=== PATIENT | female | born 1950 | race African-American/Black ===

== ENCOUNTER 2018-08-06 18:11 | Inpatient (IN) ==
[2018-08-06] MEDS ORDERED: NS 1,000 ML IV ONE ×3 (18:43→22:32)
[2018-08-06] MEDS ORDERED: HUMULIN R IV ONE ×2 (18:43→22:11)
[2018-08-06] MEDS ORDERED: HUMULIN R (PARKWAY) ONE (18:51)
[2018-08-06] MEDS ORDERED: NS 500 ML IV ONE (19:05)
[2018-08-06 19:29] LABS: BE -9.7 mmoll (-3.0-3.0); BLOOD TYPE ARTERIAL; HCO3-(ACT) 17.3 mmoll (20.0-26.0); METHB 0.5 % (0.0-1.5); O2(CT) 15.1 mL/dL (15.0-23.0); O2HB 95.7 % (95.0-99.0); PCO2(98.6) 32 mmHg (35-45); PO2(98.6) 92 mmHg (60-100); SAMPLE BLOOD; SAO2 97.4 % (95.0-100.0); THB 11.1 g/dL (11.5-17.4)
[2018-08-06 19:31] LABS: MODALITY CANNULA
[2018-08-06 19:32] LABS: ALLEN TEST YES
[2018-08-06 19:52] LABS: BASO# 0.01 X1000 (0.0-0.2); BASO% 0.1 % (0.0-0.8); EOS# 0.01 X1000 (0.0-0.7); EOS% 0.1 % (0.0-10.0); HEMATOCRIT 34.8 % (37.0-47.0); HEMOGLOBIN 11.7 g/dL (12.0-16.0); IMM GRAN# 0.01 X1000 (0.0-0.04); IMM GRAN% 0.1 % (0.0-0.5); LYMPH# 0.74 X1000 (1.2-3.4); LYMPH% 8.9 % (20.5-51.1); MCH 29.5 PG (27-31); MCHC 33.6 g/dL (33-37); MCV 87.7 FL (81-99); MONO# 0.19 X1000 (0.11-0.59); MONO% 2.3 % (1.7-9.3); MPV 10.7 FL (7.4-10.4); NEUT# 7.37 X1000 (1.4-6.5); NEUT% 88.5 % (42.2-75.2); PLT 391 X1000 (130-400); RBC 3.97 XMIL (4.2-5.4); RDW 12.4 % (11.5-14.5); WBC 8.33 X1000 (4.8-10.8)
[2018-08-06 20:03] LABS: ALBUMIN 3.5 g/dL (3.5-5.0); CALCIUM 9.6 mg/dL (8.8-10.2); POTASSIUM 3.8 mmol/L (3.5-5.1); TOTAL BILIRUBIN 0.2 mg/dL (0.20-1.00)
--- NOTE | 2018-08-06 20:26 | Diag Imaging Result Doc PS360 ---
EXAM: CT HEAD W/O CONTRAST HISTORY: ams TECHNIQUE: CT head without contrast COMPARISON: 06/19/2018 FINDINGS: There is motion on the lower images. No parenchymal hemorrhage. No epidural or subdural hematoma. No subarachnoid hemorrhage. There are chronic microvascular ischemic changes. No mass identified on this noncontrasted exam. No hydrocephalus. No sinus opacification although there is mucus within the left ethmoid and right maxillary sinuses.. IMPRESSION: 1.No hemorrhage 2.Chronic microvascular ischemic changes. A follow-up MRI may be beneficial. This exam was performed using automated exposure control, adjustment of mA or kV according to patient size, and/or use of iterative reconstruction technique. Electronically signed by Alan Gary 08/06/2018 8:24 PM
--- NOTE | 2018-08-06 20:27 | Diag Imaging Result Doc PS360 ---
EXAM: CHEST-PORTABLE HISTORY: decreased mentation TECHNIQUE: Chest single view COMPARISON: 05/17/2018 FINDINGS: Poor inspiratory effort. Heart is borderline mildly prominent and there is mild central vascular distention. No consolidation. No pleural effusions identified. IMPRESSION: Mildly prominent heart although this is a portable semierect film which exaggerates the heart size. Electronically signed by Alan Gary 08/06/2018 8:25 PM
[2018-08-06 21:04] LABS: BILIRUBIN URINE NEGATIVE (NEGATIVE); BLOOD URINE 1+ (NEGATIVE); CLARITY CLEAR (CLEAR); COLOR YELLOW; KETONE URINE NEGATIVE (NEGATIVE); LEUKOCYTES URINE NEGATIVE (NEGATIVE); NITRITE URINE NEGATIVE (NEGATIVE); PH URINE 6.5; SP GRAVITY URINE 1.005; UROBILINOGEN URINE NORMAL
[2018-08-06 21:07] LABS: URINE BACTERIA NEGATIVE /HFP; URINE EPITHELIAL CELLS <10 /HPF (<10); URINE RBC <10 /HPF (<10); URINE SOURCE CATH; URINE WBC <10 /HPF (<10)
[2018-08-06] MEDS ORDERED: LABETALOL IV ONE (21:20)
--- NOTE | 2018-08-06 21:24 | PROVIDER DOCUMENTATION ---
This chart was entered by Shabnam Damico Scribe, acting as scribe for Ezra Vega MD. HPI-General Adult - General Chief Complaint: High Blood Sugar Stated Complaint: AMS Time Seen by Provider: 08/06/18 19:15 Source: family Allergies/Adverse Reactions: Patient Allergies Allergy/AdvReac Type Severity Reaction Status Date / Time No Known Allergies Allergy Verified 06/19/18 01:10 Home Medications: Home Medication List Medication Instructions Recorded Confirmed Last Taken Type Amlodipine [Norvasc] 5 mg PO BID 30 Days #60 tab 02/26/18 06/19/18 03/06/18 Rx Sodium Bicarbonate 325 mg PO BID 30 Days #60 tab 02/26/18 06/19/18 03/06/18 Rx Acetaminophen [Tylenol] 650 mg PO Q6H PRN PRN tablet 06/20/18 Unknown Rx Carvedilol [Coreg] 12.5 mg PO BID #60 tab 06/20/18 Unknown Rx Insulin Glargine [Lantus] 15 unit SUBQ BID #5 insuln.pen 06/20/18 Unknown Rx Ciprofloxacin HCl [Cipro] 500 mg PO BID #14 tab 07/11/18 Unknown Rx - History of Present Illness -Gen Adult Nature of Presenting Problems: 68 y/o f presents to ed with general adult. pt presents to ed with elevated glucose, and family states 4 hr onset of symptoms, states that she was perfectly fine today and now she is unable to talk, not responsive, moving extremity's wildly. pt family states prior to symptoms pt c/o of a headache. coughing associated. Location of Pain/Injury: reports: generalized Pain Radiation: reports: no radiation Severity: reports: severe Onset/Duration: reports: just prior to arrival, 4-6 hours ago Timing: reports: still present, changing over time Associated Symptoms: reports: cough, headaches. denies: arm pain, back/neck pain, muscle aches, sinus congestion/drainage, nausea, shortness of breath, syncope Similar Symptoms Previously?: No - Diabetes Related Context Context: reports: high blood sugar Review of Systems - Adult - REVIEW OF SYSTEMS - ADULT Constitutional: denies: chills, fever Eyes: reports: no symptoms reported Ears, Nose, Mouth & Throat: reports: no symptoms reported Cardiovascular: reports: no symptoms reported Respiratory: reports: cough. denies: shortness of breath Gastrointestinal: denies: abdominal pain, diarrhea, nausea, vomiting Genitourinary: reports: no symptoms reported Musculoskeletal: reports: no symptoms reported Integumentary: reports: no symptoms reported Neurological: reports: headache/migraines, other (not speaking). denies: seizure, slurred speech, tremors Psychiatric: reports: no symptoms reported Endocrine: reports: no symptoms reported Hematologic/Lymphatic: reports: no symptoms reported Allergic/Immunologic: reports: no symptoms reported All Other Systems: Reviewed and Negative Past History - Adult - PAST MEDICAL HISTORY-ADULT Review of Records: reports: Old Records Reviewed, Nursing Assessment Review, Medications Reviewed, Social history reviewed & non-contributory. Major Childhood Illnesses: reports: denies history Cardiovascular: reports: HTN Respiratory: reports: denies history, asthma Gastrointestinal: reports: other (colon problems) Obstetrical/Gynecological: reports: denies history, other (breast cancer) Genitourinary: reports: kidney disease (CKD) Musculoskeletal: reports: denies history Neurological: reports: denies history Endocrine/Immune: reports: Diabetes Other Conditions: reports: denies history - PRIOR SURGERIES/PROCEDURES Surgical/Procedure History: reports: hysterectomy, breast (L lumpectomy) - IMMUNIZATION STATUS Childhood Immunizations: See Nurse Assessment Flu Vaccine: See Nurse Assessment - FAMILY HISTORY Family History: reviewed, not pertinent - SOCIAL HISTORY Smoking: non-smoker Substance Use: none/never Alcohol Use Frequency: never Living Situation: family Physical Exam-General - PHYSICAL EXAM-ADULT Initial Vital Signs Reviewed: Yes - CONSTITUTIONAL General Appearance: slow to respond - HEAD, EARS, NOSE, MOUTH & THROAT HENMT: other (semimoist membranes) - NECK Neck: supple - RESPIRATORY Respiratory: decreased breath sounds - CARDIOVASCULAR Cardiovascular: tachycardia - GASTROINTESTINAL (ABDOMEN) Abdominal Exam: non tender, soft, no pulsatile mass - LYMPHATIC Lymphatic: no adenopathy - MUSCULOSKELETAL Back Exam: no CVA tenderness Extremity: non-tender Peripheral Pulses: radial (R): 2+, radial (L): 2+ - SKIN Integumentary: warm/dry, other (poor turgor) - NEUROLOGIC Neurologic: other (nonfocal) - PSYCHIATRIC Psych/Mental Status: other (nonverbal, unable to fully assess) Progress - PLAN OF CARE/RESULTS Progress/Plan/Lab Results: Vital Signs - 8 hr 08/06/18 18:13 08/06/18 18:23 08/06/18 18:44 Temperature 98.5 F Pulse Rate 121 H 108 H Respiratory Rate 16 Blood Pressure 192/127 O2 Sat by Pulse Oximetry 100 99 Laboratory Results - last 24 hr 08/06/18 18:21 POC Glucose 500 H D Orders Category Date Time Status Deleon Cath Insertion ORDERED Care 08/06/18 19:05 Active Intake and Output-Strict ORDERED Care 08/06/18 19:05 Active Notify MD/PA/BRIANNA for exam NOW Care 08/06/18 19:05 Active Repeat Vital Signs .Blood Pressure Care 08/06/18 19:05 Active Repeat Vital Signs .Heart Rate Care 08/06/18 19:05 Active Repeat Vital Signs .Oxygen Saturation Care 08/06/18 19:05 Active Repeat Vital Signs .Respiratory Rate Care 08/06/18 19:05 Active Repeat Vital Signs .Temp Care 08/06/18 19:05 Active CHEST-PORTABLE [RAD] Stat Exams 08/06/18 19:06 Ordered ABG [RESP] Routine Lab 08/06/18 19:05 Ordered BLOOD CULTURE [BLDCUL] Stat Lab 08/06/18 19:04 Uncollected CBC WITH ELECTRONIC DIFF [HEME] Stat Lab 08/06/18 19:04 Ordered COMPREHENSIVE METABOLIC PANEL [CHEM] Stat Lab 08/06/18 19:04 Ordered LACTATE, PLASMA [CHEM] Timed Lab 08/06/18 19:[address] W/POSS RFLX CULT [URINALYSIS] Stat Lab 08/06/18 19:04 Uncollected 0.9% Sodium Chloride Inj [Ns] 1,000 ml Med 08/06/18 18:43 Active IV 999 mls/hr 0.9% Sodium Chloride Inj [Ns] 1,000 ml Med 08/06/18 19:05 Discontinued IV As Directed 0.9% Sodium Chloride Inj [Ns] 500 ml Med 08/06/18 19:05 Active IV 999 mls/hr Insulin Human Regular ([place] [Humulin R ([place])] Med 08/06/18 18:51 Discontinued 1 units .ROUTE .STK-MED ONE Insulin Human Regular [Humulin R] Med 08/06/18 18:43 Discontinued 10 unit IV NOW ONE Result Diagrams: 08/06/18 19:35 08/06/18 19:35 - XRAY 1 XRAY Study: Chest Impression: Normal (FINDINGS: Poor inspiratory effort. Heart is borderline mildly prominent and there is mild central vascular distention. No consolidation. No pleural effusions identified. IMPRESSION: Mildly prominent heart although this is a portable semierect film which exaggerates the heart size.) - CT/MRI 1 CT Study: Head Impression: Normal (FINDINGS: There is motion on the lower images. No parenchymal hemorrhage. No epidural or subdural hematoma. No subarachnoid hemorrhage. There are chronic microvascular ischemic changes. No mass identified on this noncontrasted exam. No hydrocephalus. No sinus opacification although there is mucus within the left ethmoid and right maxillary sinuses.. IMPRESSION: 1.No hemorrhage 2.Chronic microvascular ischemic changes. A follow- up MRI may be beneficial.) - CONSULTS/PCP/HOSPITALIST Notification #1 *Consult/PCP/Hospitalist*: Dr. Pope, hospitalist Time Discussed: 22:20 Reason/Comments: will start insulin drip also Consult Disposition: Admit Departure - Departure Date of Disposition Decision: 08/06/18 Time of Disposition Decision: 23:30 DIAGNOSIS: Febrile illness, Severe sepsis, Hypertensive urgency, Renal insufficiency Uncontrolled diabetes mellitus Qualifiers: Diabetes mellitus type: type 2 Glycemic state: with hyperglycemia Qualified Code(s): E11.65 - Type 2 diabetes mellitus with hyperglycemia Altered mental state Qualifiers: Altered mental status type: unspecified Qualified Code(s): R41.82 - Altered mental status, unspecified Disposition: ADMITTED INPATIENT 09 Certified Medical Emergency: Emergent Condition: Stable Referrals and Follow-Ups: Madina Justin MD [Primary Care Provider] - - Critical Care Note This patient required my direct & personal management of CC.: Yes Attestation - Physician/ HILDA Attestation Patient care was provided by Advanced Practice Provider:: No The physician spent face to face time with patient:: Yes Advanced Practice Provider documentation review:: Supervising physician onsite and consulted in the evaluation and care of this patient. The physician did have a face to face encounter with the patient. This chart was documented by the indicated scribe, (Shabnam Damico Scribe) and accurately reflects the services I performed and decisions made by me, Ezra Vega MD, as attested by the provider's signature.
[2018-08-06] MEDS ORDERED: NARCAN IV ONE (21:53)
[2018-08-06] MEDS ORDERED: MAXIPIME 2 GM in NS 100 ML IV ONE (21:59)
[2018-08-06] MEDS ORDERED: VANCOMYCIN 1 GM/NS 1 GM/250 ML IVPB IV ONE (21:59)
[2018-08-06] MEDS ORDERED: NS 500 ML ONE (22:08)
[2018-08-06 22:27] LABS: UR AMPHETAMINES QUAL NONE DETECTED (NONE DETECT); UR BARBITUATES QUAL NONE DETECTED (NONE DETECT); UR BENZODIAZEPIN QUAL NONE DETECTED (NONE DETECT); UR CANNABINOIDS QUAL NONE DETECTED (NONE DETECT); UR COCAINE QUAL NONE DETECTED (NONE DETECT); UR METHADONE QUAL NONE DETECTED (NONE DETECT); UR METHAMPHETAMINE QUAL NONE DETECTED (NONE DETECT); UR OPIATES QUAL NONE DETECTED (NONE DETECT); UR OXYCODONE QUAL NONE DETECTED (NONE DETECT); UR PCP QUAL NONE DETECTED (NONE DETECT); UR PROPOXYPHENE QUAL NONE DETECTED (NONE DETECT); UR TCA QUAL NONE DETECTED (NONE DETECT)
[2018-08-06] MEDS ORDERED: NS 0 ML ONE ×2 (23:00→23:34)
[2018-08-06] MEDS: CARDENE 20 MG/NS 20 MG/200 ML PIGGYBACK IV SCH (23:00)
[2018-08-06] MEDS: HUMULIN R (PARKWAY) 100 UNITS in NS 100 ML IV SCH (23:15)
[2018-08-06] MEDS ORDERED: MAXIPIME ONE (23:32)
[2018-08-06] MEDS ORDERED: NS 100 ML ONE (23:51)
[2018-08-07] MEDS ORDERED: NS 1,000 ML ONE (00:01)
[2018-08-07] MEDS ORDERED: TYLENOL ONE (00:08)
[2018-08-07] MEDS ORDERED: TYLENOL PR ONE (00:08)
[2018-08-07] MEDS ORDERED: LABETALOL IV ONE (02:30)
[2018-08-07] MEDS: MAXIPIME 1 GM in NS 50 ML IV SCH ×3 (05:55→21:55)
[2018-08-07] MEDS: HUMULIN R (PARKWAY) 100 UNITS in NS 100 ML IV SCH (06:32)
[2018-08-07] MEDS: CARDENE 20 MG/NS 20 MG/200 ML PIGGYBACK IV SCH ×5 (06:36→23:47)
[2018-08-07] MEDS ORDERED: VANCOMYCIN IV PER PHARMACY MISC SCH (06:45)
[2018-08-07] MEDS ORDERED: D50W SYRINGE ONE (07:51)
[2018-08-07] MEDS ORDERED: VANCOMYCIN 1,600 MG in NS 250 ML IV ONE (08:00)
[2018-08-07 09:40] LABS: HEMATOCRIT 28.5 % (37.0-47.0); HEMOGLOBIN 9.4 g/dL (12.0-16.0); MCH 28.7 PG (27-31); MCV 86.9 FL (81-99); MPV 10.2 FL (7.4-10.4); RBC 3.28 XMIL (4.2-5.4); RDW 12.6 % (11.5-14.5); WBC 11.98 X1000 (4.8-10.8)
[2018-08-07 10:03] LABS: ALBUMIN 3.2 g/dL (3.5-5.0); CALCIUM 9.1 mg/dL (8.8-10.2); CREATININE 2.9 mg/dL (0.5-0.9); MAGNESIUM 1.2 mg/dL (1.5-2.7); PHOSPHORUS 2.8 mg/dL (2.7-4.5); POTASSIUM 3.3 mmol/L (3.5-5.1); TOTAL BILIRUBIN 0.2 mg/dL (0.20-1.00); TOTAL PROTEIN 6.9 g/dL (6.3-8.3)
[2018-08-07] MEDS: HUMALOG DOSE (PARKWAY) SUBQ SCH ×3 (11:53→20:08)
[2018-08-07] MEDS ORDERED: POTASSIUM CHLORIDE IV ONE (12:00)
[2018-08-07] MEDS ORDERED: MAGNESIUM SULFATE IV ONE (12:00)
[2018-08-07] MEDS ORDERED: NS IV ONE (12:00)
--- NOTE | 2018-08-08 02:59 | HISTORY AND PHYSICAL ---
PRIMARY CARE PHYSICIAN: Madina Justin MD. CHIEF COMPLAINT: Altered mental status. HISTORY OF PRESENT ILLNESS: This is a 68-year-old female who is well known to our service for previous admissions. She presents to the emergency room with family members who state that the patient was in her normal state of health until 4 hours prior to coming to the emergency room. At this time she was found unresponsive. She would not talk. She was flinging her extremities wildly per their description. They did state that she had a high blood sugar. She was noted to have blood pressures in the 190-219 over 107/129 range for which she was given IV labetalol and subsequently a Cardene drip was started, and blood pressures have been ranging from the 140s-180s over 70s since. Blood sugar was found to be 680 for which she was given IV insulin and started on an insulin drip. She was then transported to ICU. 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 PAST SURGICAL HISTORY: Left mastectomy, hysterectomy. SOCIAL HISTORY: She lives with her daughter. She denies alcohol, tobacco, or illicit drug use. ALLERGIES: No known drug allergies. HOME MEDICATIONS: A list will be obtained by the nursing staff and started as is appropriate. REVIEW OF SYSTEMS: Unable to obtain from the patient. PHYSICAL EXAMINATION: GENERAL: This is a 68-year-old female who is lying in the bed in ICU in no distress. VITAL SIGNS: Blood pressure is 180/75, with a heart rate of 101, respirations are 20-22, temperature has ranged from 99.8-101.9, with O2 saturations being 99%-100% on 2 L nasal cannula. EYES: Pupils are equal, round, conjunctivae are pink. HEENT: Head is normocephalic and atraumatic. Mucous membranes are dry. NECK: Supple with trachea midline. CARDIOVASCULAR: Regular rate and rhythm. S1 and S2 appreciated. No murmurs appreciated. She does have generalized edema. PULMONARY: Breath sounds are diminished throughout. Chest rises and falls symmetrically to respiration. GASTROINTESTINAL: Abdomen is soft, nondistended, with bowel sounds in all 4 quadrants. GENITOURINARY: Deleon is patent to bedside bag with clear yellow urine draining. NEUROLOGIC: She moves extremities at random. She withdraws from pain x4 extremities. She has no threatened blink, but she does blink to tactile stimulation. LABORATORY DATA: WBC is 8.3 with hemoglobin 11.7, hematocrit 34.8, and platelets of 397,000. Sodium is 132, potassium 3.8, BUN 37, creatinine 3, with a blood sugar of 680. Urinalysis is essentially negative. Urine drug screen is negative. Blood cultures and urine cultures are pending. CT of the head reveals no hemorrhage, chronic microvascular ischemic changes. Chest x- ray reveals mildly prominent heart with no consolidation and no pleural effusions. ASSESSMENT AND PLAN: 1. Hypertensive urgency. We will continue with a Cardene drip. 2. Sepsis. Blood cultures and urine cultures are pending. We will continue with cefepime and vancomycin renally dosed per pharmacy. Once cultures return antibiotics will be culture driven. 3. Unresponsive. CT of the head was negative. We will continue with neurologic checks. 4. Chronic kidney disease stage 4-5. We will consult Dr. Fitzgerald in Nephrology. Do strict I and O and continue to renal dose medications. 5. Hyponatremia. We will continue to trend her labs. 6. Electrolytes. We will trend labs and treat as is appropriate. 7. Insulin-dependent diabetes mellitus with hyperglycemia. We will check an acetone, at the time of my exam her blood sugar was 65, so we will check an acetone, recheck a BMP, stop her insulin drip for now, have blood sugars q.4 hours with sliding scale insulin. 8. History of breast cancer, aware. 9. We will repeat a CBC, CMP, magnesium and phosphorus in the morning. Further treatments pending hospital course. Dictated by BRIANNA Anton for Jacques Pope MD This chart was documented by, BRIANNA Anton and accurately reflects the services performed, treatment plan and medical decisions as attested by the providers signature Jacques Pope MD. cc: BRIANNA Anton MD Bernice Swain, MD
--- NOTE | 2018-08-08 03:49 | NEPHROLOGY CONSULTATION ---
DATE: 08/07/2018 REASON FOR CONSULTATION: Chronic kidney disease. HISTORY OF PRESENT ILLNESS: Ms. Velez is a 68-year-old woman with diabetes, hypertension, chronic kidney disease, hyperlipidemia, etc. The family states that she was in her normal state of health yesterday. They called her today and found her to be confused. They found her slumped over in the chair, and she was brought to the emergency room. Her initial evaluation found a glucose of 680 with an anion gap of 23, bicarb of 14. She has been treated with insulin and fluids and in that context, her anion gap is improved from 23 to 16, and her glucose has improved from 680 to 124. She had no ketones in the urine, and lactate was 1.9. She cannot add any further history. PAST MEDICAL HISTORY: As above. HOME MEDICATIONS: Amlodipine, sodium bicarbonate, acetaminophen, carvedilol, insulin, furosemide, hydralazine, Symbicort, folate, clonidine. ALLERGIES: None. SOCIAL HISTORY: Otherwise, not obtainable. FAMILY HISTORY: Otherwise, not obtainable. REVIEW OF SYSTEMS: Otherwise not obtainable. PHYSICAL EXAMINATION: Vital Signs: Blood pressure 144/73, heart rate 109, respiration 99.8. General: No acute distress, but she is writhing in bed and difficult to control. Moaning but unintelligible. Skin: Warm and dry. HEENT: Conjunctivae are pale. Pupils are equal. Oropharynx is dry. Neck: Neck veins are not appreciated. Trachea is midline. Heart: Regular and tachycardic. Lungs: Have equal breath sounds. No crackles. Abdomen: Soft, nontender. Bowel sounds present. No organomegaly. Extremities: Minimal edema. No clubbing or cyanosis. Neurologic: Nonfocal except as above. IMPRESSION AND PLAN: Chronic kidney disease. She is at or near her historical baseline. Creatinine ranges from 2.1 to 2.8. She does have a metabolic acidosis. This is multifactorial in origin, related to her renal disease and her hyperglycemia. Improving. I have reviewed your care, and I agree with your IV fluid orders as well as your IV nicardipine as needed for her blood pressure. She has received appropriate initial fluid boluses. Renal function is stable and at baseline. cc: Benji Fitzgerald MD
[2018-08-08] MEDS: CARDENE 20 MG/NS 20 MG/200 ML PIGGYBACK IV SCH ×3 (04:00→20:28)
--- NOTE | 2018-08-08 04:52 | HISTORY AND PHYSICAL ---
ADDENDUM: The patient is seen and examined by myself. Full note dictated and discussed with the nurse practitioner. The patient presented to the emergency room with elevated glucose. Family notes that she was normal earlier today, but they brought her to the ER because she could not talk and she has been acting "wildly." On exam, currently she is quite ill. She does not answer questions nor follow commands. Her blood pressure is markedly elevated. She certainly could have had a stroke as the cause or because of her current illness. We will admit her to the hospital, place her on antibiotics, control her blood pressures. We will ask Nephrology to evaluate her kidney function as it is certainly worse than her baseline, and we will follow. cc: Jacques Pope MD
[2018-08-08] MEDS: HUMALOG DOSE (PARKWAY) SUBQ SCH ×2 (06:26→11:30)
[2018-08-08 07:55] LABS: HEMATOCRIT 27.6 % (37.0-47.0); HEMOGLOBIN 9.1 g/dL (12.0-16.0); MCH 29.4 PG (27-31); MCV 89.3 FL (81-99); MPV 11.1 FL (7.4-10.4); RBC 3.09 XMIL (4.2-5.4); RDW 13.2 % (11.5-14.5); WBC 12.93 X1000 (4.8-10.8)
[2018-08-08 08:06] LABS: ALBUMIN 2.9 g/dL (3.5-5.0); CALCIUM 9.2 mg/dL (8.8-10.2); CREATININE 3.2 mg/dL (0.5-0.9); MAGNESIUM 1.8 mg/dL (1.5-2.7); PHOSPHORUS 3.9 mg/dL (2.7-4.5); POTASSIUM 4.4 mmol/L (3.5-5.1); TOTAL BILIRUBIN 0.2 mg/dL (0.20-1.00); TOTAL PROTEIN 6.5 g/dL (6.3-8.3)
[2018-08-08 08:26] LABS: PROTIME 13.7 Seconds (11.0-16.0)
[2018-08-08 08:27] LABS: PTT 25.4 Seconds (22.3-41.8)
[2018-08-08 08:42] LABS: BE -11.3 mmoll (-3.0-3.0); BLOOD TYPE ARTERIAL; HCO3-(ACT) 16.1 mmoll (20.0-26.0); METHB 1.3 % (0.0-1.5); O2(CT) 12.5 mL/dL (15.0-23.0); O2HB 93.9 % (95.0-99.0); PCO2(98.6) 38 mmHg (35-45); PO2(98.6) 73 mmHg (60-100); SAMPLE BLOOD; SAO2 97.3 % (95.0-100.0); THB 9.4 g/dL (11.5-17.4)
[2018-08-08 08:58] LABS: ALLEN TEST YES; MODALITY CANNULA; pH(98.6) 7.22 (7.35-7.45)
--- NOTE | 2018-08-08 09:14 | Diag Imaging Result Doc PS360 ---
EXAM: CT HEAD W/O CONTRAST HISTORY: AMS TECHNIQUE: Images were obtained from the skull base to vertex without IV contrast as per standard protocol. COMPARISON: 08/06/2018 FINDINGS: There is motion artifact. There are no extra-axial collections. There is no evidence for hemorrhage. There is no midline shift or mass effect. There is no hydrocephalus. There is diffuse cerebral atrophy. There is patchy hypodensity within the deep white matter which is nonspecific in appearance but likely related to microvascular disease . There is an air-fluid level right maxillary sinus and diffuse opacification of the ethmoid air cells. IMPRESSION: 1.Evidence of microvascular disease and cerebral atrophy. 2. No acute intracranial abnormalities appreciated. 3.Paranasal sinus disease. This exam was performed using automated exposure control, adjustment of mA or kV according to patient size, and/or use of iterative reconstruction technique. Electronically signed by Shruti Cheek 08/08/2018 9:11 AM
[2018-08-08] MEDS: MAXIPIME 1 GM in NS 50 ML IV SCH ×2 (11:29→22:16)
[2018-08-08] MEDS ORDERED: SODIUM BICARBONATE PO SCH (14:00)
[2018-08-08] MEDS ORDERED: MISC. PHARMACY COMMUNICATION SCH (15:16)
--- NOTE | 2018-08-08 15:42 | NEPHROLOGY PROGRESS NOTE ---
DATE: 08/08/2018 DATE AND TIME: Date seen 08/08/2018, time seen is 1445. SUBJECTIVE: Ms. Velez has just arrived via ambulance transfer from [facility] ICU bed #1 to [facility] ICU bed #12. She tolerated the transfer well. She is awake. She is oriented. She is answering questions appropriately. OBJECTIVE: Vital Signs: Her most recent vital signs: Last recorded temperature 97.2 degrees, blood pressure 132/71, heart rate 96, respirations 14. She is on 3 L nasal cannula. Last recorded saturation 94%. She has had 150 in today, with 205 out. In the past 24 hours she has had 3093 in, 575 mL out to Deleon catheter. LABS: This a.m.: Sodium 143, potassium 4.4, chloride is 114, CO2 13, BUN 40, creatinine 3.2, glucose 364. Her anion gap is 17, calcium 9.2, phosphorus 3.9, albumin 2.9, magnesium 1.8. White count 12.93, hemoglobin 9.1, hematocrit 27.6, platelet count 281,000. ABGs: PH 7.22, CO2 38, PO2 73, bicarb 16.1 with a lactate of 0.8 on 3 L. Her ProTime is 13.7, INR of 1, PTT 25.4. PHYSICAL EXAMINATION: General: This is a 68-year-old elderly female. She is resting quietly in bed. She is in no acute distress. Skin: Warm and dry. HEENT: Normocephalic, atraumatic. Conjunctiva is pale pink. She has CUCA. Mucous membranes are dry. Neck: Supple, trachea midline. No evidence of JVD. Cardiovascular: She appears to be regular rate and rhythm. She is slightly tachycardic on the monitor, unable to appreciate any murmur or gallop. Lungs: Clear to auscultation bilaterally. Equal excursion. She is on O2. Abdomen: Large, obese, soft, nontender. Positive bowel sounds. Genitourinary: Not inspected. Deleon catheter is in place with adequate urine out. Clear light yellow urine. Extremities: She has trace pretibial edema. No clubbing or cyanosis. Integumentary: Patient has an abscess noted to right below her right breast. This is reddened with some minimal drainage on her abdomen. It is thick to palpation. In description, it is larger than a half-dollar in size, though deep. Otherwise, no rashes or lesions. Neurologic: She is alert to person and to place. Forgetful to recent events. ASSESSMENT AND PLAN: 1. Chronic kidney disease stage III B4. Patient's historical baseline is 2.9 to 3.2. Her creatinine is at 3.2 today, BUN of 40. She has had adequate urine output. 2. Metabolic acidosis, again this is multi factorial. She has kidney disease with hyperglycemia, though this is improving. We will plan to attempt to give patient oral sodium bicarbonate at least until IV is placed. 3. Hypertension. Patient has been started on IV nicardipine for her blood pressure control. It remains stable at this time. This remains intact. 4. Anemia. This is low but acceptable. This has been slowly dropping since her admission. No indications for intervention. 5. Altered mental status. This has slowly improved. Patient is awake. She is answering questions appropriately. 6. Edema/volume overload. Lasix x 1. rg I would like to thank you for allowing us to follow with this patient. Dictated by BRIANNA Amaro for Benji Fitzgerald MD Face to face encounter, data reviewed, discussed with Sergio Gonzales on 08/08/18. I agree with the above assessment and plan of care. rossy cc: BRIANNA Amaro MD [facility]
[2018-08-08] MEDS ORDERED: VANCOMYCIN IV PER PHARMACY MISC SCH (16:30)
[2018-08-08] MEDS ORDERED: LASIX IV ONE (16:30)
--- NOTE | 2018-08-08 17:36 | Diag Imaging Result Doc PS360 ---
EXAM: CHEST-1 VIEW 08/08/2018 HISTORY: assess pulmonary edema TECHNIQUE: AP portable upright at 1712 COMMENT: There is worsening dense alveolar opacification in the left upper lobe as well as the left lower lobe. There is perihilar opacity in the right upper lobe which was not present on 08/06/2018. IMPRESSION: Pulmonary edema plus minus pneumonia particularly in the left upper lobe. Electronically signed by Roberto Dugan 08/08/2018 5:34 PM
[2018-08-08] MEDS ORDERED: D50W SYRINGE IV PRN (18:09)
[2018-08-08] MEDS ORDERED: SODIUM BICARBONATE 8.4% IV ONE (18:10)
[2018-08-08] MEDS: HUMALOG SUBQ SCH ×2 (18:23→20:42)
--- NOTE | 2018-08-08 18:50 | PROGRESS NOTE ---
DATE: 08/08/2018 SUBJECTIVE: This patient is lying flat in bed. She is completely confused. She is just oriented to name, and she is following a little bit commands but she is not consistent. Blood culture so far negative, but she has a little lesion that probably is infected, probably an abscess behind her right breast. Surgery Department has been consulted, and they will probably drain that. Patient is acidotic so I will push an amp of bicarbonate. For her blood pressure, we will continue with her nicardipine drip. I have stopped the vancomycin due to her kidney dysfunction, and I have placed this patient on Zyvox. I will wait for the final results of the cultures. Continue with cefepime. Nephrology Department evaluated this patient, and they gave her 200 mL of Lasix x1 today. We have collected here around 150 mL of urine in 2 hours. She seems to be hypoxemic a little bit even with oxygen. When she talks, the oxygen saturation dropped to the 80s. OBJECTIVE: Vital Signs show temperature 97.2 degrees, pulse 96, respiratory rate 18, blood pressure 146/88, and oxygen saturation 96 on 3 L of nasal cannula.HEENT: Head normocephalic. No trauma. PERRLA. Neck: Supple. No JVD. Central trachea. Her mouth looks a little bit dry, but she is breathing through her mouth though. Chest: Bilateral rhonchi which is generalized mostly on the right side, right upper part and medial part of the thorax. Abdomen: Soft. Nontender, nondistended. No hepatosplenomegaly. Extremities: No edema. No clubbing. No cyanosis. Neurological: The patient is alert. She is oriented just to name. She is following commands a little bit, but she is not consistent. She moves all 4 extremities spontaneously. LABORATORY: WBC 12.9, hemoglobin 9.1, hematocrit 27.6, and platelets 281,000. Sodium 143, potassium 4.4, chloride 114, bicarbonate 13, BUN 40 and creatinine 3.2. Glucose 364, but glucose check showed a blood sugar of 192. Calcium 9.2, magnesium 1.8, AST 34, ALT 11, alkaline phosphatase 87, and albumin 2.9. ASSESSMENT AND PLAN: 1. Sepsis. I think she has a right upper lobe and perihilar pneumonia. Likely, she also has some pulmonary edema. She has been placed on broad-spectrum antibiotics. I have stopped the vancomycin and have switched to Zyvox because of this patient's creatinine and kidney dysfunction. Lactate level was normal per admission. Today, the lactate level is normal with ABGs. She is not requiring pressors. Actually, she has hypertension. 2. Right upper lobe and perihilar pneumonia. Continue with the same management. 3. Metabolic acidosis. I do not think this patient is able to swallow so I will give her one amp of sodium bicarbonate stat. 4. Hypertensive urgency. Continue with nicardipine drip. 5. Global encephalopathy. I do believe this is multifactorial due to kidney dysfunction, infectious encephalopathy and sepsis. 6. Hyponatremia likely secondary to her high glucose level, sodium today is normal. 7. Hypokalemia, resolved. 8. Hypomagnesemia resolved. 9. Normocytic anemia. Will monitor. She has been stable. 10. Leukocytosis likely secondary to the infectious process. Continue with antibiotics. Continue to monitor. 11. Type 2 diabetes with severe hyperglycemia, acetone level is negative. Blood sugar recently was around 190 to 195. We will continue with sliding scale insulin and pattern of blood sugar, and p.r.n. D50 in case of hypoglycemia. 12. History of breast cancer. Aware. 13. Likely pulmonary edema, she already received a dose of Lasix today. We will monitor in the morning. CRITICAL CARE TIME: 40 minutes. cc: Azam Delong MD
--- NOTE | 2018-08-08 19:32 | Diag Imaging Result Doc PS360 ---
EXAM: CHEST/ABD TUBE PLACEMENT 08/08/2018 HISTORY: ng tube placemnet TECHNIQUE: AP portable at 1913 COMMENT: There is a NG tube with its tip in the distal stomach. There are patchy alveolar opacities bilaterally particularly in the left lower lobe and lingula. IMPRESSION: NG tube in the stomach. Electronically signed by Roberto Dugan 08/08/2018 7:30 PM
[2018-08-08] MEDS: ZYVOX 600 MG/D5W 600 MG/300 ML IVPB IV SCH (20:42)
[2018-08-08] MEDS: SODIUM BICARBONATE PO SCH (21:30)
[2018-08-08] MEDS: DUONEB (A & A) INH SCH (23:05)
--- NOTE | 2018-08-09 01:12 | PROGRESS NOTE ---
DATE: 08/08/2018 SUBJECTIVE: Patient is a lot more awake and alert this morning. She does answer questions occasionally. PHYSICAL EXAMINATION: Vital Signs: Reviewed. Temperature 98 degrees, pulse 106, respiratory 22, BP 153/75. General: Patient does arouse to verbal and physical stimuli. She does not currently answer questions although last night she did answer a few short questions. HEENT: Normocephalic. Neck: Supple. CARDIOVASCULAR: Regular rate. Chest: Clear. Positive rhonchi. No current wheezing. Abdomen: Soft. Obese. Extremities: Positive edema. ASSESSMENT: 1. Hypertensive urgency. Blood pressure is much improved at 153/75 compared to 219/129 on admission. 2. Sepsis. 3. Metabolic encephalopathy, likely secondary to her sepsis. 4. Hyponatremia. 5. Insulin-dependent diabetes. 6. End-stage renal failure. PLAN: We will continue Maxipime and vancomycin. We will consult Cardiology and we have consulted Nephrology. We will continue her in the ICU and we will follow. cc: Jacques Pope MD
[2018-08-09] MEDS: CARDENE 20 MG/NS 20 MG/200 ML PIGGYBACK IV SCH ×4 (01:54→23:54)
--- NOTE | 2018-08-09 03:04 | GENERAL SURGERY PROGRESS NOTE ---
DATE: 08/08/2018 HISTORY OF PRESENT ILLNESS: This is a 68-year-old female who was found with altered mental status, and was transferred for further evaluation of this. She was admitted. Workup for hypertensive urgency and possible CVA has been started. Her CT scan of her head showed no clear infarct or bleed. She has been treated for profound hypertension, systolics up in the low 200s. She remains altered. She does have worsening of her chronic renal function. Incidentally, on admission, her nurses have noticed a fluctuant area in the right inferomedial breast. Otherwise, history is somewhat limited. MEDICAL HISTORY: Anemia of chronic disease, chronic kidney disease, diabetes, hyperlipidemia, personal history of breast cancer, morbid obesity. SURGICAL HISTORY: She has had a left breast operation, a hysterectomy. SOCIAL HISTORY: She has a daughter. Apparently, no tobacco, alcohol, or drugs. MEDICATIONS: Unobtainable right now. REVIEW OF SYSTEMS: Ten-point negative. FAMILY HISTORY: Reviewed from the record, and appears noncontributory. PHYSICAL EXAMINATION: Vital Signs: Pulse has been low 100s. Temperature 97.8 degrees. Blood pressures have been anywhere from systolics 170s up to 212. Oxygen saturation low 90s. General: She is alert, but agitated, writhing in bed. HEENT: There is an external jugular vein line. Cardiovascular: Sinus tachycardia. Pulmonary: No increased work of breathing. Abdomen: Soft, nontender, nondistended. Breast: There is a fluctuant nodular area in the inferior medial aspect of the right breast. Otherwise, no nipple discharge. I do not see any other lesions. Bilaterally, I do not feel any cervical or axillary adenopathy, supra- or infraclavicular adenopathy. Peripheral Vascular: Trace lower extremity edema. Neurologic: She seems to be moving all extremities equal, with normal strength, but she is significantly disoriented and nonverbal. LABORATORY STUDIES: White count 12, hematocrit 27. INR is 1.00. ABG 7.22, 38, 73. Creatinine is 3.2. Glucose has been as high as 600. Troponins were mildly elevated 0.086. Magnesium is low, but it has been repleted. It is improving. UDS was negative. I reviewed the CT scans of her head. There was some microvascular disease and atrophy. Chest x-ray shows pulmonary edema, possible pneumonia. ASSESSMENT AND PLAN: A 68-year-old female with poor peripheral access and altered mental status of unclear etiology. Her daughter has consented to a central line placement. I have attempted to contact her to discuss this further. She is unavailable at this moment, but she did sign a permit. With regards to her breast, I will need better information regarding her breast cancer history. I do not see obvious signs of infection of this. It is a somewhat fluctuant nodule. We will need to get an ultrasound of this to define, and ultimately she will need a mammogram. It will be reasonable to start her empirically on antibiotics, given all she has going on, mild white count. I do not suspect that this breast issue is her main source of her altered mental status. Dr. Fitzgerald is following. We will place a right femoral central line, given her altered mental status and her inability to cooperate effectively with an upper extremity line. cc: Mariana Montes De Oca MD
--- NOTE | 2018-08-09 03:10 | OPERATIVE NOTE ---
PROCEDURE DATE: 08/08/2018 POSTOPERATIVE DIAGNOSES: Hypertensive emergency with poor peripheral access. POSTOPERATIVE DIAGNOSIS: Hypertensive emergency with poor peripheral access. PROCEDURE PERFORMED: Right femoral vein triple-lumen catheter placement. ESTIMATED BLOOD LOSS: 5 mL. SPECIMENS: None. ANESTHESIA: Local. INDICATION FOR PROCEDURE: This is a 68-year-old female admitted with altered mental status. She has very poor peripheral access and multiple infusions going to treat her hypertensive urgency and worsening renal dysfunction. OPERATIVE FINDINGS: Normal femoral pulse and inguinal anatomy. DESCRIPTION OF PROCEDURE: The risks, benefits and alternatives were discussed with the patient's daughter by the Hospitalist Service. She signed a permit but is unobtainable at this time for me to discuss further, but given the urgent nature we felt that we should proceed in the patient's best interest. The right groin was prepped with chlorhexidine solution and draped in the usual fashion. After a time-out, the femoral pulse was palpated and the vein was accessed on the first pass medial to this. Dark nonpulsatile venous blood was noted on return. The wire threaded easily. A skin huseyin was made. The tract was dilated and a 7-Kiswahili pre-flushed triple-lumen catheter was advanced and secured. All ports withdrew blood flushed without resistance. A dressing was applied. She tolerated well. No complications. cc: Mariana Montes De Oca MD
[2018-08-09] MEDS: DUONEB (A & A) INH SCH ×6 (03:19→23:30)
[2018-08-09 04:29] LABS: ALLEN TEST YES; BE -10.9 mmoll (-3.0-3.0); BLOOD TYPE ARTERIAL; HCO3-(ACT) 16.3 mmoll (20.0-26.0); O2(CT) 11.7 mL/dL (15.0-23.0); PCO2(98.6) 29 mmHg (35-45); PO2(98.6) 51 mmHg (60-100); SAMPLE BLOOD; SAO2 90.5 % (95.0-100.0); THB 9.5 g/dL (11.5-17.4)
[2018-08-09 04:30] LABS: MODALITY CANNULA; O2HB 87.7 % (95.0-99.0)
[2018-08-09 04:42] LABS: EOS# 0.01 X1000 (0.0-0.7); EOS% 0.1 % (0.0-10.0); HEMATOCRIT 28.5 % (37.0-47.0); HEMOGLOBIN 9.2 g/dL (12.0-16.0); IMM GRAN# 0.04 X1000 (0.0-0.04); IMM GRAN% 0.3 % (0.0-0.5); LYMPH# 0.75 X1000 (1.2-3.4); MCH 28.8 PG (27-31); MCHC 32.3 g/dL (33-37); MCV 89.3 FL (81-99); MPV 10.9 FL (7.4-10.4); NEUT# 13.09 X1000 (1.4-6.5); NEUT% 86.6 % (42.2-75.2); PLT 297 X1000 (130-400); RBC 3.19 XMIL (4.2-5.4); RDW 13.7 % (11.5-14.5); WBC 15.09 X1000 (4.8-10.8)
[2018-08-09 05:08] LABS: MAGNESIUM 1.7 mg/dL (1.5-2.7)
[2018-08-09 05:30] LABS: ALB/GLOB RATIO 0.8; ALBUMIN 2.8 g/dL (3.5-5.0); CALCIUM 8.6 mg/dL (8.8-10.2); CREATININE 3.3 mg/dL (0.5-0.9); POTASSIUM 3.6 mmol/L (3.5-5.1); TOTAL BILIRUBIN 0.16 mg/dL (0.20-1.00); TOTAL PROTEIN 6.4 g/dL (6.3-8.3)
[2018-08-09] MEDS: HUMALOG SUBQ SCH ×4 (06:14→21:28)
--- NOTE | 2018-08-09 07:13 | Diag Imaging Result Doc PS360 ---
EXAM: CHEST-PORTABLE HISTORY: dyspnea TECHNIQUE: Portable chest single view COMPARISON: 08/08/2018 FINDINGS: there are dense infiltrates in the mid and lower left lung and in the mid right lung. Heart is mildly prominent. A nasogastric tube overlies the esophagus and stomach. IMPRESSION: Dense pneumonia with no interval improvement. Electronically signed by Alan Gary 08/09/2018 7:11 AM
--- NOTE | 2018-08-09 07:47 | PROGRESS NOTE ---
DATE: 08/09/2018 SUBJECTIVE: Patient is lying flat in bed, she is not complaining of shortness of breath at this moment. She is following commands on and off. Blood culture so far is negative. Urine culture so far negative. She is still acidotic. She has been getting sodium bicarbonate through the NG tube. I have started this patient on Nepro, but I will switch it to Glucerna due to her elevated blood sugar. I will start with just 10 mL/h. She seems to be a little bit better compared with yesterday. I will continue with the same management. I have requested an evaluation by Infectious Disease Department Dr. Carmona for her left upper lobe infiltrate, which I believe is due to his pneumonia, but this patient also has a history of breast cancer. Likely, I will get a CT scan once this patient is a little bit more stable. OBJECTIVE: Vital Signs: Temperature 98.2, pulse 104, respiratory rate 15, blood pressure 168/80, and oxygen saturation 95% on 6 L of nasal cannula. HEENT: Head normocephalic. No trauma. PERRLA. Neck: Supple. No JVD. No masses. Central trachea. Chest: Bilateral scattered rhonchi, but it is more evident on the left lung. Abdomen: Soft, nontender, and nondistended. No hepatosplenomegaly. Extremities: No edema. No clubbing. No cyanosis. Decreased muscle mass. Neurological: The patient is alert. She is disoriented, but she is following commands on and off. She moved all 4 extremities. LABORATORY: WBC 15, hemoglobin 9.2, hematocrit 28.5, and platelets 295,000. Sodium 145, potassium 3.6, chloride 112, bicarbonate 15, BUN 45, creatinine 3.3, and glucose 335. Calcium 8.6 and albumin 2.8. ASSESSMENT AND PLAN: 1. Sepsis. I think she has a left upper lobe and perihilar pneumonia likely. Also, I think she has some pulmonary edema still, but she looks better clinically today. I have placed this patient on broad-spectrum antibiotics. I have consulted the Infectious Disease doctor today. We will continue with the same treatment. She will receive an extra dose of Lasix today. 2. Right upper lobe perihilar infiltrates likely due to pneumonia. Continue with the same management. Continue with antibiotics. 3. Metabolic acidosis. Continue with bicarbonate through the NG tube. We will monitor. 4. Hypertensive urgency. Continue with nicardipine drip. 5. Global encephalopathy multifactorial due to infectious encephalopathy, sepsis and probably kidney dysfunction. 6. Hyponatremia likely secondary to her high glucose level. Sodium today is normal. 7. Hypokalemia, resolved. 8. Hypomagnesemia resolved. 9. Normocytic anemia. Will monitor. Stable. 10. Leukocytosis likely secondary to the infectious process. Continue with antibiotics. Continue to monitor. 11. Type 2 diabetes with severe hypoglycemia. Acetone level is negative. Blood sugar has been a little bit elevated, and I do believe it is also due to the tube feeding which I will switch to Glucerna. 12. History of breast cancer. Aware. We need to get more information about that. She has a little mass like a nodule that is fluctuant, but I am not quite sure if this is infected or not. It does have some fluid collection inside though, surgery department evaluated this patient. They are requesting more information about her breast cancer from before. 13. Likely pulmonary edema. She already received Lasix yesterday, and today she is going to get some more. We will monitor. CRITICAL CARE TIME: 30 plus minutes. cc: Azam Delong MD
--- NOTE | 2018-08-09 08:43 | Diag Imaging Result Doc PS360 ---
EXAM: US BREAST COMPLETE UNILAT-RT HISTORY: mass TECHNIQUE: Right breast ultrasound COMPARISON: None. FINDINGS: Ultrasound of the four quadrants performed. Ultrasound of the palpable area in the inner right breast demonstrates a 1.2 x 2.4 cm circumscribed complex subcutaneous nodule. There is prominent posterior acoustic enhancement. No other abnormality within the right breast. No other solid mass or cyst. IMPRESSION: Complex cystic nodule in the three to 4 o'clock position of the right breast. Biopsy is suggested. Electronically signed by Alan Gary 08/09/2018 8:40 AM
[2018-08-09] MEDS: ZYVOX 600 MG/D5W 600 MG/300 ML IVPB IV SCH ×2 (09:00→21:09)
[2018-08-09] MEDS: SODIUM BICARBONATE PO SCH ×2 (09:04→22:59)
--- NOTE | 2018-08-09 09:23 | INFECTIOUS DISEASE CONSULT REP ---
DATE: 08/09/2018 CONCLUSION: I agree with Dr. Dennison that the patient has a bilateral pneumonia. RECOMMENDATIONS: I agree with Dr. Dennison's treatment consisting of Zyvox and cefepime. I agree with the modification of the dose of cefepime because of the patient's renal failure. DISCUSSION: The patient is unable to provide a history. The history I obtained was through the computer. The patient was admitted to the hospital initially with an altered mental status. She also had hyperglycemia. Her lab studies show a CBC with a white count of 15,090, hemoglobin 9.2, and platelet count 297,000. The creatinine is 3.3. The GFR is 17. Blood gases show a pH of 7.3, a PO2 of 51, and a pCO2 of 29. Liver function studies are normal. Urinalysis showed no white cells or bacteria. Blood and urine cultures are negative. Chest x-ray shows bilateral pulmonary infiltrates. PAST MEDICAL HISTORY: Positive for anemia of chronic disease, chronic kidney disease, diabetes mellitus, hyperlipidemia, history of breast cancer, and obesity. PAST SURGICAL HISTORY: Positive for left mastectomy and hysterectomy. SOCIAL HISTORY: The patient lives with her daughter. The patient at the time of the admission denied alcohol use, tobacco use, or illicit drug use. ALLERGIES: The patient has no known drug allergies. HOME MEDICATIONS: Amlodipine, Symbicort, Coreg, clonidine, folic acid, Lasix, Apresoline, Lantus, and soda bicarbonate. PHYSICAL EXAMINATION: Vital Signs: Temperature 99 degrees, pulse 100, respirations 15, blood pressure 160/94. The patient is 5 feet 6 inches tall and weighs 185 pounds. General: This is an ill-appearing, elderly female. She has decrease in her level of consciousness. Head, Eyes, Ears, Nose, Throat: No drainage noted from the nose or ears. She did not respond to verbal stimuli. I could not see into her mouth. Neck: No meningismus. Lungs: There were bilateral rhonchi. Cardiovascular: Heart rate is regular. Abdomen: Soft and nontender. Breasts: I did not palpate any masses in either breast. Neurologic: The patient has depressed level of consciousness. She did not respond to verbal stimuli. She does not have a tremor. Integument: No rash noted. Thank you for the consult. cc: Eh Carmona MD
[2018-08-09] MEDS ORDERED: LASIX IV SCH (09:30)
[2018-08-09] MEDS: LASIX 200 MG in NS 25 ML IV SCH ×2 (11:00→22:58)
[2018-08-09] MEDS: MAXIPIME 1 GM in NS 50 ML IV SCH ×2 (11:17→22:59)
--- NOTE | 2018-08-09 11:25 | NEPHROLOGY PROGRESS NOTE ---
DATE: 08/09/2018 SUBJECTIVE: Patient much more awake and alert today. She is answering questions appropriately and is in no acute distress. OBJECTIVE: Vital Signs: Temperature 98.2 degrees, pulse 104, respiratory rate 15, blood pressure 168/80, intake 1 L, output 1.7 L. General: This is an elderly female, resting in bed. No acute distress. HEENT: Normocephalic, atraumatic. CUCA. Neck: Supple without JVD. Cardiovascular: Regular rate and rhythm. Pulmonary: She has rales bilaterally with equal excursion. She does have some increased work of breathing. She is on O2 supplementation. Abdomen: Soft, positive bowel sounds. : Not inspected. Abdomen: Soft with positive bowel sounds. : Deleon catheter. Extremities: No clubbing, cyanosis. Trace edema. Integumentary: Skin is warm and dry. LAB DATA: WBC of 15.0, hemoglobin 9.2, sodium 145, potassium 3.6, CO2 15, creatinine 3.3, calcium 8.6, albumin 2.8. ASSESSMENT AND PLAN: 1. Chronic kidney disease stage 3B to 4. Her renal function is close to her historical baseline. Continue current treatment plan. 2. Fluid volume overload. She has rales on exam and chest x-ray this morning indicates dense pneumonia with no interval improvement. We will give Lasix 200 mg q.12 hours x3 doses only to assist with fluid movement and pneumonia management. She is currently on cefepime, Zyvox, and has received vancomycin for her pneumonia. 3. Blood pressure. She remains on a Cardene drip. Her blood pressure has been improving. She may have some further improvement with reduced fluid volumes as well. Dictated by BRIANNA Fernandez for Benji Fitzgerald MD Face to face encounter, data reviewed, discussed with Jamal Manzanares on 08/09/18. I agree with the above assessment and plan of care. cc: Benji Fitzgerald MD [facility]PITALPatti
--- NOTE | 2018-08-09 14:41 | GENERAL SURGERY PROGRESS NOTE ---
DATE: 08/09/2018 SUBJECTIVE: Remains altered from a mental status point. Hemodynamically, her blood pressures are better. Heart rate is down the low 100. I do not see any fevers documented. General. She is nonresponsive really but is arousable. NG tube is in place. They are starting tube feeds. Abdomen is soft. Her right breast mass there is some fluctuance and induration in the inferior medial aspect. I do not see any cellulitis. This could be an abscess but is most likely neoplastic process. LAB: White count 15, hematocrit 28, creatinine is 3.3. She had a breast ultrasound that shows a complex cystic mass at the 4 o'clock position. Central line is in place. ASSESSMENT AND PLAN: This is a 68-year-old female who has been admitted with altered mental status, hypertensive urgency and hyperglycemia. Unclear the etiology of all this. She does have worsening renal dysfunction. She has a history of breast cancer and a new incidentally noted mass in medial aspect of her breast. Ultimately I would recommend an excisional biopsy of this given the complex cystic nature. This does not look like an obvious source of infection. If this is a necrotic mass or could be some local reaction to that but I would recommend continue medical optimization and we can plan for more definitive diagnostic testing when she is clinically more suitable. cc: Mariana Montes De Oca MD MTDD
[2018-08-09] MEDS ORDERED: VANCOMYCIN 1,200 MG in NS 250 ML IV SCH ×4 (20:00)
[2018-08-09] MEDS ORDERED: BASAGLAR SUBQ SCH (21:00)
[2018-08-09] MEDS ORDERED: INSULIN PEN NEEDLES ONE (21:21)
[2018-08-10] MEDS: DUONEB (A & A) INH SCH ×6 (03:09→22:31)
[2018-08-10] MEDS: CARDENE 20 MG/NS 20 MG/200 ML PIGGYBACK IV SCH ×2 (04:03→07:20)
[2018-08-10 04:33] LABS: ALLEN TEST YES; BE -6.7 mmoll (-3.0-3.0); BLOOD TYPE ARTERIAL; HCO3-(ACT) 19.6 mmoll (20.0-26.0); METHB 1.6 % (0.0-1.5); O2(CT) 15.1 mL/dL (15.0-23.0); O2HB 93.1 % (95.0-99.0); PCO2(98.6) 34 mmHg (35-45); PO2(98.6) 72 mmHg (60-100); SAMPLE BLOOD; SAO2 95.6 % (95.0-100.0); THB 11.5 g/dL (11.5-17.4); pH(98.6) 7.34 (7.35-7.45)
[2018-08-10 04:35] LABS: MODALITY CANNULA
[2018-08-10 04:37] LABS: EOS# 0.11 X1000 (0.0-0.7); HEMATOCRIT 27.7 % (37.0-47.0); IMM GRAN# 0.05 X1000 (0.0-0.04); IMM GRAN% 0.5 % (0.0-0.5); LYMPH# 1.11 X1000 (1.2-3.4); MCH 29.5 PG (27-31); MCHC 32.5 g/dL (33-37); MCV 90.8 FL (81-99); MPV 11.1 FL (7.4-10.4); NEUT# 8.79 X1000 (1.4-6.5); NEUT% 79.5 % (42.2-75.2); PLT 247 X1000 (130-400); RBC 3.05 XMIL (4.2-5.4); WBC 11.06 X1000 (4.8-10.8)
[2018-08-10 04:53] LABS: ALB/GLOB RATIO 0.7; ALBUMIN 2.4 g/dL (3.5-5.0); CALCIUM 7.9 mg/dL (8.8-10.2); CREATININE 3.6 mg/dL (0.5-0.9); POTASSIUM 3.1 mmol/L (3.5-5.1); TOTAL BILIRUBIN 0.16 mg/dL (0.20-1.00); TOTAL PROTEIN 5.9 g/dL (6.3-8.3)
[2018-08-10] MEDS: HUMALOG SUBQ SCH ×4 (06:40→22:15)
[2018-08-10] MEDS: SODIUM BICARBONATE PO SCH ×2 (08:02→20:32)
[2018-08-10] MEDS: ZYVOX 600 MG/D5W 600 MG/300 ML IVPB IV SCH ×2 (08:04→20:31)
[2018-08-10] MEDS ORDERED: BASAGLAR SUBQ SCH ×2 (09:00→21:00)
[2018-08-10] MEDS: LASIX 200 MG in NS 25 ML IV SCH (09:29)
[2018-08-10] MEDS: MAXIPIME 1 GM in NS 50 ML IV SCH (10:45)
[2018-08-10] MEDS ORDERED: KLOR-CON NG ONE (11:42)
[2018-08-10] MEDS ORDERED: POTASSIUM CHLORIDE 20% LIQUID PO ONE (11:49)
[2018-08-10] MEDS: NORVASC PO SCH ×2 (12:03→20:32)
[2018-08-10] MEDS: APRESOLINE PO SCH ×2 (12:03→16:31)
[2018-08-10] MEDS: COREG PO SCH ×2 (12:03→20:32)
[2018-08-10] MEDS: CATAPRES PO SCH ×2 (12:04→16:31)
--- NOTE | 2018-08-10 12:07 | NEPHROLOGY PROGRESS NOTE ---
DATE: 08/10/2018 SUBJECTIVE: The patient is sitting up in the bed. She is awake and interactive. Mental status is approximately what it was yesterday. OBJECTIVE: Vital Signs: Temperature 98, pulse 103, respiratory rate 13, blood pressure 143/72. Intake 2.1 L. Output 2.5 L. General: This is an elderly female resting in bed. She is awake and alert in no acute distress. HEENT: Normocephalic, atraumatic. CUCA. Oral mucosa moist. Neck is supple. No JVD. Cardiovascular: Regular rate and rhythm. Pulmonary: She has some decreased breath sounds but no overt rales or wheezes today. She remains on O2 supplementation. Abdomen is soft with positive bowel sounds. : Deleon catheter. Extremities: No clubbing, cyanosis. She continues with trace edema. Integumentary: Skin is warm and dry. LABORATORY DATA: WBC 11. Hemoglobin 9.0. Sodium 147, potassium 3.7. CO2 of 17. Creatinine 3.6. Her BUN is 50 (45, 40). ASSESSMENT AND PLAN: 1. Chronic kidney disease, stage 3B to 4. Renal functions: Slight elevation overnight. We did dose her with high-dose Lasix yesterday secondary to her fluid volume status. Overall, within the hospital stay, her creatinine has been in this range. She has one more dose of Lasix today and then will hold tomorrow and re-evaluate on Sunday. 2. Fluid overload. She has had nice urine output over the last 24 hours. Continue to monitor. 3. Blood pressure improving. Dictated by BRIANNA Fernandez for Benji Fitzgerald MD cc: Benji Fitzgerald MD
--- NOTE | 2018-08-10 13:26 | PROGRESS NOTE ---
DATE: 08/10/2018 SUBJECTIVE: She is more awake today. She still follows commands. She seems much more alert. It sounds like she is much more awake than she has been previously. We will try to see if we can start feeding her by mouth. I will leave the NG tube in place for now until we know her mental status is completely improved. OBJECTIVE: Vital Signs: Blood pressure 152/61, heart rate 101, respiratory rate 15 and temperature 98.1 degrees, satting 94% on 4 L. Cardiovascular: Regular rate and rhythm. Pulmonary: Bilateral breath sounds. Clear to auscultation. GI: Soft, nontender, nondistended. Bowel sounds are positive. NG in place. LABORATORY STUDIES: White count 11, hemoglobin and hematocrit 9 and 27, platelets of 247. White count 7.34, pCO2 34, PaO2 72. Sodium 147, potassium 3.1, bicarbonate is 17. Sugar is 349. PROBLEM LIST: 1. Sepsis pneumonia. Infectious Disease is following. She is on cefepime and Zyvox. We will continue treatment and follow closely. 2. Metabolic acidosis. She is still getting bicarbonate orally or through the nasogastric tube at this point. 3. Hypertensive urgency. She is on a nicardipine drip. I think we can start her oral medications and see if we can get her off the drip today. She is on hydralazine, Norvasc and clonidine. 4. Encephalopathy likely multifactorial due to infection and possibly metabolic due to renal failure, slowly improving. 5. Hypernatremia. Her sodium is now high. I have increased her free water flushes. Hopefully, this will correct as we faith her medications around. 6. Type 2 diabetes with hyperglycemia. We will continue to monitor. She is on Glucerna and she is on Lantus at 15 twice daily. I think we will probably bump that up to 20. I am going to bump it up to 18. As we take her off the tube feeds, we may need to adjust further. 7. Acute kidney injury, possibly acute tubular necrosis. Nephrology is following. She has been placed on high-dose diuretics due to volume overload. We will continue to monitor. DISPOSITION: Pending her clinical status. She is on a Cardene infusion, so we will have to hold and she will still need to be in the ICU for the time being. cc: Kingston Demarco MD
[2018-08-10] MEDS: SYMBICORT 80/4.5 MICROGM INHALER INH SCH (19:59)
[2018-08-11] MEDS: MAXIPIME 1 GM in NS 50 ML IV SCH ×3 (00:24→22:44)
[2018-08-11] MEDS: DUONEB (A & A) INH SCH ×6 (03:33→23:18)
[2018-08-11] MEDS: HUMALOG SUBQ SCH ×4 (06:24→20:25)
[2018-08-11 06:52] LABS: EOS# 0.17 X1000 (0.0-0.7); EOS% 2.1 % (0.0-10.0); HEMATOCRIT 26.4 % (37.0-47.0); HEMOGLOBIN 8.3 g/dL (12.0-16.0); LYMPH# 1.07 X1000 (1.2-3.4); LYMPH% 13.1 % (20.5-51.1); MCH 28.6 PG (27-31); MCHC 31.4 g/dL (33-37); MONO# 0.76 X1000 (0.11-0.59); MONO% 9.3 % (1.7-9.3); MPV 11.3 FL (7.4-10.4); NEUT# 6.16 X1000 (1.4-6.5); NEUT% 75.5 % (42.2-75.2); PLT 278 X1000 (130-400); RDW 13.9 % (11.5-14.5); WBC 8.16 X1000 (4.8-10.8)
[2018-08-11] MEDS: BASAGLAR SUBQ SCH ×2 (08:33→20:26)
[2018-08-11] MEDS: FOLIC ACID PO SCH (08:33)
[2018-08-11] MEDS: MIRALAX PO SCH ×2 (08:33→20:25)
[2018-08-11] MEDS: SODIUM BICARBONATE PO SCH ×2 (08:33→20:26)
[2018-08-11] MEDS: ZYVOX 600 MG/D5W 600 MG/300 ML IVPB IV SCH ×2 (08:33→20:25)
[2018-08-11] MEDS: COREG PO SCH ×2 (08:34→20:26)
[2018-08-11] MEDS: CATAPRES PO SCH ×3 (08:34→17:06)
[2018-08-11] MEDS: APRESOLINE PO SCH ×3 (08:34→17:06)
[2018-08-11] MEDS: NORVASC PO SCH ×2 (08:34→20:26)
--- NOTE | 2018-08-11 09:09 | PROGRESS NOTE ---
DATE: 08/11/2018 SUBJECTIVE: This patient seems to be doing much better. She is not complaining of shortness of breath or chest pain. She is able to say her name and date of , but she is still not oriented to time or place. She is following commands without any problems. She is still having elevated blood sugar, and I have increased the Lantus from 18 twice a day to 25 twice a day. I will continue with pattern blood sugar and sliding scale insulin. So far, blood culture negative x2 and urine culture negative as well. WBC normalized. OBJECTIVE: Vital Signs: Temperature 98.1, pulse 93, respiratory rate 16, blood pressure 163/78, oxygen saturation 97% on 3 L of nasal cannula. HEENT: Head normocephalic. No trauma. PERRLA. Neck: Supple. No JVD. No masses. Central trachea. Chest: Bilateral scattered rhonchi, but more evident on the left side. Abdomen: Soft, nontender, nondistended. No hepatosplenomegaly. Extremities: No edema. No clubbing. No cyanosis. Decreased muscle mass. Neurological: The patient is alert. She is oriented x1 just to person, she is following commands. She moves all 4 extremities spontaneously. LABORATORY: WBC 8.1, hemoglobin 8.3, hematocrit 26.4, platelet 278,000. Glucose 263, pending. Renal profile today. ASSESSMENT AND PLAN: 1. Sepsis secondary to bilateral pneumonia: We will continue with Zyvox and Cefepime. I think this patient is getting better. We will continue with the same treatment. 2. Bilateral pneumonia: Continue with the same treatment. She is getting oxygen, antibiotics, pulmonary toilet and breathing treatments. 3. Metabolic acidosis: Continue with bicarbonate p.o. We will monitor. Likely due to the kidney dysfunction and sepsis. 4. Hypertensive urgency: This patient received already nicardipine drip, now we will put her back on her home dose medications and she seems to be doing a whole lot better. 5. Global encephalopathy: Multifactorial. She seems to be more awake and more alert and she is following commands without problems right now. She is oriented just to person. 6. Hyponatremia: It has been normal. Initially was low due to her hyperglycemia. Yesterday her sodium level was a little bit elevated though. 7. Hypokalemia, resolved. 8. Hypomagnesemia, resolved. 9. Normocytic anemia. We will monitor. 10. Leukocytosis, likely secondary to the infectious process. Continue with antibiotics. Today the white blood cell is normal. 11. Type 2 diabetes with severe hyperglycemia. I have increased the dose of Lantus from 18 twice a day to 25 twice a day. Yesterday she received a little bit more than 50 units of sliding scale insulin. 12. History of breast cancer, aware. She has a mass in the medial aspect of the of her breast. Surgery Department following this closely. Probably they will do some kind of intervention in the near future. Overall, this patient is doing better. She is more awake. She is following commands. She is able to eat by herself. I will add MiraLAX to her medications. I think she is stable enough to be transferred to the [facility] unit. cc: Azam Delong MD
[2018-08-11 11:16] LABS: ALBUMIN 2.5 g/dL (3.5-5.0); CALCIUM 8.1 mg/dL (8.8-10.2); CREATININE 3.9 mg/dL (0.5-0.9); POTASSIUM 4.8 mmol/L (3.5-5.1)
[2018-08-11] MEDS: SYMBICORT 80/4.5 MICROGM INHALER INH SCH ×2 (11:44→19:23)
--- NOTE | 2018-08-11 13:54 | NEPHROLOGY PROGRESS NOTE ---
DATE: 08/11/2018 SUBJECTIVE: Patient resting in bed. She has been able to be transferred from the ICU up to step- down. OBJECTIVE: Vital Signs: Temperature 98.6 degrees, pulse 92, respiratory rate 17, blood pressure 143/77, intake 2.3 L, output 1.2 L. General: Elderly female resting in bed awake and alert. No acute distress. HEENT: Normocephalic, atraumatic. CUCA. Oral mucosa moist. Neck: Supple. Cardiovascular: Regular rate and rhythm. Pulmonary: She is clear bilaterally. She has equal excursion. Abdomen: Soft with positive bowel sounds. : She has a Deloen catheter. There is clear yellow urine noted in the urometer. Extremities: She has trace edema. No clubbing, cyanosis. Integumentary: Skin is warm and dry otherwise. LAB DATA: Pending. ASSESSMENT AND PLAN: 1. Chronic kidney disease stage 3B to 4. Her labs are pending. She had a mild increase with her creatinine yesterday however we are giving her large doses of Lasix and that was not surprising. Her urine output has been excellent overnight. No changes to her current treatment plan. We will reevaluate tomorrow. 2. Fluid overload much improved with respiratory status over the last 2 days with the extra Lasix dosing. Dictated by BRIANNA Fernandez for Benji Fitzgerald MD cc: Benji Fitzgerald MD
[2018-08-11] MEDS ORDERED: APRESOLINE IV ONE (23:58)
[2018-08-12] MEDS: DUONEB (A & A) INH SCH ×6 (02:59→23:33)
[2018-08-12] MEDS ORDERED: APRESOLINE IV ONE (03:48)
[2018-08-12 05:56] LABS: BASO# 0.01 X1000 (0.0-0.2); BASO% 0.1 % (0.0-0.8); EOS# 0.24 X1000 (0.0-0.7); EOS% 3.1 % (0.0-10.0); HEMATOCRIT 26.8 % (37.0-47.0); HEMOGLOBIN 8.3 g/dL (12.0-16.0); IMM GRAN# 0.03 X1000 (0.0-0.04); IMM GRAN% 0.4 % (0.0-0.5); LYMPH# 1.29 X1000 (1.2-3.4); LYMPH% 16.6 % (20.5-51.1); MCH 28.2 PG (27-31); MCV 91.2 FL (81-99); MONO# 0.68 X1000 (0.11-0.59); MONO% 8.8 % (1.7-9.3); MPV 11.2 FL (7.4-10.4); NEUT# 5.52 X1000 (1.4-6.5); PLT 263 X1000 (130-400); RBC 2.94 XMIL (4.2-5.4); RDW 13.6 % (11.5-14.5); WBC 7.77 X1000 (4.8-10.8)
[2018-08-12 06:14] LABS: ALBUMIN 2.2 g/dL (3.5-5.0); CALCIUM 8.5 mg/dL (8.8-10.2); CREATININE 3.9 mg/dL (0.5-0.9); PHOSPHORUS 3.2 mg/dL (2.7-4.5); POTASSIUM 3.8 mmol/L (3.5-5.1)
[2018-08-12] MEDS: HUMALOG SUBQ SCH ×4 (06:27→21:19)
--- NOTE | 2018-08-12 07:23 | INFECTIOUS DISEASE PROGRESS NO ---
DATE: 08/12/2018 PRESENT ILLNESS: The patient has a bilateral pneumonia. MEDICATIONS: The patient is on a combination of Zyvox and cefepime. This is day 4 of treatment with both agents. PHYSICAL EXAMINATION: Vital Signs: Temperature is 98.5 degrees, pulse 94, respirations 19, blood pressure 161/64. General: This is a somewhat ill-appearing, elderly female. She is in no acute distress. Head, eyes, ears, nose, and throat: She can hear my spoken words and see near objects. She does not have any white coating on her tongue. Neck: No meningismus. Lungs: Clear to auscultation. Cardiovascular: Heart rate is regular. Abdomen: Soft and nontender. Neurologic: The patient is alert. She can move her extremities. There is no tremor. Integument: No rash noted. LAB AND X-RAY: There is no recent x-ray. CBC shows a white count of 7770, hemoglobin 8.3, and platelet count 263,000. Creatinine is 3.9 GFR is 14. Blood and urine cultures are sterile. ASSESSMENT AND PLAN: Patient has bilateral pneumonia. My plan is to continue cefepime and Zyvox, except I am going to change Zyvox to p.o. rather than IV. I have also ordered a chest x-ray for tomorrow. COMORBIDITIES: She is elderly. She is a diabetic and she has chronic kidney disease and chronic anemia. She also has a history of breast cancer. cc: Eh Carmona MD
[2018-08-12] MEDS: SYMBICORT 80/4.5 MICROGM INHALER INH SCH ×2 (07:45→19:32)
--- NOTE | 2018-08-12 08:36 | PROGRESS NOTE ---
DATE: 08/12/2018 SUBJECTIVE: This patient is doing much better. She is not complaining of chest pain or shortness of breath. She is able to say her name and date of , but she is still not oriented to time or place. She is following commands. I am not quite sure if she has a baseline dementia. I have not seen the family. I have increased her Lantus to 30 twice a day and even though she is on MiraLAX, there is no bowel movement reported, so I will use a Dulcolax suppository daily. The suppository can be held if she has a bowel movement that day. Blood cultures so far negative. OBJECTIVE: Vital Signs: Temperature 98.5 degrees, pulse 89, respiratory rate 19, blood pressure 161/64, oxygen saturation 99% on 3 L of nasal cannula. HEENT: Head normocephalic. No trauma. PERRLA. Neck: Supple. No JVD. No masses. Central trachea. Chest: Bilateral scattered rhonchi, more evident on the left side. Abdomen: Soft, mildly distended, nontender to palpation. Positive bowel sounds. Extremities: No edema. No clubbing. No cyanosis. Decreased muscle mass. Some edema at the level of the upper extremities. Neurological: The patient is alert. She is oriented x1. She is able to say her date of . She is not oriented to place or date. LABORATORY: WBC 7.7, hemoglobin 8.3, hematocrit 26.8, platelet 263,000. Sodium 143, potassium 3.8, chloride 107, bicarbonate 21, BUN 55, creatinine 3.9, glucose 226, calcium 8.5, albumin 2.2. ASSESSMENT AND PLAN: 1. Sepsis secondary to bilateral pneumonia. Continue with Zyvox and cefepime, this patient is getting better. Continue with same treatment. 2. Bilateral pneumonia. As above. She is also getting oxygen, pulmonary toilet and breathing treatment. 3. Metabolic acidosis. Continue with bicarbonate p.o. We will monitor. This is likely due to kidney dysfunction. 4. Hypertensive urgency. This patient was placed on nicardipine drip, but now she is back on her home dose medications. She seems to be doing better, but still the blood pressure sometimes is high. 5. Global encephalopathy, multifactorial she seems to be more awake and alert, even though she is still confused. 6. Hyponatremia, resolved. That was likely related to pseudo hyponatremia due to hyperglycemia. 7. Hypokalemia, resolved. 8. Hypomagnesemia, resolved. 9. Normocytic anemia. We will monitor. 10. Leukocytosis, resolved. Likely secondary to the infectious process. 11. Type 2 diabetes with severe hyperglycemia. I have increased the dose of Lantus today from 25 to 30 units twice a day. 12. History of breast cancer, aware. She has a mass in the medial aspect of the breast. Surgery Department following and probably she will have an intervention at some point. 13. Constipation, she has been placed on MiraLAX. Also Dulcolax suppositories. cc: Azam Delong MD
[2018-08-12] MEDS: NORVASC PO SCH ×2 (09:10→21:19)
[2018-08-12] MEDS: CATAPRES PO SCH ×3 (09:10→17:06)
[2018-08-12] MEDS: ZYVOX PO SCH ×2 (09:10→21:19)
[2018-08-12] MEDS: SODIUM BICARBONATE PO SCH ×2 (09:10→21:19)
[2018-08-12] MEDS: MIRALAX PO SCH ×2 (09:10→21:18)
[2018-08-12] MEDS: APRESOLINE PO SCH ×3 (09:10→17:06)
[2018-08-12] MEDS: BASAGLAR SUBQ SCH ×2 (09:10→21:19)
[2018-08-12] MEDS: FOLIC ACID PO SCH (09:10)
[2018-08-12] MEDS: COREG PO SCH ×2 (09:11→21:19)
--- NOTE | 2018-08-12 09:51 | NEPHROLOGY PROGRESS NOTE ---
DATE: 08/12/2018 SUBJECTIVE: She states she is feeling well today. She is eating her breakfast. No shortness of breath, nausea, vomiting, etc. OBJECTIVE: Vital Signs: Blood pressure 140/64, heart rate 89, respirations 16, afebrile. General: She is in no acute distress. Skin: Warm and dry. Conjunctivae are pink. Facial edema is improved. Neck: No neck vein distention. Trachea is midline. Heart: Regular with systolic murmur. Lungs: Equal. No crackles or wheezes. Abdomen: Soft, nontender. Bowel sounds are present. Extremities: Trace edema. No clubbing or cyanosis. IMPRESSION: 1. Chronic kidney disease stage 4. Her creatinine is modestly above her baseline, but she has been receiving diuretics. She has no uremic symptoms. 2. Electrolytes and acid-base are in target. Will follow. cc: Benji Fitzgerald MD
[2018-08-12] MEDS: MAXIPIME 1 GM in NS 50 ML IV SCH ×2 (11:58→22:31)
--- NOTE | 2018-08-12 21:14 | GENERAL SURGERY PROGRESS NOTE ---
DATE: 08/12/2018 SUBJECTIVE: She is more alert, she is eating, no fevers, no tachycardia. Blood pressures are better 120s to 160s, oxygen saturations 99. General she is alert, somewhat conversant. Cardiovascular normal rate. Pulmonary, no increased work of breathing. Abdomen soft. Right medial inferior breast mass is overall stable, it is soft. There is no erythema. There is some fluctuance here. White count 7, hematocrit 26, creatinine 3.9, glucose 190s to low 200s. ASSESSMENT AND PLAN: This is a 68-year-old female admitted with hypertensive urgency emergency and who has a history of a left breast cancer has a breast mass in the right inferior medial breast. She needs excision of this for diagnostic purposes. Given its complex multicystic nature I think excisional biopsy is best, discussed this with her. She understands the need talk to her daughter and will work to do that today, hopefully next couple days we can go the operating room when she is stable clinically. cc: Mariana Montes De Oca MD
[2018-08-12] MEDS: DULCOLAX PR SCH (21:19)
[2018-08-13] MEDS: DUONEB (A & A) INH SCH ×6 (03:34→23:08)
[2018-08-13 05:31] LABS: EOS# 0.19 X1000 (0.0-0.7); EOS% 2.5 % (0.0-10.0); HEMATOCRIT 27.6 % (37.0-47.0); HEMOGLOBIN 8.6 g/dL (12.0-16.0); IMM GRAN# 0.03 X1000 (0.0-0.04); IMM GRAN% 0.4 % (0.0-0.5); LYMPH# 1.39 X1000 (1.2-3.4); LYMPH% 18.6 % (20.5-51.1); MCH 28.4 PG (27-31); MCHC 31.2 g/dL (33-37); MCV 91.1 FL (81-99); MONO# 0.62 X1000 (0.11-0.59); MONO% 8.3 % (1.7-9.3); MPV 10.7 FL (7.4-10.4); NEUT# 5.26 X1000 (1.4-6.5); NEUT% 70.2 % (42.2-75.2); PLT 271 X1000 (130-400); RBC 3.03 XMIL (4.2-5.4); RDW 12.9 % (11.5-14.5); WBC 7.49 X1000 (4.8-10.8)
[2018-08-13 05:56] LABS: ALBUMIN 2.4 g/dL (3.5-5.0); CALCIUM 8.1 mg/dL (8.8-10.2); CREATININE 3.9 mg/dL (0.5-0.9); PHOSPHORUS 4.1 mg/dL (2.7-4.5); POTASSIUM 3.6 mmol/L (3.5-5.1)
[2018-08-13] MEDS: HUMALOG SUBQ SCH ×4 (06:31→20:46)
[2018-08-13] MEDS: SYMBICORT 80/4.5 MICROGM INHALER INH SCH ×3 (07:25→23:08)
--- NOTE | 2018-08-13 07:40 | Diag Imaging Result Doc PS360 ---
EXAM: CHEST-1 VIEW INDICATION: pneumonia TECHNIQUE: One view COMPARISON: 08/09/2018 FINDINGS: There has been interval significant improvement in the dense infiltrates in the left mid and lower lung zone. There are persistent milder diffuse infiltrates bilaterally. No new consolidation is identified. Cardiac silhouette is stable. IMPRESSION: Interval improvement. Electronically signed by Alfred Marrero 08/13/2018 7:38 AM
[2018-08-13] MEDS ORDERED: INSULIN PEN NEEDLES ONE (08:18)
[2018-08-13] MEDS: BASAGLAR SUBQ SCH ×2 (09:09→20:45)
[2018-08-13] MEDS: FOLIC ACID PO SCH (09:10)
[2018-08-13] MEDS: COREG PO SCH ×2 (09:10→20:46)
[2018-08-13] MEDS: CATAPRES PO SCH ×3 (09:10→17:27)
[2018-08-13] MEDS: ZYVOX PO SCH ×2 (09:10→20:46)
[2018-08-13] MEDS: SODIUM BICARBONATE PO SCH ×2 (09:10→20:46)
[2018-08-13] MEDS: NORVASC PO SCH ×2 (09:10→20:46)
[2018-08-13] MEDS: MIRALAX PO SCH ×2 (09:10→20:45)
[2018-08-13] MEDS: APRESOLINE PO SCH ×3 (09:10→17:27)
--- NOTE | 2018-08-13 10:53 | INFECTIOUS DISEASE PROGRESS NO ---
DATE: 08/13/2018 SUBJECTIVE: The patient has a bilateral pneumonia. MEDICATIONS: The patient has been receiving Zyvox and cefepime now for five days. OBJECTIVE: VITAL SIGNS: Temperature 98.8 degrees Fahrenheit, pulse 84, respirations 17, blood pressure 150/63. GENERAL: This is an ill-appearing elderly female. She is in no acute distress. HEENT: She can hear my spoken words and see near objects. She does not have any white patches on her tongue. I do not sere any oral ulcers. NECK: No meningismus. LUNGS: Clear to auscultation. CARDIOVASCULAR: Heart rate is regular. ABDOMEN: Soft and nontender. EXTREMITIES: Legs are edematous but not erythematous. NEUROLOGIC: The patient is awake. She did follow requests to move her extremities. There was no tremor. LABS/X-RAYS: Chest x-ray shows improvement in the patient's infiltrates on the right side. CBC shows a white count of 7,490, hemoglobin 8.6, platelet count 271,000. Creatinine is 3.9. GFR is 14. ASSESSMENT AND PLAN: The patient has bilateral pneumonia. I plan to continue the cefepime and Zyvox. COMORBIDITIES: The patient is elderly. Also, she is a diabetic with chronic kidney disease and chronic anemia, and a history of breast cancer. cc: Eh Carmona MD
--- NOTE | 2018-08-13 11:01 | PROGRESS NOTE ---
DATE: 08/13/2018 SUBJECTIVE: The patient is still confused. She is not oriented to place or time, but she is to person. She denies any pain or any other complaint. OBJECTIVE: VITAL SIGNS: Temperature 98.8 degrees Fahrenheit, heart rate 84, respiratory rate 17, blood pressure 150/63. O2 saturation 94% per nasal cannula. GENERAL: This is a chronically ill-looking, 68-year-old, -Greek female, lying in bed in no acute distress. HEENT: Head is normocephalic and atraumatic. NECK: No JVD noted. No carotid bruits. No lymphadenopathy. No thyromegaly. CARDIOVASCULAR: S1, S2 heard. No murmur, gallop, or rub. Regular rate and rhythm. RESPIRATORY: Lungs clear bilaterally to auscultation. No work of breathing or accessory muscle use. ABDOMEN: Soft, nontender. Bowel sounds present. No organomegaly. EXTREMITIES: No clubbing, cyanosis or edema. Peripheral pulses present in all legs. NEUROLOGIC: The patient is disoriented to time and place, but not person. She is able to follow commands. Cranial nerves II-XII are grossly normal. LABORATORY DATA: White cell count 7.49, hemoglobin 8.6, hematocrit 27.6, platelets 271,000. Creatinine 3.9. ASSESSMENT AND PLAN: 1. Sepsis secondary to bilateral pneumonia. The patient is on Zyvox day #2 and cefepime #5 of the treatment. The patient reports feeling fine. Requiring now not too much oxygen saturation. Dr. Eh Carmona, Infectious Diseases, is following this patient on the right antibiotics. We will follow recommendations. 2. Metabolic acidosis. The patient is given some bicarbonate p.o. Creatinine is still around baseline. We will continue with current management. 3. Hypertensive urgency. Blood pressure is in the range of 150-160. I think at this point we are going to continue with his medications. 4. Global encephalopathy. Apparently per prior progress note. The patient is getting better. At this point, she is disoriented to place and time, but oriented to person. At this point, we will continue to monitor. 5. Hyponatremia. Resolved. 6. Hypokalemia. Resolved. 7. Hypomagnesemia. Resolved. 8. Normocytic anemia. Hemoglobin is stable. We will continue to monitor. 9. Diabetes mellitus type 2. Lantus has been increased from 25 to 30. 10.History of breast cancer. Aware. Surgery has been consulted. 11.Constipation. Aware. The patient is on MiraLAX. DISPOSITION: We will continue to monitor this patient here in the CCU. cc: MD Naveen Dejesus MD MTDPatti
[2018-08-13] MEDS: MAXIPIME 1 GM in NS 50 ML IV SCH ×2 (11:21→22:10)
[2018-08-13 12:02] LABS: UR CREAT RANDOM 59.4 mg/dL (11-20)
--- NOTE | 2018-08-13 15:52 | GENERAL SURGERY PROGRESS NOTE ---
DATE: 08/13/2018 SUBJECTIVE: No events. Medically, she seems to be improving. Hemodynamically, she has been stable. She is tolerating a diet. OBJECTIVE: Her right breast mass is stable. Cardiovascular normal rate. Pulmonary, no increased work of breathing. Abdomen is soft. Integument is warm. I do not feel any adenopathy or cervical axillary exam, LABORATORY DATA: White count 7, hematocrit 27, creatinine is 3.9, glucose in the low 100s. ASSESSMENT/PLAN: A 68-year-old female who presented with hypertensive emergency. She has a right breast mass and history of breast cancer left breast. She needs excision of this both for diagnostic therapeutic purposes. I discussed with the patient. She seems to understand. I need to talk to her next of kin, her daughter prior to surgery, but we will plan on proceeding with this tomorrow. She seems to be much improved clinically. I do worry about her ability to follow up, given some social issues, and do not want this breast mass to go untreated and undiagnosed. cc: Mariana Montes De Oca MD
[2018-08-13] MEDS: DULCOLAX PR SCH (20:45)
[2018-08-14] MEDS: DUONEB (A & A) INH SCH ×6 (03:13→23:20)
[2018-08-14 05:35] LABS: HEMOGLOBIN 7.7 g/dL (12.0-16.0)
[2018-08-14 06:27] LABS: HEMATOCRIT 24.7 % (37.0-47.0); MCH 29.3 PG (27-31); MCHC 31.2 g/dL (33-37); MCV 93.9 FL (81-99); MPV 10.9 FL (7.4-10.4); RBC 2.63 XMIL (4.2-5.4); WBC 7.35 X1000 (4.8-10.8)
[2018-08-14] MEDS: HUMALOG SUBQ SCH ×4 (06:31→21:41)
[2018-08-14 06:41] LABS: ALBUMIN 2.3 g/dL (3.5-5.0); CREATININE 4.4 mg/dL (0.5-0.9); PHOSPHORUS 5.2 mg/dL (2.7-4.5); POTASSIUM 4.1 mmol/L (3.5-5.1)
--- NOTE | 2018-08-14 07:22 | NEPHROLOGY PROGRESS NOTE ---
DATE: 08/13/2018 SUBJECTIVE: She states she is feeling well today. No shortness of breath. No nausea or vomiting. She does admit to decreased urine output. OBJECTIVE: Vital Signs: Blood pressure 150/63, heart rate 84, respirations 17, afebrile. Intake 2.1 L, output 300 mL. General: No acute distress. Skin: Warm and dry. Eyes: Conjunctivae are pink. Neck: Neck veins are not visible. Heart: Regular. No gallops. Lungs: Equal. No crackles or wheezes. Abdomen: Soft, nontender. Bowel sounds are present. Extremities: Trace edema. No clubbing or cyanosis. IMPRESSION: Chronic kidney disease stage IV. Creatinine is elevated above her historical baseline. Baseline is approximately 2.5. She has been treated with diuretics because of pulmonary edema. I collected labs for FENA today. This shows FENA less than 1%. I will not give IV fluids but will allow her to re-equilibrate with oral fluids. Hold diuretics. cc: Benji Fitzgerald MD
[2018-08-14] MEDS: SYMBICORT 80/4.5 MICROGM INHALER INH SCH ×3 (07:40→21:00)
--- NOTE | 2018-08-14 10:22 | PROGRESS NOTE ---
DATE: 08/14/2018 SUBJECTIVE: Patient is a little bit more alert today. She is not oriented to place or time, but she is in person. Denies any complaint at this time. OBJECTIVE: Vitals: Temperature 98.5 degrees, heart rate 80, respiratory rate 15, blood pressure 143/62, O2 saturation 99% on 1 L nasal cannula. General: This is a chronically ill-looking, 68- year-old female lying in bed, in no acute distress. HEENT: Head is normocephalic, atraumatic. Neck: No JVD noted. No carotid bruits. No lymphadenopathy. Cardiovascular: S1, S2 heard. No murmurs, gallops, or rubs. Regular rate and rhythm. Respiratory: Clear bilaterally to auscultation. No work of breathing or using accessory muscles. Abdomen: Soft, nontender to palpation. Bowel sounds present. No organomegaly. Extremities: No clubbing, cyanosis, or edema. Peripheral pulses present in both legs. Neurological: Patient is disoriented in time and place, but not in person. She follow commands. LABORATORY DATA: White cell count 7.35, hemoglobin 7.7, hematocrit 24.7, platelets 236,000. BMP shows creatinine 4.4, BUN 64, blood sugars 51. ASSESSMENT AND PLAN: 1. Sepsis secondary to bilateral pneumonia. Patient is on Zyvox day #3 and also cefepime day #6. Chest x-ray showed today a significant interval improvement in the dense infiltrates in the left mid and lower lung zones. White cell count is normal. So, at this point, clinically she is doing much better. Dr. Eh Carmona from Infectious Disease is following this patient. We will follow recommendations. 2. Right breast nodule. That is what was found in the breast ultrasound. The initial plan was to perform lumpectomy today, but Dr. Cowart from Anesthesia thinks this patient needs to recover from pneumonia first, so that procedure is going to be canceled. We will inform Dr. Montes De Oca about it. In my particular opinion, I think this patient probably need to complete 2 weeks of antibiotics and at that time she will be able to have surgery. 3. Chronic kidney disease stage 4. The patient baseline creatinine is 2.5, and today it is 4.3 so it is high and now is getting even higher. So at this point, we have held all diuretics and continue to monitor. As we mentioned before, Nephrology is following this patient. We will continue also with bicarbonate p.o. 4. Global encephalopathy continues to improve. We will continue with the same management. 5. Hypokalemia, resolved. 6. Normocytic anemia. Hemoglobin has dropped to 7.7, there are no signs of bleeding. We will continue to monitor CBC. 7. Diabetes mellitus type 2. The patient Lantus has been increased from 25 to 30 units twice daily. Because this patient has been nothing per oral, blood sugar has dropped to 50, but now is much better. At this point, we will continue with same management. 8. History of left breast cancer. Aware. 9. Constipation, patient is on home medications. We will continue with the same management. 10. Disposition. I think this patient is getting better. Definitely she has become very weak. So, we are going to consult Physical Therapy. And our plan is to send this patient to rehab facility. cc: Naveen Hurst MD MTDD
[2018-08-14] MEDS ORDERED: MORPHINE IV PRN (10:31)
[2018-08-14] MEDS: APRESOLINE PO SCH ×3 (10:56→21:41)
[2018-08-14] MEDS: CATAPRES PO SCH ×3 (10:57→21:41)
--- NOTE | 2018-08-14 10:57 | Diag Imaging Result Doc PS360 ---
SHOULDER-RIGHT - 08/14/2018 INDICATION: pain TECHNIQUE: Two views COMPARISON: None FINDINGS: Bones are intact and normally aligned. There is some degenerative spurring at the acromioclavicular joint, the greater tuberosity and the margin of the acromion process. No fracture or dislocation. No bony erosions. IMPRESSION: Degenerative changes of the shoulder. Electronically signed by Malachi Chaves 08/14/2018 10:54 AM
[2018-08-14] MEDS: MAXIPIME 1 GM in NS 50 ML IV SCH ×2 (11:13→22:04)
[2018-08-14] MEDS: BASAGLAR SUBQ SCH ×2 (12:38→21:43)
[2018-08-14] MEDS: COREG PO SCH ×2 (12:38→21:43)
[2018-08-14] MEDS: FOLIC ACID PO SCH (12:39)
[2018-08-14] MEDS: MIRALAX PO SCH ×2 (12:39→21:42)
[2018-08-14] MEDS: NORVASC PO SCH ×2 (12:39→21:43)
[2018-08-14] MEDS: ZYVOX PO SCH ×2 (12:40→21:44)
[2018-08-14] MEDS: SODIUM BICARBONATE PO SCH ×2 (12:40→21:40)
--- NOTE | 2018-08-14 14:34 | INFECTIOUS DISEASE PROGRESS NO ---
DATE: 08/14/2018 PRESENT ILLNESS: The patient has bilateral pneumonia. MEDICATIONS: The patient has been on cefepime and Zyvox now for 6 days. PHYSICAL EXAMINATION: Vital Signs: Temperature is 97.9, pulse 78, respirations 16, blood pressure 143/59. Patient weighs 196 pounds. General: This is an obese, lethargic elderly female. She appears to be under no acute distress. Head, Eyes, Ears, Nose and Throat: I did not see any drainage from the nose or ears. She did not follow request to open her mouth. She was sleeping. Neck: No meningismus. Lungs: Clear to auscultation. Cardiovascular: Heart rate is regular. Abdomen: Soft and nontender. Neurologic: The patient is sleeping. There is no tremor. Integument: No rash noted. LAB AND X-RAY: Chest x-ray shows improvement in the bilateral pulmonary infiltrates. Her CBC shows a white count of 7350, hemoglobin 7.7, and platelet 236,000. Creatinine is 1.4, GFR is 12. Blood and urine cultures are negative. Chest x-ray shows by shows improvement in the bilateral infiltrates. ASSESSMENT AND PLAN: The patient has bilateral pneumonia. My plan is to continue her current antibiotics as they seem to be helping her. COMORBIDITIES: The patient is elderly. She also has diabetes and end-stage renal disease and she has a history of breast cancer in the family. cc: Eh Carmona MD
[2018-08-14] MEDS ORDERED: INSULIN PEN NEEDLES ONE (19:53)
[2018-08-14] MEDS: DULCOLAX PR SCH (21:41)
[2018-08-15] MEDS: DUONEB (A & A) INH SCH ×6 (03:20→22:58)
[2018-08-15] MEDS: HUMALOG SUBQ SCH ×5 (06:07→21:29)
[2018-08-15 06:20] LABS: ALBUMIN 2.2 g/dL (3.5-5.0); CALCIUM 8.4 mg/dL (8.8-10.2); CREATININE 4.3 mg/dL (0.5-0.9); PHOSPHORUS 5.3 mg/dL (2.7-4.5); POTASSIUM 4.3 mmol/L (3.5-5.1)
[2018-08-15 06:23] LABS: HEMATOCRIT 24.1 % (37.0-47.0); HEMOGLOBIN 7.5 g/dL (12.0-16.0); MCH 29.4 PG (27-31); MCHC 31.1 g/dL (33-37); MCV 94.5 FL (81-99); MPV 10.9 FL (7.4-10.4); RBC 2.55 XMIL (4.2-5.4); RDW 12.9 % (11.5-14.5); WBC 6.37 X1000 (4.8-10.8)
--- NOTE | 2018-08-15 07:19 | NEPHROLOGY PROGRESS NOTE ---
DATE: 08/14/2018 SUBJECTIVE: She is lying in bed. She is awake. She was slow to answer me, but ultimately did, and was able to speak cogently and tell me about her home arrangements, as well as her symptoms currently. No shortness of breath. No nausea or vomiting. OBJECTIVE: Vital Signs: Blood pressure 148/65, heart rate 81, respiration 11. Afebrile. Intake and output are incomplete. PHYSICAL EXAMINATION: General: No acute distress. Skin: Warm and dry. Conjunctivae are pink. Neck: Neck veins are not distended. HEENT: Oropharynx is moist. Heart: Regular. No gallops. Lungs: Equal. No crackles or wheezes. Abdomen: Soft, nontender. Bowel sounds are present. Extremities: Trace edema. No clubbing or cyanosis. IMPRESSION: Chronic kidney disease stage 4, overlying acute kidney injury that I have been attributing to volume contraction related to diuretic use. Labs continue to rise. Recent FENa was low. Continue to encourage her to hydrate by mouth. Observe carefully. cc: Benji Fitzgerald MD
--- NOTE | 2018-08-15 07:22 | GENERAL SURGERY PROGRESS NOTE ---
DATE: 08/14/2018 SUBJECTIVE: The case was canceled today by Anesthesia for concerns of pneumonia. She is on 1 liter nasal cannula at 95%. Her right breast mass is overall stable. No fevers. OBJECTIVE: I reviewed her labs and also on exam she is more alert. ASSESSMENT AND PLAN: This is a 68-year-old female with a right inferior medial breast mass. I worry about her ability to follow up for management of this mass. Her daughter, who we have also spoken to via the phone, is also ill and requires dialysis and her ability to closely attended to her mother is limited, although she is willing. Hopefully, as her pulmonary status continues to improve, we will be able to under either MAC and local anesthetic excise this lesion for diagnostic and potentially therapeutic purposes. Continue follow along. cc: Mariana Montes De Oca MD
[2018-08-15] MEDS: MIRALAX PO SCH ×2 (08:48→21:23)
[2018-08-15] MEDS: CATAPRES PO SCH ×3 (08:49→21:29)
[2018-08-15] MEDS: FOLIC ACID PO SCH (08:49)
[2018-08-15] MEDS: NORVASC PO SCH ×2 (08:49→21:24)
[2018-08-15] MEDS: COREG PO SCH ×2 (08:49→21:24)
[2018-08-15] MEDS: APRESOLINE PO SCH ×3 (08:49→21:24)
[2018-08-15] MEDS: SODIUM BICARBONATE PO SCH ×2 (08:49→21:24)
[2018-08-15] MEDS: ZYVOX PO SCH ×2 (08:51→21:24)
[2018-08-15] MEDS: BASAGLAR SUBQ SCH ×2 (11:06→21:29)
[2018-08-15] MEDS: SYMBICORT 80/4.5 MICROGM INHALER INH SCH ×2 (11:14→19:08)
[2018-08-15] MEDS: PHOSLO PO SCH ×2 (11:48→16:47)
[2018-08-15] MEDS: MAXIPIME 1 GM in NS 50 ML IV SCH ×2 (11:48→22:34)
--- NOTE | 2018-08-15 14:03 | PROGRESS NOTE ---
DATE: 08/15/2018 SUBJECTIVE: The patient definitely is more alert and awake today. She is oriented now to place and person, but not time. She denies any complaints like shortness of breath or pleuritic chest pain. We have checked vitals, no fever reported. OBJECTIVE: Vital Signs: Temperature 97.6 degrees, heart rate 82, respiratory rate 16, blood pressure 167/76, O2 saturation 99% on room air. General: This is a chronically ill-looking, 68- year-old female lying in bed, in no acute distress. HEENT: Head is normocephalic, atraumatic. Neck: No JVD noted. No carotid bruit. Cardiovascular: S1, S2 heard. No murmurs, gallops, or rubs. Regular rate and rhythm. Respiratory: Clear bilaterally to auscultation. No work of breathing or using accessory muscles. Abdomen: Soft, nontender to palpation. Bowel sounds present. No organomegaly. Extremities: No clubbing, cyanosis, or edema. Peripheral pulses present in both legs. Neurologic: The patient is oriented to place and person, not to time. The patient follow commands. LABORATORY DATA: White cell count 6.37, hemoglobin 7.5, hematocrit 24.1, platelets are 230,000. BMP shows creatinine 4.3, with glucose 139. ASSESSMENT AND PLAN: 1. Sepsis secondary to bilateral pneumonia. I think the sepsis has resolved. She has a pneumonia that is being treated with Zyvox, day #4, and also cefepime, day # 7. The x-ray from yesterday showed a significant improvement in the dense infiltrates so I think at this point, considering that this patient has pneumonia, but not requiring any oxygen supplementation, not having any fever, not having any shortness of breath, and not having any chest pain secondary to this pneumonia, and non tachycardic or tachypneic I think she is definitely stable. 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 Even the encephalopathy secondary to infection has resolved completely. We will continue to monitor. 2. Right breast nodule. I checked the last note from Dr. Montes De Oca regarding his concern about doing this procedure, this right lumpectomy and considering her social situation with nobody who can help her to get this procedure done as an outpatient and prior history of left breast cancer I totally agree with him. Considering her current clinical situation discussed above I think she needs to have that procedure done as impatient. I will leave to Anesthesiology at the evaluation for this patient. 3. Chronic kidney disease, stage 4. The creatinine baseline is 2.5 but the creatinine has been getting higher recently, but from yesterday to today, has stabilized from 4.4 to 4.3 today. At this point, we will continue to monitor BMP and also Dr. Fitzgerald is following this patient. 4. Global encephalopathy. Resolved. 5. Hypokalemia. Resolved. 6. Normocytic anemia. Hemoglobin has dropped to 7.5, I think that if it keeps dropping close to 7.0 we will transfuse 1 unit of blood. 7. Diabetes mellitus type 2. The patient is definitely much better with the change in Lantus to 30 units about twice daily. We will continue with the same management. 8. History of left breast cancer. Aware. 9. Constipation. Patient on home medications. 10. Disposition. I think this patient needs to continue working with physical therapy. Actually when they tried to help her get up she had a fall and hit the right shoulder. The x-ray did not show any fracture. So, as we mentioned before, this patient definitely needs to go to a rehab facility, I think after that procedure, the right lumpectomy is done, and if okay with Dr. Carmona, we can switch antibiotics to oral and send to rehab facility. cc: Naveen Hurst MD MTDD
--- NOTE | 2018-08-15 14:04 | NEPHROLOGY PROGRESS NOTE ---
DATE: 08/15/2018 SUBJECTIVE: Patient is sitting up in bed eating breakfast. She denies any issues. OBJECTIVE: Vital Signs: Temperature 98.2 degrees, pulse 81, respiratory rate 14, blood pressure 167/67. Intake 1.4 L. Output, incontinent. General: Elderly female, resting in bed. No acute distress. HEENT: Normocephalic, atraumatic. CUCA. Oral mucosa moist. Neck: Supple without JVD. Cardiovascular: Regular rate and rhythm. No murmur or gallop. Pulmonary : She has equal excursion. Decreased breath sounds bilaterally. Abdomen: Soft. Positive bowel sounds. : Not inspected. Extremities: Trace edema. No clubbing or cyanosis. Integumentary: Skin is warm and dry. LAB DATA: WBC of 6.3, hemoglobin 7.5. Sodium 136, potassium 4.3, CO2 21, BUN 65, creatinine 4.3 (4.4), albumin 2.2. ASSESSMENT AND PLAN: 1. Chronic kidney disease stage 4, exacerbated with diuretic use. Continue to hydrate orally. She had excellent input yesterday. Her renal function appears to have stabilized. We will continue with her current treatment plan. Has no indications for intervention otherwise. 2. Hyperphosphatemia. Will add PhosLo. Dictated by BRIANNA Fernandez for Benji Fitzgerald MD Face to face encounter, data reviewed, discussed with Jamal Manzanares on 08/15/18. I agree with the above assessment and plan of care. cc: Benji Fitzgerald MD [facility]
[2018-08-15] MEDS: DULCOLAX PR SCH (21:24)
--- NOTE | 2018-08-15 22:40 | INFECTIOUS DISEASE PROGRESS NO ---
DATE: 08/15/2018 PRESENT ILLNESS: Ms. Velez has a bilateral pneumonia, which seems to be improving. There is also a right breast mass, which is being followed by Dr. Montes De Oca. MEDICATIONS: Today is day 7 of cefepime 1 g IV every 12 hours as a renally- modified dose, and Zyvox 600 mg by mouth every 12 hours. PHYSICAL EXAMINATION: Vital Signs: Temperature is 97.6 degrees, pulse rate 82 , respiratory rate 16, blood pressure 107/66. Oxygen saturation is 99% on 1 L nasal cannula. General: This is a chronically ill-appearing elderly female. She is lying in the bed, in no acute distress. HEENT: Atraumatic, normocephalic. Oral mucous membranes are pink and moist. Conjunctivae are pale. Neck: Supple. Trachea is midline. Cardiovascular: Heart rate and rhythm are regular. Normal sinus rhythm on the monitor. Pedal and radial pulses are +1 bilaterally. Respiratory: Clear in the upper lobes. Diminished in the bases. Respiratory excursion is normal and symmetric. Abdomen: Soft, large, and nontender. Bowel sounds are active. Neurologic: She is awake, alert, and follows commands without difficulty. She is able to move her extremities. However, she is weak and not moving unless she is prompted most of the time. There is significant pitting edema noted to her bilateral upper extremities, 2 to 3+. There is a central line in place to the right groin. The site is without edema, erythema, or drainage. She is noted to have a right breast mass, which when I touch the area, started to emit some thick white pus. LABORATORY AND X-RAY: Today, her white count is 6.37, hemoglobin 7.5, platelet count 230,000. Creatinine is 4.3, GFR 12. Blood and urine cultures have shown no growth. No imaging reports today. ASSESSMENT AND PLAN: Ms. Velez has a bilateral pneumonia, for which she is receiving Zyvox and cefepime. She seems to be improving, so we will continue medications as ordered. On her assessment today I did see some purulent drainage coming from the right breast mass, so I went ahead and cultured that to send to the lab. This is being followed by Dr. Montes De Oca. I will go ahead and get a chest x-ray for the morning. The previous plans have been discussed with and recommended by Dr. Carmona. COMORBIDITIES: She is elderly, with diabetes mellitus, chronic kidney disease, and a history of breast cancer in the family. Dictated by BRIANNA Obrien for Eh Carmona MD This chart was documented by, BRIANNA Obrien and accurately reflects the services performed, treatment plan and medical decisions as attested by the providers signature Eh Carmona MD. cc: Eh Carmona MD [facility]
--- NOTE | 2018-08-16 00:17 | GENERAL SURGERY PROGRESS NOTE ---
DATE: 08/15/2018 SUBJECTIVE: No events. She is on room air. She has no shortness of breath, no cough, no fevers, no tachycardia. OBJECTIVE: Vital Signs: Blood pressure 116/70. General: She is alert. Cardiovascular: Normal rate. Pulmonary: No increased work of breathing. The right breast mass is stable. Integumentary: Warm, dry. Laboratory Studies: White count 6, hematocrit 24. Creatinine is 4.3. ASSESSMENT AND PLAN: A 68-year-old female with a right inferomedial breast mass. She was admitted with altered mental status, hypertensive urgency, and infectious, felt to be pneumonia. It appears her pneumonia is resolved. We will plan on excising this breast mass when cleared by Anesthesia. cc: Mariana Montes De Oca MD
[2018-08-16] MEDS: DUONEB (A & A) INH SCH ×6 (03:10→23:07)
[2018-08-16] MEDS: HUMALOG SUBQ SCH ×4 (06:31→23:50)
--- NOTE | 2018-08-16 07:33 | Diag Imaging Result Doc PS360 ---
EXAM: CHEST-PORTABLE INDICATION: pneumonia TECHNIQUE: One view COMPARISON: 08/13/2018 FINDINGS: Diffuse bilateral infiltrates throughout both lungs are grossly stable given slight differences in inspiration. No new consolidation is identified. Cardiac silhouette is stable. IMPRESSION: Stable chest. Electronically signed by Alfred Marrero 08/16/2018 7:31 AM
[2018-08-16 07:56] LABS: HEMATOCRIT 25.6 % (37.0-47.0); HEMOGLOBIN 8.1 g/dL (12.0-16.0); MCH 29.7 PG (27-31); MCHC 31.6 g/dL (33-37); MCV 93.8 FL (81-99); MPV 10.7 FL (7.4-10.4); RBC 2.73 XMIL (4.2-5.4); RDW 12.6 % (11.5-14.5); WBC 8.01 X1000 (4.8-10.8)
[2018-08-16] MEDS: SYMBICORT 80/4.5 MICROGM INHALER INH SCH ×2 (08:00→21:08)
[2018-08-16 08:15] LABS: ALBUMIN 2.4 g/dL (3.5-5.0); CALCIUM 8.4 mg/dL (8.8-10.2); CREATININE 4.6 mg/dL (0.5-0.9); PHOSPHORUS 4.8 mg/dL (2.7-4.5); POTASSIUM 4.5 mmol/L (3.5-5.1)
[2018-08-16] MEDS ORDERED: LABETALOL IV ONE (08:37)
[2018-08-16] MEDS ORDERED: APRESOLINE IV ONE (08:38)
[2018-08-16] MEDS: FOLIC ACID PO SCH (09:15)
[2018-08-16] MEDS: COREG PO SCH ×2 (09:16→21:07)
[2018-08-16] MEDS: BASAGLAR SUBQ SCH ×2 (09:16→21:07)
[2018-08-16] MEDS: SODIUM BICARBONATE PO SCH ×2 (09:16→21:07)
[2018-08-16] MEDS: APRESOLINE PO SCH ×3 (09:16→21:07)
[2018-08-16] MEDS: MIRALAX PO SCH ×2 (09:16→21:07)
[2018-08-16] MEDS: ZYVOX PO SCH ×2 (09:16→21:07)
[2018-08-16] MEDS: CATAPRES PO SCH ×3 (09:16→21:07)
[2018-08-16] MEDS: PHOSLO PO SCH ×3 (09:16→17:00)
[2018-08-16] MEDS: NORVASC PO SCH ×2 (09:16→21:07)
[2018-08-16] MEDS: ZOFRAN IV PRN ×2 (09:21→22:06)
--- NOTE | 2018-08-16 09:28 | Diag Imaging Result Doc PS360 ---
EXAM: CT THORAX W/O CONTRAST HISTORY: pna TECHNIQUE: CT chest without contrast COMPARISON: 02/18/2018 FINDINGS: Tiny pleural effusions. These have decreased in size compared to the prior study. The heart is enlarged. There is pulmonary edema. Partial clearing of the atelectasis and infiltrates in the lower lungs. Small groundglass infiltrates in both lungs. Mild body wall edema. No aortic aneurysm. Interval increase in the size of the subcutaneous nodule along the inner right breast which now measures 2.3 cm. IMPRESSION: 1.Trace pleural fluid which is smaller than on the prior exam 2.Cardiomegaly is slightly more prominent 3.Mild pulmonary edema has improved 4.Interval increase in the size of the subcutaneous nodule in the medial right breast This exam was performed using automated exposure control, adjustment of mA or kV according to patient size, and/or use of iterative reconstruction technique. Electronically signed by Alan Gary 08/16/2018 9:26 AM
[2018-08-16] MEDS: MAXIPIME 1 GM in NS 50 ML IV SCH ×3 (11:40→21:11)
--- NOTE | 2018-08-16 15:53 | PROGRESS NOTE ---
DATE: 08/16/2018 SUBJECTIVE: As per nurse, I was informed that this patient was coughing up a lot of blood with sputum, so I went ahead and ordered a CT of the chest, and I ordered vital signs , and this patient was on room air, although the blood pressure was pretty much high in the range of 160s to 170s. The patient reports feeling fine, although she is a little bit more sleepier today. OBJECTIVE: Vital Signs: Temperature 96.8 degrees, heart rate 99, respiratory rate 18, blood pressure 155/70, and O2 saturation 99% on room air. General: This is a chronically ill-looking 68-year-old female, lying in bed, in no acute distress. HEENT : Head is normocephalic, atraumatic. Neck: No JVD noted. No carotid bruits. No lymphadenopathy. Cardiovascular: S1 and S2 heard. No murmurs, gallops, or rubs. Regular rate and rhythm. Respiratory: Clear bilaterally to auscultation. No work of breathing or using accessory muscles. Chest: In the right breast, there is a small abscess that has drained spontaneously. Abdomen: Soft, nontender to palpation. Bowel sounds present. No organomegaly. Extremities: No clubbing, cyanosis, or edema. Peripheral pulses present in both legs. Neurological: The patient is alert and oriented x3. Moves 4 extremities. LABORATORY DATA: White cell count 8.01, hemoglobin 8.1, hematocrit 25.6, platelets 257,000. Creatinine 4.6, sodium 135, glucose 138. ASSESSMENT AND PLAN: 1. Sepsis secondary to bilateral pneumonia. Because this patient started coughing blood, we ordered a CT of the chest which basically showed trace pleural fluid, which is more than the other on prior exam, with mild pulmonary edema that has improved. They did mention small ground-glass infiltrates in both lungs, an increase of the size of this subcutaneous nodule in the right medial breast. At this point, we will continue with the current treatment that in this case is Zyvox day number 5 and cefepime day number 8. At this point, we are going to continue with the same management. The patient is requiring only 1 liter of oxygen by nasal cannula. 2. Right breast nodule. Actually, there is an abscess and there was draining of some pus that was cultured by Infectious Disease. The culture is negative so far, but we agree with Dr. Montes De Oca that this patient needs to have that right lumpectomy. Considering that there the blood pressure has been high, we are planning to do that lumpectomy on Sunday if everything is okay. We will continue to monitor this patient closely. 3. Chronic kidney disease stage IV, stable right now with creatinine between 4.4 and 5.3. 4. Global encephalopathy. The patient is more confused today. We will continue to monitor. 5. Normocytic anemia. Hemoglobin has increased to 8.1. 6. Diabetes mellitus type 2. The patient is on Lantus and also on sliding scale insulin as well. 7. History of left breast left cancer, aware. 8. Constipation. The patient is on home medications, in this case it is Dulcolax and also MiraLAX. 9. Disposition. At this point, we are going to keep this patient over the weekend, and on Sunday we will try to do the right lumpectomy. cc: Naveen Hurst MD MTDD
--- NOTE | 2018-08-16 15:59 | NEPHROLOGY PROGRESS NOTE ---
DATE: 08/16/2018 SUBJECTIVE: Ms. Velez is being moved to the [facility] because of cough and hemoptysis. She states she feels well and denies cough. OBJECTIVE: Vital Signs: Blood pressure 191/83, heart rate 90, respirations 16, afebrile. General: No acute distress. Skin: Warm and dry. Neck: Neck veins are not distended. Heart: Regular. No gallops. Lungs: Equal. No crackles. Abdomen: Soft, nontender. Bowel sounds present. Extremities: No edema, clubbing, or cyanosis. IMPRESSION: Chronic kidney disease. BUN and creatinine continue to rise modestly. She seems asymptomatic related to this. Electrolytes and acid-base are acceptable. No changes. cc: Benji Fitzgerald MD
--- NOTE | 2018-08-16 18:28 | GENERAL SURGERY PROGRESS NOTE ---
DATE: 08/16/2018 SUBJECTIVE: She has had some nausea, hypertension worsening this morning, some cough, productive. Oxygen saturation has been okay. Tachycardia in the high 90s. OBJECTIVE: General: She is alert. Breasts: Right breast mass stable. Cardiovascular: Normal rate. Pulmonary: No increased work of breathing. LABORATORY DATA: White count 8, hematocrit 25. Creatinine 4.6. ASSESSMENT AND PLAN: A 68-year-old female with a right breast mass. She is also recovering from pneumonia and hypertensive emergency. Will continue current care. Hopefully, we can perform a lumpectomy next week. cc: Mariana Montes De Oca MD
[2018-08-17] MEDS: DUONEB (A & A) INH SCH ×6 (03:16→23:00)
[2018-08-17] MEDS: DULCOLAX PR SCH ×2 (03:51→20:59)
[2018-08-17] MEDS: HUMALOG SUBQ SCH ×4 (06:32→20:49)
[2018-08-17 07:12] LABS: HEMATOCRIT 26.4 % (37.0-47.0); HEMOGLOBIN 8.2 g/dL (12.0-16.0); MCH 28.7 PG (27-31); MCHC 31.1 g/dL (33-37); MCV 92.3 FL (81-99); MPV 10.1 FL (7.4-10.4); RBC 2.86 XMIL (4.2-5.4); RDW 12.5 % (11.5-14.5); WBC 7.31 X1000 (4.8-10.8)
[2018-08-17 07:47] LABS: ALBUMIN 2.9 g/dL (3.5-5.0); CALCIUM 9.6 mg/dL (8.8-10.2); CREATININE 4.6 mg/dL (0.5-0.9); PHOSPHORUS 4.8 mg/dL (2.7-4.5); POTASSIUM 4.6 mmol/L (3.5-5.1)
[2018-08-17] MEDS: SYMBICORT 80/4.5 MICROGM INHALER INH SCH ×2 (08:30→21:03)
[2018-08-17] MEDS: MAXIPIME 1 GM in NS 50 ML IV SCH ×2 (09:01→21:03)
[2018-08-17] MEDS: CATAPRES PO SCH ×3 (09:02→21:02)
[2018-08-17] MEDS: FOLIC ACID PO SCH (09:02)
[2018-08-17] MEDS: PHOSLO PO SCH ×4 (09:02→16:41)
[2018-08-17] MEDS: ZYVOX PO SCH ×2 (09:02→21:03)
[2018-08-17] MEDS: APRESOLINE PO SCH ×3 (09:02→21:02)
[2018-08-17] MEDS: SODIUM BICARBONATE PO SCH ×2 (09:03→21:02)
[2018-08-17] MEDS: MIRALAX PO SCH ×2 (09:03→21:03)
[2018-08-17] MEDS: COREG PO SCH (09:03)
[2018-08-17] MEDS: BASAGLAR SUBQ SCH ×2 (09:03→20:49)
[2018-08-17] MEDS: NORVASC PO SCH ×2 (09:03→21:02)
--- NOTE | 2018-08-17 10:52 | GENERAL SURGERY PROGRESS NOTE ---
DATE: 08/17/2018 SUBJECTIVE: Patient seems to be doing okay. OBJECTIVE: Vital Signs: Patient is currently afebrile. Her vital signs are stable. General Exam: No acute distress. Cardiovascular: Regular rate and rhythm. Lungs: Grossly clear. Right breast mass unchanged. Abdomen: Soft, nontender, nondistended. ASSESSMENT AND PLAN: A 68 year old with right breast mass. 1. Right breast mass: At this time, patient seems to be improving clinically. She will likely need a lumpectomy next week. We will defer to Dr. Montes De Oca. cc: Jose Iglesias MD
--- NOTE | 2018-08-17 14:57 | PROGRESS NOTE ---
DATE: 08/17/2018 SUBJECTIVE: Patient is a little bit more sleepy this morning, but awakes easily to verbal stimuli. She does not report any complaint at this time. No acute issues noted as per nursing staff overnight. OBJECTIVE: Vital Signs: Temperature 97.0 degrees, heart rate 78, respiratory rate 18, blood pressure 169/74, O2 saturation 100% on 2 L nasal cannula. General Examination: This is a chronically ill-looking, 68-year-old female, lying in bed in no acute distress. HEENT: Head is normocephalic, atraumatic. Neck: No JVD noted. No carotid bruits. No lymphadenopathy. Cardiovascular exam: S1, S2 heard. No work of breathing or using accessory muscles. Breasts: In the right breast, there is a small lump that looks like a small abscess that has drained spontaneously. Abdomen: Soft, nontender to palpation. Bowel sounds present. No organomegaly. Extremities: No clubbing, cyanosis, or edema. Peripheral pulses present in both legs. Neurological examination: Patient is alert and oriented x3. Moves 4 extremities. LABORATORY DATA: White cell count 7.31, hemoglobin 8.2, hematocrit 26.4, platelets 259. BMP shows creatinine 4.6. ASSESSMENT AND PLAN: 1. Sepsis secondary to bilateral pneumonia. Sepsis has resolved. Patient is better today because yesterday she was having some bloody sputum. She got a CT scan of the chest which basically shows trace pleural fluid, smaller than prior exam, mild pulmonary edema improved, interval increase in the size of the subcutaneous nodule in the medial right breast, and cardiomegaly that is slightly predominant. So, at this point, we do not see any signs of pneumonia radiologically. So, at this point we will continue with Zyvox day #6 and on cefepime day #9. 2. Right breast nodule. Plan is to perform right lumpectomy this Sunday. Dr. Montes De Oca on board. 3. Chronic kidney disease stage IV, although the baseline for this patient was 2.5 a few months ago. The creatinine has stabilized around 4.4 to 4.6 today. We will continue with the same management. 4. Global encephalopathy. Patient is a little bit less confused today. We will continue to monitor. 5. Normocytic anemia. Hemoglobin is stable. It is 8.2 today. We will continue to monitor complete blood count. 6. Diabetes mellitus type 2. Patient is on Lantus and sliding scale insulin as well. We will continue with the same management. 7. History of left breast cancer. Aware. 8. Constipation. We will continue with MiraLAX and Dulcolax. 9. Disposition: We will continue adjusting the doses of blood pressure medication if needed. I am planning to do a right lobectomy this Sunday. cc: Naveen Hurst MD MTDD
--- NOTE | 2018-08-17 14:58 | NEPHROLOGY PROGRESS NOTE ---
DATE: 08/17/2018 SUBJECTIVE: She has really not been eating or drinking. No nausea or vomiting. She is sitting up. Awake, alert. No cough. No sputum. OBJECTIVE: Blood pressure is 169/74, heart rate 78, respirations 18, afebrile. General: No acute distress. Skin is warm and dry. Conjunctivae are pink. Neck veins are not distended. Heart is regular. No gallops. Lungs are equal, no crackles. Abdomen is soft, nontender. Bowel sounds present. Extremities with no edema, clubbing, or cyanosis. IMPRESSION: Chronic kidney disease stage 4. Her creatinine has been in the mid 4's for the last several days. I once again encouraged her to increase her p.o. intake. If she is not able to, we will need to give her IV fluids. Otherwise, electrolytes and acid base are in target. No changes. cc: Benji Fitzgerald MD
[2018-08-17] MEDS: ZOFRAN IV PRN (17:30)
--- NOTE | 2018-08-17 23:50 | INFECTIOUS DISEASE PROGRESS NO ---
DATE: 08/17/2018 PRESENT ILLNESS: The patient is currently being treated for a bilateral pneumonia and also a mass in the right breast which may be an abscess. MEDICATIONS: This is day 9 of treatment with the combination of cefepime and Zyvox. PHYSICAL EXAMINATION: Vital Signs: Temperature is 97 degrees, pulse 78, respirations 18, blood pressure 169/74. General: This is a chronically ill-appearing, elderly female. She is in no acute distress. Head, eyes, ears, nose, and throat: She can hear my spoken words and see near objects. There is no white coating on her tongue. Neck: No stiffness. Lungs: Clear to auscultation. Cardiovascular: Heart rate is regular. Abdomen: Soft and nontender. Breasts: The right breast mass to me seems to be about the same size. It is not draining. The mass is somewhat indurated but not tender, and the overlying skin is not erythematous. Neurologic: The patient is awake. She does not have a tremor. She does not answer questions at this time. LABORATORY AND X-RAY: CT scan of the chest shows increase in the size of the right breast mass. Chest x-ray shows bilateral infiltrates. Creatinine is 4.6. GFR is 11. A culture from the patient's right breast mass drainage grew coagulase-negative Staph. The patient's CBC shows a white count of 7310, hemoglobin 8.2, and platelet count 259,000. ASSESSMENT AND PLAN: The patient has bilateral pneumonia and a breast mass. My plan is to continue the current antibiotics. I am going to repeat the CBC, BMP, and portable chest x-ray in [address] Montes De Oca is managing the right breast mass. COMORBIDITIES: The patient is elderly. She has diabetes mellitus, chronic kidney disease, and a history of breast cancer in her family. cc: Eh Carmona MD
[2018-08-18] MEDS: DUONEB (A & A) INH SCH ×6 (03:22→22:50)
[2018-08-18] MEDS: ZOFRAN IV PRN ×3 (05:08→22:25)
[2018-08-18] MEDS ORDERED: ZOFRAN IV ONE (06:08)
[2018-08-18] MEDS: HUMALOG SUBQ SCH ×4 (07:16→22:14)
[2018-08-18 07:37] LABS: HEMATOCRIT 27.3 % (37.0-47.0); HEMOGLOBIN 8.5 g/dL (12.0-16.0); MCH 28.7 PG (27-31); MCHC 31.1 g/dL (33-37); MCV 92.2 FL (81-99); MPV 10.4 FL (7.4-10.4); RBC 2.96 XMIL (4.2-5.4); RDW 12.3 % (11.5-14.5); WBC 8.92 X1000 (4.8-10.8)
[2018-08-18 08:04] LABS: ALBUMIN 2.7 g/dL (3.5-5.0); CALCIUM 9.6 mg/dL (8.8-10.2); CREATININE 4.8 mg/dL (0.5-0.9); PHOSPHORUS 4.9 mg/dL (2.7-4.5); POTASSIUM 4.8 mmol/L (3.5-5.1)
[2018-08-18] MEDS: APRESOLINE PO SCH ×3 (10:27→22:14)
[2018-08-18] MEDS: PHOSLO PO SCH ×3 (10:27→17:22)
[2018-08-18] MEDS: NORVASC PO SCH ×3 (10:28→22:13)
[2018-08-18] MEDS: SODIUM BICARBONATE PO SCH ×3 (10:28→22:20)
[2018-08-18] MEDS: MIRALAX PO SCH ×2 (10:28→22:13)
[2018-08-18] MEDS: BASAGLAR SUBQ SCH ×2 (10:28→22:21)
[2018-08-18] MEDS: FOLIC ACID PO SCH ×2 (10:28→12:18)
[2018-08-18] MEDS: ZYVOX PO SCH ×3 (10:29→22:14)
[2018-08-18] MEDS ORDERED: SODIUM CHLORIDE 0.9% INJ PRN (10:37)
[2018-08-18] MEDS ORDERED: PHENERGAN IV PRN (10:37)
[2018-08-18] MEDS: SYMBICORT 80/4.5 MICROGM INHALER INH SCH ×2 (11:30→22:20)
--- NOTE | 2018-08-18 11:41 | PROGRESS NOTE ---
DATE: 08/17/2018 SUBJECTIVE: Patient as per nursing staff was vomiting a lot and today is still feeling a little bit nauseated. [place] was unfortunately not working well for her. No other issues noted as per nursing staff overnight. OBJECTIVE: Vital Signs: Temperature 97.5 degrees, heart rate 85, respiratory rate 20, blood pressure 166/94, O2 saturation 97% on 1 L nasal cannula. General Examination: This is a chronically ill-looking, 68-year-old female lying in bed, in no acute distress. HEENT: Head is normocephalic, atraumatic. Neck: No JVD noted. No carotid bruits. Cardiovascular: S1, S2 heard. No murmurs, gallops, or rubs. Regular rate and rhythm. Respiratory: Clear bilaterally to auscultation. No work of breathing or using accessory muscles. Abdomen: Soft, nontender to palpation. Bowel sounds present. No organomegaly. Extremities: No clubbing, cyanosis, or edema. Peripheral pulses present in both legs. Neurological: Patient is a little bit sleepy today, but awakens easily to verbal stimuli. Moves 4 extremities. LABORATORY DATA: White cell count 8.92, hemoglobin 8.5, hematocrit 27.3, platelets 255,000. Creatinine 4.8. ASSESSMENT: 1. Sepsis secondary to bilateral pneumonia. Sepsis resolved. The patient is receiving for this condition Zyvox and cefepime, day #[address] Carmona is managing antibiotics. We will continue with the same management. 2. Right breast nodule. Plan for this patient to try to perform lumpectomy tomorrow, Sunday. Dr. Montes De Oca following this patient. 3. Chronic kidney disease, stage IV. Baseline before this patient came to the hospital was 2.5 and today the highest has been 4.6. Nephrology is following this patient. We will follow recommendations. 4. Normocytic anemia. Hemoglobin is stable. We will continue to monitor CBC. 5. Diabetes mellitus type 2. Patient is on Ventimask and sliding scale insulin. We will continue with the same management. 6. History of left breast cancer. Aware. 7. Constipation. We will continue with MiraLAX and Dulcolax. 8. Disposition. At this point, because the blood pressure is a little bit higher, we are going to increase the clonidine from 0.2 to 0.3 three times per day. I think we will be able to do right lumpectomy tomorrow. cc: Naveen Hurst MD
[2018-08-18] MEDS: MAXIPIME 1 GM in NS 50 ML IV SCH ×2 (12:16→22:14)
[2018-08-18] MEDS ORDERED: INSULIN PEN NEEDLES ONE (12:56)
--- NOTE | 2018-08-18 15:50 | INFECTIOUS DISEASE PROGRESS NO ---
DATE: 08/18/2018 PRESENT ILLNESS: The patient has a bilateral pneumonia. Also, she has a mass in the right breast which may be an abscess. MEDICATIONS: This is the 10th day of treatment with a combination of cefepime and Zyvox. PHYSICAL EXAMINATION: Vital Signs: Temperature is 97 degrees, pulse 84, respirations 16, blood pressure 170/87. General: This is a chronically ill-appearing, elderly female. She is in no acute distress. Head, Eyes, Ears, Nose, and Throat: No drainage was noted from the nose or the ears. She attempted to answer my questions, but I could not understand what she was saying. Neck: There is no stiffness. Lungs: Clear to auscultation. Cardiovascular: Heart rate is regular. Breasts: On the right breast, there is a mass present. Currently, it is indurated. It is not red, and it is not draining. Cardiovascular: Heart rate is regular. Abdomen: Soft and not tender. Extremities: In the right groin, there is a catheter present. The catheter site is not draining. Neurologic: The patient has her eyes open. She does not answer questions. She did not move her extremities to request. There is no tremor. LABORATORY AND X-RAY: CBC today shows a white count of 8920, hemoglobin 8.8, and platelet count 255,000. Creatinine is 4.8. GFR is 11. There is no new radiographic study today. ASSESSMENT AND PLAN: The patient has bilateral pneumonia and a breast mass. I am going to obtain a chest x-ray tomorrow on the patient, and if it looks fairly clear, I think I will be able to stop the antibiotics. Dr. Montes De Oca is managing the right breast mass. COMORBIDITIES: The patient is elderly. She is a diabetic. She has chronic kidney disease and a history of breast cancer in her family. cc: Eh Carmona MD
[2018-08-18] MEDS: CATAPRES PO SCH ×2 (17:22→22:14)
[2018-08-18] MEDS: DULCOLAX PR SCH (22:20)
[2018-08-19] MEDS: DUONEB (A & A) INH SCH ×6 (03:25→23:04)
[2018-08-19] MEDS: HUMALOG SUBQ SCH ×4 (06:56→21:37)
--- NOTE | 2018-08-19 07:04 | Diag Imaging Result Doc PS360 ---
CHEST-1 VIEW - 08/19/2018 INDICATION: pneumonia COMPARISON: 08/16/2018 FINDINGS: Stable cardiomegaly and pulmonary vascular congestion. There are worsening bilateral central infiltrates in bilateral lower lobe infiltrates. No pneumothorax. There may be small pleural effusions. IMPRESSION: Bilateral infiltrates most suggestive of pulmonary edema. Electronically signed by Malachi Chaves 08/19/2018 7:02 AM
[2018-08-19 07:06] LABS: BASO# 0.01 X1000 (0.0-0.2); BASO% 0.1 % (0.0-0.8); EOS# 0.14 X1000 (0.0-0.7); EOS% 1.4 % (0.0-10.0); HEMATOCRIT 24.8 % (37.0-47.0); HEMOGLOBIN 7.5 g/dL (12.0-16.0); LYMPH# 1.39 X1000 (1.2-3.4); LYMPH% 14.4 % (20.5-51.1); MCH 28.5 PG (27-31); MCHC 30.2 g/dL (33-37); MCV 94.3 FL (81-99); MONO# 0.56 X1000 (0.11-0.59); MONO% 5.8 % (1.7-9.3); MPV 10.3 FL (7.4-10.4); NEUT# 7.58 X1000 (1.4-6.5); NEUT% 78.3 % (42.2-75.2); PLT 207 X1000 (130-400); RBC 2.63 XMIL (4.2-5.4); RDW 12.3 % (11.5-14.5); WBC 9.68 X1000 (4.8-10.8)
[2018-08-19 07:09] LABS: ALBUMIN 2.6 g/dL (3.5-5.0); CREATININE 5.5 mg/dL (0.5-0.9); PHOSPHORUS 5.1 mg/dL (2.7-4.5); POTASSIUM 5.3 mmol/L (3.5-5.1)
[2018-08-19] MEDS: SYMBICORT 80/4.5 MICROGM INHALER INH SCH ×2 (07:49→23:04)
--- NOTE | 2018-08-19 10:08 | OPERATIVE NOTE ---
PROCEDURE DATE: 08/19/2018 Ms. Katia Velez is a 68-year-old black female who has end-stage renal disease and will require dialysis during this hospitalization. We were asked to place access. DESCRIPTION OF PROCEDURE: The patient was brought to our recovery room and in her bed we placed her supine. Her right neck was prepped and draped within a sterile field. I used local anesthetic at our puncture site base of right neck. I used ultrasound to identify the right internal jugular vein. Using ultrasound I placed an 18-gauge needle into the right internal jugular vein between the 2 heads of the right sternocleidomastoid muscle. I placed a guidewire through this needle into the right side of the heart. The needle was removed and then I placed an incision at the exit site base of right neck of our guidewire. Sequential dilators were placed over the guidewire into the superior vena cava and then a 13 cm in length Vas-Cath was placed over the guidewire into the superior vena cava. The guidewire was removed. Both ports were functioning well and were flushed with saline. The catheter was secured at its exit site with two 2-0 nylon stitches followed by dry dressing. She tolerated the procedure well. We are awaiting a chest x-ray now for position with plans for her to return to the floor. cc: Samantha Puentes MD
--- NOTE | 2018-08-19 10:38 | Diag Imaging Result Doc PS360 ---
CHEST-PORTABLE - 08/19/2018 9:39 AM INDICATION: vas cath placement COMPARISON: 5:52 AM FINDINGS: There is been placement of a right internal jugular central line in good position with the catheter tip at the mid SVC. No pneumothorax or large effusion. There has been slight decrease in the bibasilar infiltrates. IMPRESSION: Good right central line placement with no evidence of complication. Electronically signed by Malachi Chaves 08/19/2018 10:35 AM
[2018-08-19] MEDS ORDERED: HEPARIN IV PRN (10:50)
[2018-08-19] MEDS ORDERED: NS 2,000 ML MISC PRN (10:50)
[2018-08-19] MEDS: PHOSLO PO SCH ×3 (11:35→18:09)
[2018-08-19] MEDS: APRESOLINE PO SCH ×3 (11:35→21:35)
[2018-08-19] MEDS: CATAPRES PO SCH ×3 (11:35→21:35)
[2018-08-19] MEDS: BASAGLAR SUBQ SCH ×2 (11:36→21:34)
[2018-08-19] MEDS: MIRALAX PO SCH ×2 (11:39→21:34)
[2018-08-19] MEDS: MAXIPIME 1 GM in NS 50 ML IV SCH (11:44)
[2018-08-19] MEDS: NORVASC PO SCH ×2 (11:44→21:35)
[2018-08-19] MEDS: SODIUM BICARBONATE PO SCH ×2 (11:45→21:35)
--- NOTE | 2018-08-19 11:48 | PROGRESS NOTE ---
DATE: 08/19/2018 SUBJECTIVE: The patient reports feeling fine. Denies any fever or chills. Actually, she is not talkative today but she is awake and oriented to person only. OBJECTIVE: Vital Signs: Temperature 97.5 degrees, heart rate 87, respiratory rate 20, blood pressure 164/73, O2 saturation 96% on 2 L nasal cannula. General examination: This is a chronically ill-looking, 68-year-old female, lying in bed, in no acute distress. HEENT: Head is normocephalic, atraumatic. Neck: No JVD noted. Cardiovascular: S1, S2 heard. No murmurs, gallops, or rubs. Regular rate and rhythm. Respiratory: Clear bilaterally to auscultation. No work of breathing or using accessory muscles. Abdomen: Soft. Nontender to palpation. Bowel sounds present. No organomegaly. Extremities: No clubbing, cyanosis, or edema. Peripheral pulses present in both legs. Neurological: Patient is a little bit sleepy today. Awakes easily to verbal stimuli. Moves 4 extremities. LABORATORY DATA: White cell count is 9.68, hemoglobin 7.5, hematocrit 24.8, platelets 207,000. Potassium 5.3, creatinine 5.5 with GFR 9. ASSESSMENT AND PLAN: 1. Sepsis secondary to bilateral pneumonia. Sepsis is resolved. Patient is receiving Zyvox and cefepime, both [address] Carmona from Infectious Disease is directing antibiotics. We will follow his recommendations. 2. Right breast nodule. As per Dr. Osmany Montes De Oca, he is planning to do a lumpectomy. I do not know if that is going to be today or if it is going to Sunday. We will follow recommendations. 3. Chronic kidney disease stage 5. Because we have seen that this creatinine has continued to get worse, Dr. Fitzgerald has decided to consult Dr. Danielle to place an IV access to start dialysis during this hospitalization. We will follow his recommendations. 4. Normocytic anemia. Hemoglobin is 7.5 today. I would like to provide 1 unit of blood while she starts dialysis. 5. Diabetes mellitus type 2. We will continue with sliding scale insulin and also Accu-Cheks before meals and also at bedtime. 6. History of left breast cancer. Aware. 7. Constipation. Patient is on Dulcolax and on MiraLAX. Will continue with the same management. 8. Disposition. I think at this point the patient is going to start having dialysis and whenever the patient is medically stable, she will be sent to a rehab facility. cc: Naveen Hurst MD
[2018-08-19] MEDS ORDERED: MAXIPIME 1 GM in NS 50 ML IV SCH (12:00)
--- NOTE | 2018-08-19 12:18 | INFECTIOUS DISEASE PROGRESS NO ---
DATE: 08/19/2018 PRESENT ILLNESS: Ms. Velez has bilateral infiltrates. These could be pulmonary venous or vascular congestion as well as possible pneumonia. She has stage 4 chronic kidney disease with fluid volume overload and the plan is to start dialysis on her today. There is a right breast mass that is being followed by Dr. Montes De Oca. MEDICATIONS: She is on day 11 of cefepime 1 g IV every 12 hours and Zyvox 600 mg by mouth every 12 hours. PHYSICAL EXAMINATION: Vital Signs: Temperature is 97.5 degrees, pulse rate 87 , respiratory rate 20, blood pressure 164/73, O2 saturation 96% on 2 L nasal cannula. General: This is an obese, chronically ill-appearing, elderly female. She is lying in bed, in no acute distress. HEENT: Atraumatic, normocephalic. Oral mucous membranes are pink and moist. Conjunctivae are pale. Lung Sounds: Generally diminished and clear to auscultation bilaterally. Cardiovascular: Heart rate and rhythm are regular. Normal sinus rhythm on the monitor. Radial and pedal pulses are+1 bilaterally. She has significant pitting edema noted to her bilateral upper extremities 2-3+. She has a central line in place to her right groin as well as a dialysis catheter to the right intrajugular. These sites are without edema, erythema, or drainage. Abdomen: Soft, round and nontender. Bowel sounds are active. Neurologic: She is awake, alert and confused to place and time. She does follow commands. Some mild muscle spasms noted to extremities at times. LABORATORY AND X-RAY: Today her white count is 9.68, hemoglobin 7.5, platelet count 207,000. Creatinine 5.5. GFR is 9. Chest x-ray today shows stable pulmonary vascular congestion with worsening bilateral central infiltrates and bilateral lower lobe infiltrates, most suggestive of pulmonary edema. ASSESSMENT AND PLAN: Ms. Velez has bilateral pneumonia versus pulmonary venous congestion. We are going to go ahead and draw procalcitonin level to try to differentiate. The plan is for her to start dialysis today now that she has a dialysis access. For now we will continue her Zyvox as ordered and change her cefepime to 1 g IV after each dialysis treatment. These plans have been discussed with and recommended by Dr. Carmona. There is also a right breast mass which is being followed by Dr. Montes De Oca. COMORBIDITIES: She is elderly and confused with diabetes mellitus and chronic kidney disease. Dictated by BRIANNA Obrien for Eh Carmona MD This chart was documented by, BRIANNA Obrien and accurately reflects the services performed, treatment plan and medical decisions as attested by the providers signature Eh Carmona MD. cc: Eh Carmona MD [facility]
--- NOTE | 2018-08-19 12:34 | NEPHROLOGY PROGRESS NOTE ---
DATE: 08/19/2018 SUBJECTIVE: She is much more somnolent today. She denies shortness of breath, nausea or vomiting. OBJECTIVE: Vitals: Blood pressure 145/72, heart rate 88, respirations 20, afebrile. General: No acute distress. Skin: Warm and dry. Conjunctivae are pink. Neck: Neck veins are not appreciated. Heart: Regular. No gallops or rubs. Lungs: Have equal breath sounds. No crackles. Abdomen: Soft, nontender. Bowel sounds present. Extremities: Left arm is edematous 2+. Otherwise 1+. Neurologic: Asterixis. IMPRESSION: Acute kidney injury overlying chronic kidney disease. Her BUN and creatinine have been progressively rising and she has uremic symptoms today. I have spoken with her daughter whose name is Wyatt Barth. Ms. Barth is a dialysis patient and so she is well aware of what is involved with access and dialysis. I went over this with her and she is in agreement with proceeding. I have spoken with Dr. Puentes who will place a Vas-Cath. 3.5-hour treatment using a 2 potassium bath with a goal of 2 L ultrafiltration. cc: Benji Fitzgerald MD
[2018-08-19] MEDS: FOLIC ACID PO SCH (15:26)
[2018-08-19] MEDS: ZYVOX PO SCH ×2 (15:26→21:35)
[2018-08-19] MEDS ORDERED: MAXIPIME 1 GM in NS 50 ML IV ONE (16:00)
[2018-08-19] MEDS: DULCOLAX PR SCH (21:35)
[2018-08-20] MEDS: DUONEB (A & A) INH SCH ×6 (03:20→23:15)
[2018-08-20] MEDS: HUMALOG SUBQ SCH ×4 (06:10→23:00)
[2018-08-20 07:36] LABS: HEMATOCRIT 23.1 % (37.0-47.0); MCH 29.3 PG (27-31); MCHC 30.3 g/dL (33-37); MCV 96.7 FL (81-99); MPV 10.9 FL (7.4-10.4); RBC 2.39 XMIL (4.2-5.4); RDW 12.5 % (11.5-14.5); WBC 11.94 X1000 (4.8-10.8)
[2018-08-20 07:48] LABS: ALBUMIN 2.5 g/dL (3.5-5.0); CALCIUM 8.6 mg/dL (8.8-10.2); CREATININE 3.9 mg/dL (0.5-0.9); PHOSPHORUS 4.4 mg/dL (2.7-4.5); POTASSIUM 4.6 mmol/L (3.5-5.1)
--- NOTE | 2018-08-20 10:28 | INFECTIOUS DISEASE PROGRESS NO ---
DATE: 08/20/2018 PRESENT ILLNESS: Patient has pulmonary infiltrates. This could be due to pulmonary venous congestion and/or pneumonia. The patient also has a right breast mass which is being followed by Dr. Montes De Oca. MEDICATIONS: This is the 12th day of treatment with cefepime and Zyvox. PHYSICAL EXAMINATION: Vital Signs: Temperature is 98.9 degrees, pulse 90, respirations 16, blood pressure 167/91. General: This is an obese, elderly female. She is in no acute distress. Head, eyes, ears, nose, and throat: She can hear my spoken words and see near objects. There is no drainage coming from her nose or ears. She does not have any white patches on her tongue. Neck: No meningismus. Lungs: Clear to auscultation. Cardiovascular: Heart rate is regular. Breasts: The patient has a mass on the right breast which is soft and somewhat fluctuant. It is not draining and it is not red. Abdomen: Soft and nontender. Extremities: The patient has a dialysis catheter in the right groin area. The site is not erythematous or draining. Neurologic: The patient is lethargic. I asked her to move her extremities but she did not. There is no tremor. LAB AND X-RAY: The CBC shows a white count of 11,940, hemoglobin 7, platelet count is 154,000. Creatinine is 3.9. GFR is 14. There is no new chest x-ray for today. ASSESSMENT AND PLAN: The patient has pulmonary congestion and/or pneumonia. Since the patient's hemoglobin is dropping I am going to discontinue Zyvox which may be responsible for that or in part helping it occur. The patient also could have anemia secondary to her end-stage renal disease as well. The procalcitonin level is not yet back. For now though I am going to stop both antibiotics. The patient also has a breast mass which Dr. Montes De Oca is following. COMORBIDITIES: She has diabetes mellitus, she is elderly, and she has an altered mental status. cc: Eh Carmona MD
[2018-08-20] MEDS: APRESOLINE PO SCH ×3 (10:31→22:17)
[2018-08-20] MEDS: FOLIC ACID PO SCH (10:32)
[2018-08-20] MEDS: SODIUM BICARBONATE PO SCH ×2 (10:32→22:17)
[2018-08-20] MEDS: MIRALAX PO SCH ×2 (10:32→22:18)
[2018-08-20] MEDS: PHOSLO PO SCH ×3 (10:32→16:11)
[2018-08-20] MEDS: NORVASC PO SCH ×2 (10:32→22:17)
[2018-08-20] MEDS: BASAGLAR SUBQ SCH ×2 (10:38→22:18)
[2018-08-20] MEDS: CATAPRES PO SCH ×3 (10:38→22:17)
[2018-08-20] MEDS: SYMBICORT 80/4.5 MICROGM INHALER INH SCH ×2 (11:20→18:15)
--- NOTE | 2018-08-20 15:30 | PROGRESS NOTE ---
DATE: 08/20/2018 SUBJECTIVE: Patient resting comfortable in bed. Not in any obvious distress. OBJECTIVE: Vital signs: Vital signs as follows: Temperature 99.6 degrees, pulse 95, respiratory rate 17, blood pressure 143/61 and oxygen saturation is 97%. HEENT: Atraumatic, normocephalic. Cardiovascular system: S1, S2. Respiratory system: Has evidence of good air entry bilaterally. Abdomen: Soft, nontender. No masses felt. Extremities: No significant edema noted. Central nervous system: No obvious focal deficits noted. LABS: Labs as follows: WBC is 11.94, hematocrit is 23.1 with a platelet count of 54. Sodium is 139, potassium 4.6, chloride is 101, bicarbonate is 25 units. BUN is 42, creatinine 3.9. ASSESSMENT AND PLAN: 1. Sepsis/bilateral pneumonia. Antibiotics as recommended by Infectious Disease. 2. Right breast nodule. Surgery following. 3. Chronic kidney disease. Follow up on renal function. Avoid nephrotoxic agents. Nephrology following. 4. Anemia. We will type, cross, transfuse 1 unit of packed red blood cells. It seems like this can be given during initial hemodialysis. 5. Diabetes mellitus type 2. Monitor blood sugar levels and maintain patient on sliding scale insulin. 6. History of left breast cancer. Aware. 7. Deep vein thrombosis prophylaxis. Sequential compression devices. 8. Disposition: This can be planned when she is medically stable for discharge. In the meantime, Business Analyst Manager has been consulted. cc: Zachary Ramsay MD
[2018-08-20] MEDS: DULCOLAX PR SCH (22:18)
[2018-08-21] MEDS: DUONEB (A & A) INH SCH ×7 (03:10→23:05)
[2018-08-21] MEDS: HUMALOG SUBQ SCH ×4 (06:07→23:52)
[2018-08-21] MEDS ORDERED: NS 2,000 ML MISC PRN (07:16)
[2018-08-21] MEDS ORDERED: TIGHT: 0.2 ML/HR FOR DIALYSIS MISC PRN (07:16)
[2018-08-21] MEDS ORDERED: HEPARIN IV PRN (07:16)
[2018-08-21] MEDS: SYMBICORT 80/4.5 MICROGM INHALER INH SCH ×3 (07:40→19:30)
[2018-08-21] MEDS: PHOSLO PO SCH ×3 (08:51→16:31)
[2018-08-21] MEDS: NORVASC PO SCH ×2 (08:51→20:46)
[2018-08-21] MEDS: FOLIC ACID PO SCH (08:51)
[2018-08-21] MEDS: CATAPRES PO SCH ×3 (08:52→20:46)
[2018-08-21] MEDS: SODIUM BICARBONATE PO SCH ×2 (08:52→20:46)
[2018-08-21] MEDS: APRESOLINE PO SCH ×3 (08:52→20:46)
[2018-08-21] MEDS: MIRALAX PO SCH ×2 (08:59→23:52)
--- NOTE | 2018-08-21 09:01 | GENERAL SURGERY PROGRESS NOTE ---
DATE: 08/21/2018 SUBJECTIVE: Less alert this morning. OBJECTIVE: Vital signs: Low-grade fever of 100 overnight, pulse 80s to 90s, blood pressure 136/61. O2 saturation 100%. General: She is arousable, but somewhat somnolent. Cardiovascular: Normal rate. Pulmonary: No increased work of breathing. She is on nasal cannula. Breasts: There is stable mass in the right inferior aspect of her right breast. Integument: Otherwise, warm and dry. LABORATORIES: I reviewed her labs. White count mildly elevated at 11 yesterday, hematocrit is 23, creatinine is 3.9, glucoses have been 70s to 115. ASSESSMENT/PLAN: This is a 68-year-old female with multiple medical issues. She is admitted with pneumonia. She has had worsening renal dysfunction now with plans for dialysis and she has got a right breast mass with a history of breast cancer. We will continue current management. She is clinically too ill to undergo a lumpectomy in the right breast for diagnostic purposes. I do suspect that this is more of a cutaneous mass in the right breast, most likely inclusion cyst, but it is hard to tell based off of ultrasound and exam alone. cc: Mariana Montes De Oca MD
[2018-08-21 09:08] LABS: BASO# 0.01 X1000 (0.0-0.2); BASO% 0.1 % (0.0-0.8); EOS# 0.14 X1000 (0.0-0.7); EOS% 1.4 % (0.0-10.0); HEMATOCRIT 22.9 % (37.0-47.0); HEMOGLOBIN 6.8 g/dL (12.0-16.0); LYMPH# 1.54 X1000 (1.2-3.4); LYMPH% 15.2 % (20.5-51.1); MCH 28.6 PG (27-31); MCHC 29.7 g/dL (33-37); MCV 96.2 FL (81-99); MONO# 0.95 X1000 (0.11-0.59); MONO% 9.4 % (1.7-9.3); MPV 10.3 FL (7.4-10.4); NEUT# 7.49 X1000 (1.4-6.5); NEUT% 73.9 % (42.2-75.2); PLT 146 X1000 (130-400); RBC 2.38 XMIL (4.2-5.4); RDW 12.3 % (11.5-14.5); WBC 10.13 X1000 (4.8-10.8)
[2018-08-21 11:53] LABS: HEPATITIS PROFILE ACUTE SEE COMMENTS
--- NOTE | 2018-08-21 12:59 | NEPHROLOGY PROGRESS NOTE ---
DATE: 08/21/2018 SUBJECTIVE: Ms. Velez states that she is doing okay today. She is more alert today. No shortness of breath, nausea, or vomiting. OBJECTIVE: Vital Signs: Blood pressure 163/61, heart rate 88, respirations 16. T-max 100.0 degrees. General: No acute distress. Skin: Warm and dry. HEENT: Conjunctivae are pink. Neck: Neck veins are distended with hepatojugular reflux. Heart: Regular. No gallops. Lungs: Equal. No crackles. Abdomen: Soft, nontender. Bowel sounds are present. Extremities: With 1+ edema. Asterixis is present. IMPRESSION AND PLAN: Acute kidney injury overlying chronic kidney disease. She will have dialysis today. There is no new laboratory data available today. We will repeat tomorrow. Her hemoglobin is less than 7 so she will receive 1 unit of packed red blood cells during dialysis. cc: Benji Fitzgerald MD
--- NOTE | 2018-08-21 15:50 | PROGRESS NOTE ---
DATE: 08/21/2018 INTERVAL HISTORY: The patient is seen on dialysis. Denies current dyspnea or pain. The patient is reluctant to speak, but can speak when asked. Responds well to all yes/no questions and follows all commands without difficulty. No new complaints. No acute events overnight. REVIEW OF SYSTEMS: Twelve point review of system negative, except as for interval history. LABS: White count 10.13, hemoglobin 6.8, hematocrit 22.9, platelets 146, glucose 85. OBJECTIVE: Vital Signs: T-max 100.0 degrees, pulse 63, blood pressure 163/86, O2 saturation 100% on 2 L. General: On physical examination, the patient was on dialysis. No acute distress. Vitals as above. HEENT: Normocephalic, atraumatic. Moist mucous membranes with Vas-Cath noted in right neck. Cardiovascular: Regular rate and rhythm, no murmurs, rubs or gallops noted. Respiratory: Clear to auscultation bilaterally. No wheezing, rales, or rhonchi noted. Abdomen: Soft, nontender, nondistended. Bowel sounds positive. Extremities: Peripheral pulses decreased, but intact. No clubbing, cyanosis, or edema. Neurologic: Cranial nerves 2-12 grossly intact. No focal motor or sensory deficit. Psychiatric: Normal mood. Slightly flat affect. Awake, alert, oriented x3. Cooperative with all commands. Skin: No new rashes or lesions noted. ASSESSMENT AND PLAN: 1. Acute kidney injury on chronic kidney disease III. Patient currently receiving dialysis. Received dialysis yesterday and dialyzing again today. We will monitor kidney function without dialysis to monitor for renal recovery. The plan is for discharge to rehabilitation once determination of need for continued dialysis is made. 2. Sepsis and pneumonia. Respiratory status pretty stable at this point. Being monitored off of antibiotics by Infectious Disease. 3. Anemia. No signs or symptoms of active bleeding, but blood counts have trickled down over the last few days; 6.8 this morning. Will transfuse 1 unit with dialysis and continue to monitor. Iron studies pending, but suspect that this is more anemia of chronic disease. 4. Diabetes mellitus. Good control on current regimen with insulin glargine 20 units at bedtime and sliding scale insulin. Patient actually with mildly low glucose overnight. Basal insulin significantly decreased from 30 twice daily to 20 at bedtime. Of note, the patient's previous glargine order was 30 twice daily, but has only been receiving 30 in the evening. Has had at least mild hypoglycemia despite this. Continue to monitor glucoses closely. 5. Breast nodule. Surgery following. Will need further follow-up as an outpatient. 6. Deep vein thrombosis prophylaxis with sequential compression devices. 7. Disposition: Anticipate discharge to rehabilitation once need for continued dialysis is settled. [facility] FACILITYPatti
[2018-08-21] MEDS: DULCOLAX PR SCH (23:52)
[2018-08-21] MEDS: BASAGLAR SUBQ SCH (23:52)
[2018-08-22] MEDS: DUONEB (A & A) INH SCH ×6 (03:00→23:05)
[2018-08-22] MEDS: HUMALOG SUBQ SCH ×4 (06:41→22:09)
[2018-08-22 07:07] LABS: RDW 14.1 % (11.5-14.5)
[2018-08-22 07:25] LABS: ALBUMIN 2.6 g/dL (3.5-5.0); PHOSPHORUS 5.2 mg/dL (2.7-4.5); POTASSIUM 4.3 mmol/L (3.5-5.1)
[2018-08-22 07:35] LABS: HEMATOCRIT 28.2 % (37.0-47.0); HEMOGLOBIN 8.7 g/dL (12.0-16.0); MCH 28.8 PG (27-31); MCHC 30.9 g/dL (33-37); MCV 93.4 FL (81-99); MPV 10.7 FL (7.4-10.4); RBC 3.02 XMIL (4.2-5.4); WBC 8.43 X1000 (4.8-10.8)
[2018-08-22] MEDS: MIRALAX PO SCH ×2 (09:12→22:06)
[2018-08-22] MEDS: NORVASC PO SCH ×2 (09:12→22:05)
[2018-08-22] MEDS: SODIUM BICARBONATE PO SCH ×2 (09:13→22:06)
[2018-08-22] MEDS: APRESOLINE PO SCH ×3 (09:13→22:31)
[2018-08-22] MEDS: CATAPRES PO SCH ×3 (09:13→22:31)
[2018-08-22] MEDS: PHOSLO PO SCH ×3 (09:13→16:56)
[2018-08-22] MEDS: FOLIC ACID PO SCH (09:13)
[2018-08-22] MEDS: SYMBICORT 80/4.5 MICROGM INHALER INH SCH ×2 (11:22→19:15)
--- NOTE | 2018-08-22 12:05 | NEPHROLOGY PROGRESS NOTE ---
DATE: 08/22/2018 SUBJECTIVE: Ms. Velez is feeling better today. She remains weak, but no shortness of breath. No nausea or vomiting. She is more alert today. OBJECTIVE: Vital Signs: Blood pressure 157/72, heart rate 91, respirations 17, afebrile. General: She is in no acute distress. Skin: Warm and dry. HEENT: Conjunctivae are pink. Pupils are equal. Neck: The neck veins are not distended. Cardiovascular: Heart is regular. No gallops. Respiratory: Lungs are equal. No crackles. Extremities: Have no edema, clubbing, or cyanosis. Asterixis is not present today. IMPRESSION: Acute kidney injury overlying chronic kidney disease. Laboratories are improved with dialysis. Asterixis is improved. Hold dialysis today and reevaluate in the morning. cc: Benji Fitzgerald MD
--- NOTE | 2018-08-22 12:49 | INFECTIOUS DISEASE PROGRESS NO ---
DATE: 08/22/2018 PRESENT ILLNESS: Ms. Velez has pulmonary infiltrates that could be venous congestion or possible pneumonia. There is also a right breast mass being followed by Dr. Montes De Oca. MEDICATIONS: Her antibiotics have been stopped at this point. She is currently off antimicrobials for the last 2 days. PHYSICAL EXAMINATION: Vital Signs: Temperature is 99 degrees, pulse rate 97, respiratory rate 18, blood pressure 176/83, O2 saturation 99% on 2 L nasal cannula. General: This is a chronically ill-appearing, elderly female. She is lying in bed, currently in no acute distress. HEENT: Atraumatic, normocephalic. Oral mucous membranes are pink and moist. Conjunctivae are pale. Cardiovascular: Heart rate and rhythm are regular. Normal sinus rhythm on the monitor. Extremities: Pedal and radial pulses are palpable bilaterally. There is pitting edema noted to her bilateral upper extremities 2-3+. She has a central line in place to the right groin and a dialysis catheter to the right intrajugular. Both of these sites are without edema, erythema or drainage. Lung Sounds: Diminished and generally clear to auscultation. Abdomen: Soft, round, nontender. Bowel sounds are active. Neurologic: She is drowsy and lethargic but arousable and oriented to person, place and time. LABORATORY AND X-RAY: Today her white count is 8.43, hemoglobin 8.7, platelet count 143,000, creatinine is 3, GFR is 19. IMAGING: No imaging reports today. ASSESSMENT AND PLAN: Ms. Velez has had pulmonary venous congestion versus pneumonia. She did receive 12 days of antibiotics which have been stopped at this point. We will check a chest x-ray in the morning. We are awaiting the results of her procalcitonin level which will hopefully show that it is unlikely that she has respiratory tract infection. There is also a breast mass that is being followed by Dr. Montes De Oca. The previous plans have been discussed with and recommended by Dr. Carmona. COMORBIDITIES: She is elderly with diabetes mellitus and chronic kidney disease. Dictated by BRIANNA Obrien for Eh Carmona MD This chart was documented by, BRIANNA Obrien and accurately reflects the services performed, treatment plan and medical decisions as attested by the providers signature Eh Carmona MD. cc: Eh Carmona MD MTDD
--- NOTE | 2018-08-22 17:28 | PROGRESS NOTE ---
DATE: 08/22/2018 SUBJECTIVE: Overnight, no acute events except that she was hypertensive. In the morning time, she is denying any complaints. She is alert. She answers simple questions. She denies any complaints. We discussed about not getting hemodialysis today and monitoring her electrolytes. I answered all of her questions. PHYSICAL EXAMINATION: Vitals: Temperature of 99, pulse 97 per minute, blood pressure 176/83, saturating 99% on 2 L nasal cannula. General: She does not appear in acute distress. HEENT: Oral cavity is moist. Mild pallor. No cyanosis, clubbing, or icterus. Lungs : Air entry bilaterally equal. Examination limited because of patient's habitus with some mild inspiratory crackles in bilateral inframammary region without wheeze or rhonchi. Cardiac : S1, S2 normal. No murmur, rub, or gallop. Neck: The patient has a right-sided neck dialysis catheter. Abdomen: Soft, nontender. No lower extremity edema. LABORATORY DATA: Labs today suggestive of appropriate rise in hemoglobin to 8.7 and creatinine of 3 after dialysis. MICROBIOLOGY: No new microbiological data. ASSESSMENT AND PLAN: 1. Acute kidney injury on chronic kidney disease stage IIIB and stage IV with now likely progression to end-stage renal disease. The patient is on hemodialysis. She received last hemodialysis on 08/21/2018. Further dialysis plan based on her clinical course. 2. Sepsis due to pneumonia. She required intravenous antibiotics for 12 days, and she has been off antibiotics since at least August 20, 2018. Infectious Disease on board. 3. Anemia, normocytic without any signs of active bleeding, status post 1 packed red blood cell. Follow up with iron studies and CBC tomorrow. 4. History of insulin-dependent diabetes mellitus with episode of hypoglycemia on August 21, now in acceptable range. Continue patient on sliding scale insulin and nighttime glargine. 5. Essential hypertension. Continue amlodipine, clonidine, and increase hydralazine to better achieve blood pressure control. 6. History of chronic obstructive pulmonary disease. Continue albuterol/ ipratropium nebulization and Symbicort. 7. Breast nodules. Surgery is following. Suggest she follow up in outpatient clinic for possible lumpectomy of the right breast as an outpatient. 8. DVT prophylaxis. SCDs. 9. Disposition. The patient remains inside the hospital. Once we figure out long-term dialysis plan, at that point we will consider discharging her to rehab. I anticipate discharge early next week. I called the patient's daughter; however, she did not tile picker and I left a voice message. Plan of care was discussed with the patient. cc: Dipesh Matias MD MTDD
[2018-08-22] MEDS: DULCOLAX PR SCH (22:06)
[2018-08-22] MEDS: BASAGLAR SUBQ SCH (22:10)
[2018-08-23] MEDS: DUONEB (A & A) INH SCH ×6 (03:05→23:49)
--- NOTE | 2018-08-23 06:24 | Diag Imaging Result Doc PS360 ---
CHEST-PORTABLE - 08/23/2018 INDICATION: pneumonia COMPARISON: 08/19/2018 FINDINGS: Stable right central line. Lung volumes are improved. There is significant improvement in aeration of the lower lobes bilaterally. Stable moderate cardiomegaly. Pulmonary vascularity is top normal. There is decreasing linear atelectasis in the right midlung. IMPRESSION: Improvement from prior. Electronically signed by Malachi Chaves 08/23/2018 6:21 AM
[2018-08-23] MEDS: HUMALOG SUBQ SCH ×4 (06:38→21:21)
[2018-08-23] MEDS ORDERED: NS 2,000 ML MISC PRN (07:22)
[2018-08-23] MEDS ORDERED: TIGHT: 0.2 ML/HR FOR DIALYSIS MISC PRN (07:22)
[2018-08-23] MEDS ORDERED: HEPARIN IV PRN (07:22)
[2018-08-23 07:24] LABS: HEMATOCRIT 27.9 % (37.0-47.0); HEMOGLOBIN 8.5 g/dL (12.0-16.0); MCH 28.1 PG (27-31); MCHC 30.5 g/dL (33-37); MCV 92.1 FL (81-99); MPV 10.3 FL (7.4-10.4); RBC 3.03 XMIL (4.2-5.4); RDW 13.4 % (11.5-14.5); WBC 8.14 X1000 (4.8-10.8)
[2018-08-23] MEDS: SYMBICORT 80/4.5 MICROGM INHALER INH SCH ×2 (07:35→20:27)
[2018-08-23 07:54] LABS: ALBUMIN 2.6 g/dL (3.5-5.0); CALCIUM 9.2 mg/dL (8.8-10.2); CREATININE 3.8 mg/dL (0.5-0.9); PHOSPHORUS 3.7 mg/dL (2.7-4.5); POTASSIUM 4.3 mmol/L (3.5-5.1)
[2018-08-23] MEDS: NORVASC PO SCH ×2 (08:40→21:20)
[2018-08-23] MEDS: MIRALAX PO SCH ×2 (08:40→21:22)
[2018-08-23] MEDS: SODIUM BICARBONATE PO SCH (08:40)
[2018-08-23] MEDS: APRESOLINE PO SCH ×3 (08:40→21:20)
[2018-08-23] MEDS: PHOSLO PO SCH ×5 (08:40→21:20)
[2018-08-23] MEDS: FOLIC ACID PO SCH (08:40)
[2018-08-23] MEDS: CATAPRES PO SCH ×3 (08:45→21:20)
[2018-08-23] MEDS: ZOFRAN IV PRN ×2 (13:54→23:54)
--- NOTE | 2018-08-23 14:00 | NEPHROLOGY PROGRESS NOTE ---
DATE: 08/23/2018 SUBJECTIVE: No new complaints today. She is feeling better. She is expressing some concerns about relationships at home, stating that her family wants her to be in the [facility]. OBJECTIVE: Vital Signs: Blood pressure 168/70, heart rate 96, respiration 18, temperature 99.5 degrees. General: No acute distress. Skin: Warm and dry. Conjunctivae are pink. Neck: Neck veins are not distended. Heart: Regular. No gallops. Lungs: Equal. No crackles. Abdomen: Soft, nontender. Bowel sounds present. Extremities: No edema, clubbing, or cyanosis. IMPRESSION: Acute kidney injury overlying chronic kidney disease. Dialysis today using a 2 potassium bath, and a goal of 2 to 3 L ultrafiltration. Electrolytes, acid-base are in target. Anemia is below target, but stable. No changes. cc: Benji Fitzgerald MD
--- NOTE | 2018-08-23 15:41 | INFECTIOUS DISEASE PROGRESS NO ---
DATE: 08/23/2018 PRESENT ILLNESS: The patient had bibasilar infiltrates which have gotten better. My feeling was that most likely the patient's pneumonia had cleared. However, I got back the patient's procalcitonin level which is 1.0, which means it is very likely that there is pneumonia present. Also, there was a slight increase in the temperature. MEDICATIONS: Currently, the patient is on no medication. PHYSICAL EXAMINATION: Vital Signs: Temperature is 99 degrees, pulse 91, respirations 15, blood pressure 180/60. General: This is an obese, chronically ill-appearing elderly female. She is in no acute distress. Head, eyes, ears, nose, and throat: She can hear my spoken words and see near objects. She does not have any white coating on her tongue. Lungs: Clear to auscultation. Cardiovascular: Regular heart rate. Abdomen: Soft and nontender. Extremities: Both legs are edematous without erythema. Neurologic: The patient is awake. She is able to move her extremities. There is no tremor. Patient has a right breast mass which Dr. Montes De Oca is following. She has a right groin catheter and right internal jugular vein catheter in place. LAB AND X-RAY: CBC today shows a white count of 8140, hemoglobin 8.5, platelet count 136,000. Creatinine is 3.8. GFR is 14. Procalcitonin is 1, which means it is very likely that the patient has pneumonia. ASSESSMENT AND PLAN: I am uncertain if the patient still does have some pneumonia. I am going ahead and I have ordered a CT scan without IV contrast of the chest which hopefully will differentiate from pulmonary venous congestion and pneumonia. COMORBIDITIES: The patient is elderly, she has diabetes mellitus and chronic kidney disease. cc: Eh Carmona MD
--- NOTE | 2018-08-23 15:58 | Diag Imaging Result Doc PS360 ---
EXAM: CT THORAX W/O CONTRAST 08/23/2018 HISTORY: pneumonia TECHNIQUE: This exam was performed using automated exposure control, adjustment of mA or kV according to patient size, and/or use of iterative reconstruction technique. COMMENT: There is worsening consolidation in both lower lobes compared to 08/16/2018 with air bronchograms particularly in the right lower lobe posteriorly. There is a nodular opacity on image 59 and the anterior right lower lobe which was better seen than on the previous examination measuring slightly over 7 mm in greatest dimension. There is platelike atelectasis in the left upper lobe. Platelike atelectasis is also seen in the left lower lobe. There is now a right pleural effusion and a small effusion on the left neither of which were present at the time the previous study. There is extensive coronary calcification. There is no evidence of significant adenopathy. There is some subcutaneous edema particularly in the flanks. There may be a hiatal hernia. There is a sclerotic lesion in the posterior left T2 vertebral body. This is not changed since the previous examination. It was also present on 02/18/2018 has not changed. IMPRESSION: Worsened pleural effusions and bibasilar atelectasis with possible pneumonia in the lower lobes. Electronically signed by Roberto Dugan 08/23/2018 3:56 PM
--- NOTE | 2018-08-23 17:59 | PROGRESS NOTE ---
DATE: 08/23/2018 Overnight no acute events. SUBJECTIVE: She denies any complaints. Denies chest pain, shortness of breath, denies abdominal pain, nausea or vomiting. We discussed about getting possibly tunneled catheter in early next week and possibly discharging her. I answered all of her questions. Currently vital signs temperature of 98 degrees, pulse 98 per minute, blood pressure 168/70, saturating 92% on nasal cannula. OBJECTIVE: Does not appear in acute distress. No pallor, cyanosis, clubbing or icterus. Oral cavity is moist. Air entry bilateral equal. Examination is limited because of her body habitus. Cardiac: S1, S2 normal. No murmur, rub, or gallop. Neck: Patient has a right-sided neck dialysis catheter. Abdomen: Soft, nontender. No lower extremity edema. Neurologic: Alert, oriented x3. LABS: Suggest stable hemoglobin, hematocrit and platelet count, elevated BUN, creatinine, blood glucose mostly in acceptable range which is running 140s to 280s at the moment. ASSESSMENT AND PLAN: 1. Acute kidney injury on chronic kidney disease stage 3B and stage 4 with now progression to chronic kidney disease stage 5 currently on intermittent hemodialysis. Last dialysis was on 08/23/2018. She may require hemodialysis in the future as well. Considering that I will consult surgery tomorrow to plan a tunneled dialysis catheter placement so that we can discharge patient early next week. Dr. Fitzgerald on board. 2. Sepsis due to pneumonia requiring intravenous antibiotics for [address] scan ordered by infectious disease doctor on August 23 to decide about further antibiotic course. She is off antibiotics currently since 08/20/2018. 3. Anemia normocytic without any signs of active bleeding status post 1 packed red blood cells. This is likely anemia of chronic disease considering the fact that her saturation is normal, iron binding capacity is normal and ferritin is high. This could be related to anemia of chronic disease. 4. History of insulin-dependent diabetes mellitus currently hyperglycemic. I will continue current insulin glargine and sliding scale insulin to avoid hypoglycemia and adjust dose tomorrow as required. 5. Essential hypertension. Continue amlodipine, clonidine and higher dose of hydralazine. Currently better blood pressure control. 6. History of chronic obstructive pulmonary disease. Continue albuterol ipratropium nebulization and Symbicort. Breast nodule, surgery following. Patient should receive outpatient followup for possible lumpectomy. 7. Deep vein thrombosis of right breast. 8. Deep vein thrombosis prophylaxis SCD. 9. Disposition. My plan is to get tunneled hemodialysis catheter by surgical team and hopefully plan patient's discharge to rehab early next week. I could not convey my plan to patient's daughter yesterday. I will again call her tomorrow and inform her about her course. cc: Dipesh Matias MD
[2018-08-23] MEDS ORDERED: INSULIN PEN NEEDLES ONE (21:13)
[2018-08-23] MEDS: DULCOLAX PR SCH (21:20)
[2018-08-23] MEDS: BASAGLAR SUBQ SCH (21:21)
[2018-08-24] MEDS: DUONEB (A & A) INH SCH ×6 (04:24→23:58)
[2018-08-24] MEDS: ZOFRAN IV PRN (06:16)
[2018-08-24] MEDS: HUMALOG SUBQ SCH ×4 (06:16→20:26)
[2018-08-24 07:20] LABS: ALBUMIN 2.8 g/dL (3.5-5.0); CALCIUM 9.5 mg/dL (8.8-10.2); CREATININE 3.3 mg/dL (0.5-0.9); HEMOGLOBIN 8.3 g/dL (12.0-16.0); MCH 28.8 PG (27-31); MCHC 30.7 g/dL (33-37); MCV 93.8 FL (81-99); PHOSPHORUS 2.3 mg/dL (2.7-4.5); POTASSIUM 3.8 mmol/L (3.5-5.1); RBC 2.88 XMIL (4.2-5.4); RDW 13.1 % (11.5-14.5); WBC 8.46 X1000 (4.8-10.8)
[2018-08-24] MEDS: SYMBICORT 80/4.5 MICROGM INHALER INH SCH ×2 (08:02→20:56)
[2018-08-24] MEDS: FOLIC ACID PO SCH (10:11)
[2018-08-24] MEDS: MIRALAX PO SCH ×2 (10:11→20:25)
[2018-08-24] MEDS: APRESOLINE PO SCH ×3 (10:11→20:25)
[2018-08-24] MEDS: NORVASC PO SCH ×2 (10:11→20:27)
[2018-08-24] MEDS: CATAPRES PO SCH ×3 (10:11→20:25)
[2018-08-24] MEDS: PHOSLO PO SCH ×3 (10:11→17:32)
--- NOTE | 2018-08-24 10:32 | GENERAL SURGERY PROGRESS NOTE ---
DATE: 08/24/2018 SUBJECTIVE: No events overnight. No fevers. OBJECTIVE: Vital Signs: Pulse 95, blood pressure 145/70, oxygen saturation is 96%. General: She is alert. She is being bathed right now. HEENT: There is no scleral icterus. Lines: She has a right internal jugular vein Vas-Cath and a right groin central line. Breasts: Right breast mass is stable at the inferior medial quadrant. LABS: White count is 8, hematocrit 27, creatinine is 3.3. ASSESSMENT AND PLAN: A 68-year-old female with worsening renal dysfunction, now on dialysis, hypertension, and a right breast mass with history of breast cancer. Dr. Fitzgerald has requested a PermCath. We can potentially place this tomorrow, and I would excise her breast mass at the same time. I have previously discussed the breast mass excision, but that was canceled for medical reasons. We will touch base with the family, as well as Ms. Velez, to discuss the details of this, but I am making her nothing by mouth at midnight and posting her for tomorrow. cc: Mariana Montes De Oca MD
[2018-08-24] MEDS ORDERED: INSULIN PEN NEEDLES ONE (12:39)
--- NOTE | 2018-08-24 14:31 | NEPHROLOGY PROGRESS NOTE ---
DATE: 08/24/2018 SUBJECTIVE: She is feeling fine today. She does not want to eat her [place] sprouts, but she is willing to drink her Glucerna. No nausea or vomiting. OBJECTIVE: Vital Signs: Blood pressure 136/67, heart rate 92, respiration 18, afebrile. Generally: No acute distress. Skin: Warm and dry. Eyes: Conjunctivae are pink. Neck: Neck veins are not distended. Heart: Regular. Lungs: Equal. No crackles. Abdomen: Soft, nontender. Bowel sounds present. Extremities: No edema, clubbing or cyanosis. IMPRESSION: Acute kidney injury. No recovery. No urine output. PLAN: She will have a tunneled catheter placed and she can initiate chronic hemodialysis using this modality. cc: Benji Fitzgerald MD
--- NOTE | 2018-08-24 15:25 | PROGRESS NOTE ---
DATE: 08/24/2018 Overnight the patient states she was having some shortness of breath and she received a breathing treatment after which she had started feeling better. Sunday morning she denies any chest pain or feeling short of breath. I discussed with her about tunneled catheter plan and excision of breast mass plan. I answered all of her questions. VITAL SIGNS: Currently vital signs temperature 97.9 degrees, pulse 92 per minute, blood pressure 130/67, saturating 90 to 96 percent on room air. PHYSICAL EXAMINATION: General: Does not appear in acute distress. Oral cavity is moist. Lungs: Air entry bilaterally equal. No wheeze, rhonchi, crackles. Cardiac: S1, S2 normal. Slightly tachycardic. No murmur, rub, or gallop. Neck: She has a right-sided neck dialysis catheter. Abdomen: Soft, nontender. No lower extremity edema. Neurologic: She is alert. She is oriented times 2 to 3. LABS: Labs today suggestive of normocytic anemia, stable electrolytes, elevated creatinine and hyperglycemia. ASSESSMENT AND PLAN: 1. Acute kidney injury on chronic kidney disease stage IIIB and stage IV with now progression to chronic kidney disease stage 5, currently on intermittent hemodialysis. Last dialysis was 08/23/2018. Surgery has been consulted to place a tunneled dialysis catheter from the current Vas-Cath that she has. 2. Sepsis due to pneumonia requiring intravenous antibiotics for [address] scan does suggest bilateral pleural effusion, which could be in the setting of her chronic kidney disease and slight volume overload. I do not see any definitive consolidation. She does have platelike atelectasis in both lower lobes especially on the right side. She has not had any fever episodes or she has not had leukocytosis. Infectious Disease on board. 3. Anemia of chronic disease, normocytic anemia without active bleeding, status post one PRBC, currently stable. 4. History of insulin-dependent diabetes mellitus, currently hyperglycemic. Increase insulin glargine dose. Continue sliding scale insulin otherwise. 5. Essential hypertension. Continue amlodipine, clonidine, and high dose of hydralazine. 6. History of COPD. Continue albuterol ipratropium nebulization, Symbicort. 7. History of breast cancer and breast nodule. Surgery is planning likely excision of the right sided breast mass in the inferior medial quadrant. 8. DVT prophylaxis SCD. 9. Disposition: After patient gets right breast mass excision and tunneled dialysis catheter, my plan is to discharge her to rehab next week. I will inform [employer] social media and crm team about my plan. Plan of care has been discussed with the patient's daughter on the phone and all of her questions have been answered. cc: Dipesh Matias MD
[2018-08-24] MEDS: BASAGLAR SUBQ SCH (20:26)
[2018-08-24] MEDS: DULCOLAX PR SCH (20:27)
[2018-08-25] MEDS: DUONEB (A & A) INH SCH ×6 (03:38→23:32)
[2018-08-25] MEDS: HUMALOG SUBQ SCH ×4 (06:11→20:05)
[2018-08-25] MEDS: SYMBICORT 80/4.5 MICROGM INHALER INH SCH ×4 (07:34→21:39)
[2018-08-25] MEDS ORDERED: KEFZOL 2 GM/D5W 2 GM/50 ML IVPB IV ONE (08:36)
[2018-08-25] MEDS: PHOSLO PO SCH ×3 (08:38→17:21)
[2018-08-25] MEDS ORDERED: SENSORCAINE-MPF 0.5%/EPI 1:200,000 ONE (08:42)
[2018-08-25] MEDS ORDERED: KEFZOL 2 GM/D5W 2 GM/50 ML IVPB ONE (08:53)
[2018-08-25] MEDS ORDERED: DIPRIVAN 1% ONE ×2 (09:00→09:44)
[2018-08-25] MEDS ORDERED: VERSED ONE (09:00)
[2018-08-25] MEDS ORDERED: KETAMINE ONE (09:00)
[2018-08-25] MEDS ORDERED: XYLOCAINE-MPF 2% ONE (09:03)
[2018-08-25] MEDS ORDERED: ROBINUL ONE (09:03)
[2018-08-25] MEDS ORDERED: SODIUM CHLORIDE 0.9% ONE (09:27)
[2018-08-25] MEDS: CATAPRES PO SCH ×3 (13:56→20:04)
[2018-08-25] MEDS: APRESOLINE PO SCH ×3 (13:57→20:04)
[2018-08-25] MEDS: NORVASC PO SCH ×2 (14:00→20:04)
[2018-08-25] MEDS: MIRALAX PO SCH ×2 (14:00→20:04)
[2018-08-25] MEDS: FOLIC ACID PO SCH (14:00)
--- NOTE | 2018-08-25 14:14 | GENERAL SURGERY PROGRESS NOTE ---
DATE: 08/25/2018 SUBJECTIVE: No events overnight. No fevers. OBJECTIVE: Vital signs: Pulse 94, blood pressure 166/67, oxygen saturation is 95%. General: She is alert, conversant. Neck: Right neck, there is a Vas-Cath in place. Cardiovascular: Normal rate. Abdomen: Soft. Breasts: Right breast mass is stable with no significant erythema. Extremities: She also has a right femoral triple-lumen catheter. LABORATORY: Glucose 275. ASSESSMENT AND PLAN: This is a 68-year-old female who has progressed from chronic to end-stage renal disease and is needing frequent dialysis and Dr. Fitzgerald anticipates that she is going to need this going forward to facilitate her disposition. We are going to place a tunnel catheter. She also has had a history of breast cancer and a right breast mass. As she has been admitted for this pneumonia this admission, that has not been dealt with as of yet. We will do this concurrently. Over the course of her stay I have attempted numerous times to touch base with her daughter. I have made multiple phone calls including 4 times in the last 24 hours and I have been unsuccessful in obtaining her via her cell phone and I have been unable to catch at the bedside despite numerous attempts. The charge nurse has spoken with her in detail about the procedure. The daughter understands and consents and this was confirmed via 2 nurses. I have also spoke to Ms. Velez about it. I do feel that this is important for disposition in her care and that we have adequate informed consent. We will continue to try to touch base with the daughter to explain her current situation and to hopefully facilitate her disposition. Otherwise, we will go the operating room today for placement of a tunneled hemodialysis catheter and excision of right breast mass for diagnostic and therapeutic purposes. cc: Mariana Montes De Oca MD
--- NOTE | 2018-08-25 15:21 | OPERATIVE NOTE ---
PROCEDURE DATE: 08/25/2018 PREOPERATIVE DIAGNOSIS: 1. End-stage renal disease. 2. Right inferior medial breast mass with history of breast cancer. POSTOP DIAGNOSIS: 1. End-stage renal disease. 2. Right inferior medial breast mass with history of breast cancer. PROCEDURE PERFORMED: 1. Right internal jugular vein PermCath placement 24 cm tip to cuff. 2. Fluoroscopy less than 1 hour. 3. Right inferior medial breast lumpectomy. ESTIMATED BLOOD LOSS: 10 mL. SPECIMENS: Right inferior medial breast mass. ANESTHESIA: MAC with local. INDICATIONS: 1. 68-year-old female admitted with multiple exacerbations of chronic medical issues. She has progressed to worsening renal function and end-stage renal disease and needs a tunneled catheter exchange for her Vas-Cath. 2. She also has a history of breast cancer of the left breast and had a indeterminate lesion in the right inferior medial aspect of the breast quite superficial. OPERATIVE FINDINGS: 1. Final fluoroscopic image showed good position tip the catheter the superior vena cava-atrial junction. There was a gentle loop of the catheter in the neck but no kinking and no evidence pneumothorax or complication. 2. There was a mass in the right inferior medial aspect of her breast. There is some local purulence here as well but the surrounding breast tissue seemed healthy. This closely abutted the skin. OPERATIVE NOTE: Risks, benefits, alternatives were discussed both the patient and her daughter and they consented procedure. She was seen preoperatively. Surgical site was marked, taken operating room placed supine position and IV anesthesia was administered. Bilateral neck, chest prepped Betadine and draped in usual fashion. Time-out, we identified the previously placed right internal jugular vein Vas-Cath. We were able to thread a wire and confirmed that this was in superior vena cava. We then removed the Vas-Cath holding pressure at the neck. A 24 cm tip to cuff catheter was then tunneled from incision in the chest up to the neck after injection of local anesthetic. We then serially dilated tract and passed the catheter. The venotomy site in the neck was somewhat lateral which means we had to tunnel the catheter medial and it caused gentle sweep of the catheter but this did not impede flow and there was no kinking even with changes in position. We placed the cuff just below the skin level. The peel-away sheath was then removed after it was advanced. All ports withdrew blood and flushed without resistance. We flushed this with dilute heparinized saline, secured with a nylon suture. The venotomy site was closed with a Monocryl and a pursestring was placed around the exit site. Hemostasis was noted. We excluded this. Dressings were applied. We then turned our attention to the right inferior medial breast mass. Elliptical incision totaling 7 cm was made in the inframammary fold here completely excising the lesion. Inferiorly there was a pocket of purulent material in association with this mass but we were able to remove this in its entirety. We confirmed hemostasis. The deep dermis was closed with interrupted 3-0 Vicryl sutures loosely to facilitate ongoing drainage and a gauze Medipore dressing was applied in the neck. Dermabond was applied and a Tegaderm dressing was applied at the exit site of the catheter. She tolerated all this well. She woken, transferred to recovery. No family was available. cc: Mariana Montes De Oca MD
--- NOTE | 2018-08-25 17:40 | PROGRESS NOTE ---
DATE: 08/25/2018 SUBJECTIVE: Overnight, no acute events. The patient's blood sugars have been running higher since morning, and review of medications suggest that she did not receive her Lantus yesterday night. She is also a little hypertensive, and I had added medication to her regimen. I am seeing her postoperatively. She has received a tunneled dialysis catheter on the right chest. She also had breast surgery. I am awaiting the official surgery note about the exact procedure she has had. Patient denies any complaints. She stated that she underwent placement of a dialysis catheter, and they also removed her breast mass. She denies any new complaints. OBJECTIVE: Vital Signs: Temperature of 97.6, pulse 91 per minute, blood pressure 154/65, saturating 100% on room air. General: Does not appear in any acute distress. Oral cavity is moist. Lungs: Air entry bilaterally equal. No wheeze, rhonchi, or crackles. Heart: S1, S2 normal. No murmur, rub, or gallop. Neck: She has a right-sided neck tunneled dialysis catheter under dressing. She also had a dressing over her right breast. Abdomen: Soft, nontender. Neurologic: She is alert, oriented x2. LABORATORY DATA: No new lab data today. ASSESSMENT AND PLAN: 1. Acute kidney injury on chronic kidney disease stage IIIB and stage IV with now progression to what looks like chronic kidney disease stage 5. Currently on intermittent hemodialysis. Last dialysis was 08/23/2018. She is now status post tunneled dialysis catheter on the right chest. 2. Sepsis due to pneumonia requiring intravenous antibiotics for [address] scan does suggest bilateral pleural effusions which could be in the setting of her chronic kidney disease and slight volume overload. I do not see any definite evidence of organized consolidation. She has not had any episode of leukocytosis or fever. Infectious Disease on board. 3. Anemia of chronic disease, normocytic anemia without active bleeding, status post 1 packed red blood cell, currently stable. 4. History of insulin-dependent diabetes mellitus, currently hyperglycemic. Continue current insulin glargine and sliding scale insulin. She did not receive insulin glargine yesterday according to likely her surgery today. 5. Essential hypertension. Continue amlodipine, clonidine and hydralazine. I added labetalol to her regimen. 6. History of chronic obstructive pulmonary disease. Continue albuterol/ipratropium nebulization and Symbicort. 7. History of breast cancer and breast nodule status post surgical excision today of right breast mass. Follow up official surgery's recommendation. 8. DVT prophylaxis with SCDs. DISPOSITION: My plan is to have social work team find a rehab placement tomorrow and potentially discharge her whenever we find a placement. I had previously discussed the plan of care with the patient's daughter on the phone, and all of her questions were answered on 08/24/2018. cc: Dipesh Matias MD
[2018-08-25] MEDS: TRANDATE PO SCH (20:04)
[2018-08-25] MEDS: DULCOLAX PR SCH (20:04)
[2018-08-25] MEDS: BASAGLAR SUBQ SCH (20:05)
[2018-08-26] MEDS: DUONEB (A & A) INH SCH ×6 (03:18→23:19)
[2018-08-26] MEDS: HUMALOG SUBQ SCH ×3 (06:04→20:12)
--- NOTE | 2018-08-26 06:26 | GENERAL SURGERY PROGRESS NOTE ---
DATE: 08/26/2018 SUBJECTIVE: Patient seems to be doing okay. OBJECTIVE: Vital Signs: Patient is currently afebrile. Her vital signs are stable. General: No acute distress. Cardiovascular: Regular rate and rhythm. Lungs: Grossly clear. Chest wall port site seems okay. Right breast lumpectomy incision with dressing intact attached. ASSESSMENT AND PLAN: A 68-year-old status post insertion of tunneled catheter and right inferior medial breast lumpectomy, currently postoperative day #1. At this time, patient is doing well. Nothing new to add. We will follow up with pathology. cc: Jose Iglesias MD
[2018-08-26 07:43] LABS: ALBUMIN 2.6 g/dL (3.5-5.0); CALCIUM 9.1 mg/dL (8.8-10.2); PHOSPHORUS 4.5 mg/dL (2.7-4.5); POTASSIUM 4.7 mmol/L (3.5-5.1)
[2018-08-26] MEDS: SYMBICORT 80/4.5 MICROGM INHALER INH SCH ×3 (07:44→21:33)
[2018-08-26 07:55] LABS: CREATININE 6.2 mg/dL (0.5-0.9)
[2018-08-26] MEDS ORDERED: HEPARIN IV PRN (08:29)
[2018-08-26] MEDS ORDERED: NS 2,000 ML MISC PRN (08:29)
[2018-08-26] MEDS ORDERED: TIGHT: 0.2 ML/HR FOR DIALYSIS MISC PRN (08:29)
[2018-08-26] MEDS: APRESOLINE PO SCH ×3 (08:38→20:11)
[2018-08-26] MEDS: FOLIC ACID PO SCH (08:38)
[2018-08-26] MEDS: CATAPRES PO SCH ×3 (08:38→20:11)
[2018-08-26] MEDS: NORVASC PO SCH ×2 (08:38→20:11)
[2018-08-26] MEDS: TRANDATE PO SCH ×2 (08:38→20:11)
[2018-08-26] MEDS: MIRALAX PO SCH ×2 (08:38→21:40)
[2018-08-26] MEDS: PHOSLO PO SCH ×4 (08:38→17:01)
--- NOTE | 2018-08-26 11:22 | NEPHROLOGY PROGRESS NOTE ---
DATE: 08/16/2018 SUBJECTIVE: No new complaints today. She had a tunneled catheter placed yesterday. No shortness of breath. OBJECTIVE: Vital Signs: Blood pressure 133/60, heart rate 94, respirations 20, afebrile. General: No acute distress. Skin: Warm and dry. Conjunctivae are pink. Neck: Neck veins are not distended. Heart: Regular. No gallops. Lungs: Equal. No crackles. Abdomen: Soft, nontender. Bowel sounds present. Extremities: Have no edema except in the left upper extremity, which is 2+. No tenderness, no cords. IMPRESSION: 1. Acute kidney injury overlying chronic kidney disease. No improvement. She had a tunneled dialysis catheter placed. 2. Left arm swelling. Will perform duplex Doppler to rule out DVT. cc: Benji Fitzgerald MD
--- NOTE | 2018-08-26 18:36 | INFECTIOUS DISEASE PROGRESS NO ---
DATE: 08/26/2018 PRESENT ILLNESS: Ms. Velez has been treated for bibasilar infiltrates with possible pneumonia. It seems as though the pneumonia has cleared and she has been off antibiotics. However her procalcitonin level is 1.0 at last check which is very likely that there is a respiratory tract infection present. Recent CT scan of the chest shows bibasilar atelectasis with a possible pneumonia in the lower lobes. She has not had a fever or leukocytosis that we know of for the last 24 hours. Patient is status post lumpectomy to the right inferior medial breast done yesterday by Dr. Montes De Oca. MEDICATIONS: She is on no antimicrobials at this point. PHYSICAL EXAMINATION: Vital Signs: Temperature is 98.3 degrees, pulse rate 98 , respiratory rate 20, blood pressure 121/53, O2 saturation is 96% on 2 L nasal cannula. General: This is a chronically ill-appearing elderly female. She is sitting up in the bed in no acute distress. HEENT: Atraumatic, normocephalic. Oral mucous membranes are pink and moist. Conjunctivae are pale. Neck: Supple. Trachea is midline. Respiratory: Lung sounds are clear to auscultation in the upper lobes. Diminished in the bases. Cardiovascular: Heart rate and rhythm are regular and tachycardic, sinus tach on the monitor. Pedal and radial pulses are palpable bilaterally. Pretibial edema noted bilaterally 1+ with 2+ pitting edema to her upper extremities. Abdomen: Soft, obese and nontender. Bowel sounds are active. Integumentary: Skin is warm and dry. There is a dressing in place to the right breast which is clean, dry and intact. There is a right groin central line and right chest Vas-Cath in place. Sites are without edema , erythema or drainage. Neurologic: She is awake, alert and appropriate able to move all extremities with generalized weakness noted. ASSESSMENT AND PLAN: Ms. Velez has been previously treated for bibasilar pneumonia with leukocytosis. At this point we are unsure if she has a leukocytosis with no CBC for the last few days. We will go ahead and check a CBC in the morning. We do know that her procalcitonin is elevated and there is a possible pneumonia as noted on the CT scan. For now we will continue to hold antimicrobials and check the CBC in the morning. She is not having any fever and states she is feeling much better today. The previous plans have been discussed with and recommended by Dr. Carmona. COMORBIDITIES: For Ms. Velez include that she is elderly with diabetes mellitus and chronic kidney disease with new initiation of hemodialysis on this admission. Dictated by BRIANNA Obrien for Eh Carmona MD This chart was documented by, BRIANNA Obrien and accurately reflects the services performed, treatment plan and medical decisions as attested by the providers signature Eh Carmona MD. cc: Eh Carmona MD [facility]
--- NOTE | 2018-08-26 18:43 | PROGRESS NOTE ---
DATE: 08/26/2018 Overnight no acute events. The patient underwent lumpectomy and tunneled dialysis catheter placement which she tolerated well. SUBJECTIVE: She is feeling fine. Denies any new complaints. VITALS: Temperature of 98.3 degrees, pulse 98, blood pressure 120/53, saturating 96% on room air. OBJECTIVE: General: Does not appear in acute distress. Oral cavity is moist. Air entry bilaterally equal. No wheeze, rhonchi, crackles. S1, S2 normal. No murmur, rub, or gallop. She has right-sided chest tunneled dialysis catheter. There is a lumpectomy scar which is dressed. Abdomen: Soft, nontender. Lower extremity only mild edema. Neurologic: Alert , oriented x2. LABS: BMP suggestive of hyponatremia, hypochloremia, elevated BUN and creatinine suggestive of her chronic kidney disease acceptable range of other electrolytes. ASSESSMENT AND PLAN: 1. Acute kidney injury on chronic kidney disease stage 3B and stage 4 with now progression to what looks like chronic kidney disease stage 5 currently on intermittent hemodialysis . Dr. Fitzgerald on board, will appreciate recommendation about dialysis schedule at the time of discharge. 2. Sepsis due to pneumonia requiring intravenous antibiotics for [address] scan does suggest bilateral pleural effusions which could be in the setting of chronic kidney disease and slight volume overload. I do not see any evidence of organized consolidation and she has not had any leukocytosis or fever. ID on board decided to hold off on antibiotics for now. 3. Anemia of chronic disease normocytic anemia without active bleeding status post 1 packed red blood cell currently stable. 4. History of insulin-dependent diabetes mellitus currently hyperglycemic. Continue current insulin glargine, sliding scale insulin. Now the blood sugars are mostly in acceptable range, I will increase the glargine dose as tolerated. 5. Essential hypertension. Continue amlodipine, clonidine, hydralazine and labetalol. 6. History of chronic obstructive pulmonary disease, continue albuterol ipratropium nebulization and Symbicort. 7. History of breast cancer and breast nodule status post surgical excision on 08/25/2018, follow up final pathology results. 8. Left upper extremity swelling. Follow up with ultrasound to rule out DVT. 9. Disposition. Patient remains inside the hospital while awaiting rehab placement. I will inform social sciences professor team to have possible discharge plan on Sunday. cc: Dipesh Matias MD [facility]
[2018-08-26] MEDS: BASAGLAR SUBQ SCH (20:11)
[2018-08-26] MEDS: DULCOLAX PR SCH (21:40)
[2018-08-27] MEDS: DUONEB (A & A) INH SCH ×6 (04:27→23:20)
[2018-08-27] MEDS: HUMALOG SUBQ SCH ×5 (06:17→20:00)
[2018-08-27 07:11] LABS: BASO# 0.01 X1000 (0.0-0.2); BASO% 0.1 % (0.0-0.8); EOS# 0.15 X1000 (0.0-0.7); HEMATOCRIT 26.2 % (37.0-47.0); HEMOGLOBIN 7.8 g/dL (12.0-16.0); IMM GRAN# 0.03 X1000 (0.0-0.04); IMM GRAN% 0.4 % (0.0-0.5); LYMPH% 16.2 % (20.5-51.1); MCH 27.8 PG (27-31); MCHC 29.8 g/dL (33-37); MCV 93.2 FL (81-99); MONO# 0.71 X1000 (0.11-0.59); MONO% 9.6 % (1.7-9.3); NEUT# 5.29 X1000 (1.4-6.5); NEUT% 71.7 % (42.2-75.2); PLT 205 X1000 (130-400); RBC 2.81 XMIL (4.2-5.4); RDW 13.1 % (11.5-14.5); WBC 7.39 X1000 (4.8-10.8)
--- NOTE | 2018-08-27 07:30 | Extremity Venous Study ---
PROCEDURE NAME: Venous U/S Left Arm - 08/26/2018 REQUESTING PHYSICIAN: Dr. Fitzgerald. SPRING TESTER: Cheikh. INDICATION: Edema. EQUIPMENT: [employer] Vivid E9 ultrasound system with a 9 L-D transducer. FINDINGS: Images of the left upper extremity venous systems were obtained in both sagittal and transverse planes. Doppler was used to evaluate veins for spontaneity, phasicity, respiratory excursion, and digital augmentation. RESULTS: Normal venous compression, normal venous flow. No obvious superficial or deep venous thrombosis noted. It should be noted that the right subclavian vein is being used for catheter placement so it was not compared. INTERPRETATION: Normal left upper extremity venous study. cc: MD Benji Louise MD
[2018-08-27] MEDS: SYMBICORT 80/4.5 MICROGM INHALER INH SCH ×2 (07:32→19:20)
[2018-08-27 07:37] LABS: CALCIUM 8.6 mg/dL (8.8-10.2); CREATININE 4.1 mg/dL (0.5-0.9); PHOSPHORUS 3.4 mg/dL (2.7-4.5); POTASSIUM 4.4 mmol/L (3.5-5.1)
[2018-08-27] MEDS: MIRALAX PO SCH ×2 (09:36→20:04)
[2018-08-27] MEDS: NORVASC PO SCH ×2 (09:36→19:59)
[2018-08-27] MEDS: TRANDATE PO SCH ×2 (09:36→19:59)
[2018-08-27] MEDS: FOLIC ACID PO SCH (09:37)
[2018-08-27] MEDS: PHOSLO PO SCH ×3 (09:37→17:35)
[2018-08-27] MEDS: CATAPRES PO SCH ×3 (09:37→19:59)
[2018-08-27] MEDS: APRESOLINE PO SCH ×3 (09:37→19:59)
--- NOTE | 2018-08-27 15:09 | PROGRESS NOTE ---
DATE: 08/27/2017 OVERNIGHT EVENTS: No acute events. SUBJECTIVE: She is denying any complaints. OBJECTIVE: Vital Signs: Temperature 98.7, pulse 89 per minute, blood pressure 126/52, saturating 99% on 2 L nasal cannula. PHYSICAL EXAMINATION: She does not appear in any acute distress. Temperature of 98.1, antibiotic equal. No wheeze, rhonchi, crackles. S1, S2 normal. No murmur, rub, or gallop. She has right- sided chest sternal dialysis catheter. There is a lumpectomy wound which is dressed on the right chest. Abdomen is soft, nontender. No lower extremity edema. Neurologic: Alert and oriented to herself, oriented to day, does not remember me. She states she previously had a stroke and has had memory issues. LABORATORY DATA: Labs suggestive of no leukocytosis. Stable hemoglobin and hematocrit and platelets in acceptable range. No electrolyte abnormalities except elevated creatinine. Blood sugars are between 170 to 270. ASSESSMENT AND PLAN: 1. Acute kidney [id number] kidney disease, stage 4, progressing to what appears like chronic kidney disease stage 5, currently on intermittent hemodialysis through right-sided chest tunneled dialysis catheter. 2. Sepsis due to pneumonia requiring intravenous antibiotics for [address] scan does suggest bilateral pleural effusions, which could be in the setting of chronic kidney disease and slight volume overload. On my review, I did not see any organized consolidation. The patient does not have leukocytosis or fever. No longer on antibiotics. Infectious Disease on board. 3. Anemia of chronic disease. Normocytic anemia without active bleeding, status post one PRBC, currently stable. 4. History of insulin-dependent diabetes mellitus, currently hyperglycemic. Continue current glargine sliding scale insulin. She has been hyperglycemic over the last few days, so I am going to go ahead and increase the glargine dose. I will also continue moderate dose sliding scale insulin. 5. Essential hypertension, currently well controlled on amlodipine, clonidine, hydralazine, and labetalol. 6. History of chronic obstructive pulmonary disease. Continue albuterol ipratropium nebulization and Symbicort. 7. History of breast cancer and breast nodules status post surgical excision on 08/25/2018. Follow up final pathology results. 8. Left upper extremity swelling. Ultrasound ruled out deep venous thrombosis. DISPOSITION: Plan is to discharge patient on 08/28/2018. I called the patient's daughter today and informed her about the patient's medical course. I answered all of her questions. cc: Dipesh Matias MD
--- NOTE | 2018-08-27 15:46 | INFECTIOUS DISEASE PROGRESS NO ---
DATE: 08/27/2018 PRESENT ILLNESS: At this time, I do not think the patient has an active infection. MEDICATIONS: The patient is not on any antibiotic at this time. PHYSICAL EXAMINATION: Vital Signs: Temperature is 98.1, pulse 92, respirations 16, blood pressure 141/67. Generally, this is an ill-appearing elderly female. She looks better than she did, however, a week ago. Head/eyes/ears/nose/throat: She can hear my spoken words and see near objects. She does not have any white patches on her tongue. Lungs clear to auscultation. Neck: No stiffness. Cardiovascular: Heart rate is regular. Abdomen soft and nontender. Thorax: Patient has a dialysis catheter present on the right side. The site is not swollen or draining. Breasts: The patient has a dressing on the right breast where the mass was resected by Dr. Montes De Oca. Abdomen is soft and nontender. Extremities: In the right groin, there is another catheter that has been used for dialysis. That site is not swollen or tender. Neurologic: The patient is awake. She seems to be in a good mood and is talking. ASSESSMENT AND PLAN: As mentioned above, I do not think the patient has any active infection at this time. I do not think she requires any further antibiotics. I am going to sign off the patient's case, but I am available to see her on a p.r.n. basis. COMORBIDITIES: She is elderly, and she has diabetes mellitus, chronic kidney disease, and need for hemodialysis. cc: Eh Carmona MD MTDD
[2018-08-27] MEDS: DULCOLAX PR SCH (20:04)
[2018-08-27] MEDS ORDERED: BASAGLAR SUBQ SCH (21:00)
[2018-08-28] MEDS: DUONEB (A & A) INH SCH ×2 (03:20→07:33)
[2018-08-28] MEDS: HUMALOG SUBQ SCH ×3 (06:29→16:13)
[2018-08-28] MEDS ORDERED: HEPARIN IV PRN (07:04)
[2018-08-28] MEDS ORDERED: NS 2,000 ML MISC PRN (07:04)
[2018-08-28] MEDS ORDERED: TIGHT: 0.2 ML/HR FOR DIALYSIS MISC PRN (07:04)
[2018-08-28 07:17] LABS: CALCIUM 8.6 mg/dL (8.8-10.2); CREATININE 5.3 mg/dL (0.5-0.9); PHOSPHORUS 3.8 mg/dL (2.7-4.5); POTASSIUM 5.4 mmol/L (3.5-5.1)
[2018-08-28] MEDS: SYMBICORT 80/4.5 MICROGM INHALER INH SCH (07:36)
--- NOTE | 2018-08-28 08:15 | NEPHROLOGY PROGRESS NOTE ---
DATE: 08/28/2018 SUBJECTIVE: Patient resting in bed. She is waiting to go to dialysis. She states that she believes she will go to rehab possibly today. OBJECTIVE: Vital Signs: Temperature 99.4 degrees, pulse 97, respiratory rate 18, blood pressure 144/63. Intake 580 mL. Output not measured. General: This is an elderly female, sitting up in bed. Awake and alert. She is in no acute distress. HEENT: Normocephalic, atraumatic. CUCA. Neck: Supple without JVD. Cardiovascular: Regular rate and rhythm. No murmur or gallop. Pulmonary: She is clear bilaterally. She has equal excursion. Abdomen: Soft , round. Positive bowel sounds. : Not inspected. Extremities: No clubbing, cyanosis. Moving her extremities, has not been out of bed. Integumentary: Skin is warm and dry. Lab Data: Sodium 135, potassium 5.4, CO2 28, creatinine 5.3. ASSESSMENT AND PLAN: Chronic kidney disease 5, now requiring dialysis. We will plan to dialyze her on a 2 K bath/UF to her last dry weight, 3.5 hour treatment. We will check to make sure she has a discharge outpatient plan. She did have a hepatitis B serology which was negative last week. Dictated by BRIANNA Fernandez for Benji Fitzgerald MD Face to face encounter, data reviewed, discussed with Jamal Manzanares on 08/28/17. I agree with the above assessment and plan of care. cc: Benji Fitzgerald MD [facility]
[2018-08-28] MEDS: FOLIC ACID PO SCH (08:35)
[2018-08-28] MEDS: APRESOLINE PO SCH ×2 (08:35→16:12)
[2018-08-28] MEDS: TRANDATE PO SCH (08:35)
[2018-08-28] MEDS: MIRALAX PO SCH (08:35)
[2018-08-28] MEDS: PHOSLO PO SCH ×3 (08:35→17:28)
[2018-08-28] MEDS: NORVASC PO SCH (08:35)
[2018-08-28] MEDS: CATAPRES PO SCH ×2 (08:35→16:12)
[2018-08-28] MEDS ORDERED: STERILE WATER INJ. INJ ONE (09:25)
[2018-08-28] MEDS ORDERED: CATHFLO IV ONE (09:25)
--- NOTE | 2018-08-28 15:58 | DISCHARGE SUMMARY ---
ADMISSION DATE: 08/07/2018 DISCHARGE DATE: 08/28/2018 CONSULTATIONS: 1. Dr. Benji Fitzgerald of Nephrology. 2. Dr. Osmany Montes De Oca of General Surgery. 3. Dr. Eh Carmona of infectious disease. PERTINENT PROCEDURES: 1. Head CT: No hemorrhage. Chronic microvascular ischemic change. 2. Right femoral vein triple-lumen catheter placement performed by Dr. Osmany Montes De Oca. 3. Breast ultrasound showed complex cystic nodule in the 3 to 4 o'clock position of the right breast. Suggested biopsy. 4. Chest CT: Worsen pleural effusions and bibasilar atelectasis with possible pneumonia in the lower lobes. 5. Right IJ vein PermCath placement and right inferior medial breast lumpectomy performed by Dr. Osmany Montes De Oca. 6. Venous extremity Doppler: Normal. DISCHARGE DIAGNOSES: 1. Acute kidney injury on chronic kidney disease, stage 4, progressed to stage 5. The patient will be on hemodialysis Sunday, Sunday, Sunday. This is being set up through Dr. Fitzgerald's office. She underwent a right internal jugular vein PermCath placement by Dr. Montes De Oca. 2. Sepsis secondary to pneumonia. The patient has received a full course of intravenous antibiotics. She was followed by Infectious Disease and will not be discharged on any antibiotics. They signed off the case. 3. Anemia of chronic disease, normocytic, without any active bleeding, status post 1 unit of packed red blood cells. 4. History of insulin-dependent diabetes mellitus and issues with hyperglycemia. Changes were made to her insulin regimen. 5. Essential hypertension, currently controlled with Norvasc, clonidine, hydralazine, and labetalol. 6. History of chronic obstructive pulmonary disease. The patient will continue on bronchodilators. 7. History of breast cancer and breast nodule, status post surgical excision on 08/25/2018. She will need to continue to follow up with General Surgery for final pathology results. 8. Left upper extremity swelling. Ultrasound ruled out deep venous thrombosis. HOSPITAL COURSE: Briefly, Ms. Velez is a 68-year-old female who carries a past medical history of diabetes mellitus, chronic kidney disease, hyperlipidemia, and hypertension. The patient was brought to the ED after being found confused. She was slumped over in a chair. The day prior to that she was in her normal state of health. Her initial evaluation found a glucose of 680 with anion gap of 23 and a bicarb of 14. She was treated with insulin and fluids. She had improvement in her anion gap as well as her blood glucose. She had no ketones in the urine. Her lactate level was 1.9. She was found to have an acute on chronic kidney injury, for which Nephrology was asked to evaluate the patient. She was initially admitted to [facility] and was placed on a Cardene drip for hypertensive urgency as well as treated for sepsis. She was found to have pneumonia. They did a head CT secondary to her being INCOMPLETE REPORT - DICTATION ENDS HERE. Dictated by BRIANNA Landin for Dipesh Matias MD cc: Dipesh Matias MD I agree with the components of discharge summary mentioned above. A separate addendum has been dictated. >30 minutes were spent in dischargeing this patient. At discharge, patient denies any complaints. Her vitals detect afebrile and no tachycardia. The Dialysis catheter site is non tender. She would be discharged to rehab and she should follow up with Dr. Fitzgerald for dialysis. PANCHO
[2018-08-28 16:10] VITALS: BP 138/57
--- NOTE | 2018-08-29 05:56 | DISCHARGE SUMMARY ---
ADMISSION DATE: 08/07/2018 DISCHARGE DATE: 08/28/2018 Addendum HISTORY: Patient underwent a head CT secondary to her unresponsiveness and confusion. It was normal. This was likely related to her increasing kidney failure which required intermittent hemodialysis. She had further kidney failure. She progressed to stage 5. She did undergo a tunneled catheter by Dr. Osmany Montes De Oca. She was also treated for pneumonia with a full course of IV antibiotics. She improved with treatment of her pneumonia as well as her confusion. She was placed on multiple medications for her hypertensive urgency. She was transitioned to p.o. medications. She will need to be monitored regularly to avoid low blood pressures. They have also made some insulin adjustments secondary to her being hyperglycemic. She will be continued on regular scheduled hemodialysis that will be set up by Dr. Fitzgerald's office, and will be discharged to rehab today on a mechanical soft diet. VITAL SIGNS: Temperature 97.4 degrees axillary, heart rate 94, respirations 18, blood pressure 138/57, and O2 is 100% on nasal cannula. DISCHARGE DIET: Mechanical soft. DISCHARGE MEDICATIONS: 1. Symbicort 80-4.5 mcg inhaler 2 puffs inhaled b.i.d. 2. Folic Acid 1 mg p.o. daily. 3. Dulcolax 10 mg OK at bedtime. 4. Basaglar 30 units subcutaneous at bedtime. 5. DuoNeb 3 mL inhaled RT q.4 hours. 6. Norvasc 5 mg p.o. b.i.d. 7. PhosLo 667 mg p.o. t.i.d. 8. Clonidine 0.3 mg p.o. t.i.d. 9. Apresoline 100 mg p.o. t.i.d. 10. Labetalol 100 mg p.o. b.i.d. 11. MiraLAX 17 g p.o. b.i.d. FOLLOWUP: Ms. Velez is being discharged to rehab. She was admitted for unresponsiveness and confusion that was likely related to her pneumonia and kidney failure. She was treated with antibiotics and hemodialysis. We have made multiple medication changes related to her blood pressure. She will need continued blood pressure checks regularly to avoid low blood pressures. Also, we made insulin adjustments as she was requiring addition of short-acting insulin to control her blood sugars better. She will continue on stool softener to have at least 2 to 3 bowel movements a day. She will need to follow up with her general surgeon in 5 days after discharge to assess her breast wound evaluation from where she had a breast biopsy at the time that her PermCath catheter was placed. She can return to the ED or call 911 for any worsening of symptoms. Dictated by BRIANNA Landin for Dipesh Matias MD cc: MD Benji Rivers MD R. Tyler Harney, MD Leroy F. Harris, MD Bernice Swain, MD
== END 2018-08-28 20:00 | DRG 853 ==
LOC: P.ED 18:11 → P.ICU 08-07 04:09 → SUATTDRO 08-07 04:09 → ICU 08-08 14:58 → 3S 08-11 09:12 → 3N 08-15 06:10
PROVIDERS: ATTEND Internal Medicine
PROC: [UNRECOGNIZED PROCEDURE] (2018-08-25 09:07)
CPT/HCPCS: 36430; 51702; 70450; 71010; 71045; 71250; 73030; 74000; 74018; 76641; 77001; 80053; 80069; 80074; 80104; 80301; 80305; 81001; 82009; 82570; 82728; 82805; 82948; 83540; 83550; 83605; 83735; 84100; 84145; 84300; 84466; 84484; 85025; 85027; 85610; 85730; 86850; 86900; 86901; 86920; 87040; 87070; 87088; 88300; 88305; 93005; 93971; 94640; 94761; 96361; 96365; 96366; 96368; 96375; 97110; 97140; 97163; 97166; 97530; 99285; 99291; A9270; C1750; C1751; G0431; G0434; G0477; J0360; J0690; J0692; J1644; J1815; J1940; J2020; J2250; J2270; J2310; J2405; J2550; J2997; J3370; J3475; J3480; J7030; J7040; J7050; P9016; XXXXX

== ENCOUNTER 2018-10-09 04:30 | Inpatient (IN) ==
[2018-10-09 05:58] LABS: BASO# 0.01 X1000 (0.0-0.2); BASO% 0.1 % (0.0-0.8); EOS# 0.02 X1000 (0.0-0.7); EOS% 0.2 % (0.0-10.0); HEMATOCRIT 38.8 % (37.0-47.0); HEMOGLOBIN 12.3 g/dL (12.0-16.0); IMM GRAN# 0.04 X1000 (0.0-0.04); IMM GRAN% 0.3 % (0.0-0.5); LYMPH# 1.08 X1000 (1.2-3.4); LYMPH% 9.2 % (20.5-51.1); MCH 29.9 PG (27-31); MCHC 31.7 g/dL (33-37); MCV 94.2 FL (81-99); MONO# 0.27 X1000 (0.11-0.59); MONO% 2.3 % (1.7-9.3); MPV 9.5 FL (7.4-10.4); NEUT# 10.27 X1000 (1.4-6.5); NEUT% 87.9 % (42.2-75.2); PLT 359 X1000 (130-400); RBC 4.12 XMIL (4.2-5.4); RDW 14.6 % (11.5-14.5); WBC 11.69 X1000 (4.8-10.8)
[2018-10-09 06:49] LABS: AGAP 24; ALBUMIN 4.2 g/dL (3.5-5.0); ALKALINE PHOSPHATASE 126 U/L (32-104); BUN 30 mg/dL (8-22); CALCIUM 9.1 mg/dL (8.8-10.2); CHLORIDE 92 mmol/L (98-107); COSMO 288; CREATININE 4.6 mg/dL (0.5-0.9); GOT 23 U/L (10-30); GPT 7 U/L (10-36); LIPASE 10 U/L (13-60); POTASSIUM 4.3 mmol/L (3.5-5.1); SODIUM 132 mmol/L (136-145); TCO2 16 mmol/L (25-35); TOTAL BILIRUBIN 0.28 mg/dL (0.20-1.00); TOTAL PROTEIN 8.2 g/dL (6.3-8.3)
[2018-10-09 06:53] LABS: GLUCOSE 417 mg/dL (70-104)
--- NOTE | 2018-10-09 07:03 | Diag Imaging Result Doc PS360 ---
EXAM: FLAT/UPRIGHT ABD/1 VIEW CHEST 10/09/2018 HISTORY: n/v abd pain TECHNIQUE: AP portable chest and flat and upright abdomen at 0553 COMMENT: There is a right internal jugular central venous catheter with its tip in the right atrium. There is platelike atelectasis in the right middle lobe and lower lobe. The atelectasis which was previously present on 08/23/2018 in the right upper lobe and left lower lobe have resolved. There is some stool in the ascending colon. There is no evidence of gastric or small bowel dilatation. There is no evidence organomegaly or mass. There are numerous phleboliths in the pelvis. IMPRESSION: Atelectasis in the right base. Nonspecific abdomen. Electronically signed by Roberto Dugan 10/09/2018 7:01 AM
[2018-10-09] MEDS ORDERED: HUMULIN R IV ONE (07:47)
[2018-10-09] MEDS ORDERED: ZOFRAN IV ONE (07:49)
[2018-10-09] MEDS ORDERED: NS 1,000 ML IV ONE (07:49)
--- NOTE | 2018-10-09 07:55 | PROVIDER DOCUMENTATION ---
HPI-Abdominal Pain/GI Problem - General Chief Complaint: Nausea/Vomiting Stated Complaint: abd pain/nausea/vomiting Time Seen by Provider: 10/09/18 07:41 Source: patient Allergies/Adverse Reactions: Patient Allergies Allergy/AdvReac Type Severity Reaction Status Date / Time No Known Allergies Allergy Verified 10/09/18 05:49 Home Medications: Home Medication List Medication Instructions Recorded Confirmed Last Taken Type Amlodipine [Norvasc] 5 mg PO BID 30 Days #60 tab 02/26/18 10/09/18 03/06/18 Rx Budesonide/Formoterol Fumarate 2 puff INH BID 08/07/18 10/09/18 Unknown History [Symbicort 80-4.5 Mcg Inhaler] Folic Acid 1 mg PO DAILY 08/07/18 10/09/18 Unknown History Albuterol 2.5MG/Ipratrop 0.5MG 3 ml INH RTQ4H neb 08/28/18 10/09/18 Unknown Rx [Duoneb (A & A)] Bisacodyl [Dulcolax] 10 mg OH QHS supp 08/28/18 10/09/18 Unknown Rx Calcium Acetate [Phoslo] 667 mg PO TID CC tablet 08/28/18 10/09/18 Unknown Rx Clonidine HCl 0.3 mg PO TID #0 08/28/18 10/09/18 Unknown Rx Hydralazine [Apresoline] 100 mg PO TID #0 08/28/18 10/09/18 Unknown Rx Insulin Glargine [Basaglar] 30 unit SUBQ QHS insuln.pen 08/28/18 10/09/18 Unknown Rx Labetalol [Trandate] 100 mg PO BID tablet 08/28/18 10/09/18 Unknown Rx Polyethylene Glycol 3350 [Miralax] 17 gm PO BID powder, packet 08/28/18 Unknown Rx Insulin Lispro [Humalog] 5 units SQ 4XDAY MDD SLIDING SCALE 10/09/18 10/09/18 Unknown History Mirtazapine 30 mg PO HS 10/09/18 10/09/18 Unknown History - History of Present Illness-ABD Nature of Presenting Problems: Pt c/o n/v and upper left quad. abd pain Abdominal Pain Onset Location: reports: generalized abdomen Pain Radiation: reports: no radiation Quality of Pain: reports: cramping Onset/Duration: reports: gradual, last night Activities at Onset: reports: none Exposure to sick contacts?: No Modifying Factors: improves with: vomiting, other (patient was diabetic and had dialysis on Sunday) Associated Symptoms: reports: anxiety, malaise, weakness. denies: chest pain, cough, diaphoresis, shortness of breath Last BM: unsure Bruising or Bleeding Gums?: No Review of Systems - Adult - REVIEW OF SYSTEMS - ADULT Constitutional: reports: fatique. denies: fever Eyes: reports: no symptoms reported Ears, Nose, Mouth & Throat: reports: no symptoms reported Cardiovascular: reports: palpitations. denies: chest pain, edema Respiratory: reports: no symptoms reported. denies: shortness of breath Gastrointestinal: reports: abdominal pain, nausea, vomiting Genitourinary: reports: no symptoms reported Musculoskeletal: reports: no symptoms reported Integumentary: reports: no symptoms reported Neurological: reports: other (weakness) Psychiatric: reports: no symptoms reported Endocrine: reports: no symptoms reported Hematologic/Lymphatic: reports: no symptoms reported Allergic/Immunologic: reports: no symptoms reported All Other Systems: Reviewed and Negative Past History - Adult - PAST MEDICAL HISTORY-ADULT Review of Records: reports: Nursing Assessment Review Major Childhood Illnesses: reports: denies history Cardiovascular: reports: HTN Respiratory: reports: denies history, asthma Gastrointestinal: reports: other (colon problems) Obstetrical/Gynecological: reports: denies history, other (breast cancer) Genitourinary: reports: kidney disease (CKD) Musculoskeletal: reports: denies history Neurological: reports: denies history Endocrine/Immune: reports: Diabetes Other Conditions: reports: denies history - PRIOR SURGERIES/PROCEDURES Surgical/Procedure History: reports: hysterectomy, breast (L lumpectomy) - IMMUNIZATION STATUS Childhood Immunizations: See Nurse Assessment Flu Vaccine: See Nurse Assessment - FAMILY HISTORY Family History: reviewed, not pertinent Physical Exam-General - PHYSICAL EXAM-ADULT Initial Vital Signs Reviewed: Yes - CONSTITUTIONAL General Appearance: moderate distress - EYES Eyes: PERRL/EOMI - HEAD, EARS, NOSE, MOUTH & THROAT HENMT: normocephalic/atraumatic, normal ENT inspection - NECK Neck: supple. negative: lymphadenopathy, meningismus - RESPIRATORY Respiratory: chest non-tender, other (hyperventilated). negative: crackles, rales, rhonchi, wheezing - CARDIOVASCULAR Cardiovascular: regular rate, rhythm, JVD, tachycardia - GASTROINTESTINAL (ABDOMEN) Abdominal Exam: tenderness (mild diffuse tenderness, nondistended) - LYMPHATIC Lymphatic: no adenopathy - MUSCULOSKELETAL Back Exam: normal inspection Extremity: non-tender. negative: calf tenderness, deformity, erythema, pulse deficit, pedal edema, slow capillary refill, swelling, tenderness Peripheral Pulses: dorsalis-pedis (R): 4+, dorsalis-pedis (L): 4+ - SKIN Integumentary: normal color, warm/dry - NEUROLOGIC Neurologic: lens cutter II-XII nml as tested, no motor/sensory deficits - PSYCHIATRIC Psych/Mental Status: normal mood/affect Progress - PLAN OF CARE/RESULTS Progress/Plan/Lab Results: Vital Signs - 8 hr 10/09/18 04:59 Temperature 98.5 F Pulse Rate 116 H Respiratory Rate 22 Blood Pressure 208/105 O2 Sat by Pulse Oximetry 100 Laboratory Results - last 24 hr 10/09/18 10/09/18 10/09/18 05:09 05:22 06:12 WBC 11.69 H RBC 4.12 L Hgb 12.3 Hct 38.8 MCV 94.2 MCH 29.9 MCHC 31.7 L RDW Std Deviation 14.6 H Plt Count 359 MPV 9.5 Immature Gran % (Auto) 0.3 Neut % (Auto) 87.9 H Lymph % (Auto) 9.2 L Pima % (Auto) 2.3 Eos % (Auto) 0.2 Baso % (Auto) 0.1 Immature Gran # (Auto) 0.04 Neut # (Auto) 10.27 H Lymph # (Auto) 1.08 L Pima # (Auto) 0.27 Eos # (Auto) 0.02 Baso # (Auto) 0.01 Sodium 132 L Potassium 4.3 Chloride 92 L Carbon Dioxide 16 L Anion Gap 24 BUN 30 H Creatinine 4.6 H BUN/Creatinine Ratio 7 Glucose 417 H* POC Glucose 415 H D Calculated Osmolality 288 Calcium 9.1 Total Bilirubin 0.28 AST 23 ALT 7 L Alkaline Phosphatase 126 H Total Protein 8.2 Albumin 4.2 Globulin 4.0 Albumin/Globulin Ratio 1.0 Lipase 10 L Plasma Lactate 10/09/18 06:12 WBC RBC Hgb Hct MCV MCH MCHC RDW Std Deviation Plt Count MPV Immature Gran % (Auto) Neut % (Auto) Lymph % (Auto) Pima % (Auto) Eos % (Auto) Baso % (Auto) Immature Gran # (Auto) Neut # (Auto) Lymph # (Auto) Pima # (Auto) Eos # (Auto) Baso # (Auto) Sodium Potassium Chloride Carbon Dioxide Anion Gap BUN Creatinine BUN/Creatinine Ratio Glucose POC Glucose Calculated Osmolality Calcium Total Bilirubin AST ALT Alkaline Phosphatase Total Protein Albumin Globulin Albumin/Globulin Ratio Lipase Plasma Lactate 1.4 Orders Category Date Time Status ED: Urine Bedside ORDERED Care 10/09/18 05:01 Active NPO Diet 10/09/18 05:01 Active FLAT/UPRIGHT ABD/1 VIEW CHEST [RAD] Stat Exams 10/09/18 05:03 Completed ABG [RESP] Routine Lab 10/09/18 07:49 Ordered ACETONE SERUM [CHEM] Stat Lab 10/09/18 07:49 Uncollected CBC WITH DIFF [HEME] Stat Lab 10/09/18 05:22 Results COMPREHENSIVE METABOLIC PANEL [CHEM] Stat Lab 10/09/18 06:12 Completed LACTATE, PLASMA [CHEM] Stat Lab 10/09/18 06:12 Completed LIPASE [CHEM] Stat Lab 10/09/18 06:12 Completed 0.9% Sodium Chloride Inj [Ns] 1,000 ml Med 10/09/18 07:49 Active IV 999 mls/hr Insulin Human Regular [Humulin R] Med 10/09/18 07:47 Discontinued 10 unit IV NOW ONE Ondansetron [Zofran] Med 10/09/18 07:49 Discontinued 8 mg IV NOW ONE Abd Pain/OB <20 weeks Stat Oth 10/09/18 05:01 Ordered Result Diagrams: 10/16/18 15:32 10/17/18 04:27 - XRAY 1 XRAY: Bilateral XRAY Study: Abdomen Impression: Abnormal ( IMPRESSION: Atelectasis in the right base. Nonspecific abdomen. Electronically signed by Roberto Dugan 10/09/2018 7:01 AM) - CT/MRI 1 CT Study: Abdomen Impression: Abnormal (IMPRESSION: 1. Severe urinary bladder distention. Right hydroureteronephrosis without definite renal stone disease. This may be centrally secondary to back pressure from the urinary bladder. Recommend Deleon catheter placement. 2. Severe rectal inflammation consistent with proctitis. Clinical correlation recommended. This exam was performed using automated exposure control, adjustment of mA or kV according to patient size, and/or use of iterative reconstruction technique Electronically signed by Malachi Chaves 10/09/2018 9:02 AM) Departure - Departure Date of Disposition Decision: 10/09/18 Time of Disposition Decision: 11:12 DIAGNOSIS: Proctitis, Nausea & vomiting Disposition: ADMITTED INPATIENT 09 Certified Medical Emergency: Emergent Condition: Stable - Critical Care Note This patient required my direct & personal management of CC.: No Attestation - Physician/ HILDA Attestation Patient care was provided by Advanced Practice Provider:: No The physician spent face to face time with patient:: Yes Advanced Practice Provider documentation review:: Supervising physician onsite and consulted in the evaluation and care of this patient. The physician did have a face to face encounter with the patient.
[2018-10-09 08:03] LABS: LYMPHS 10 % (21-51); MONO 2 % (1-9); SEGS 88 % (42-75)
[2018-10-09] MEDS ORDERED: NS 2,000 ML MISC PRN (08:08)
[2018-10-09] MEDS ORDERED: HEPARIN IV PRN (08:08)
[2018-10-09] MEDS ORDERED: TIGHT: 0.2 ML/HR FOR DIALYSIS MISC PRN (08:08)
[2018-10-09 08:12] LABS: ALLEN TEST NO; BE -4.6 mmoll (-3.0-3.0); BLOOD TYPE ARTERIAL; HCO3-(ACT) 21.3 mmoll (20.0-26.0); METHB 1.8 % (0.0-1.5); O2(CT) 17.5 mL/dL (15.0-23.0); O2HB 95.2 % (95.0-99.0); PCO2(98.6) 23 mmHg (35-45); PO2(98.6) 104 mmHg (60-100); SAMPLE BLOOD; SAO2 98.7 % (95.0-100.0); pH(98.6) 7.48 (7.35-7.45)
[2018-10-09 08:13] LABS: MODALITY ROOM AIR
[2018-10-09] MEDS ORDERED: TAZIDIME 1 GM in NS 50 ML IV ONE (08:24)
[2018-10-09] MEDS ORDERED: VANCOMYCIN 1 GM/NS 1 GM/250 ML IVPB IV ONE (08:30)
--- NOTE | 2018-10-09 09:05 | Diag Imaging Result Doc PS360 ---
CT ABDOMEN/PELVIS W/O CONTRAST - 10/09/2018 INDICATION: abdominal pain COMPARISON: 03/16/2018 FINDINGS: There is some grossly stable linear atelectasis or infiltrate in the lung bases bilaterally mainly in the lower lobes. Heart size is top normal with no pericardial effusion. There is a small hiatal hernia. The urinary bladder is extremely distended extending up to the iliacus. There is mild right hydroureteronephrosis. There are numerous phleboliths. No definite ureter stone. The appearance is very similar to prior. There is significant wall thickening and surrounding edema at the rectum. The uterus is absent. Stable small fat-containing umbilical hernia. There are moderate degenerative changes of the spine. No acute or suspicious bony lesion. IMPRESSION: 1. Severe urinary bladder distention. Right hydroureteronephrosis without definite renal stone disease. This may be centrally secondary to back pressure from the urinary bladder. Recommend Deleon catheter placement. 2. Severe rectal inflammation consistent with proctitis. Clinical correlation recommended. This exam was performed using automated exposure control, adjustment of mA or kV according to patient size, and/or use of iterative reconstruction technique Electronically signed by Malachi Chaves 10/09/2018 9:02 AM
[2018-10-09] MEDS ORDERED: LEVAQUIN 250 MG/D5W 250 MG/50 ML IVPB IV ONE (09:31)
[2018-10-09] MEDS ORDERED: TRANDATE PO ONE (10:09)
[2018-10-09] MEDS ORDERED: LOPRESSOR IV ONE (10:10)
[2018-10-09] MEDS ORDERED: SODIUM CHLORIDE 0.9% INJ ONE ×2 (10:28→10:37)
[2018-10-09] MEDS ORDERED: PHENERGAN IV ONE (10:28)
[2018-10-09] MEDS ORDERED: SODIUM CHLORIDE 0.9% INJ PRN (10:31)
[2018-10-09] MEDS ORDERED: PHENERGAN IV PRN (10:31)
[2018-10-09] MEDS ORDERED: APRESOLINE IV PRN (10:34)
[2018-10-09] MEDS ORDERED: PROTONIX IV ONE (10:37)
[2018-10-09] MEDS ORDERED: TYLENOL PO PRN (10:38)
[2018-10-09] MEDS ORDERED: APRESOLINE IV ONE (10:43)
[2018-10-09] MEDS: NORVASC PO SCH ×2 (10:45→23:03)
[2018-10-09] MEDS: HUMULIN R SUBQ SCH ×3 (10:52→23:04)
[2018-10-09] MEDS: DUONEB (A & A) INH SCH ×3 (11:06→23:42)
--- NOTE | 2018-10-09 11:35 | HISTORY AND PHYSICAL ---
PRIMARY CARE PROVIDER: Madina Justin MD. PRIMARY GEOLOGICAL TECHNICAL OFFICER: Dr. Fitzgerald. CHIEF COMPLAINT: Nausea, vomiting, diarrhea, abdominal discomfort and chills. HISTORY OF PRESENT ILLNESS: Ms. Katia Velez is a 68-year-old, - Sw[place] female, with a medical history of most recently end-stage renal disease receiving dialysis Mondays, Wednesdays, Fridays. Last dialysis was Sunday with plans for dialysis here today in the hospital per Dr. Fitzgerald. She states that last night she had had some sort of pork for dinner and within an hour after eating the pork she started having significant nausea, vomiting and diarrhea along with chills. These symptoms have continued. The nausea is intractable. She is having dry heaves at this time. She had abdominal imaging which showed a distended bladder, but it also showed proctitis. She states that the diarrhea is brown in color. There are no changes with that. She is continuing to have chills at this time. Her vital signs are stable except she does have elevated heart rate and elevated blood pressure, so she will get some labetalol for that. Her white count is elevated with the proctitis and she will be started on antibiotics therapy with vancomycin and cefazedone per Renal. Also she had hyperglycemia with blood glucose levels in the 400s, but she was not in DKA. It is responding to the insulin that she was given in the ER, so we will admit for further medical treatment. PAST MEDICAL HISTORY: 1. Anemia of chronic disease. 2. End-stage renal disease with dialysis Mondays, Wednesdays, Fridays. 3. Uncontrolled diabetes mellitus type 2. 4. Hyperlipidemia. 5. History of breast cancer. 6. A little over a month ago had sepsis with pneumonia. 7. Essential hypertension. 8. COPD. PAST SURGICAL HISTORY: 1. Left mastectomy. 2. Right breast lump biopsy. 3. Hysterectomy. 4. Dialysis catheter. SOCIAL HISTORY: Lives with her daughter. Denies tobacco, alcohol, or illicit drug use. FAMILY HISTORY: Patient denies. ALLERGIES: No known drug allergies. HOME MEDICATIONS: 1. Symbicort 80-4.5 mcg two puffs inhaled twice daily. 2. Folic acid 1 mg p.o. daily. 3. Lispro 5 units subcutaneous q.i.d. sliding scale. 4. Mirtazapine 30 mg p.o. nightly. 5. Bisacodyl 10 mg per rectum nightly. 6. Insulin glargine 30 units subcutaneous nightly. 7. Albuterol Atrovent nebs q.4 hours. 8. Norvasc 5 mg p.o. b.i.d. 9. PhosLo 667 mg p.o. t.i.d. 10.Clonidine 0.3 mg p.o. t.i.d. 11.Apresoline 100 mg p.o. t.i.d. 12.Labetalol 100 mg p.o. b.i.d. 13.MiraLAX 17 g p.o. b.i.d. REVIEW OF SYSTEMS: A 14 point review of systems are complete and all were negative except for those mentioned above in the HPI. She states that she just has general body aches, chills, abdominal discomfort, continuous nausea with vomiting and now with dry heaves and diarrhea with no other complaints. PHYSICAL EXAM: VITAL SIGNS: Temperature 98.4 degrees Fahrenheit, heart rate 122, respiratory rate 20, blood pressure 228/111. O2 saturation 100% on room air. GENERAL: Ms. Katia Velez is a 68-year-old, -Sw[place] female. She is in no acute distress but just in a good bit of discomfort from her nausea and dry heaves. HEENT: Normocephalic and atraumatic. Pupils are equal and reactive. Extraocular movements intact. Mucous membranes are moist. NECK: Trachea is midline. CARDIOVASCULAR: S1, S2, tachycardia rate rhythm. No rubs, gallops or murmurs. Trace lower extremity edema. Plus-two dorsalis and radial pulses. Negative JVD or carotid bruits. PULMONARY: Clear to auscultation. Bilateral breath sounds. No accessory muscle use or work of breathing noted. GASTROINTESTINAL: Tender in all four quadrants. Hypoactive bowel sounds x4, nondistended. EXTREMITIES: Moves all extremities equally with full range of motion. NEUROLOGIC: Awake, alert and oriented x3. Drowsy. Follows commands. Sensory is intact. SKIN: Warm, dry and intact. LABORATORY DATA: White blood cells 11.0, hemoglobin 12, hematocrit 38, platelet count 359,000. ABG: pH 7.48, pCO2 23, pO2 104, bicarb 21, base access negative 4.6. Saturation 95%. Lactate 1.7. Serum lactate is 0.4. Sodium 132, potassium 4.3, BUN 30, creatinine 4.6, glucose 417 down to 313. Calcium 9.1, bilirubin 0.28, AST 23, ALT 7, albumin 4.2. Acetone small. IMAGIN. Abdominal x-ray and one-view chest x-ray: Atelectasis in the right base, stool in the ascending colon. 2. Abdominal and pelvic CT. Severe urinary bladder distention with right hydroureteronephrosis without definite renal stone disease. May be secondary to back pressure from the urinary bladder and recommend Deleon catheter placement. Severe rectal inflammation consistent with proctitis. IMPRESSION AND PLAN: 1. Intractable nausea and vomiting with diarrhea and diagnosis of proctitis. She will be started on IV antibiotics per Nephrology with Ceftazidime and vancomycin with her dialysis treatment. She did received about 1 L of fluids upon admission. Phenergan and Zofran for nausea. IV Protonix 40 twice-a-day. 2. Uncontrolled hypertension. She has blood pressures up to the 200s systolically. She will likely have difficulties with swallowing her oral antihypertensives. She has not received them yet this morning. She is tachycardic as well, so we will do IV metoprolol x1 dose. We will add a one-time dose of hydralazine 10 mg. We will continue oral antihypertensives. If unable to tolerate them despite receiving Phenergan or Zofran, we will need to change all scheduled antihypertensives to IV. Hopefully blood pressure will improve after hemodialysis in about two hours. 3. End-stage renal disease with hemodialysis Mondays, Wednesdays, Fridays. She did receive dialysis on Sunday and she is scheduled for dialysis today. Dr. Fitzgerald following. 4. Uncontrolled diabetes mellitus type 2 with severe hyperglycemia. She presented with blood glucose levels in the 400s. But has respiratory alkalosis. She is not acidotic. She received IV insulin 10 units which brought her down from 417 to 313. She will receive her home medication regimen for insulin along with a high-dose sliding-scale insulin. Her last hemoglobin A1c was performed 06/20/2018 which showed 10.7, so we will repeat a hemoglobin A1c. 5. Chronic anemia but currently stable. Hemoglobin 12 and hematocrit 38. 6. Chronic obstructive pulmonary disease. No exacerbation. We will continue her on her home nebulizers. 7. Deep venous thrombosis prophylaxis. SCDs. Dictated by BRIANNA Alba for Dipesh Matias MD cc: BRIANNA Alba MD Bernice Swain, MD Reginald D. Gladish, MD I agree with most components of history, physical, assessment and plan. A separate addendum has been dictated. MTDD
[2018-10-09 11:52] LABS: URINE SOURCE CATH
[2018-10-09 11:57] LABS: BILIRUBIN URINE NEGATIVE (NEGATIVE); BLOOD URINE MODERATE (NEGATIVE); COLOR ORANGE; GLUCOSE URINE 500 mg/dL (NEGATIVE); KETONE URINE 10 mg/dL (NEGATIVE); LEUKOCYTES URINE LARGE (NEGATIVE); NITRITE URINE NEGATIVE (NEGATIVE); PH URINE 6.5; PROTEIN URINE 300 mg/dL (NEGATIVE); TURBIDITY URINE TURBID (CLEAR); UROBILINOGEN URINE NORMAL (NORMAL)
[2018-10-09] MEDS: PHOSLO PO SCH ×2 (12:08→17:19)
[2018-10-09 12:17] LABS: UR EPITHELIAL CELLS <10 /HPF (<10); URINE BACTERIA NEGATIVE /HPF; URINE RBC TNTC /HPF (<10); URINE WBC TNTC /HPF (<10); URINE YEAST NONE SEEN
--- NOTE | 2018-10-09 13:28 | NEPHROLOGY CONSULTATION ---
DATE: 10/09/2018 REASON FOR ADMISSION: Nausea, vomiting, diarrhea, fever, chills, abdominal pain. The patient ESRD management. HISTORY OF PRESENT ILLNESS: This is a 68-year-old female known to our service for end-stage renal disease on hemodialysis Sunday, Sunday, Sunday. The patient stated that last night she had a sudden onset of nausea, vomiting, and diarrhea. She thought it was after she had eaten supper. She has some type pork at that. Today, when I see the patient, she continues with nausea, vomiting, and she is having significant shaking and chills. She is really unable to me a complete history and information mainly from the chart. No family is available. She did she was able to tell me that she has had no bloody vomitus and no significant change in the diarrhea. She has had no chest pain or shortness of breath. PAST MEDICAL HISTORY: End-stage renal disease dialysis is Sunday, Sunday, Sunday. Anemia, diabetes, hyperlipidemia. History of breast cancer. Sepsis and pneumonia. Hypertension. COPD. SURGICAL HISTORY: Left mastectomy with biopsy, hysterectomy. She has a tunneled dialysis catheter right upper chest wall. ALLERGIES: No known drug allergies. HOME MEDICATIONS: 1. Symbicort. 2. Folic acid. 3. Lispro. 4. Mirtazapine. 5. Bisacodyl. 6. Insulin. 7. Albuterol. 8. Norvasc. 9. PhosLo. 10. Clonidine. 11. Apresoline. 12. Labetalol. 13. MiraLAX. FAMILY HISTORY: Noncontributory. SOCIAL HISTORY: She lives with one of her daughters. There is no ETOH, tobacco , or illicit drug use noted. REVIEW OF SYSTEMS: General: Aches, chills, nausea, vomiting. PHYSICAL EXAMINATION: Vital Signs: Temperature 98.4 degrees, pulse 122, respiratory rate 20, blood pressure 228/111. Intake and output have not been measured. General: This is an elderly -[place] female resting on the stretcher. She is obviously uncomfortable, and she is shaking from head to toe. HEENT: Normocephalic, atraumatic. CUCA. Oral mucosa is moist. Neck: Supple. There is no JVD. Cardiovascular: She is tachycardic. There is no murmur or gallop appreciated. Pulmonary: She is clear bilaterally. She is currently on O2 supplementation via nasal cannula. She has no increased work of breathing. Abdomen: Soft, with positive bowel sounds but tender. Genitourinary: Not inspected. Extremities: No clubbing , cyanosis. There is no edema noted. Integumentary: Skin is warm and dry. Her tunnel dialysis catheter site is clean, dry, and intact. Neurologic: Grossly nonfocal. LABORATORY DATA: WBC of 11, hemoglobin 12. Sodium 132, potassium 4.3, CO2 of 21. Creatinine 4.6. She had a calcium of 9.1. Her serum lactate was 0.4. IMAGING: Atelectasis right base. Abdomen and pelvic CT: She has urinary bladder distention with right hydroureteronephrosis. She has rectal inflammation consistent with proctitis. ASSESSMENT AND PLAN: 1. End-stage renal disease management. Her normal dialysis day is Sunday, Sunday, Sunday. We will continue this while she is in the hospital on her routine prescription. 2. Elevated white count. Chills in the setting of a patient with a tunnel dialysis catheter. We will go ahead and order blood cultures and treat her with vancomycin and Fortaz today. Continue treatment with each dialysis. Blood cultures have already been ordered. 3. Uncontrolled hypertension. She is receiving her morning medications. We have asked to stop her fluid bolus. Dictated by BRIANNA Fernandez for Benij Fitzgerald MD Face to face encounter, data reviewed, discussed with Jamal Manzanares on 10/09/18. I agree with the above assessment and plan of care. cc: Benji Fitzgerald MD [facility]
[2018-10-09] MEDS: ZOFRAN IV PRN (14:20)
[2018-10-09] MEDS ORDERED: VANCOMYCIN IV PER PHARMACY MISC SCH (15:15)
[2018-10-09] MEDS ORDERED: INSULIN PEN NEEDLES ONE (15:39)
--- NOTE | 2018-10-09 15:47 | HISTORY AND PHYSICAL ---
ADDENDUM REPORT Addendum to history and physical dictated by the nurse practitioner. I agree with most components of history, physical, assessment, and plan. HISTORY OF PRESENT ILLNESS: In brief, Ms. Velez is a 68-year-old lady who is a [place] [facility] resident who comes in with complaints of nausea, vomiting, and episode of diarrhea yesterday and diffuse abdominal pain. On arrival to the emergency room, she was found to be afebrile with tachycardic with heart rate of 120s and extremely hypertensive with systolic blood pressure in 220s. She was given some intravenous fluids, antihypertensive medication, and Medicine was consulted. SUBJECTIVE: I saw the patient in the dialysis room. She continues to moan and continues to complain of diffuse abdominal pain. She does not have any vomiting; however, she continues to spit up something because of nausea. OBJECTIVE: Vitals: Currently detect temperature of 98.2 degrees, pulse 107 per minute, respiratory rate 18, blood pressure 160/95, saturating 96% on room air. PHYSICAL EXAMINATION: GENERAL: Appears in mild to moderate distress, constantly sitting up sputum. However, has not had vomiting episode. NECK: She has a tunneled dialysis catheter on her neck. CARDIOVASCULAR: S1, S2 normal. Tachycardic. No murmur, rub, or gallop. LUNGS: Air entry bilaterally equal. No wheeze, rhonchi, or crackles. ABDOMEN: Soft, tender generalized, especially in the epigastric region. Hypoactive bowel sounds. EXTREMITIES: No lower extremity edema. RECTAL: On examination, she does have not bleeding external hemorrhoids without any fissure. She denies any buttock pain or DIAGNOSTIC STUDIES: Labs suggestive of leukocytosis. Normal hemoglobin, hematocrit, and platelet count. BMP suggestive of hyponatremia, hypochloremia, low bicarbonate, elevated BUN and creatinine, hyperglycemia. She did have urinary retention and UA which had suggested multiple WBCs and small acetone level. Her urine culture and blood culture are in the lab. CT scan of the abdomen and pelvis was suggestive of proctitis. She currently has urine catheter in place. ASSESSMENT: 1. Sepsis due to proctitis. 2. Uncontrolled hypertension with hypertensive emergency. Her epigastric abdominal pain could be related to hypertensive emergency. 3. Intractable nausea. Could be in the setting of proctitis, constipation as evidenced on CT image, or hypertensive emergency. 4. End-stage renal disease. On hemodialysis. 5. Uncontrolled diabetes mellitus, type 2, with hyperglycemia. 6. History of chronic obstructive pulmonary disease (COPD). Not in exacerbation. PLAN: The patient has been given a dose of intravenous vancomycin and ceftazidime during dialysis by Nephrology. They also had suspicion for bacteremia, considering the chills that the patient had on presentation. I will continue intravenous vancomycin and ceftazidime during dialysis until final blood culture results come back. Follow up stool studies for C. Diff, stool culture for bacterial proctitis (considering she had pork yesterday) I will continue patient on p.r.n. antinausea medication and p.r.n. medications for pain. I will continue her on her home antihypertensive medication. I will continue her on stool softeners to avoid constipation. Plan of care was discussed with the patient. I will try and reach out to patient's next of kin and inform about the patient's clinical condition and would answer all of their questions. -- I called patient's daughter, who did not lease picker. I have left a voice message to call us back. cc: Dipesh Matias MD [email or web address]
[2018-10-09] MEDS: HUMALOG SUBQ SCH ×3 (17:03→23:26)
[2018-10-09] MEDS: APRESOLINE PO SCH ×2 (17:03→17:12)
[2018-10-09] MEDS: CATAPRES PO SCH ×2 (17:03→17:19)
[2018-10-09] MEDS: MORPHINE IV PRN (17:23)
[2018-10-09] MEDS ORDERED: CALMOSEPTINE OINTMENT TOP PRN (18:18)
[2018-10-09] MEDS ORDERED: DULCOLAX PR SCH (21:00)
[2018-10-09] MEDS: SYMBICORT 80/4.5 MICROGM INHALER INH SCH (21:12)
[2018-10-09] MEDS: REMERON PO SCH (23:03)
[2018-10-09] MEDS: TRANDATE PO SCH (23:03)
[2018-10-09] MEDS: PROTONIX IV SCH (23:03)
[2018-10-10] MEDS: BASAGLAR SUBQ SCH ×2 (00:03→23:13)
[2018-10-10] MEDS: DUONEB (A & A) INH SCH ×7 (04:15→23:05)
[2018-10-10] MEDS: HUMULIN R SUBQ SCH ×4 (06:15→23:19)
[2018-10-10 06:43] LABS: BASO# 0.01 X1000 (0.0-0.2); BASO% 0.1 % (0.0-0.8); EOS# 0.02 X1000 (0.0-0.7); EOS% 0.2 % (0.0-10.0); HEMATOCRIT 39.1 % (37.0-47.0); HEMOGLOBIN 12.1 g/dL (12.0-16.0); IMM GRAN# 0.04 X1000 (0.0-0.04); IMM GRAN% 0.4 % (0.0-0.5); LYMPH# 1.84 X1000 (1.2-3.4); LYMPH% 16.7 % (20.5-51.1); MCHC 30.9 g/dL (33-37); MCV 96.8 FL (81-99); MONO# 0.91 X1000 (0.11-0.59); MONO% 8.3 % (1.7-9.3); MPV 9.1 FL (7.4-10.4); NEUT# 8.18 X1000 (1.4-6.5); NEUT% 74.3 % (42.2-75.2); PLT 364 X1000 (130-400); RBC 4.04 XMIL (4.2-5.4); RDW 15.4 % (11.5-14.5)
[2018-10-10 06:49] LABS: INR 0.93; PROTIME 13.2 Seconds (11.0-16.0)
[2018-10-10 06:50] LABS: PTT 30.7 Seconds (22.3-41.8)
[2018-10-10 07:06] LABS: ALB/GLOB RATIO 0.9; CALCIUM 9.9 mg/dL (8.8-10.2); CREATININE 3.1 mg/dL (0.5-0.9); MAGNESIUM 1.9 mg/dL (1.5-2.7); POTASSIUM 3.1 mmol/L (3.5-5.1); TOTAL BILIRUBIN 0.24 mg/dL (0.20-1.00); TOTAL PROTEIN 8.5 g/dL (6.3-8.3)
--- NOTE | 2018-10-10 07:16 | EKG Report ---
Test Performed on : 10/10/2018 06:41:56 AM Test Reason : tachycardia Blood Pressure : / mmHG Vent. Rate : 106 BPM Atrial Rate : 106 BPM P-R Int : 166 ms QRS Dur : 096 ms QT Int : 362 ms P-R-T Axes : 052 010 093 degrees QTc Int : 480 ms Sinus tachycardia. Voltage criteria for left ventricular hypertrophy Nonspecific T wave abnormality Abnormal ECG When compared with ECG of 20-JUN-2018 07:05, Nonspecific T wave abnormality now evident in Inferior leads Confirmed by Precious WILSON, Javon Nunez ([id number]) on 10/11/2018 6:48:06 AM
[2018-10-10] MEDS: SYMBICORT 80/4.5 MICROGM INHALER INH SCH ×2 (07:46→19:05)
[2018-10-10] MEDS: SODIUM CHLORIDE 0.9% INJ SCH ×2 (08:24→23:12)
[2018-10-10] MEDS: PHOSLO PO SCH ×3 (08:24→18:49)
[2018-10-10] MEDS: PROTONIX IV SCH ×2 (08:24→23:12)
[2018-10-10] MEDS: FOLIC ACID PO SCH (08:24)
[2018-10-10] MEDS: NORVASC PO SCH ×2 (08:25→23:12)
[2018-10-10] MEDS: HUMALOG SUBQ SCH ×3 (12:06→18:23)
--- NOTE | 2018-10-10 14:38 | NEPHROLOGY PROGRESS NOTE ---
DATE: 10/10/2018 TIME SEEN: 0705. SUBJECTIVE: Ms. Velez is resting quietly in bed. She states that she is feeling much better than yesterday. No further dry heaves after yesterday evening. OBJECTIVE: Vital signs: Her most recent vital signs, temperature 98.3 degrees , blood pressure 148/125, after repeat it was 129/53, heart rate 94, respirations 20. She is on room air. Last recorded saturation is 99%. She has had 0 recorded in. She has had 3393 out with 2.5 L removed on dialysis yesterday. Labs: Sodium 140, potassium 3.1, chloride 97, CO2 27, BUN 13, creatinine 3.1, glucose 105. The patient has an anion gap of 16. Her calcium is 9.9, magnesium 1.9, albumin of 4. White count 11, hemoglobin 12.1, hematocrit 39.1, platelet count 364, 000. Her ProTime is 13.2, INR 0.93, PTT is 30.7. PHYSICAL EXAMINATION: General: This is a 68-year-old female. She is resting quietly in bed. She is in no acute distress. Skin: Warm and dry. HEENT: Normocephalic, atraumatic. Conjunctivae pale. She has CUCA. Mucous membranes are dry. Neck : Supple. Trachea midline. No evidence of JVD. Cardiovascular: She is regular rate and rhythm. She is tachycardic. She has a systolic murmur. Lungs: Clear to auscultation bilaterally. Equal excursion. On room air. Abdomen: Large, round, soft, nontender. Positive bowel sounds. Genitourinary: Not inspected. Minimal void with dialysis assist. Extremities : Have no edema. No clubbing or cyanosis. Neurological: Alert and oriented x3. Integumentary : Patient has a tunneled catheter to the right chest wall and a left IJ IV. ASSESSMENT AND PLAN: 1. Chronic kidney disease stage 5D. The patient is due for her routine dialysis treatment in the morning. She did have her dialysis treatment last night. She tolerated this well. 2. Electrolytes, acid-base balance. These are fairly stable. 3. Anemia, this is acceptable. 4. Hypertension. This remains slightly elevated. She does continue on labetalol p.r.n. She is currently on hydralazine with some control. 5. Possible sepsis secondary to proctitis. She is on renal dosed antibiotics. CT scan shows evidence of severe constipation. This is being managed by the primary care team. 6. Possible flu. The patient states that she was exposed to the flu at the home where she is at this time. We will have them swab for A and B. I would like to thank you for allowing us to follow with this patient. Dictated by BRIANNA Amaro for Benji Fitzgerald MD Face to face encounter, data reviewed, discussed with Sergio Gonzales on 10/10/18. I agree with the above assessment and plan of care. cc: BRIANNA Amaro MD [facility]
[2018-10-10] MEDS: CATAPRES PO SCH ×2 (18:22→18:23)
[2018-10-10] MEDS: APRESOLINE PO SCH ×2 (18:22→18:23)
[2018-10-10] MEDS: TRANDATE PO SCH ×2 (18:22→23:12)
--- NOTE | 2018-10-10 19:09 | PROGRESS NOTE ---
DATE: 10/10/2018 SUBJECTIVE: Patient has no focal complaints. OBJECTIVE: Vital signs: Blood pressure 126/55, heart rate 115, respiratory rate 20, temperature 98.5 degrees. Cardiovascular: Regular rate and rhythm. Pulmonary: Bilateral breath sounds. Clear to auscultation. Gastrointestinal: Soft, nontender, nondistended. Bowel sounds are positive. DIAGNOSTIC STUDIES: White count is 11, hemoglobin 12, hematocrit 39, platelets 364,000. Potassium 3.1, creatinine 3.1, sugar 105. Cultures, urine and blood, are no growth thus far. PROBLEM LIST: 1. Proctitis. She has not had any diarrhea so we have not been able to collect a sample, so we will continue empiric antibiotics and follow. 2. Hypertension, uncontrolled. That seems to be improved. 3. Intractable nausea/vomiting. That has also improved. I have gone ahead and advanced her diet. 4. Diabetes. We will continue her regular medications and follow her A1c stable. 5. End-stage renal disease. She is on dialysis per Nephrology Service DISPOSITION: If she is clinically improved, we may be able to get her home. It is unclear if she has true severe proctitis, but she definitely has significant bladder retention that may be contributing her constipation. In any case, we will continue to follow closely. Disposition pending her clinical status. cc: Kingston Demarco MD
[2018-10-10] MEDS: REMERON PO SCH (23:12)
[2018-10-11] MEDS: DUONEB (A & A) INH SCH ×5 (03:05→19:15)
[2018-10-11] MEDS: HUMALOG SUBQ SCH ×5 (04:23→21:55)
[2018-10-11] MEDS ORDERED: TAZIDIME 1 GM in NS 50 ML IV SCH ×2 (06:00→09:00)
[2018-10-11] MEDS: ZOFRAN IV PRN ×5 (06:24→23:56)
[2018-10-11 07:07] LABS: BASO# 0.01 X1000 (0.0-0.2); BASO% 0.1 % (0.0-0.8); EOS# 0.01 X1000 (0.0-0.7); EOS% 0.1 % (0.0-10.0); HEMATOCRIT 41.6 % (37.0-47.0); HEMOGLOBIN 12.8 g/dL (12.0-16.0); IMM GRAN# 0.03 X1000 (0.0-0.04); IMM GRAN% 0.3 % (0.0-0.5); LYMPH# 1.78 X1000 (1.2-3.4); LYMPH% 15.2 % (20.5-51.1); MCHC 30.8 g/dL (33-37); MCV 97.7 FL (81-99); MONO# 0.66 X1000 (0.11-0.59); MONO% 5.6 % (1.7-9.3); MPV 9.7 FL (7.4-10.4); NEUT# 9.24 X1000 (1.4-6.5); NEUT% 78.7 % (42.2-75.2); PLT 375 X1000 (130-400); RBC 4.26 XMIL (4.2-5.4); RDW 15.3 % (11.5-14.5); WBC 11.73 X1000 (4.8-10.8)
[2018-10-11] MEDS ORDERED: NS 2,000 ML MISC PRN (07:19)
[2018-10-11] MEDS ORDERED: HEPARIN IV PRN (07:19)
[2018-10-11] MEDS ORDERED: TIGHT: 0.2 ML/HR FOR DIALYSIS MISC PRN (07:19)
[2018-10-11 07:45] LABS: CALCIUM 10.5 mg/dL (8.8-10.2); CREATININE 4.5 mg/dL (0.5-0.9); POTASSIUM 2.9 mmol/L (3.5-5.1)
[2018-10-11] MEDS: SYMBICORT 80/4.5 MICROGM INHALER INH SCH ×2 (08:05→19:15)
[2018-10-11] MEDS: BENTYL PO PRN ×2 (08:32→23:32)
[2018-10-11] MEDS ORDERED: VANCOMYCIN 1 GM/NS 1 GM/250 ML IVPB IV SCH (09:00)
[2018-10-11] MEDS: HUMULIN R SUBQ SCH ×4 (11:44→21:46)
[2018-10-11] MEDS: PHOSLO PO SCH ×3 (11:48→19:41)
[2018-10-11] MEDS ORDERED: ZOFRAN IV ONE (12:07)
[2018-10-11] MEDS: MORPHINE IV PRN ×2 (12:16→18:53)
[2018-10-11] MEDS: PROTONIX IV SCH ×2 (12:17→21:56)
[2018-10-11] MEDS: FOLIC ACID PO SCH (12:31)
[2018-10-11] MEDS: CATAPRES PO SCH ×2 (12:45→19:08)
[2018-10-11] MEDS: APRESOLINE PO SCH ×3 (12:45→19:42)
[2018-10-11] MEDS ORDERED: FLEET MINERAL OIL ENEMA PR ONE (15:25)
--- NOTE | 2018-10-11 15:44 | PROGRESS NOTE ---
DATE: 10/11/2018 SUBJECTIVE: Today she started throwing up. She looked fine yesterday, but she is throwing up. OBJECTIVE: Vital Signs: Blood pressure 167/75, heart rate 113, respiratory rate is 16, temperature 98.3 degrees. Cardiovascular: Regular rate and rhythm. Pulmonary: Bilateral breath sounds. Gastrointestinal: Soft, nontender, nondistended. Bowel sounds were diminished. GI is as described. LABORATORY DATA: Her white count 11.7, hemoglobin and hematocrit of 12 and 41, platelets 375,000. BUN and creatinine are 22 and 4.5, potassium is 2.9. PROBLEM LIST: 1. Gastrointestinal. She is still very symptomatic. Unclear etiology. There was description of proctitis, but she is not having any diarrhea. Repeat plain films. We are still waiting on stool studies. I guess we will go ahead and get a Gastrointestinal opinion, see what they think of everything recorded. It looks like she has significant bladder distention. I had ordered a Deleon, but I think Dr. Fitzgerald had already bladder scanned her and found no residual. In any case, we will continue to follow. 2. Severe nausea and vomiting. As previously described, will get Gastrointestinal opinion. Initiate low-dose Reglan and follow. 3. Hypertension. Appears to be somewhat improved, although still a little on the high side. 4. Diabetes, not completely controlled. Her A1c was not calculated this admission. I cannot see that we checked it ever. Her urine though looked grossly infected, but cultures are just showing yeast. Flu was negative. Problem list as described, intractable nausea, vomiting. Get a Gastrointestinal opinion. We will follow closely. Protonix, Reglan. 5. End-stage renal. Care per renal service. She is getting dialyzed today. 6. Leukocytosis with unclear source. Possible urinary tract infection. We will continue empiric antibiotics. 7. Hypokalemia, hopefully resolved with dialysis. We will continue to follow. 8. Disposition, pending her improvement in status. Diabetes, we will continue to monitor. Consider evaluation for gastric emptying study. cc: Kingston Demarco MD
--- NOTE | 2018-10-11 15:52 | NEPHROLOGY PROGRESS NOTE ---
DATE: 10/11/2018 SUBJECTIVE: She is having more nausea today. Obviously more discomfort. She is not able localize beyond her nausea. No pain. OBJECTIVE: Vital Signs: Blood pressure 155/68, heart rate 114, respiration 24, afebrile. General: Again obvious discomfort but no acute distress. Skin: Warm and dry. Conjunctivae are pink. Neck: Neck veins are not distended. Heart: Regular with S4. Lungs: Equal. No crackles. Abdomen: Soft, nontender. Bowel sounds present. Extremities: No edema, clubbing or cyanosis. IMPRESSION: 1. Chronic kidney disease 5D. She will have her routine dialysis treatment today using a 4 potassium bath. Minimal UF. 2. Nausea. She has both Zofran and Phenergan ordered for treatment. I will make no adjustments to this. 3. Electrolytes/acid base. Significant hypokalemia. Four potassium bath. cc: Benji Fitzgerald MD
[2018-10-11] MEDS ORDERED: TAZIDIME 1 GM in NS 50 ML IV ONE (16:00)
[2018-10-11] MEDS ORDERED: VANCOMYCIN 1 GM/NS 1 GM/250 ML IVPB IV ONE (17:00)
[2018-10-11] MEDS: REGLAN IV SCH (19:04)
[2018-10-11] MEDS: LACTULOSE PO SCH ×2 (19:09→21:54)
[2018-10-11] MEDS: TRANDATE PO SCH ×2 (19:09→21:54)
[2018-10-11] MEDS: NORVASC PO SCH ×2 (19:09→21:54)
[2018-10-11] MEDS: REMERON PO SCH (21:54)
[2018-10-11] MEDS: BASAGLAR SUBQ SCH (21:55)
[2018-10-11] MEDS: SODIUM CHLORIDE 0.9% INJ SCH (21:56)
[2018-10-12] MEDS: MORPHINE IV PRN (02:01)
[2018-10-12] MEDS: DUONEB (A & A) INH SCH ×2 (05:10→08:52)
[2018-10-12] MEDS: REGLAN IV SCH ×2 (06:13→18:32)
[2018-10-12] MEDS: HUMULIN R SUBQ SCH ×3 (06:15→16:52)
[2018-10-12 06:25] LABS: EOS# 0.01 X1000 (0.0-0.7); EOS% 0.1 % (0.0-10.0); HEMATOCRIT 41.2 % (37.0-47.0); HEMOGLOBIN 12.4 g/dL (12.0-16.0); LYMPH# 1.79 X1000 (1.2-3.4); MCHC 30.1 g/dL (33-37); MCV 99.8 FL (81-99); MONO# 0.63 X1000 (0.11-0.59); MPV 9.7 FL (7.4-10.4); NEUT# 6.52 X1000 (1.4-6.5); NEUT% 72.9 % (42.2-75.2); PLT 334 X1000 (130-400); RBC 4.13 XMIL (4.2-5.4); RDW 15.4 % (11.5-14.5); WBC 8.95 X1000 (4.8-10.8)
[2018-10-12 06:45] LABS: AGAP 23; ALB/GLOB RATIO 0.9; ALBUMIN 3.9 g/dL (3.5-5.0); ALKALINE PHOSPHATASE 101 U/L (32-104); BUN 18 mg/dL (8-22); CALCIUM 9.3 mg/dL (8.8-10.2); CHLORIDE 94 mmol/L (98-107); COSMO 283; CREATININE 3.3 mg/dL (0.5-0.9); ESTIMATED GFR 17; GLUCOSE 231 mg/dL (70-104); GOT 8 U/L (10-30); GPT < 5 U/L (10-36); POTASSIUM 4.1 mmol/L (3.5-5.1); SODIUM 137 mmol/L (136-145); TCO2 20 mmol/L (25-35); TOTAL BILIRUBIN 0.25 mg/dL (0.20-1.00); TOTAL PROTEIN 8.2 g/dL (6.3-8.3)
[2018-10-12] MEDS: SYMBICORT 80/4.5 MICROGM INHALER INH SCH ×2 (08:52→19:00)
[2018-10-12] MEDS: BENTYL PO PRN (10:00)
[2018-10-12] MEDS: APRESOLINE PO SCH ×3 (10:00→18:31)
[2018-10-12] MEDS: TRANDATE PO SCH ×3 (10:00→22:44)
[2018-10-12] MEDS: NORVASC PO SCH ×2 (10:00→22:41)
[2018-10-12] MEDS: PROTONIX IV SCH ×2 (10:00→22:41)
[2018-10-12] MEDS: PHOSLO PO SCH ×3 (10:00→16:53)
[2018-10-12] MEDS: CATAPRES PO SCH ×3 (10:00→18:32)
[2018-10-12] MEDS: LACTULOSE PO SCH ×2 (10:00→22:41)
[2018-10-12] MEDS: FOLIC ACID PO SCH (10:00)
[2018-10-12] MEDS: ZOFRAN IV PRN ×2 (10:01→17:05)
[2018-10-12] MEDS: HUMALOG SUBQ SCH ×4 (10:35→22:41)
[2018-10-12] MEDS: DUONEB (A & A) INH PRN ×2 (15:51→19:00)
--- NOTE | 2018-10-12 17:39 | CONSULTATION ---
DATE OF CONSULTATION: 10/12/2018 REASON FOR CONSULTATION: Nausea, vomiting. HISTORY OF PRESENT ILLNESS: This is a 68-year-old female with a recent diagnosis of end-stage renal disease, had been started on dialysis following with Dr. Fitzgerald. The patient has family at the bedside. Patient seems a little drowsy. She says she has received something for nausea. She states she just was not able to eat due to nausea. Per family's report she had recently been moved to [facility]. Patient's family feels like she does not like the food there at the [facility] or here at the hospital and they feel that it is not that she cannot eat but that she will not eat. The patient has had reported episodes of nausea and vomiting. Per admission record symptoms started after she had eaten some pork for dinner and had onset of symptoms within an hour after eating. She had a CT scan that showed possible proctitis. She was started on antibiotics and patient has continued to not want to eat. Nurse states yesterday when she gave her liquids she spit them back up and she would not take her medications. Today she has taken her medications but refuses to eat or drink anything. PAST MEDICAL HISTORY: End-stage renal disease following with Dr. Fitzgerald, diabetes, hyperlipidemia, history of breast cancer, hypertension, COPD, history of anemia. PAST SURGICAL HISTORY: Left mastectomy, right breast lump biopsy, hysterectomy, dialysis catheter placement. ALLERGIES: No known drug allergies. HOME MEDICATIONS: Albuterol inhaler every 4 hours, Norvasc 5 mg twice a day, Dulcolax 10 mg every night, Symbicort 80/4.5 inhaler twice a day, calcium 667 three times a day, clonidine 0.3 mg 3 times a day, folic acid 1 mg daily, Apresoline 100 mg 3 times a day, insulin 30 units subcutaneous every night, Humalog 5 units 4 times a day on sliding scale, Trandate 100 mg twice a day, mirtazapine 30 mg every night, MiraLAX 17 g twice a day. SOCIAL HISTORY: She currently resides at [facility]. REVIEW OF SYSTEMS: Per history of present illness. PHYSICAL EXAMINATION: Vital Signs: Temperature 98.5 degrees, pulse 109, respirations 14, blood pressure 100/62. General: Patient is in no acute distress. She is a little drowsy. She does help with some questions but is not giving me much information about what has been going on. I have spoken with the family, they states she is just not eating, she is complaining of nausea. No real complaints of diarrhea. Scan had showed some proctitis. HEENT: Normocephalic, atraumatic. Pupils equal, round, reactive to light. Sclerae nonicteric. Cardiovascular: Regular rate and rhythm. Respiratory: Lung sounds clear. Abdomen: Soft, mild tenderness reported by patient with palpation, positive bowel sounds. Neurologic: Cranial nerves 2-12 grossly intact. Extremities: No lower extremity edema noted. DIAGNOSTIC RESULTS: Laboratory. Hematology. WBC 8.95, hemoglobin 12.4, hematocrit 41.2, MCV 99.8, platelet 334,000. Chemistry, sodium 137, potassium 4.1, chloride 94, CO2 20, BUN 18, creatinine 3.3, glucose 231, calcium 9.3. ASSESSMENT AND PLAN: 1. Nausea, vomiting, questionable gastroenteritis. 2. Proctitis by CT scan. Patient was started on antibiotics. There has been no diarrhea. Stool studies were ordered but patient has not had a bowel movement. 3. Diabetes. The patient was recently started on dialysis. 4. End-stage renal disease on dialysis followed by Dr. Fitzgerald. PLAN: We will continue to follow. Recommend and encourage diet if tolerated. I have talked with the family and advised if they wanted to bring something in to see if she could eat it they could. If patient continues to not eat and has continued nausea and vomiting would most likely proceed with EGD. There is option of gastroparesis since she is a diabetic and patient is on PPI and Reglan. Will continue to follow and further plans to be made according to her progress. I have discussed this case with Dr. Suh. Thank you for this consultation. Dictated by BRIANNA Freedman for Baldomero Suh MD cc: BRIANNA Ruvalcaba MD
--- NOTE | 2018-10-12 18:58 | PROGRESS NOTE ---
DATE: 10/16/2018 SUBJECTIVE: Patient has no focal complaints. No more nausea and vomiting. Still no bowel movement. OBJECTIVE: Blood pressure 100/62, heart rate of 99, respiratory rate 17, temperature 98.5. No further temperature.Cardiovascular: Regular rate and rhythm. Pulmonary: Bilateral breath sounds, clear to auscultation. GI: Soft, nontender, nondistended. Bowel sounds are positive. LABORATORY DATA: White count 8, hemoglobin and hematocrit 12 and 41, platelets 334. Creatinine of 3.3, glucose of 231. Micro has not really shown us anything. ASSESSMENT: 1. GI: It is really unclear what is going on here. She has proctitis, but then she is also constipated. As far as I can tell, she is not had a bowel movement because we still have not been able to get a stool sample. I have consulted gastroenterology. I have not seen recommendations yet. We will continue empiric antibiotics for the time being. Nausea and vomiting seem improved. We are going to advance her diet and follow. 2. Hypertension. Actually appears to be controlled. 3. Diabetes. Her A1c we still have not gotten, so will check that in the morning, but we will continue her medications. Blood sugars are still variable. 4. End-stage renal. Dialysis per her regular service. 5. Leukocytosis. 6. Renal retention. Her bladder scan was negative. DISPOSITION: She seems to be improving at least slowly. If she is tolerating p.o. and numbers appear better, we may complete a course of antibiotics. She is on vancomycin and ceftazidime. We may just need to do ceftazidime and follow with dialysis, but I think she is probably stable to go home on Sunday if there are no other major issues. cc: MD PANCHO Weaver
--- NOTE | 2018-10-12 21:06 | NEPHROLOGY PROGRESS NOTE ---
DATE: 10/12/2018 SUBJECTIVE: She states she is feeling better today. No abdominal pain, nausea, vomiting. She was able to eat. OBJECTIVE: Vital Signs: Blood pressure 100/62, heart rate 109, respirations 14, afebrile. General: No acute distress. Skin: Warm and dry. Eyes: Conjunctivae are pink. Neck: Neck veins are not distended. Heart: Regular. Lungs: Equal. Abdomen: Soft, nontender. Extremities: Have no edema, clubbing, or cyanosis. IMPRESSION: Chronic kidney disease 5B. Electrolytes and acid-base are in target. Hemoglobin is normal. Blood pressure is marginally low this morning. No changes required. cc: Benji Fitzgerald MD
[2018-10-12] MEDS: REMERON PO SCH (22:41)
[2018-10-12] MEDS: BASAGLAR SUBQ SCH (22:43)
[2018-10-13] MEDS: HUMULIN R SUBQ SCH ×5 (00:08→22:44)
[2018-10-13] MEDS: DUONEB (A & A) INH PRN ×2 (03:00→09:10)
[2018-10-13] MEDS: REGLAN IV SCH (06:05)
[2018-10-13 06:38] LABS: EOS# 0.12 X1000 (0.0-0.7); EOS% 1.4 % (0.0-10.0); HEMATOCRIT 40.6 % (37.0-47.0); HEMOGLOBIN 12.1 g/dL (12.0-16.0); LYMPH# 2.08 X1000 (1.2-3.4); LYMPH% 24.3 % (20.5-51.1); MCH 29.5 PG (27-31); MCHC 29.8 g/dL (33-37); MONO# 0.65 X1000 (0.11-0.59); MONO% 7.6 % (1.7-9.3); MPV 9.6 FL (7.4-10.4); NEUT% 66.7 % (42.2-75.2); PLT 300 X1000 (130-400); RDW 14.9 % (11.5-14.5); WBC 8.55 X1000 (4.8-10.8)
[2018-10-13 06:50] LABS: HEMOGLOBIN A1C 6.8 % (4.8-6.0)
[2018-10-13 07:21] LABS: CALCIUM 9.9 mg/dL (8.8-10.2); CREATININE 5.4 mg/dL (0.5-0.9); POTASSIUM 3.3 mmol/L (3.5-5.1)
[2018-10-13] MEDS: PROTONIX IV SCH ×2 (08:07→21:05)
[2018-10-13] MEDS: SODIUM CHLORIDE 0.9% INJ SCH ×2 (08:07→21:05)
[2018-10-13] MEDS: FOLIC ACID PO SCH (08:08)
[2018-10-13] MEDS: PHOSLO PO SCH ×3 (08:08→17:20)
[2018-10-13] MEDS: LACTULOSE PO SCH ×2 (08:08→21:05)
[2018-10-13] MEDS: SYMBICORT 80/4.5 MICROGM INHALER INH SCH (09:10)
[2018-10-13] MEDS ORDERED: KLOR-CON PO ONE (11:09)
[2018-10-13] MEDS: HUMALOG SUBQ SCH ×4 (11:19→22:44)
[2018-10-13] MEDS: TRANDATE PO SCH ×2 (12:16→21:00)
[2018-10-13] MEDS: APRESOLINE PO SCH ×3 (12:37→17:20)
[2018-10-13] MEDS: CATAPRES PO SCH ×3 (12:37→17:20)
[2018-10-13] MEDS: NORVASC PO SCH ×2 (12:37→21:05)
--- NOTE | 2018-10-13 12:57 | PROGRESS NOTE ---
DATE: 10/13/2018 SUBJECTIVE: Ms. Velez is lying in bed. She is conscious, alert, appears to be in no distress. She responded no to all questions about any complaints. She denies abdominal pain. She has not had any nausea or vomiting. She had eaten some, but denies any associated with nausea or vomiting with it. OBJECTIVE: Vitals: Temperature today 99.6, pulse 113 per minute, breathing 20, blood pressure 140/74. Abdomen: Slightly distended, but soft. Mildly tender in the left lower quadrant area. No rebound tenderness. No guarding noted. Bowel sounds are audible. LABORATORIES: Reviewed which showed hemoglobin of 12.1, hematocrit is 40.6. Transaminases were normal. IMPRESSION: Dyspepsia, nausea, vomiting, better. She denies any GI symptoms. Encouraged her to continue to try to eat better, as much as she can, and also encouraged her to sit in the chair beside the bed. She may benefit from physical therapy. Continue PPI for now and will follow. If needed, we will proceed with endoscopy again. I have answered all her pertinent questions and will follow. cc: Baldomero Suh MD
[2018-10-13] MEDS: BENTYL PO PRN (14:07)
[2018-10-13] MEDS: ZOFRAN IV PRN ×3 (15:45→20:08)
[2018-10-13] MEDS: MORPHINE IV PRN ×2 (16:10→21:00)
--- NOTE | 2018-10-13 16:53 | PROGRESS NOTE ---
DATE: 10/13/2018 SUBJECTIVE: She has some nausea/vomiting. OBJECTIVE: Vital signs: Blood pressure 140/74, heart rate 113, respiratory rate 20, temperature 99.6 degrees, 98% on room air. Cardiovascular: Irregular rate and rhythm. Pulmonary: Bilateral breath sounds. Clear to auscultation. Gastrointestinal: Soft, nontender, nondistended. Bowel sounds were positive, although she is somewhat more firm on exam without rebound or guarding. LABORATORY DATA: White count 8, hemoglobin 12, hematocrit 40, platelets of 300, 000. BUN 25, creatinine 5.4. PROBLEM LIST: 1. Nausea/vomiting, proctitis. We will continue a bowel regimen. She has still not had any bowel movement. She is on lactulose. We will give her MiraLAX and may even give her an enema. I am going to repeat her plain films and see how she does. We have never been able to get a stool sample. Gastroenterology has been consulted, and they recommend PPI and there is poor p.o intake. There is question of gastroparesis, and therefore we will get a gastric emptying study tomorrow and then we may consider EGD. Gastroenterology is following. 2. End-stage renal. She is on dialysis per Renal Service. I think tomorrow will be her day. 3. Type 2 diabetes. Blood sugars are overall stable, but again, she is not eating very much. 4. Hypokalemia. We will supplement as this is not a dialysis day. 5. Urinary retention. She has no urine output at this point. Her urine culture just grew out yeast, which is most likely a contaminant. 6. Hypertension. Appears to be stable. DISPOSITION: Pending her clinical status. I was hoping we would be able to get her home soon, or back to a intermediate, but she is still not tolerating p.o. very well so we will see how she does. cc: Kingston Demarco MD [facility]
[2018-10-13] MEDS: REMERON PO SCH (21:04)
[2018-10-13] MEDS: BASAGLAR SUBQ SCH (21:04)
[2018-10-13] MEDS: MIRALAX PO SCH (22:45)
[2018-10-14] MEDS: MORPHINE IV PRN (00:16)
[2018-10-14] MEDS: MIRALAX PO SCH ×3 (00:17→20:35)
[2018-10-14] MEDS: ZOFRAN IV PRN (00:17)
[2018-10-14] MEDS: SYMBICORT 80/4.5 MICROGM INHALER INH SCH ×3 (01:27→20:05)
[2018-10-14] MEDS ORDERED: TIGHT: 0.2 ML/HR FOR DIALYSIS MISC PRN (05:51)
[2018-10-14] MEDS ORDERED: HEPARIN IV PRN (05:51)
[2018-10-14] MEDS ORDERED: NS 2,000 ML MISC PRN (05:51)
[2018-10-14 06:14] LABS: EOS# 0.07 X1000 (0.0-0.7); EOS% 0.9 % (0.0-10.0); HEMATOCRIT 38.6 % (37.0-47.0); HEMOGLOBIN 11.8 g/dL (12.0-16.0); IMM GRAN# 0.02 X1000 (0.0-0.04); IMM GRAN% 0.2 % (0.0-0.5); LYMPH# 1.71 X1000 (1.2-3.4); LYMPH% 20.8 % (20.5-51.1); MCH 29.9 PG (27-31); MCHC 30.6 g/dL (33-37); MCV 97.7 FL (81-99); MONO# 0.57 X1000 (0.11-0.59); MONO% 6.9 % (1.7-9.3); MPV 9.7 FL (7.4-10.4); NEUT# 5.86 X1000 (1.4-6.5); NEUT% 71.2 % (42.2-75.2); PLT 297 X1000 (130-400); RBC 3.95 XMIL (4.2-5.4); RDW 14.5 % (11.5-14.5); WBC 8.23 X1000 (4.8-10.8)
[2018-10-14] MEDS: HUMULIN R SUBQ SCH ×4 (06:18→21:49)
[2018-10-14 06:44] LABS: ALBUMIN 3.6 g/dL (3.5-5.0); CALCIUM 9.7 mg/dL (8.8-10.2); CREATININE 6.1 mg/dL (0.5-0.9); POTASSIUM 4.2 mmol/L (3.5-5.1)
[2018-10-14] MEDS: PHOSLO PO SCH ×3 (09:38→18:00)
[2018-10-14] MEDS: TRANDATE PO SCH ×2 (09:38→20:34)
[2018-10-14] MEDS: PROTONIX IV SCH ×2 (09:39→20:34)
[2018-10-14] MEDS: LACTULOSE PO SCH ×2 (09:39→20:33)
[2018-10-14] MEDS: NORVASC PO SCH ×2 (09:39→20:34)
[2018-10-14] MEDS: HUMALOG SUBQ SCH ×4 (09:40→22:18)
[2018-10-14] MEDS: APRESOLINE PO SCH ×3 (09:40→18:00)
[2018-10-14] MEDS: FOLIC ACID PO SCH (09:40)
[2018-10-14] MEDS: CATAPRES PO SCH ×3 (09:40→18:00)
--- NOTE | 2018-10-14 11:13 | NEPHROLOGY PROGRESS NOTE ---
DATE: 10/14/2018 TIME SEEN: 0705. SUBJECTIVE: Ms. Velez is resting in bed. She states that she has not been out of bed since her hospitalization. She states she feels weak. OBJECTIVE: Vital Signs: Her most recent vital signs, her last temperature 97.6 degrees, blood pressure 132/64, heart rate is 98, respirations are 16. She is on room air. Last recorded saturation is 99%. She has had 300 in. She has had 225 out to void. Laboratory Data: Sodium is 136, potassium 4.2, chloride is 96, CO2 24, BUN 32, creatinine 6.1, glucose 165, patient's anion gap is 16, calcium is 9.7, phosphorus 5, albumin 3.6. White count 8.23, hemoglobin 11.8, hematocrit 38.6, platelet count 297,000. Physical Examination: General: This is a 68-year-old, female resting quietly in bed. No acute distress. Skin: Warm and dry. HEENT: Normocephalic, atraumatic. Conjunctivae are pale. She has CUCA. Mucous membranes are dry. Neck: Supple. Trachea midline. Unable to determine JVD due to her tunneled catheter in her left IJ IV. Cardiovascular: Regular rate and rhythm. She has an S4. Lungs: Clear to auscultation bilaterally. Equal excursion on room air. Abdomen: Soft, nontender. Positive bowel sounds. Genitourinary: Not inspected. Dialysis assist. Extremities: Have no edema. No clubbing or cyanosis. Neurological: She is alert to person and to place. ASSESSMENT AND PLAN: 1. Chronic kidney disease stage 5D. The patient is due for her routine dialysis treatment today. We will place her on a 2 K bath. She is to dialyze for 3.5 hours. We will attempt to pull 2 L of ultrafiltration as tolerated. 2. Electrolytes and acid-base balance. These remain stable with correction on dialysis. 3. Anemia. This is acceptable. 4. Hypertension. This remains stable. 5. Nausea and vomiting. Patient states that she had an episode yesterday evening. This is followed by the primary care team. I would like to thank you for allowing us to follow with this patient. Dictated by BRIANNA Amaro for Benji Fitzgerald MD Face to face encounter, data reviewed, discussed with Sergio Gonzales on 10/15/18. I agree with the above assessment and plan of care. cc: BRIANNA Amaro MD [facility]
--- NOTE | 2018-10-14 13:11 | PROGRESS NOTE ---
DATE: 10/14/2018 SUBJECTIVE: This morning, Ms. Velez referred to continue having some nauseation, has not vomited, and has not had any bowel movement. OBJECTIVE: Vital signs: Blood pressure 139/71, pulse 70, respirations 16, temperature 98.1 degrees. General: Ms. Velez is a 68-year-old female. She is in bed. She looks sick. HEENT: Mucosa is pink and moist. Anicteric. Acyanotic. Neck: Supple. Chest: Clear to auscultation. Cardiovascular: Regular rate and rhythm. Abdomen: Soft. It is tender in the mid abdomen, but no rebound or guarding. There is also an infraumbilical surgical scar. Extremities: No pedal edema. Central nervous system: The patient is awake, alert, and oriented. LABORATORY DATA: WBC is 8.23, hemoglobin is 11.8, platelet count of 297,000. Chemistry is also reviewed consistent with renal failure. ASSESSMENT: 1. Intractable nausea, and vomiting. Etiology is unclear. A CT scan was unrevealing, so there is an order for gastric empty study. Once that is done, Gastroenterology is already on board and I hope they would also evaluate for possible EGD to rule out any peptic ulcer disease or anything else that could potentially cause her symptoms. 2. Diabetes mellitus with presenting A1c of 6.8. Will continue with insulin regimen. 3. End-stage renal disease, on hemodialysis. 4. Severe urinary bladder distention. Unsure why Ms. Velez has this distended bladder. Ms. Velez is end-stage renal and does not really make urine at home. A Deleon catheter has been placed and there is very minimum urine output. I think this could be because of diabetic autonomic cystopathy. However, an underlying malignancy or other etiologies cannot be completely ruled out, so I would get Urology to evaluate the patient. 5. Proctitis with right-sided hydroureteronephrosis. The patient is currently on antibiotics and we are pending the cultures. PLAN: In general, Ms. Velez is pending a gastric empty study today. She continues to be p.o. intolerant. Will keep her n.p.o. I will also consult Urology to evaluate the patient and wait further recommendations from GI. The patient is being seen by Nephrology. cc: Kaden Fagan MD
--- NOTE | 2018-10-14 13:14 | PROGRESS NOTE ---
DATE: 10/14/2018 SUBJECTIVE: Patient is resting in her bed. She is in no acute distress. She still reports nausea and episodes of vomiting. She has a maharaj at her bedside with clear liquid emesis noted. She reports abdominal pain. She states she cannot eat because of nausea/vomiting and abdominal pain. OBJECTIVE: Vital Signs: Temperature 98.1 degrees, pulse 70, respirations 16, blood pressure 139/71. General: Patient is awake and alert, in no acute distress. Abdomen : Soft, but tenderness in the mid abdomen. Positive bowel sounds. LABORATORY DATA: Hematology: WBC 8.23, hemoglobin 11.8, hematocrit 38.6, MCV 97.7, platelets 297,000. Chemistry: Sodium 136, potassium 4.2, chloride 96, CO2 of 24, BUN 32 , creatinine 6.1, glucose 165. ASSESSMENT AND PLAN: 1. Nausea/vomiting. 2. Abdominal pain. Patient is not eating. She has had only bites for the last 3 to 4 days. She is still complaining of nausea and vomiting. Continue PPI. Continue symptomatic treatment. Will most likely need to proceed with an EGD for further evaluation. Further plans will be made as needed. I will discuss this case with Dr. Suh. Dictated by BRIANNA Freedman for Baldomero Suh MD cc: BRIANNA Ruvalcaba MD [facility]
[2018-10-14] MEDS ORDERED: TAZIDIME 1 GM in NS 50 ML IV ONE (16:00)
[2018-10-14] MEDS ORDERED: VANCOMYCIN 1 GM/NS 1 GM/250 ML IVPB IV ONE (17:00)
[2018-10-14] MEDS: REMERON PO SCH (20:34)
--- NOTE | 2018-10-14 21:32 | CONSULTATION ---
DATE OF CONSULTATION: 10/14/2018 REASON FOR CONSULTATION: Right hydronephrosis. HISTORY OF PRESENT ILLNESS: Mrs. Velez is a 68-year-old with end-stage renal disease on dialysis Sunday, Sunday, Sunday, hypertension, type 2 diabetes, hyperlipidemia, prior breast cancer, COPD and history of anemia, who presented in consultation regarding right hydronephrosis and distended bladder. The patient presented to emergency room on 10/09/2018 complaining of nausea and vomiting. CT abdomen/pelvis was performed which showed right mild hydroureteronephrosis down into the distal portion of the ureter and a distended bladder. The patient has a history of end-stage renal disease and has been on dialysis since what appears to be late July, which she performs on Sunday, Sunday, Sunday. The patient states she continues to have some urinary output daily per report but cannot quantify how much she urinates. The patient describes having significant nausea, vomiting, inability to tolerate oral intake since being admitted to the hospital, the patient has been seen by GI medicine as well as Nephrology. Urology was consulted today regarding the CT scan from 10/09/2018 for management of a right hydronephrosis. The patient has had a indwelling catheter in since then averaging 0-100 mL out each day. However on initial placement, patient had 900 mL of drainage. PAST MEDICAL HISTORY: 1. End-stage renal disease. 2. Diabetes. 3. Hyperlipidemia. 4. History of breast cancer. 5. Hypertension. 6. COPD. 7. History of anemia. PAST SURGICAL HISTORY: 1. Left mastectomy. 2. Right breast lump biopsy. 3. Hysterectomy. 4. Dialysis catheter placement. ALLERGIES: No known drug allergies. MEDICATIONS: 1. Albuterol inhaler q.4 hours. 2. Norvasc 5 mg b.i.d. 3. Dulcolax 10 mg every night. 4. Symbicort 80/4.5 inhaler b.i.d. 5. Calcium 667 mg t.i.d. 6. Clonidine 0.3 mg t.i.d. 7. Folic acid 1 mg daily. 8. Hydralazine 100 mg 3 times a day. 9. Insulin 30 units subcutaneous every night. 10. Humalog 5 units 4 times a day on a sliding scale. 11. Trandate 100 mg twice a day. 12. Mirtazapine 30 mg at night. 13. MiraLAX 17 g b.i.d. SOCIAL HISTORY: The patient currently resides at [facility]. Patient denies alcohol, tobacco, or illicit drug use. REVIEW OF SYSTEMS: Twelve-point review of systems performed and all pertinent positives and negatives in HPI. PHYSICAL EXAMINATION: Vital Signs: Temperature 98.1 degrees, heart rate 81, blood pressure 136/72, oxygen saturation 96% on room air. General: No acute distress. Resting comfortably in bed. Currently receiving dialysis. She is alert and oriented x3. HEENT: Normocephalic, atraumatic. Pupils equal, round, reactive to light. Sclerae non icterus. Extraocular movements intact. Cardiovascular: Regular rate and rhythm with 1+ lower extremity edema . Respiratory: Good respiratory effort without audible wheezing or rales. Abdomen: Soft, nontender, nondistended. No palpable masses or hepatosplenomegaly. Skin: No obvious skin lesions or rashes. : No suprapubic tenderness. Urethral catheter in place with concentrated urine. Neurologic: Gross motor and sensory intact. Extremities: The patient has a right dialysis access. LAB: White blood cell count 8.2, hemoglobin 11.8, hematocrit 38.6, platelets 297,000, sodium 136, potassium 4.3, chloride 96, bicarb 24, BUN 32, creatinine 6.1, glucose 165 , phosphorus 5. IMAGING: CT abdomen pelvis 10/09/2018 image reviewed which showed significant bladder distention with mild to moderate right hydroureteronephrosis with no obvious obstructing stones. This is likely related to distention of the bladder and significant inflammation of the rectum leading to proctitis. ASSESSMENT/PLAN: Ms. Velez is a 68-year-old with history of end-stage renal disease on hemodialysis, hypertension, hyperlipidemia, type 2 diabetes, anemia and chronic obstructive pulmonary disease who presents consultation regarding right hydroureteronephrosis. Patient had CT abdomen pelvis performed on admission which showed a distended bladder and right hydroureteronephrosis on 10/09/2018. The patient had a Deleon catheter inserted that time which returned recorded value of 900 mL. Patient has had a catheter in since then which has alternated from 0-100 mL a day to. Patient does not appear to make much urine and is difficult for her to tell me how much she makes prior to this hospitalization. I think that her bladder was significantly distended likely leading to hydronephrosis. This could be related to her episode of proctitis which could have led to inflammation the bladder and decreased urinary output. Recommend continue with indwelling urethral catheter at this time. Recommend obtaining a renal ultrasound, which I ordered today, to evaluate for resolution of the right hydronephrosis. If patient continues to have right hydronephrosis with a decompressed bladder would consider cystoscopy and retrograde pyelogram and possible ureteroscopy to evaluate for etiology of obstruction. Patient currently with end-stage renal in her renal function from obstruction is likely not the cause as she has what appears to be a normal left kidney with no evidence of obstruction. The patient has previously had a creatinine around 2.8 until July when acutely worsened unlikely that her acute worsening renal function was related the hydronephrosis but will continue to monitor, will follow-up renal ultrasound tomorrow. I would continue indwelling catheter at this time. Please call with questions or concerns . cc: Awais Monique MD MTDD
[2018-10-14] MEDS: BASAGLAR SUBQ SCH (22:19)
[2018-10-14] MEDS ORDERED: INSULIN PEN NEEDLES ONE (22:23)
[2018-10-15] MEDS ORDERED: D5W 1,000 ML IV SCH (06:45)
[2018-10-15] MEDS: MIRALAX PO SCH ×2 (08:00→20:37)
[2018-10-15] MEDS: NORVASC PO SCH ×2 (08:00→20:36)
[2018-10-15] MEDS: LACTULOSE PO SCH ×2 (08:00→20:36)
[2018-10-15] MEDS: SYMBICORT 80/4.5 MICROGM INHALER INH SCH ×2 (08:00→20:06)
[2018-10-15] MEDS: FOLIC ACID PO SCH (08:00)
[2018-10-15] MEDS: PHOSLO PO SCH ×4 (08:00→18:44)
[2018-10-15] MEDS: CATAPRES PO SCH ×4 (08:00→18:45)
[2018-10-15] MEDS: APRESOLINE PO SCH ×4 (08:00→18:45)
[2018-10-15] MEDS: TRANDATE PO SCH ×2 (08:00→20:36)
[2018-10-15] MEDS: PROTONIX IV SCH ×2 (08:00→20:36)
[2018-10-15] MEDS: HUMULIN R SUBQ SCH ×5 (08:04→21:21)
[2018-10-15] MEDS: REGLAN IV SCH ×2 (08:04→20:36)
--- NOTE | 2018-10-15 08:04 | Diag Imaging Result Doc PS360 ---
EXAM: US RENAL 2 (RETROPER) COMPLETE HISTORY: Right hydronephrosis. Evaluation for resolution TECHNIQUE: Renal ultrasound COMPARISON: 02/18/2018 FINDINGS: The right kidney measures 10.5 x 4.0 x 4.1 cm. Mild increased renal echotexture. There is 1.3 cm cyst in the mid kidney. No stone or hydronephrosis. No renal mass. The urinary bladder is not distended. The left kidney measures 9.2 x 3.8 x 5.8 cm. No renal stone or hydronephrosis. No renal mass. IMPRESSION: No hydronephrosis. Mild increased renal echotexture may indicate medical renal disease. Electronically signed by Alan Gary 10/15/2018 8:01 AM
[2018-10-15 08:10] LABS: ALBUMIN 3.8 g/dL (3.5-5.0); CALCIUM 9.4 mg/dL (8.8-10.2); CREATININE 3.7 mg/dL (0.5-0.9); PHOSPHORUS 3.8 mg/dL (2.7-4.5)
--- NOTE | 2018-10-15 12:20 | PROGRESS NOTE ---
DATE: 10/15/2018 SUBJECTIVE: No acute events overnight. The patient feels slightly better this morning. The patient's Deleon catheter is in place, and it has been draining concentrated yellow urine, approximately 100 mL recorded. The patient went to dialysis yesterday and overall seems to be slightly better. The patient was scheduled for a renal ultrasound this morning and gastric emptying study this afternoon. OBJECTIVE: Vital Signs: Temperature 98 degrees, heart rate 100, blood pressure 97/47, oxygen saturation 95% on room air. General: No acute distress. Resting comfortably in the bed. Respiratory: Good respiratory effort without audible wheezing or rales. Cardiovascular: Low- grade tachycardia. Abdomen: Soft, nontender, nondistended. Urethral catheter in place with clear yellow urine. No CVA tenderness or suprapubic tenderness. LABORATORY DATA: Sodium 137, potassium 4, chloride 97, bicarbonate 26, BUN 14, creatinine 3.7, glucose 171. ASSESSMENT AND PLAN: Mrs. Velez is a 68-year-old with a history of end-stage renal disease, type 2 diabetes, hyperlipidemia, history of breast cancer, hypertension, chronic obstructive pulmonary disease, and a history of anemia, who presents in evaluation for right hydronephrosis. The patient went to obtain a renal ultrasound today with the images reviewed, which showed no evidence of hydronephrosis, which has resolved after placement of urethral catheter. The bladder is decompressed around her Deleon catheter. I think that hydronephrosis was likely related to distention of her bladder on the initial CT scan and this is now resolved. I would hold off any treatments for hydronephrosis at this time. Can continue the indwelling catheter due the hospitalist's protocol. Likely it could potentially decrease once the patient's nausea and sickness to her stomach have improved. This likely is unrelated to any kidney or bladder pathology. I think that her bladder was distended, likely related to her proctitis. The patient has been having several bowel movements, and this likely has improved her symptoms. We will continue to follow. Please call with questions or concerns. cc: MD PANCHO Quijano
--- NOTE | 2018-10-15 13:26 | NEPHROLOGY PROGRESS NOTE ---
DATE: 10/15/2018 SUBJECTIVE: Ms. Velez is resting quietly in bed. Head of the bed is slightly elevated. She states that she is feeling just a little bit better. States that she has had no nausea last night. OBJECTIVE: Her most recent vital signs: Last temperature 98 degrees, blood pressure 94/55, heart rate 97, respirations 18. She is on room air. Last recorded saturation was 97% . She has had 0 recorded in, she has had 1498 out on dialysis, with 100 mL to void. LABORATORY DATA: Sodium 137, potassium 4, chloride 97, CO2 of 26, BUN 14, creatinine 3.7, glucose 171, her anion gap is 14, calcium is 9.4, phosphorus 3.8, albumin 3.8. The patient had a previous hemoglobin of 11.8 on 10/14/2018. PHYSICAL EXAMINATION: General: This is a 68-year-old female, resting quietly in bed. No acute distress. Skin: Warm and dry. HEENT: Normocephalic, atraumatic. Conjunctiva is pale pink. She has CUCA. Mucous membranes are dry. Neck: Supple. Trachea midline. Unable to determine JVD due to her tunnel catheter and an IV to the left IJ. Cardiovascular: She is regular rate and rhythm. She has an S4 that is present. Lungs: Clear to auscultation bilaterally. Equal excursion on room air. Abdomen: Soft, nontender. Positive bowel sounds. Genitourinary: Not inspected. Minimal void with dialysis assist. Extremities : No edema. No clubbing or cyanosis. Integumentary: Tunnel catheter to the right chest wall, dry and intact. Neurological: Alert and oriented to person and to place. ASSESSMENT AND PLAN: 1. Chronic kidney disease stage 5D. The patient is due for her routine dialysis treatment in the morning. No indications for attention today. 2. Electrolytes, acid-base balance, and anemia. These are all acceptable. 3. Hypertension. This is stable. 4. Nausea and vomiting. The patient is followed by Gastroenterology and primary care. I would like to thank you for allowing us to follow with this patient. Will order CTA. rg Dictated by BRIANNA Amaro for Benji Fitzgerald MD Face to face encounter, data reviewed, discussed with Sergio Gonzales on 10/15/18. I agree with the above assessment and plan of care. rg cc: BRIANNA Amaro MD MTDD
--- NOTE | 2018-10-15 13:35 | Diag Imaging Result Doc PS360 ---
GASTRIC EMPTYING - 10/15/2018 INDICATION: n/v TECHNIQUE: 580 uCi of labeled solid food was ingested COMPARISON: None FINDINGS: The T1 half of gastric emptying is 101 minutes. This is mildly delayed. IMPRESSION: Mildly delayed gastric emptying rate. Electronically signed by Malachi Chaves 10/15/2018 1:33 PM
--- NOTE | 2018-10-15 14:49 | PROGRESS NOTE ---
DATE: 10/15/2018 SUBJECTIVE: This morning Ms. Velez refers to continue having abdominal discomfort and some nauseation but no vomiting. OBJECTIVE: Vital signs: Blood pressure is 108/68, pulse is 103, respirations 18, temperature 98.1 degrees. General: Ms. Velez is a 68-year-old female. She is in bed. She was not in any cardiopulmonary distress. HEENT: Mucosa is pink and moist. Anicteric. Acyanotic. The patient had an eye cover to protect her from the light. It appears she has been bothered by it. Neck: Supple. Chest: Clear to auscultation. Cardiovascular: Regular rate and rhythm. No murmurs. No rubs. No gallops. Abdomen: Soft, nontender. Extremities: No pedal edema. : Deleon catheter was still in place. LABORATORY DATA: Sodium is 137, potassium is 4.0, chloride 97, bicarb is 26, creatinine is 3.7. Patient's I's and O's, urine output 100/24 hours. The patient had dialysis yesterday, 1,498 was ultrafiltrated. IMAGING STUDIES: Gastric emptying studies show mildly delayed gastric emptying rate. A renal ultrasound shows that there is no more hydronephrosis. There is also mild increased renal echotexture which may indicate medical renal disease. ASSESSMENT AND PLAN: 1. Intractable nausea and vomiting. Etiology is unclear. A gastric emptying study showed mild delay. GI is pending an EGD hopefully tomorrow. 2. Diabetes mellitus, controlled. Presenting A1c was 6.8. 3. Endstage renal disease. Patient is on hemodialysis. 4. Proctitis. Etiology is unclear. The patient is not having any diarrhea and we have not been able to have a sample for studies. I think eventually patient will need a flexible sigmoidoscopy to rule out any other potential etiology of that inflammation pattern that was recognized on the CT scan. The patient is currently on antibiotics and GI is on board. We will follow up with them. 5. Right hydronephrosis. This has improved with the Deleon catheter and bladder decompression. The repeat ultrasound shows no more hydronephrosis. 6. Distended bladder. The patient has been evaluated by Urology. I think their recommendation is to treat the proctitis because they think it is a contiguous irritation from the colon that made the bladder distended. They, however, recommend also to continue with the Deleon catheter. 7. Mild gastroparesis. The patient is currently on metoclopramide and we plan to continue. cc: Kaden Fagan MD
[2018-10-15] MEDS: MORPHINE IV PRN (16:37)
[2018-10-15] MEDS: ZOFRAN IV PRN (16:37)
[2018-10-15] MEDS: HUMALOG SUBQ SCH ×3 (17:07→21:21)
--- NOTE | 2018-10-15 19:25 | Diag Imaging Result Doc PS360 ---
CT ANGIOGRAM ABD/PELIVS W/CON - 10/15/2018 INDICATION: abdominal pain. Possible abdominal angina. TECHNIQUE: Axial CT images were obtained after administering intravenous contrast. Coronal MIP images were generated. COMPARISON: CT from 10/09/2018 FINDINGS: There is some stable linear infiltrate in the lung bases. Heart size remains borderline enlarged. There is a Deleon catheter in the urinary bladder. The urinary bladder is collapsed. There is severe urinary bladder wall thickening. There is asymmetric wall thickening of the rectum. This is clearly decreased since prior. There is a [id number] ossified vascular disease of the distal abdominal aorta. This also involves the femoral arteries. There is no significant stenosis. No aneurysm. There is some mild vascular disease of the mid superior mesenteric artery but again no significant stenosis. The inferior mesenteric artery and the other branches of the aorta are normal. IMPRESSION: 1. No mesenteric artery stenosis. 2. Significant improvement in the rectal inflammation/wall thickening. 3. Deleon catheter placement with good drainage of the urinary bladder. There is severe urinary bladder wall thickening consistent with inflammation. This exam was performed using automated exposure control, adjustment of mA or kV according to patient size, and/or use of iterative reconstruction technique Electronically signed by Malachi Chaves 10/15/2018 7:22 PM
[2018-10-15] MEDS: REMERON PO SCH (20:36)
[2018-10-15] MEDS: BASAGLAR SUBQ SCH (21:20)
[2018-10-16] MEDS: HUMULIN R SUBQ SCH ×4 (06:01→20:09)
[2018-10-16] MEDS ORDERED: TIGHT: 0.2 ML/HR FOR DIALYSIS MISC PRN (06:13)
[2018-10-16] MEDS ORDERED: NS 2,000 ML MISC PRN (06:13)
[2018-10-16] MEDS ORDERED: HEPARIN IV PRN (06:13)
[2018-10-16 08:14] LABS: ALBUMIN 3.9 g/dL (3.5-5.0); CALCIUM 9.6 mg/dL (8.8-10.2); CREATININE 5.1 mg/dL (0.5-0.9); PHOSPHORUS 4.6 mg/dL (2.7-4.5); POTASSIUM 4.8 mmol/L (3.5-5.1)
[2018-10-16] MEDS: TRANDATE PO SCH (08:14)
[2018-10-16] MEDS: PHOSLO PO SCH ×3 (08:14→16:25)
[2018-10-16] MEDS: FOLIC ACID PO SCH (08:14)
[2018-10-16] MEDS: LACTULOSE PO SCH (08:14)
[2018-10-16] MEDS: PROTONIX IV SCH ×2 (08:14→20:18)
[2018-10-16] MEDS: CATAPRES PO SCH ×2 (08:14→12:25)
[2018-10-16] MEDS: NORVASC PO SCH (08:14)
[2018-10-16] MEDS: APRESOLINE PO SCH ×2 (08:14→12:25)
[2018-10-16] MEDS: BENTYL PO PRN (08:14)
[2018-10-16] MEDS: HUMALOG SUBQ SCH ×4 (08:15→20:09)
[2018-10-16] MEDS: MIRALAX PO SCH ×2 (08:15→20:18)
[2018-10-16] MEDS: SODIUM CHLORIDE 0.9% INJ SCH ×2 (08:15→20:19)
[2018-10-16] MEDS: REGLAN IV SCH ×2 (08:19→20:18)
[2018-10-16] MEDS: SYMBICORT 80/4.5 MICROGM INHALER INH SCH ×2 (09:48→19:45)
[2018-10-16] MEDS: MORPHINE IV PRN (10:21)
--- NOTE | 2018-10-16 13:58 | PROGRESS NOTE ---
DATE: 10/16/2018 SUBJECTIVE: Patient was resting with her eyes closed. She did arouse easily and she is in no acute distress. She states she is not nauseated today. She has not had vomiting today, but she had not eaten. I have asked her if there was anything particular that she felt like she could eat, and she said a chocolate milkshake and a tuna fish sandwich. I have made her a chocolate milkshake myself and brought it to her, and I have ordered a tuna fish sandwich for her to have delivered for lunch. Hopefully she will be able to eat this. She did have a CT scan of the abdomen and pelvis on 10/15/2018 that showed no mesenteric artery stenosis, improvement in rectal inflammation, and urinary bladder wall thickening consistent with inflammation. She has been seen by Urology and is following with Nephrology for dialysis. I have given the patient the option of proceeding with an EGD for further evaluation. She does not wish to proceed with the procedure at this time. Patient had gastric emptying study on 10/15/2018 that showed mildly delayed gastric emptying rate time. She is taking Reglan 5 mg every 12 hours. She is also on lactulose, and it looks like she has had several bowel movements over the last 2 days. OBJECTIVE: Vital Signs: Temperature 95.1 degrees, pulse 97, respirations 12 blood pressure 83/57. General: Patient is awake, alert, no acute distress. She states her nausea is a little better today. She has asked for a chocolate milkshake and a tuna fish sandwich. LABORATORY DATA: Hematology: WBC 8.23, hemoglobin 11.8, hematocrit 38.6, MCV 97.7, platelets 297,000. Chemistry: Sodium 136, potassium 4.8, chloride 96, CO2 of 27, BUN 23 , creatinine 5.1, glucose 123. ASSESSMENT AND PLAN: 1. Nausea/vomiting. Seems to have improved today. 2. Constipation. She has had several bowel movements and is receiving lactulose. 3. Delayed gastric emptying. She is receiving Reglan every 12 hours. I have brought her a chocolate milkshake and ordered a tuna fish sandwich per her request. We have offered EGD procedure, but patient currently declined. We will continue to follow during her hospital course, and further plans will be made according to her progress. There was no family at the bedside at the time of my evaluation. I have discussed this case with Dr. Suh. Dictated by BRIANNA Freedman for Baldomero Suh MD cc: BRIANNA Ruvalcaba MD [facility]
--- NOTE | 2018-10-16 14:08 | NEPHROLOGY PROGRESS NOTE ---
DATE: 10/16/2018 TIME SEEN: 0738. SUBJECTIVE: Ms. Velez is resting in bed. She states that she just is not feeling well today, and she does not make eye contact. OBJECTIVE: Her most recent vital signs: Temperature 98 degrees, blood pressure 130/70, heart rate 102, respirations 12, she is on 2 L nasal cannula, last recorded saturation 98%. Intake and output: She has had 120 mL in, 25 mL out. LABORATORY DATA: Sodium 136, potassium 4.8, chloride 96, CO2 of 27, BUN 23, creatinine 5.1, glucose 123, anion gap is 13, calcium 9.6, phosphorus 4.6, albumin 3.9. She has a previous hemoglobin of 11.8. PHYSICAL EXAMINATION: General: This is a 68-year-old elderly female. She is in no acute distress. Skin: Warm and dry. HEENT: Normocephalic, atraumatic. Conjunctivae are pale pink. She has CUCA. Mucous membranes are dry. Neck: Supple. Trachea midline. No evidence of JVD. Cardiovascular: She is regular rate and rhythm. She has an S4. Lungs: Clear to auscultation anteriorly. Equal excursion on O2. Abdomen: Soft, round, large, nontender. Positive bowel sounds. Genitourinary: Not inspected. Minimal void with dialysis assist. Integumentary: The patient has a dialysis tunneled catheter to the right IJ. She has an IV to the left EJ. Neurological: She is alert to person and to place. ASSESSMENT AND PLAN: 1. Chronic kidney disease, stage 5D. The patient is due for routine dialysis treatment today. We will place her on a 2 K bath. She is to dialyze for 3-1/2 hours. We will attempt to pull 2 L of ultrafiltration. 2. Electrolytes and acid-base balance. These remain fairly stable with correction on dialysis. 3. Anemia. This is close to target. 4. Hypertension with history of proctitis. This is followed by Gastroenterology and primary care team. 5. Nausea and vomiting. This again followed by Gastroenterology. This has been fairly stable over the last 24 to 48 hours. She had an abdominal scan indicating no acute disease. I would like to thank you for allowing us to follow with this patient. Dictated by BRIANNA Amaro for Benji Fitzgerald MD Face to face encounter, data reviewed, discussed with Sergio Gonzales on 10/16/18. I agree with the above assessment and plan of care. cc: BRIANNA Amaro MD [facility]
--- NOTE | 2018-10-16 14:53 | EKG Report ---
Test Performed on : 10/16/2018 2:43:52 PM Test Reason : pt unresponsive Blood Pressure : / mmHG Vent. Rate : 089 BPM Atrial Rate : 089 BPM P-R Int : 154 ms QRS Dur : 092 ms QT Int : 396 ms P-R-T Axes : 052 025 058 degrees QTc Int : 481 ms Normal sinus rhythm. Normal ECG When compared with ECG of 10-OCT-2018 06:41, Nonspecific T wave abnormality no longer evident in Inferior leads T wave inversion no longer evident in Lateral leads Confirmed by Precious WILSON, Javon Nunez ([id number]) on 10/17/2018 7:02:26 AM
[2018-10-16] MEDS ORDERED: NS 500 ML ONE (15:39)
[2018-10-16] MEDS ORDERED: NS 500 ML IV SCH (15:45)
[2018-10-16 16:02] LABS: BASO# 0.01 X1000 (0.0-0.2); BASO% 0.2 % (0.0-0.8); EOS# 0.07 X1000 (0.0-0.7); EOS% 1.1 % (0.0-10.0); HEMATOCRIT 37.9 % (37.0-47.0); HEMOGLOBIN 11.2 g/dL (12.0-16.0); IMM GRAN# 0.02 X1000 (0.0-0.04); IMM GRAN% 0.3 % (0.0-0.5); LYMPH% 28.3 % (20.5-51.1); MCH 29.8 PG (27-31); MCHC 29.6 g/dL (33-37); MCV 100.8 FL (81-99); MONO# 0.65 X1000 (0.11-0.59); MONO% 10.2 % (1.7-9.3); MPV 10.1 FL (7.4-10.4); NEUT# 3.82 X1000 (1.4-6.5); NEUT% 59.9 % (42.2-75.2); PLT 254 X1000 (130-400); RBC 3.76 XMIL (4.2-5.4); RDW 14.6 % (11.5-14.5); WBC 6.37 X1000 (4.8-10.8)
[2018-10-16] MEDS ORDERED: LEVOPHED 8 MG in D5 1/2 NS 250 ML IV SCH (16:05)
[2018-10-16 16:12] LABS: CALCIUM 8.6 mg/dL (8.8-10.2); CREATININE 3.8 mg/dL (0.5-0.9); POTASSIUM 4.5 mmol/L (3.5-5.1)
--- NOTE | 2018-10-16 16:17 | Diag Imaging Result Doc PS360 ---
EXAM: CHEST-PORTABLE 10/16/2018 HISTORY: hypotension TECHNIQUE: AP portable upright at 1607 COMMENT: There is atelectasis and/or fibrosis at the right base which has not changed since 10/09/2018. Otherwise the appearance the chest has not changed significantly. IMPRESSION: Right lower and middle lobe atelectasis. Electronically signed by Roberto Dugan 10/16/2018 4:14 PM
--- NOTE | 2018-10-16 16:19 | PROGRESS NOTE ---
DATE: 10/16/2018 SUBJECTIVE: This morning when I went to see Ms. Velez she refers to be doing a lot better. She did tell me that she would start eating a little bit more and get physical therapy to start working with her; however, a couple of hours later, there was a CAT call on her during dialysis. She had just been about an hour on dialysis machine, when she became unresponsive and severely hypotensive. I understand from the dialysis nurse that when Ms. Velez went for dialysis initially, she was borderline hypotensive. They had to give her 500 mL of normal saline. That brought up her blood pressure, and then they started the dialysis. So when I went to see her during the CAT call, she was unresponsive verbally, but she would move her extremities. I ordered another 500 mL and we put her bed in Trendelenburg. After the bolus, she started to respond. Blood pressures systolic were in the 80s, sometimes 70s, but after the initial treatment she got better. Blood pressure came up to about 90/60, so she was brought up to the floor. About 45 minutes later I was called again that her blood pressures were getting low and that she was getting unresponsive again. Her glucose during the first episode was 193, so she was not hypoglycemic. OBJECTIVE: When I came to check on her on the floor, blood pressure is 58/34, pulse is 90, respirations 22, temperature 95.6 degrees. On general exam, Ms. Velez is a 68- year-old female. She is in bed. She does not seem to be in any distress. Mucosa is pink and slightly pale. Anicteric, acyanotic. Neck is supple. Chest: Good air entry bilaterally. Few crackles posteriorly. Cardiovascular: Regular rate and rhythm. Abdomen is soft, nontender. Bowel sounds present. Extremities: No pedal edema. There is still a Deleon catheter in place. MICA MINER BLASTING: The patient will respond with gazing with painful stimulation. Every now and then she will say a few words, but remarkably she is altered, and she will move both extremities to painful stimulation. LABORATORY DATA: Her lab work from this morning has also been reviewed. Sodium is 136, potassium is 4.8, chloride 96, bicarbonate is 27, BUN is 23, creatinine is 5. DIAGNOSTIC DATA: There are no imaging studies today. MEDICATIONS: Current medications have all been reviewed. ASSESSMENT AND PLAN: 1. Hypotension. Etiology not completely clear but I think it is probably all related to dialysis; however, an underlying sepsis cannot be completely ruled out. The patient is on antibiotics (ceftazidime and vancomycin) since she came to the hospital. We will recheck her blood cultures. We have given her a total of 1 L of normal saline. We are going to give her another 500. We will transfer her from the floor to the intensive care unit, and if blood pressure continues to be low we will start her on Levophed. Of note, Ms. Velez is known hypertensive and she is on a lot of antihypertensive medications, so the low blood pressure could also be medication- induced. We have withheld her home medications. 2. Diabetes mellitus with presenting A1c of 6.8. Current glucose level is normal. 3. Endstage renal disease, on hemodialysis. 4. Proctitis, etiology is unclear. Recent CT scan shows improvement. 5. Right hydronephrosis as a result of dilated bladder. Repeat CT scan and ultrasound shows improvement. 6. Distended bladder, presumably due to contiguous irritation from the rectum. 7. Mild gastroparesis. The patient is on metoclopramide. In general, Ms. Velez was doing a lot better this morning; however, while in dialysis she became extremely hypotensive. She got 2 separate boluses of 500 mL of normal saline. She seems to have recovered, however, on the floor she became hypotensive again and minimally responsive, so she is being transferred to the intensive care unit. We are going to give her another 500 mL bolus and start a drip on her. I will also check on her cortisol to see the levels. Critical time spent was 45 minutes. cc: Kaden Fagan MD [facility]PITALPatti
[2018-10-16] MEDS ORDERED: NS 1,000 ML IV ONE (16:40)
[2018-10-16] MEDS ORDERED: NS 1,000 ML ONE (16:46)
[2018-10-16] MEDS ORDERED: D50W SYRINGE IV ONE (19:43)
[2018-10-16] MEDS ORDERED: D50W SYRINGE ONE (19:45)
[2018-10-16] MEDS: BASAGLAR SUBQ SCH (20:09)
[2018-10-16] MEDS: REMERON PO SCH (20:42)
[2018-10-17 05:03] LABS: ALBUMIN 3.3 g/dL (3.5-5.0); CALCIUM 8.9 mg/dL (8.8-10.2); CREATININE 4.1 mg/dL (0.5-0.9); PHOSPHORUS 3.7 mg/dL (2.7-4.5); POTASSIUM 4.5 mmol/L (3.5-5.1)
[2018-10-17] MEDS: HUMULIN R SUBQ SCH ×4 (06:09→22:39)
[2018-10-17] MEDS: SYMBICORT 80/4.5 MICROGM INHALER INH SCH ×2 (07:30→21:25)
[2018-10-17] MEDS: FOLIC ACID PO SCH (08:30)
[2018-10-17] MEDS: PROTONIX IV SCH ×2 (08:30→22:41)
[2018-10-17] MEDS: PHOSLO PO SCH ×3 (08:30→16:54)
[2018-10-17] MEDS: REGLAN IV SCH ×2 (08:30→22:41)
[2018-10-17] MEDS: HUMALOG SUBQ SCH ×4 (08:31→22:41)
[2018-10-17] MEDS: MIRALAX PO SCH ×2 (08:31→22:39)
[2018-10-17] MEDS: ZOLOFT PO SCH (09:46)
--- NOTE | 2018-10-17 10:54 | PROGRESS NOTE ---
DATE: 10/17/2018 SUBJECTIVE: This morning, Ms. Velez refers to be doing a lot better. More alert, more conversational. She was able to eat about 75% of her breakfast, I am told. The patient is also off the Levophed. OBJECTIVE: Vital Signs: Blood pressure is 110/58, pulse 91, respirations are 10, temperature is 98.2 degrees. General Examination: Ms. Velez is a 68-year-old, female. She is in bed, not in any cardiopulmonary distress. HEENT: Mucosa is pink and moist. Anicteric. Acyanotic. Neck: Supple. Chest: Good air entry bilaterally. Cardiovascular: Regular rate and rhythm. No murmurs, no rubs, no gallops. Abdomen: Soft. Extremities: No pedal edema. [employer]S: The patient is now more alert, awake. Follows commands. Laboratory Data: No CBC today. Chemistry is reviewed. It is consistent with end-stage renal disease. ASSESSMENT: 1. Hypotension, likely secondary to intravascular depletion. The patient has negative balance of 2770. She was adequately fluid resuscitated yesterday. When it happened this morning, she had been off Levophed and she is doing a lot better. 2. Diabetes mellitus. We will continue with sliding scale. 3. Endstage renal disease. The patient is on hemodialysis. Did have a couple of sessions of dialysis. Yesterday, she could not finish because of hypotension. We will follow. Further recommendations from nephrology. 4. Proctitis on CT scan, improved. 5. Right hydronephrosis, resolved. 6. Distended bladder, presumably due to contiguous irrigation from the rectal inflammation. 7. Mild gastroparesis, improving. PLAN: In general, Ms. Velez got sicker yesterday, mainly because of hypotension which I think it is as a result of excessive ultrafiltration since she has been negative balance. She is a lot better this morning. She is eating about 75% of her breakfast this morning. We are going to discontinue the Deleon catheter. We are going to move her from the ICU to a regular floor and continue physical therapy with her. cc: Kaden Fagan MD
--- NOTE | 2018-10-17 12:10 | NEPHROLOGY PROGRESS NOTE ---
DATE: 10/17/2018 TIME SEEN: 0625. SUBJECTIVE: Ms. Velez is currently resting quietly in bed. She is more herself. Again, she does not make eye contact. She is in the ICU status post hypotension after her dialysis treatment yesterday for hypotension. She is currently off a Levophed drip. She has no complaints. OBJECTIVE: Her most recent vital signs: Her last temperature recorded is 98.2 , blood pressure 97/51, heart rate 92, respirations 16, she is on 2 L nasal cannula, last recorded saturation 97% Intake and output: She has had 1906 mL in, with 110 mL out, unable to pull on dialysis yesterday. Laboratory Data: Sodium is 136, potassium 4.5, chloride 100, CO2 of 33, BUN is 19, creatinine 4.1, glucose 193, she has anion gap of 3, calcium is 8.9, phosphorus 3.7, albumin 3.3. Her white count 6.37 with a hemoglobin of 11.2 on the . PHYSICAL EXAMINATION: General: This is a 68-year-old elderly female. She is resting quietly in bed. She is in no acute distress. Skin: Warm and dry. HEENT: Normocephalic , atraumatic. Conjunctivae are pale. She has CUCA. Mucous membranes dry. Neck: Supple. Trachea midline. No JVD. Cardiovascular: Regular rate and rhythm. She has an S4. Lungs: Clear to auscultation bilaterally. Equal excursion. She is on O2. Abdomen: Soft, large, round, nontender. Positive bowel sounds. Genitourinary: Not inspected. Minimal void with dialysis assist. Extremities: Have no edema. No clubbing or cyanosis. Neurological: The patient is able to answer questions appropriately today. She knows where she is at, though she does not make eye contact. ASSESSMENT AND PLAN: 1. Chronic kidney disease, stage 5D. The patient had hypotension while on dialysis yesterday. She was resuscitated with 2 L of intravenous fluid both in the dialysis clinic and upstairs on the floor. She was brought to the ICU for hypotension. She was started on Levophed. This was weaned off during the night. She currently has nothing infusing with stable blood pressure. No indications for dialysis intervention today. 2. Hypotension. Again, this has been resolved status post volume depletion. 3. Electrolytes and acid-base balance. These are stable with correction on dialysis. 4. Anemia. This is close to target. 5. Proctitis. This has been followed by Gastroenterology associated with nausea and vomiting. I would like to thank you for allowing us to follow with this patient. Dictated by BRIANNA Amaro for Benji Fitzgerald MD Face to face encounter, data reviewed, discussed with Sergio Gonzales on 10/17/18. I agree with the above assessment and plan of care. cc: BRIANNA Amaro MD [facility]
[2018-10-17] MEDS: DUONEB (A & A) INH PRN (21:25)
[2018-10-17] MEDS: BASAGLAR SUBQ SCH (22:40)
[2018-10-17] MEDS: REMERON PO SCH (22:41)
[2018-10-18] MEDS: BENTYL PO PRN (04:20)
[2018-10-18] MEDS ORDERED: TIGHT: 0.2 ML/HR FOR DIALYSIS MISC PRN (05:54)
[2018-10-18] MEDS ORDERED: HEPARIN IV PRN (05:54)
[2018-10-18] MEDS ORDERED: NS 2,000 ML MISC PRN (05:54)
[2018-10-18] MEDS: HUMULIN R SUBQ SCH ×3 (06:52→19:57)
[2018-10-18 07:03] LABS: ALBUMIN 3.1 g/dL (3.5-5.0); CALCIUM 9.2 mg/dL (8.8-10.2); CREATININE 4.9 mg/dL (0.5-0.9); PHOSPHORUS 3.4 mg/dL (2.7-4.5); POTASSIUM 4.9 mmol/L (3.5-5.1)
[2018-10-18] MEDS: SYMBICORT 80/4.5 MICROGM INHALER INH SCH (08:22)
[2018-10-18] MEDS: REGLAN IV SCH (09:31)
[2018-10-18] MEDS: MIRALAX PO SCH (09:31)
[2018-10-18] MEDS: SODIUM CHLORIDE 0.9% INJ SCH (09:31)
[2018-10-18] MEDS: PROTONIX IV SCH (09:31)
[2018-10-18] MEDS: FOLIC ACID PO SCH (09:31)
[2018-10-18] MEDS: ZOLOFT PO SCH (09:31)
[2018-10-18] MEDS: PHOSLO PO SCH ×3 (09:32→19:59)
[2018-10-18] MEDS: HUMALOG SUBQ SCH ×2 (09:49→13:16)
[2018-10-18 11:20] VITALS: BP 168/82
--- NOTE | 2018-10-18 13:23 | NEPHROLOGY PROGRESS NOTE ---
DATE: 10/18/2018 SUBJECTIVE: She is still complaining of abdominal discomfort. No nausea or vomiting. Overall, less pain that she has been experiencing, however no shortness of breath. OBJECTIVE: Vital Signs: Blood pressure 143/66, heart rate 100, respirations 20, afebrile. General: No acute distress. Skin: Warm and dry. Eyes: Conjunctivae are pink. Neck: Neck veins are not visible. Heart: Regular. Lungs: Equal. No crackles. Abdomen: Soft, not tender particularly. Bowel sounds are present. No organomegaly. Extremities: Have no edema, clubbing, or cyanosis. IMPRESSION: Chronic kidney disease 5 D. She will have her routine dialysis today using a 2 potassium bath. We will limit her ultrafiltration 1 liter. She had difficulty with marked hypotension during her last treatment. Otherwise, no changes. cc: Benij Fitzgerald MD
--- NOTE | 2018-10-18 13:52 | PROGRESS NOTE ---
DATE: 10/18/2018 SUBJECTIVE: The patient is currently on 4 [place]. She seems to have recovered from her hypotensive episode. She is more awake and alert than I have seen her all week. She states she was able to eat some today. OBJECTIVE: Vital Signs: Temperature 99.6 degrees, pulse 105, respirations 20, blood pressure 168/82. General: Patient is awake, alert, no acute distress. LABORATORY: Hematology. WBC 6.37, hemoglobin 11.2, hematocrit 37.9, MCV 100.8. Chemistry. Sodium 132, potassium 4.9, chloride 96, CO2 25, BUN 30, creatinine 4.9, glucose 172. ASSESSMENT AND PLAN: 1. Nausea, vomiting seems to have improved. 2. Delayed gastric emptying. She is receiving Reglan. 3. Chronic kidney disease on dialysis. Following with Dr. Fitzgerald. 4. Gastrointestinal will continue to follow. She seems to be doing better today. She seems to have eaten more over the last several days. She did have a hypotensive episode. I believe that has resolved. Will continue to follow and I have given her contact information to follow up with us in the office after discharge. I have discussed this case with Dr. Suh. Dictated by BRIANNA Freedman for Baldomero Suh MD cc: BRIANNA Ruvalcaba MD
--- NOTE | 2018-10-18 15:00 | DISCHARGE SUMMARY ---
ADMISSION DATE: 10/09/2018 DISCHARGE DATE: 10/18/2018 DISPOSITION: Back to [facility]. CONSULTATIONS DURING THIS ADMISSION: 1. GI was consulted. Patient was seen by Dr. Adan. 2. Nephrology was consulted. Patient was seen by Dr. Fitzgerald. Urology was consulted. Patient was seen by Dr. Monique. INVASIVE PROCEDURES DONE DURING THIS ADMISSION: None. IMAGING STUDIES OF SIGNIFICANCE: 1. KUB was done which showed atelectasis in the right base, nonspecific abdomen. 2. A CT scan of the abdomen and pelvis showed severe urinary bladder distention, right ureter and hydronephrosis, and severe rectal inflammation consistent with proctitis. 3. A gastric empty study done shows mildly delayed gastric state. 4. Renal ultrasound showed no hydronephrosis. Mild increased renal echotexture may indicate medical renal disease. 5. A follow-up CTA abdomen and pelvis showed no mesenteric artery stenosis. There was significant improvement in the rectal inflammation and wall thickening. There is a severe urinary bladder wall thickening consistent with inflammation. 6. Repeat chest x-ray did show right lower lobe and middle lobe atelectasis. ADMISSION DIAGNOSES: 1. Intractable nausea and vomiting. 2. Uncontrolled hypertension. 3. Endstage renal disease. 4. Anemia of chronic disease. 5. Chronic obstructive pulmonary disease. DIAGNOSES AT THE TIME OF DISCHARGE: 1. Hypotension during the hospital course, suspected to be related to intravascular depletion from ultrafiltration. The patient was adequately hydrated. She did need a couple hours of Levophed. 2. Diabetes mellitus, controlled. 3. Endstage renal disease on hemodialysis Sunday, Sunday, and Sunday. Nephrology was on board. 4. Severe proctitis. Repeat CT scan did show some improvement. 5. Distended bladder associated with right hydroureteronephrosis. The patient was evaluated by Urology and it was recommended that the bladder inflammation and distention caused the hydroureteronephrosis and that was also coming from the contiguous inflammation from the rectal pathology. 6. Mild gastroparesis. 7. Right lower lobe and middle lobe infiltrate concerning for atelectasis versus pneumonia. DISCHARGE MEDICATIONS: 1. Amlodipine 5 mg b.i.d. 2. Folic acid 1 tablet daily. 3. Symbicort inhaler. 4. Insulin 30 units subcutaneous at bedtime. 5. Labetalol 100 mg b.i.d. 6. PhosLo 667 three times per day. 7. Clonidine 0.3 three times per day. 8. Hydralazine 100 mg 3 times per day. 9. Mirtazapine 30 mg at bedtime. 10. Lispro 5 units 4 times per day with meals. 11. Metronidazole 250, 3 times per day. Levaquin 250 daily for 5 additional days. PRESENTING COMPLAINT: Nausea, vomiting, diarrhea. HISTORY OF PRESENTING COMPLAINT: Ms. Velez is a 68-year-old female with history of end-stage renal disease who came to the emergency department because of nausea, vomiting, diarrhea, and some chills. Patient was evaluated in the emergency department and was found to have glucose levels in the 400s. However, she was not in DKA. She was subsequently admitted for further medical care. HOSPITAL COURSE: The patient was admitted to the medical floor, was initially kept NPO, and gently hydrated overnight. She continued having nauseation. A CT scan of the abdomen did reveal severe product proctitis, so she was started on IV antibiotics. Over the course of the hospital stay, it appears that Ms. Velez's abdominal discomfort got slightly better, however, she was not eating that much. At one point we thought she could have mesenteric angina, so a CTA of the abdomen and pelvic was done which was unremarkable. Ms. Velez initially also had a very distended bladder, despite she is in end-stage renal disease and she does not make urine. Urology was consulted and patient was seen by Dr. Monique. After evaluation, he thought that the bladder distention and irritation was coming from the proximity of the bladder to the colon where the initial disease was. Anyway a couple of days later, ultrasound of the bladder was done which revealed complete resolution of the right hydroureteronephrosis and also the bladder distention. Deleon catheter was subsequently removed. Ms. Velez almost about 2 days before discharge she became unresponsive and remarkably hypotensive during dialysis session. She was at that point negative balance of about 2770 in general. She was given about 2 boluses of 500 mL each time. Blood pressure improved. She was moved to the floor. However, a couple hours later, she became hypotensive again, so she was transferred to the ICU. She stayed in the ICU for one night and spent a couple of hours on Levophed. The following morning she was feeling a lot better. She ate all her breakfast. Levophed has been discontinued the night prior. She was subsequently transferred back to the floor and started receiving physical therapy. Today Ms. Velez refers to be doing a lot better. She denies any shortness of breath or any pain. Physical exam shows a blood pressure is 168/85 82, pulse of respirations 20, temperature 99.6 degrees. The patient is clinically stable for discharge home. I have discussed with Nephrology. He is okay for patient to be discharged and follow up with them for scheduled outpatient hemodialysis. All the discharge instructions have been discussed with Ms. Velez and she voices understanding. Ms. Velez is being discharged to [facility]. TIME SPENT: Time spent for discharge was 36 minutes. cc: MD Madina Shelton MD Khurshid Yousuf, MD Reginald D. Gladish, MD
[2018-10-18] MEDS ORDERED: VANCOMYCIN 1 GM/NS 1 GM/250 ML IVPB IV ONE (17:00)
[2018-10-18] MEDS ORDERED: TAZIDIME 1 GM in NS 50 ML IV ONE (18:00)
== END 2018-10-18 22:00 | DRG 871 ==
LOC: ED 04:30 → SUATTDRO 11:12 → EDIPHOLD 11:12 → 4N 12:04 → 3N 10-14 17:25 → ICU 10-16 16:06 → 4N 10-17 14:06
PROVIDERS: ATTEND Internal Medicine
CPT/HCPCS: 51702; 71010; 71045; 74022; 74174; 74176; 76770; 78264; 80048; 80053; 80069; 80076; 81001; 82009; 82533; 82550; 82805; 82948; 83036; 83605; 83690; 83735; 84134; 84484; 85025; 85610; 85730; 87040; 87088; 87275; 87276; 87804; 93005; 93010; 94640; 94761; 96365; 96366; 96367; 96375; 97110; 97162; 97530; 99285; A9270; A9541; C9113; J0360; J0713; J1644; J1815; J1956; J2270; J2405; J2550; J2765; J3370; J7030; J7040; Q9967; S0164; XXXXX

== ENCOUNTER 2019-06-23 15:28 | Inpatient (IN) ==
--- NOTE | 2019-06-23 16:13 | Diag Imaging Result Doc PS360 ---
EXAM: CHEST-PORTABLE HISTORY: FEVER TECHNIQUE: Single view COMPARISON: 02/19/2019 FINDINGS: The lungs are well expanded. The right hemidiaphragm is elevated. No change in the right jugular catheter. No pneumothorax. The heart is not enlarged. The vessels are not distended. There are mild increased markings in the left lung base. No effusion identified. IMPRESSION: Questionable small left basilar infiltrate. Follow-up and lateral recommended. Electronically signed by Alan Gary 06/23/2019 4:11 PM
[2019-06-23] MEDS ORDERED: ROCEPHIN 1 GM in NS 50 ML IV ONE (17:24)
[2019-06-23] MEDS ORDERED: VANCOMYCIN 1 GM/NS 1 GM/250 ML IVPB IV ONE (17:24)
[2019-06-23 18:48] LABS: URINE SOURCE CATH
[2019-06-23 18:52] LABS: BILIRUBIN URINE NEGATIVE (NEGATIVE); BLOOD URINE SMALL (NEGATIVE); COLOR YELLOW; GLUCOSE URINE NEGATIVE (NEGATIVE); KETONE URINE NEGATIVE (NEGATIVE); LEUKOCYTES URINE LARGE (NEGATIVE); NITRITE URINE NEGATIVE (NEGATIVE); PROTEIN URINE 300 mg/dL (NEGATIVE); SP GRAVITY URINE 1.016; TURBIDITY URINE HAZY (CLEAR); UROBILINOGEN URINE NORMAL (NORMAL)
[2019-06-23 18:54] LABS: UR EPITHELIAL CELLS <10 /HPF (<10); URINE BACTERIA NEGATIVE /HPF; URINE RBC <10 /HPF (<10); URINE WBC TNTC /HPF (<10)
--- NOTE | 2019-06-23 19:01 | PROVIDER DOCUMENTATION ---
This chart was entered by Yoli Guerra Scribe, acting as scribe for Shahid Galvez MD. HPI-General Adult - General Source: patient, RN/ (RN) - History of Present Illness -Gen Adult Nature of Presenting Problems: Patient is a 68 year old female who presents to the ED via EMS with fever and multiple skin ulcers. RN states EMS stated patient has skin ulcers to bilateral feet and sacrum. Patient does not report pain. Location of Pain/Injury: reports: none Quality of Pain: reports: none Severity: reports: mild Onset/Duration: reports: gradual Timing: reports: still present Associated Symptoms: reports: fever/chills (fever), other (skin ulcers) Similar Symptoms Previously?: Yes Recently seen or treated by another doctor?: No <Shahid Galvez - Last Filed: 06/23/19 18:58> <Hannah Chi - Last Filed: 06/24/19 03:46> - General Chief Complaint: Fever Stated Complaint: FEVER Time Seen by Provider: 06/23/19 15:39 Allergies/Adverse Reactions: Patient Allergies Allergy/AdvReac Type Severity Reaction Status Date / Time No Known Allergies Allergy Verified 06/23/19 19:52 Home Medications: Home Medication List Medication Instructions Recorded Confirmed Last Taken Type Amlodipine [Norvasc] 5 mg PO BID 30 Days #60 tab 02/26/18 06/23/19 06/23/19 Rx Budesonide/Formoterol Fumarate 1 puff INH BID 08/07/18 06/23/19 06/23/19 History [Symbicort 80-4.5 Mcg Inhaler] Folic Acid 1 mg PO DAILY 08/07/18 06/23/19 06/23/19 History Calcium Acetate [Phoslo] 667 mg PO TID CC tablet 08/28/18 06/23/19 06/23/19 Rx Clonidine HCl 0.3 mg PO TID #0 08/28/18 06/23/19 06/23/19 Rx Hydralazine [Apresoline] 100 mg PO TID #0 08/28/18 06/23/19 06/23/19 Rx Labetalol [Trandate] 100 mg PO BID tablet 08/28/18 06/23/19 06/23/19 Rx Polyethylene Glycol 3350 [Miralax] 17 gm PO BID powder, packet 08/28/18 06/23/19 06/23/19 Rx Insulin Lispro [Humalog] 1 dose SQ PRN PRN 10/09/18 06/23/19 06/23/19 History Mirtazapine 30 mg PO HS 10/09/18 06/23/19 06/22/19 History Albuterol 2.5MG/Ipratrop 0.5MG 3 ml NEB Q4H PRN 12/31/18 06/23/19 03/12/19 21:00 History [Duoneb (A & A)] Ondansetron HCl [Zofran] 4 mg PO Q4H PRN 12/31/18 06/23/19 03/12/19 21:00 History Metoclopramide [Reglan] 10 mg PO Q6HR PRN #20 tab 02/19/19 06/23/19 03/12/19 21:00 Rx Acetaminophen [Tylenol Extra 2 tab PO DAILY 03/11/19 06/23/19 06/23/19 History Strength] Bisacodyl [Dulcolax] 1 supp RC QHS 03/11/19 06/23/19 06/22/19 History Docusate Sodium [Colace] 100 mg PO BID 03/11/19 06/23/19 06/23/19 History Insulin Glargine,Hum.rec.anlog 35 unit SQ QHS 03/11/19 06/23/19 06/22/19 History [Basaglar Kwikpen U-100] Tramadol HCl [Ultram] 50 mg PO Q6H PRN #15 tab 03/13/19 06/23/19 Unknown Rx Review of Systems - Adult - REVIEW OF SYSTEMS - ADULT Constitutional: reports: fever. denies: chills, fatique Eyes: reports: no symptoms reported Ears, Nose, Mouth & Throat: reports: no symptoms reported Cardiovascular: reports: no symptoms reported Respiratory: reports: no symptoms reported Gastrointestinal: reports: no symptoms reported Genitourinary: reports: no symptoms reported Musculoskeletal: reports: no symptoms reported Integumentary: reports: see HPI, skin sores/ulcer (skin ulcers). denies: hives, itching Neurological: reports: no symptoms reported Psychiatric: reports: no symptoms reported Endocrine: reports: no symptoms reported Hematologic/Lymphatic: reports: no symptoms reported Allergic/Immunologic: reports: no symptoms reported All Other Systems: Reviewed and Negative <Shahid Galvez - Last Filed: 06/23/19 18:58> Past History - Adult - PAST MEDICAL HISTORY-ADULT Review of Records: reports: Old Records Reviewed, Nursing Assessment Review, Medications Reviewed, Social history reviewed & non-contributory. Major Childhood Illnesses: reports: denies history Cardiovascular: reports: HTN Respiratory: reports: COPD Gastrointestinal: reports: other (colon problems) Obstetrical/Gynecological: reports: denies history, other (breast cancer) Genitourinary: reports: dialysis, kidney disease (CKD) Musculoskeletal: reports: denies history Neurological: reports: CVA Endocrine/Immune: reports: Diabetes Other Conditions: reports: denies history - PRIOR SURGERIES/PROCEDURES Surgical/Procedure History: reports: hysterectomy, breast (L lumpectomy) - IMMUNIZATION STATUS Childhood Immunizations: See Nurse Assessment Flu Vaccine: See Nurse Assessment - FAMILY HISTORY Family History: reviewed, not pertinent - SOCIAL HISTORY Smoking: denies Substance Use: denies Living Situation: care facility (SNF) <Shahid Galvez - Last Filed: 06/23/19 18:58> Physical Exam-General - PHYSICAL EXAM-ADULT Initial Vital Signs Reviewed: Yes - CONSTITUTIONAL General Appearance: alert, no apparent distress. negative: lethargic - HEAD, EARS, NOSE, MOUTH & THROAT HENMT: normocephalic/atraumatic, moist mucous membranes. negative: angioedema - RESPIRATORY Respiratory: chest non-tender, lungs clear, normal breath sounds, other (right subclavian dialysis port). negative: crackles, stridor - CARDIOVASCULAR Cardiovascular: normal peripheral pulses, extra beats (occasional PVC). negative: tachycardia - GASTROINTESTINAL (ABDOMEN) Abdominal Exam: normal bowel sounds, non tender, soft. negative: rebound - MUSCULOSKELETAL Back Exam: no vertebral tenderness, other (stage 2 decubitus ulcer to sacral region.). negative: ecchymosis Extremity: non-tender, other (6 cm by 5 cm decubitus to right posterior heel. amputation of right 2nd toe. decubitus in the web of 1st and 3rd toe. draining decubitus to left posterior heel.). negative: swelling - SKIN Integumentary: decubitus (6 cm by 5 cm decubitus to right posterior heel. decubitus in the web of 1st and 3rd toe. decubitus to left posterior heel. stage 2 decubitus ulcer to sacral region.). negative: diaphoresis, pallor, rash <Shahid Galvez - Last Filed: 06/23/19 18:58> Progress - XRAY 1 XRAY Study: Chest Impression: See EMR Report ( EXAM: CHEST-PORTABLE HISTORY: FEVER TECHNIQUE: Single view COMPARISON: 02/19/2019 FINDINGS: The lungs are well expanded. The right hemidiaphragm is elevated. No change in the right jugular catheter. No pneumothorax. The heart is not enlarged. The vessels are not distended. There are mild increased markings in the left lung base. No effusion identified. IMPRESSION: Questionable small left basilar infiltrate. Follow-up and lateral recommended. Electronically signed by Alan Gary 06/23/2019 4:11 PM 06/23/19 1611 Interpreting Physician: Alan Gary MD Dictated Date/Time: 06/23/19 1610 cc: Shahid Galvez MD; Roe Barclay MD) - CHANGE OF SHIFT REPORT (ED Provider) 1 Report Given and Care Transferred to:: DR ARRIETA Time of Transfer: 19:00 <Shahid Galvez - Last Filed: 06/23/19 18:58> - PLAN OF CARE/RESULTS Progress/Plan/Lab Results: Vital Signs - 8 hr 06/23/19 15:43 06/23/19 15:45 06/23/19 15:50 Temperature 99.5 F Pulse Rate 95 H Respiratory Rate 18 Blood Pressure 148/68 148/68 O2 Sat by Pulse Oximetry 96 95 96 06/23/19 16:00 06/23/19 16:01 06/23/19 16:15 Temperature Pulse Rate 114 H 112 H 112 H Respiratory Rate 21 16 17 Blood Pressure 117/64 O2 Sat by Pulse Oximetry 97 97 97 06/23/19 16:30 06/23/19 16:32 06/23/19 16:45 Temperature Pulse Rate 112 H 110 H 110 H Respiratory Rate 20 18 21 Blood Pressure 159/65 O2 Sat by Pulse Oximetry 99 99 99 06/23/19 17:00 06/23/19 17:01 06/23/19 17:15 Temperature Pulse Rate 110 H 110 H 110 H Respiratory Rate 27 H 23 23 Blood Pressure 151/70 O2 Sat by Pulse Oximetry 100 99 99 06/23/19 17:30 06/23/19 17:31 06/23/19 17:45 Temperature Pulse Rate 110 H 108 H 108 H Respiratory Rate 29 H 28 H 24 Blood Pressure 150/89 O2 Sat by Pulse Oximetry 100 100 100 06/23/19 18:00 06/23/19 18:15 06/23/19 18:30 Temperature Pulse Rate 108 H 106 H 106 H Respiratory Rate 16 13 Blood Pressure O2 Sat by Pulse Oximetry 100 100 06/23/19 18:31 06/23/19 18:45 06/23/19 19:00 Temperature Pulse Rate 108 H Respiratory Rate 33 H 9 L Blood Pressure 122/64 O2 Sat by Pulse Oximetry 100 91 L 90 L 06/23/19 19:01 06/23/19 19:15 06/23/19 19:30 Temperature Pulse Rate Respiratory Rate 14 Blood Pressure 141/72 O2 Sat by Pulse Oximetry 90 L 98 06/23/19 19:31 06/23/19 19:36 06/23/19 19:45 Temperature Pulse Rate Respiratory Rate 18 12 25 H Blood Pressure 137/59 137/59 O2 Sat by Pulse Oximetry 100 100 100 06/23/19 20:00 06/23/19 20:07 Temperature Pulse Rate Respiratory Rate 29 H Blood Pressure O2 Sat by Pulse Oximetry 100 100 Laboratory Results - last 24 hr 06/23/19 06/23/19 06/23/19 18:35 19:55 19:55 WBC 15.18 H RBC 2.76 L Hgb 8.3 L Hct 28.6 L MCV 103.6 H MCH 30.1 MCHC 29.0 L RDW Std Deviation 14.1 Plt Count 359 MPV 9.1 Neut % (Auto) 84.0 H Lymph % (Auto) 8.9 L Harmon % (Auto) 7.0 Eos % (Auto) 0.1 Baso % (Auto) 0.0 Neut # (Auto) 12.76 H Lymph # (Auto) 1.35 Harmon # (Auto) 1.06 H Eos # (Auto) 0.01 Baso # (Auto) 0.00 Segmented Neutrophils 83 H Band Neutrophils 1 Lymphocytes 12 L Monocytes 4 PT INR PTT (Actin FS) Sodium Potassium Chloride Carbon Dioxide Anion Gap BUN Creatinine Estimated GFR/1.73 m2 BUN/Creatinine Ratio Glucose Calculated Osmolality Calcium Total Bilirubin AST ALT Alkaline Phosphatase Creatine Kinase Troponin T Fhy-Q-Bujblkjxkof Pept Total Protein Albumin Globulin Albumin/Globulin Ratio Plasma Lactate Urine Source CATH Urine Color YELLOW Urine Turbidity HAZY Urine pH 7.0 Ur Specific [place] 1.016 Urine Protein 300 A Ur Glucose (Stick) NEGATIVE Ur Ketones (Stick) NEGATIVE Urine Blood SMALL A Urine Nitrite NEGATIVE Urine Bilirubin NEGATIVE Urobilinogen Dipstick NORMAL Urine Leukocytes LARGE A Urine WBC (Auto) TNTC A Urine RBC (Auto) <10 U Epithel Cells (Auto) <10 Urine Bacteria (Auto) NEGATIVE Acetone Level SMALL A 06/23/19 06/23/19 06/23/19 19:55 19:55 19:55 WBC RBC Hgb Hct MCV MCH MCHC RDW Std Deviation Plt Count MPV Neut % (Auto) Lymph % (Auto) Harmon % (Auto) Eos % (Auto) Baso % (Auto) Neut # (Auto) Lymph # (Auto) Harmon # (Auto) Eos # (Auto) Baso # (Auto) Segmented Neutrophils Band Neutrophils Lymphocytes Monocytes PT INR PTT (Actin FS) Sodium 138 Potassium 3.0 L Chloride 97 L Carbon Dioxide 22 L Anion Gap 19 BUN 12 Creatinine 2.4 H Estimated GFR/1.73 m2 24 BUN/Creatinine Ratio 5 Glucose 118 H Calculated Osmolality 277 Calcium 8.0 L Total Bilirubin 0.25 AST 11 ALT 5 L Alkaline Phosphatase 170 H Creatine Kinase Troponin T Guo-J-Nhoefifxtzb Pept 91443 H Total Protein 6.8 Albumin 2.6 L Globulin 4.2 Albumin/Globulin Ratio 0.6 Plasma Lactate 0.8 Urine Source Urine Color Urine Turbidity Urine pH Ur Specific [place] Urine Protein Ur Glucose (Stick) Ur Ketones (Stick) Urine Blood Urine Nitrite Urine Bilirubin Urobilinogen Dipstick Urine Leukocytes Urine WBC (Auto) Urine RBC (Auto) U Epithel Cells (Auto) Urine Bacteria (Auto) Acetone Level 06/23/19 06/23/19 06/23/19 19:55 19:55 19:55 WBC RBC Hgb Hct MCV MCH MCHC RDW Std Deviation Plt Count MPV Neut % (Auto) Lymph % (Auto) Harmon % (Auto) Eos % (Auto) Baso % (Auto) Neut # (Auto) Lymph # (Auto) Harmon # (Auto) Eos # (Auto) Baso # (Auto) Segmented Neutrophils Band Neutrophils Lymphocytes Monocytes PT 16.2 H INR 1.28 PTT (Actin FS) 39.3 Sodium Potassium Chloride Carbon Dioxide Anion Gap BUN Creatinine Estimated GFR/1.73 m2 BUN/Creatinine Ratio Glucose Calculated Osmolality Calcium Total Bilirubin AST ALT Alkaline Phosphatase Creatine Kinase 65 Troponin T 0.788 H* Zgn-S-Yvgaxbsanrm Pept Total Protein Albumin Globulin Albumin/Globulin Ratio Plasma Lactate Urine Source Urine Color Urine Turbidity Urine pH Ur Specific [place] Urine Protein Ur Glucose (Stick) Ur Ketones (Stick) Urine Blood Urine Nitrite Urine Bilirubin Urobilinogen Dipstick Urine Leukocytes Urine WBC (Auto) Urine RBC (Auto) U Epithel Cells (Auto) Urine Bacteria (Auto) Acetone Level Orders Category Date Time Status Cardiac Monitoring DIRECTED Care 06/23/19 17:41 Active IV Insertion ORDERED Care 06/23/19 17:41 Completed Notify MD of + Sepsis Screen NOW Care 06/23/19 17:41 Active Notify Physician As Ordered Care 06/23/19 17:41 Active Saline Loc NOW Care 06/23/19 15:51 Active CHEST-PORTABLE [RAD] Stat Exams 06/23/19 15:53 Completed ACETONE SERUM [CHEM] Stat Lab 06/23/19 19:55 Completed BLOOD CULTURE [BLDCUL] Stat Lab 06/23/19 19:55 Results CBC WITH ELECTRONIC DIFF [HEME] Stat Lab 06/23/19 19:55 Completed CK PROFILE [SP CHEM] Stat Lab 06/23/19 19:55 Completed COMPREHENSIVE METABOLIC PANEL [CHEM] Stat Lab 06/23/19 19:55 Completed INFLUENZA SCREEN A/B Stat Lab 06/23/19 17:17 Ordered LACTATE, PLASMA [CHEM] Lab 06/23/19 20:17 Uncollected LACTATE, PLASMA [CHEM] Lab 06/23/19 23:17 Uncollected LACTATE, PLASMA [CHEM] Stat Lab 06/23/19 19:55 Completed PRO B-NATRIURETIC PEPTIDE Stat Lab 06/23/19 19:55 Completed PROTIME WITH INR [COAG] Stat Lab 06/23/19 19:55 Completed PTT [COAG] Stat Lab 06/23/19 19:55 Completed ROUTINE CULTURE [RM] Routine Lab 06/23/19 16:05 Received TROPONIN T Stat Lab 06/23/19 19:55 Completed URINALYSIS W/POSS RFLX CULT [URINALYSIS] Stat Lab 06/23/19 18:35 Completed URINE CULTURE [RM] Routine Lab 06/23/19 18:57 Received WOUND CULTURE INC GRAM STAIN [RM] Routine Lab 06/23/19 16:05 Received CefTRIAXONE [Rocephin] 1 gm Med 06/23/19 17:24 Discontinued 0.9% Sodium Chloride Inj [Ns] 50 ml IV NOW Piperacillin/Tazobactam [Zosyn] 2.25 gm Med 06/23/19 20:00 Discontinued 0.9% Sodium Chloride Inj [Ns] 50 ml IV NOW Vancomycin 1 gm/Ns Med 06/23/19 17:24 Discontinued 1 gm in 250 ml IV NOW Oxygen Device Stat Oth 06/23/19 17:41 Completed EKG [EKG] Stat Ther 06/23/19 15:51 Ordered Patient with ESRD and CXR showing possible PNA. Needs coverage for HCAP given dialysis. Open wound could also be the cause. Will cover with Vanc andZosyn. Dr Galvez had already covered her with vanc and rocephin but will add zosyn. Spoke to Dr Lopez occasional caregiver for hospitalist who accepted patient for admission. Further orders to be placed by their team. Result Diagrams: 06/23/19 19:55 06/23/19 19:55 - CONSULTS/PCP/HOSPITALIST Notification #1 *Consult/PCP/Hospitalist*: Dr Lopez Time Discussed: 21:07 Consult Disposition: Admit <Hannah Chi - Last Filed: 06/24/19 03:46> Departure <Shahid Galvez - Last Filed: 06/23/19 18:58> - Departure Date of Disposition Decision: 06/23/19 Time of Disposition Decision: 21:07 Certified Medical Emergency: Emergent - Critical Care Note This patient required my direct & personal management of CC.: No <Hannah Chi - Last Filed: 06/24/19 03:46> - Departure DIAGNOSIS: Pneumonia, Multiple open wounds, Sepsis, ESRD (end stage renal disease) on dialysis Disposition: ADMITTED INPATIENT 09 Condition: Stable Attestation - Physician/ HILDA Attestation The physician spent face to face time with patient:: Yes Advanced Practice Provider documentation review:: Supervising physician onsite and consulted in the evaluation and care of this patient. The physician did have a face to face encounter with the patient. <Shahid Galvez - Last Filed: 06/23/19 18:58> This chart was documented by the indicated helenaibreginald, (Yoli Guerra, Tiffanie) and acc urately reflects the services I performed and decisions made by me, Shahid Galvez MD, as attested by the provider's signature.
[2019-06-23] MEDS ORDERED: ZOSYN 2.25 GM in NS 50 ML IV ONE (20:00)
[2019-06-23 20:18] LABS: EOS# 0.01 X1000 (0.0-0.7); EOS% 0.1 % (0.0-10.0); HEMATOCRIT 28.6 % (37.0-47.0); HEMOGLOBIN 8.3 g/dL (12.0-16.0); LYMPH# 1.35 X1000 (1.2-3.4); LYMPH% 8.9 % (20.5-51.1); MCH 30.1 PG (27-31); MCV 103.6 FL (81-99); MONO# 1.06 X1000 (0.11-0.59); MPV 9.1 FL (7.4-10.4); NEUT# 12.76 X1000 (1.4-6.5); PLT 359 X1000 (130-400); RBC 2.76 XMIL (4.2-5.4); RDW 14.1 % (11.5-14.5); WBC 15.18 X1000 (4.8-10.8)
[2019-06-23 20:23] LABS: INR 1.28; PROTIME 16.2 Seconds (11.0-16.0)
[2019-06-23 20:24] LABS: PTT 39.3 Seconds (22.3-41.8)
[2019-06-23 20:53] LABS: BANDS 1 % (0-1); LYMPHS 12 % (21-51); MONO 4 % (1-9); SEGS 83 % (42-75)
[2019-06-23 21:01] LABS: ALB/GLOB RATIO 0.6; ALBUMIN 2.6 g/dL (3.5-5.0); CREATININE 2.4 mg/dL (0.5-0.9); TOTAL BILIRUBIN 0.25 mg/dL (0.20-1.00); TOTAL PROTEIN 6.8 g/dL (6.3-8.3)
[2019-06-23] MEDS ORDERED: HUMULIN R SUBQ SCH (22:00)
[2019-06-24] MEDS ORDERED: ZOFRAN IV PRN (00:07)
[2019-06-24] MEDS ORDERED: VANCOMYCIN IV PER PHARMACY MISC SCH (00:07)
--- NOTE | 2019-06-24 00:10 | HISTORY AND PHYSICAL ---
PRIMARY CARE PHYSICIAN: Unknown. CHIEF COMPLAINT: Fever, multiple decubitus. HISTORY OF PRESENTING ILLNESS: A 68-year-old female with a history of end-stage renal disease on renal dialysis, diabetes mellitus type 2, hypertension, COPD, who was brought from [facility] due to patient having fever and also having multiple ulcers that were noted. She was evaluated in the emergency department. She is a poor historian and most of the history is obtained from previous records. At time of my examination, patient had denied any chest pain, shortness of breath, coughing, nausea, vomiting but states that she does not feel well. PAST MEDICAL HISTORY: Includes end-stage renal disease, diabetes mellitus type 2, hypertension, breast cancer, COPD, hyperlipidemia. PAST SURGICAL HISTORY: Left mastectomy, right breast biopsy, hysterectomy, dialysis catheter. ALLERGIES: No known drug allergies. CURRENT MEDICATIONS: Acetaminophen 500 mg 2 tabs p.o. daily, duo nebs q.4 hours, amlodipine 5 mg p.o. b.i.d., calcium acetate 667 mg p.o. t.i.d., clonidine 0.3 mg p.o. t.i.d., folic acid 1 mg p.o. daily, hydralazine 100 mg p.o. t.i.d., insulin glargine 35 units subcu at bedtime, Humalog p.r.n., labetalol 100 mg p.o. b.i.d., mirtazapine 30 mg p.o. at bedtime, tramadol 50 mg p.o. q.6 hours. SOCIAL HISTORY: No history of smoking, alcohol or illicit drug use. She resides at [facility]. FAMILY HISTORY: No history of coronary disease. REVIEW OF SYSTEMS: Limited. PHYSICAL EXAMINATION: GENERAL: Elderly female. She is resting comfortably. VITAL SIGNS: Temperature 99.5 degrees, pulse 95, respirations 18, blood pressure 148/68. HEENT: Atraumatic, normocephalic. PERRLA. NECK: No masses. CHEST: Clear to auscultation. CARDIOVASCULAR: Regular rate and rhythm. ABDOMEN: Soft. Positive bowel sounds. EXTREMITIES: There are decubitus heel ulcers and also on the right 2nd digit region. BACK: She has a sacral decubitus with dressing on it. : No bladder distention. SKIN: Warm. NEURO: Alert, oriented x1. LABORATORIES AND STUDIES: WBC 15.18, hemoglobin 8.3, hematocrit 28.6, platelets 359,000. Sodium 138, potassium 3.0, chloride 97, CO2 22, BUN is 12, creatinine 2.4, glucose 118. Troponin 0.788. ProBNP is 13,686. Chest x-ray shows questionable small left basilar infiltrate. ASSESSMENT: A 68-year-old female with a history of end-stage renal disease, diabetes mellitus type 2, hypertension and chronic obstructive pulmonary disease, brought from [facility] due to patient having fever and also multiple decubitus. She was evaluated in the emergency department. Due to her presenting symptoms, she will require admission for further management. 1. Fever, unclear etiology. 2. Multiple decubitus in her sacral region and also heel ulcers. 3. End-stage renal disease. 4. Diabetes mellitus type 2. 5. Hypertension. 6. Chronic obstructive pulmonary disease. 7. Elevated troponin in setting of end-stage renal disease PLAN: 1. We will admit patient to medical floor with telemetry. 2. We will check blood cultures. Start patient on empiric antibiotics. 3. We will consult Nephrology for dialysis. 4. We will consult wound care to address her decubitus. 5. We will monitor blood glucose and put patient on sliding scale insulin regimen. 6. Monitor blood pressure. Resume antihypertensive agents. 7. We will continue with DuoNeb p.r.n. 8. We will put patient on heparin for DVT prophylaxis. 9. We will continue to follow and reassess. Make further recommendation based on patient's clinical course. cc: Baldo Lopez MD
[2019-06-24] MEDS: HEPARIN SUBQ SCH ×2 (06:14→21:42)
[2019-06-24] MEDS ORDERED: VANCOMYCIN 1 GM/NS 1 GM/250 ML IVPB IV SCH (06:15)
[2019-06-24 06:39] LABS: CALCIUM 8.9 mg/dL (8.8-10.2); CREATININE 2.6 mg/dL (0.5-0.9); POTASSIUM 3.3 mmol/L (3.5-5.1)
[2019-06-24 06:44] LABS: BASO# 0.01 X1000 (0.0-0.2); BASO% 0.1 % (0.0-0.8); EOS# 0.03 X1000 (0.0-0.7); EOS% 0.2 % (0.0-10.0); HEMATOCRIT 28.6 % (37.0-47.0); HEMOGLOBIN 7.9 g/dL (12.0-16.0); IMM GRAN# 0.07 X1000 (0.0-0.04); IMM GRAN% 0.5 % (0.0-0.5); LYMPH# 1.41 X1000 (1.2-3.4); LYMPH% 9.6 % (20.5-51.1); MCH 28.5 PG (27-31); MCHC 27.6 g/dL (33-37); MCV 103.2 FL (81-99); MONO% 6.2 % (1.7-9.3); MPV 9.3 FL (7.4-10.4); NEUT# 12.21 X1000 (1.4-6.5); NEUT% 83.4 % (42.2-75.2); PLT 376 X1000 (130-400); RBC 2.77 XMIL (4.2-5.4); RDW 13.8 % (11.5-14.5); WBC 14.63 X1000 (4.8-10.8)
[2019-06-24] MEDS: PHOSLO PO SCH ×3 (08:54→16:36)
[2019-06-24] MEDS: APRESOLINE PO SCH ×3 (08:54→21:41)
[2019-06-24] MEDS: CATAPRES PO SCH ×3 (08:55→21:42)
[2019-06-24] MEDS: TRANDATE PO SCH ×2 (08:58→21:42)
[2019-06-24] MEDS: NORVASC PO SCH ×2 (08:58→21:42)
[2019-06-24] MEDS: FOLIC ACID PO SCH (08:58)
[2019-06-24] MEDS: TYLENOL PO SCH (08:58)
--- NOTE | 2019-06-24 09:29 | EKG Report ---
Test Performed on : 06/23/2019 9:19:24 PM Test Reason : WEAK Blood Pressure : / mmHG Vent. Rate : 104 BPM Atrial Rate : 104 BPM P-R Int : 168 ms QRS Dur : 090 ms QT Int : 330 ms P-R-T Axes : 049 010 033 degrees QTc Int : 433 ms Sinus tachycardia. with premature atrial complexes. Minimal voltage criteria for LVH, may be normal variant Nonspecific T wave abnormality Abnormal ECG No previous ECGs available Unconfirmed Result
--- NOTE | 2019-06-24 09:29 | EKG Report ---
Test Performed on : 06/24/2019 09:13:24 AM Test Reason : elevated trops Blood Pressure : / mmHG Vent. Rate : 108 BPM Atrial Rate : 108 BPM P-R Int : 172 ms QRS Dur : 090 ms QT Int : 336 ms P-R-T Axes : 052 013 021 degrees QTc Int : 450 ms Sinus tachycardia. with premature atrial complexes. Nonspecific T wave abnormality Abnormal ECG When compared with ECG of 22-OCT-2018 03:38, premature atrial complexes. are now present Nonspecific T wave abnormality now evident in Inferior leads Confirmed by Precious WILSON, Javon Nunez ([id number]) on 06/25/2019 7:31:42 AM
[2019-06-24] MEDS ORDERED: ZOSYN 2.25 GM in NS 50 ML IV SCH (09:30)
[2019-06-24] MEDS ORDERED: POTASSIUM CHLORIDE 20% LIQUID PO ONE (10:05)
--- NOTE | 2019-06-24 12:14 | NEPHROLOGY CONSULTATION ---
DATE: 06/24/2019 Chief complaint: Im not sure why I am here. HPI: Mrs. eVlez is a 68-year-old black female with a past medical history of chronic kidney disease 5D with hemodialysis on Sunday, Sunday, and Sunday, diabetes mellitus type two, hypertension, and COPD. She was transferred from [facility] to the ED yesterday for high fevers and open diabetic ulcer to the left foot. She was noted to have a period of altered mental status at her dialysis treatment yesterday. Her highest recorded temperature in the hospital is 99.5 and she has a dressing in place to the left foot. She received vancomycin and zofran in the ED. She complains of nausea with a decreased appetite. She denies fever or chills, chest pain, and shortness of breath. Past medical history: chronic kidney disease 5D with hemodialysis Sunday, Sunday, and Sunday, diabetes mellitus type two, hypertension, breast cancer, COPD, hyperlipidemia. Past surgical history: left mastectomy, right breast biopsy, hysterectomy, dialysis catheter placement. Social history: [facility] She denies tobacco, alcohol, or illicit drug use. Family history: noncontributory Review of systems: neurological: denies any altered mental status or confusion. Eyes: denies blurriness, dryness, or change in visual acuity. ENT: denies tinnitus or change in hearing. Integumentary: denies color change, rash or itch. Respiratory: denies any shortness of breath and orthopnea. Denies cough. Cardiovascular: denies palpitations or chest pain. GI: admits to nausea and decreased appetite but no vomiting or abdominal tenderness. : denies any color change amount or odor in urine. Endocrine: denies excessive thirst or hunger. Musculoskeletal: denies any new pain or weakness in extremities. Labs: WBC 14.63, hemoglobin 7.9, hematocrit 28.6, platelet count 376, sodium 138, potassium 3.3, chloride 95, carbon dioxide 21, anion gap 22, BUN 18, creatinine 2.6, calcium 8.9, troponin 0.788 and most recent 0.710, proBNP 91258. Intake 0, output 20 Imaging: chest x-Ray impression small left basilar infiltrate Physical Exam: vitals. Temperature 98.8, pulse 110, respiratory rate 18, blood pressure 165/63, O2 sat 100% on 2 L nasal cannula. General: elderly black female lying in bed in no acute distress. HEENT: atraumatic, normocephalic. mucous membranes moist with white film on tongue. Trachea midline Skin: warm and dry. Neck: supple, no JVD Cardiovascular:S1, S2, S4 with regular rate and rhythm and a soft systolic murmur. Respiratory: lungs clear bilaterally with equal excursion. Abdomen: obese, soft, nontender nondistended with bowel sounds present. : not inspected Extremities: no clubbing cyanosis or edema noted. Right tunnel Catheter noted. Dressing in place to left heel. Neurological: alert and oriented to person and place. Could not recall recent events. Assessment and plan: Right tunneled catheter sepsis until proven otherwise. Blood cultures obtained. Continues on Vancomycin. No current fever or chills. Chronic kidney disease 5D. Will continue routine hemodialysis days with a treatment plan for tomorrow. Electrolytes and acid base balance. Stable. Anemia. Low but stable. Does not meet transfusion criteria. Blood pressure. Above target at times. No changes right now. cc: Benij Fitzgerald MD [facility]
--- NOTE | 2019-06-24 12:27 | CARDIOLOGY CONSULTATION ---
DATE: 06/24/2019 REQUESTING PHYSICIAN: Hospitalist Service. REASON FOR CONSULTATION: Patient with elevated troponin, question of non-ST myocardial infarction. HISTORY OF PRESENT ILLNESS: Ms. Velez is a 68-year-old black female who is a half-way resident. She was brought to the emergency room on June 23 at about 3:40 p.m. with complaints of having recurrent fever. She does have ulcers in the skin of the left foot. Reportedly, she also has sacral ulcers. In addition to fever, they documented troponin elevation, initially 0.788, thereafter 0.010. She denies having chest pain. Her EKG does not show any acute ischemic changes. EKG done at 9:19 p.m. or 2119 hours shows sinus tachycardia without any ischemic ST changes. The patient is pleasantly slightly confused, lying in bed, in no distress. PAST MEDICAL HISTORY: Significant for end-stage renal disease on hemodialysis. We have seen her in consultation, personally have seen her back in January 2018 at which time we were asked to evaluate her because she was having fluid retention, bilateral pleural effusions, and we concluded at that time that she really had advanced renal failure and that has been treated successfully by the Nephrology Service with achievement of euvolemic status. She has diabetes mellitus type 2, hypertension, COPD, dyslipidemia. The patient I believe has had strokes before and she has obvious indication of diabetic neuropathy in the upper extremities and lower extremities. She also has a history of prior breast cancer. SURGICAL HISTORY: Previous mastectomy of the left side, right breast biopsy. Hysterectomy. Dialysis catheter. SOCIAL HISTORY: She resides at [facility] full-time. She is , disabled, not a smoker. FAMILY HISTORY: Noncontributory. ALLERGIES: Negative. HOME MEDICATIONS: At the time of the present admission included the followin. Acetaminophen 2 tablets extra-strength daily. 2. Amlodipine 5 mg twice a day. 3. Dulcolax suppository. 4. PhosLo 667 three times a day. 5. Clonidine 0.3 mg 3 times a day. 6. Docusate 100 twice a day. 7. Folic acid 1 mg daily. 8. Hydralazine 100 three times a day. 9. Insulin Basaglar 35 units at bedtime. 10. Insulin lispro 1 dose subcutaneously. 11. Labetalol 100 twice a day. 12. Reglan 10 mg every 6 hours. 13. Mirtazapine 10 mg at bedtime. 14. Zofran 4 mg every 4 hours. 15. MiraLAX 17 g twice a day. 16. Tramadol 50 mg every 6 hours. 17. Folic acid 1 mg daily. ALLERGIES: The patient has no reported allergies. REVIEW OF SYSTEMS: At this time is positive basically for the fact that she is bed-bound and a half-way resident with minimal functional capacity. She does not have any pains. She is slightly confused but is pleasant. Very cooperative. PHYSICAL EXAMINATION: Vital signs: Blood pressure 165/63, temperature 98.8 degrees, pulse 110, respirations 18, somewhat pale. Follows commands. HEENT: No obvious lesions. Chest: Diminished breath sounds at the bases. No rales. Heart: Sounds are regular rhythmic. I do not hear a gallop. She does have a systolic murmur 2/6 over the aortic area. Abdomen: Nontender. Extremities: Showed decreased pulses. No significant edema. There is an ulcer on the left heel that is covered with a dressing. Neurological: She has generalized weakness. She cannot really make fist with both hands. Her palm muscles are atrophic and also the muscles of the right lower extremity. Her tongue appears to deviate to the right side when sticking out the tongue. That may suggest prior stroke. LABORATORY DATA: BUN 18, creatinine 2.6, sodium 138, potassium 3.3. Pro BNP level has been checked, is 13,686 pg/mL. IMPRESSION: 1. Patient who presents basically with complaint of fever. Apparently, the patient has had a prior toe infection and has grown Staphylococcus MRSA. Question of endocarditis. 2. Elevated troponin level. This is probably nonspecific. She may have coronary artery disease; however, at this time she is not having any chest pain. She is really not having any ongoing ischemic changes on her EKG. 3. We do not have any prior history of coronary heart disease on her. Her CT of the chest has shown calcification of the coronary arteries, so she certainly has evidence of coronary atherosclerosis by CT; however, no ongoing ischemic changes. 4. Hypokalemia. 5. History of hypertension. 6. End-stage renal disease on hemodialysis. 7. Additional diagnoses: The patient has suffered a stroke and she seems to have severe polyneuropathy from diabetes mellitus. RECOMMENDATION: At this time, I would suggest very conservative management. We will pursue obtaining a 2D echocardiogram to make sure she does not have endocarditis. We will arrange for further testing depending on the echocardiogram. We will observe her course. I do not recommend doing a stress test at this time because I do not think that is going to help us with any actionable data. Her last stress test dated 04/01/2018 showed no evidence of ischemia with normal ejection fraction. cc: Cortes Velasco MD MTDD
[2019-06-24] MEDS: DAKIN S TOP SCH ×2 (12:29→21:47)
[2019-06-24] MEDS ORDERED: MAXIPIME 1 GM in NS 50 ML IV SCH (16:00)
--- NOTE | 2019-06-24 16:45 | Diag Imaging Result Doc PS360 ---
FOOT COMPLETE RIGHT - 06/24/2019 INDICATION: heel necrosis TECHNIQUE: Three views COMPARISON: None FINDINGS: There is severe vascular calcification of all the arteries including severe arterial disease. The second toe is absent. There are irregular erosions at the head of the second metatarsal. There is some soft tissue laceration/gas at the posterior heel. No fractures or erosions of the calcaneus. There are moderate degenerative heel spurs. IMPRESSION: Numerous issues. Electronically signed by Malachi Chaves 06/24/2019 4:43 PM
--- NOTE | 2019-06-24 16:48 | Diag Imaging Result Doc PS360 ---
FOOT COMPLETE LEFT - 06/24/2019 INDICATION: heel necrosis TECHNIQUE: Three views COMPARISON: None FINDINGS: There is severe diffuse vascular disease with calcification throughout all the arteries. There is significant soft tissue gas indicating ulceration/laceration at the heel. There is moderate erosion of the posterior portion of the calcaneus, with a fractured fragment. IMPRESSION: Ulceration of the heel with erosion of the calcaneus. Electronically signed by Malachi Chaves 06/24/2019 4:45 PM
--- NOTE | 2019-06-24 18:05 | INFECTIOUS DISEASE CONSULT REP ---
DATE: 06/24/2019 CONCLUSION: Ms. Velez was [facility] from the [facility] with a high fever per [facility]. She has a bilateral heel necrosis with the left heel showing some erythema and purulent drainage. There is a leukocytosis in a patient that has a dialysis catheter to the right chest, so bacteremia is in the differential. Blood cultures are pending and a urine culture is also pending. I am not sure that the patient makes a lot of urine due to her end- stage renal disease with hemodialysis. There is a chest x-ray which shows a questionable small left basilar infiltrate that could represent pneumonia. RECOMMENDATIONS: She has been receiving IV vancomycin after dialysis as well as IV Zosyn. We will discontinue the Zosyn and give her 1 g of IV cefepime after each dialysis to go along with the vancomycin. We will await culture results from her feet, blood, and urine. We will also get an additional left foot culture, and x-rays of each foot. These plans have been discussed with and recommended by Dr. Carmona. DISCUSSION: Ms. Velez has been in and out of the hospital frequently with a previous 2nd right toe amputation. She is awake and alert but very forgetful and unsure of why she is here. She does know who she is and that she is in the hospital but review of systems is difficult. She just says "no" to everything that she is asked. PAST MEDICAL HISTORY: 1. End-stage renal disease with hemodialysis. 2. Diabetes mellitus. 3. Hypertension. 4. Breast cancer. 5. Chronic obstructive pulmonary disease. 6. Hyperlipidemia. PAST SURGICAL HISTORY: 1. Mastectomy on the left side. 2. Hysterectomy. 3. Right chest tunneled dialysis catheter 4. Right 2nd toe amputation for osteomyelitis. INFECTIOUS DISEASE: Positive for pneumonia, right 2nd toe osteomyelitis with methicillin- resistant Staph aureus, and urinary tract infections. LABORATORY AND X-RAY: On admission her white count is 15.18, today it is 14.63, hemoglobin 7.9, platelet count 376,000. Sedimentation rate is greater than 140, creatinine is 2.6, GFR 22. Her C- reactive protein is 346.6. The pro-B natriuretic peptide is 13,686. Total bilirubin is 0.25, AST 11, ALT 5, and alkaline phosphatase 170. Her urinalysis on admission showed no urine bacteria but white blood cells too numerous to count. So far, the blood, urine, right 2nd toe base, and left foot have all been cultured and are pending. A check for the flu is negative. Chest x-ray on admission showed a questionable small left basilar infiltrate. Electrocardiogram showed a sinus tachycardia with PACs on an unconfirmed report. SOCIAL HISTORY: Patient lives at [facility] with no history of smoking, alcohol, or illicit drug use. FAMILY HISTORY: Unknown. ALLERGIES: No known allergies. MEDICATIONS: At the [facility] she receives Norvasc, folic acid, Symbicort, Trandate, MiraLAX, PhosLo, clonidine, Apresoline, mirtazapine, Humalog insulin, DuoNebs, Zofran, Reglan, Dulcolax suppositories, glargine insulin, Tylenol, Colace, and Ultram. PHYSICAL EXAMINATION: Vital Signs: High temp on this admission has been 99.5, obtained yesterday afternoon. This afternoon she is 97.8 with a pulse rate of 92, respiratory rate 17, blood pressure 144/61, O2 saturation is 100% on 2 L nasal cannula. General: This is a chronically ill- appearing, elderly female. She is lying in the bed, currently in no acute distress. HEENT: Atraumatic, normocephalic. Oral mucous membranes are pink and moist. Conjunctivae are pale. Neck: Supple. Trachea is midline. Cardiovascular: Heart rate and rhythm are regular. Normal sinus rhythm on the monitor. I did hear a systolic murmur. Respiratory: Lung sounds are clear to auscultation bilaterally. No work of breathing is noted. Abdomen: Soft, round, and nontender to palpation. Bowel sounds are active. Integumentary: Skin is warm and dry, but cool to the lower extremities with eschar noted to be covering the bilateral heels. The right heel is more dry and does not spread as much as the left heel, which spreads up the back of her posterior calf several centimeters. This area has some drainage noted with a foul odor which may be somewhat from the Dakin solution, I am not sure. But there is a lot of necrosis with some erythema surrounding the necrosis. Neurologic: She is awake, alert, oriented to person and place but not to time or situation. Extremities: She is able to move all 4 extremities but they are weak. Thank you for allowing us to see Ms. Velez. Dictated by BRIANNA Obrien for Eh Carmona MD cc: Eh Carmona MD [facility]
--- NOTE | 2019-06-24 18:11 | ECHO REPORT ---
ORDER DATE: 06/24/2019 MEASUREMENTS: 1. Septal thickness 1.0. 2. Left ventricular internal diameter in diastole 4.0. 3. Posterior wall thickness 1.0. 4. Left ventricular internal diameter in systole 2.7. 5. Aortic root 2.9. 6. Left atrium 3.4. SUMMARY: 1. Adequate quality study. 2. Very mild sclerosis of trileaflet and aortic valve demonstrated with normal aortic valve opening evident. The peak gradient across the aortic valve is 12 mmHg. There is mild thickening of posterior mitral leaflet. Mitral valve opening is normal. Tricuspid and pulmonic valves are without evidence of structural abnormality with trace tricuspid regurgitation. The aortic root is normal in size. 3. Normal left ventricular dimensions demonstrated. Estimated left ventricular ejection fraction appears to be at least 60%. No regional wall motion abnormalities are evident. Left atrium, right atrium, right ventricle are normal in size with normal right ventricular systolic function. 4. No pericardial effusion. 5. Appearance of inferior vena cava suggests normal central venous pressure. CONCLUSIONS: 1. Very mild aortic valve sclerosis without stenosis. 2. Mild thickening of posterior mitral leaflet with normally functioning mitral valve. 3. Normal left ventricular systolic function without regional wall motion abnormality evident. cc: MD Aidee Ribeiro PA
[2019-06-24] MEDS: REMERON PO SCH (21:41)
--- NOTE | 2019-06-25 03:58 | PROGRESS NOTE ---
DATE: 06/24/2019 SUBJECTIVE: The patient is resting comfortably in bed. She denies having any pain. She is afebrile at the moment. OBJECTIVE: Vital Signs: Temperature 97.6 degrees, blood pressure 121/60, heart rate 89, respirations 16, O2 saturations 100% on 2 L nasal cannula. General: This is a chronically ill- appearing, elderly female lying in bed in no acute distress. Head: Normocephalic, atraumatic. Heart: S1, S2 normal. Regular rate and rhythm. Lungs: Equal air entry bilaterally. No wheezing. No rales. Abdomen: Positive bowel sounds. Soft, nontender, nondistended. Extremities: The patient has a dressing applied to both feet. Neurologic: The patient is alert and oriented x4. LABS: White blood cell count 14, hemoglobin 7.1, hematocrit 28, platelets 376,000. Sodium 138, potassium 3.3, chloride 95, CO2 21, BUN 18, creatinine 2.6, glucose 210. Troponin 0.55. CRP 346. ASSESSMENT AND PLAN: 1. Suspected left calcaneal osteomyelitis. The patient is currently on broad- spectrum antibiotics. General Surgery has been consulted. Continue with wound care. is following. 2. Right heel necrosis and 2nd metatarsal osteomyelitis with necrosis. Continue with wound care as well as antibiotic therapy. Will await further recommendations from the surgeon. 3. Sepsis. Blood and wound cultures as well as the urine culture have been obtained. The patient is currently on broad-spectrum antibiotics. Infectious Disease is following. There is a possibility that the patient's tunneled catheter may be a source of infection as well. Will await the results of the culture and follow the patient's clinical course. 4. Chronic kidney disease stage 5D. Management as per Dr. Fitzgerald. 5. Anemia. Will check iron studies. 6. Suspected severe peripheral arterial disease. Will order arterial Dopplers. Will await further recommendations from the general surgeon. 7. Metabolic acidosis. The patient has an anion gap of 22. Will monitor the patient closely. 8. Diabetes mellitus type 2. Will restart the patient's long-acting insulin and cover her with sliding scale as well. 9. Elevated troponin. The patient has been seen by the search strategist. The patient is chest pain free and her electrocardiogram does not show anything acute. We will continue to monitor closely. Cardiology is following. 10. History of stroke. Aware. 11. Deep vein thrombosis prophylaxis. Will start the patient on heparin. cc: Renetta Pinto MD MTDD
[2019-06-25] MEDS ORDERED: HEPARIN IV PRN (07:13)
[2019-06-25] MEDS ORDERED: NS 2,000 ML MISC PRN (07:13)
[2019-06-25] MEDS ORDERED: TIGHT: 0.2 ML/HR FOR DIALYSIS MISC PRN (07:13)
--- NOTE | 2019-06-25 07:16 | EKG Report ---
Test Performed on : 06/25/2019 06:17:03 AM Test Reason : dyspnea Blood Pressure : / mmHG Vent. Rate : 090 BPM Atrial Rate : 090 BPM P-R Int : 166 ms QRS Dur : 096 ms QT Int : 372 ms P-R-T Axes : 053 024 049 degrees QTc Int : 455 ms Normal sinus rhythm. Nonspecific T wave abnormality Abnormal ECG When compared with ECG of 24-JUN-2019 09:13, (Unconfirmed) premature atrial complexes. are no longer present Nonspecific T wave abnormality no longer evident in Inferior leads Confirmed by Javon Lang MD ([id number]) on 06/25/2019 7:32:20 AM
[2019-06-25 07:17] LABS: IRON SATURATION 69 %; TIBC 72 ug/dL; TOTAL IRON 50 ug/dL (49-151); UNBOUND IRON 22 ug/dL (112-346)
[2019-06-25 07:28] LABS: ALBUMIN 2.2 g/dL (3.5-5.0); CALCIUM 8.5 mg/dL (8.8-10.2); CREATININE 3.9 mg/dL (0.5-0.9); PHOSPHORUS 3.7 mg/dL (2.7-4.5); POTASSIUM 3.7 mmol/L (3.5-5.1)
--- NOTE | 2019-06-25 07:33 | Diag Imaging Result Doc PS360 ---
EXAM: CHEST-1 VIEW HISTORY: dyspnea TECHNIQUE: Single view COMPARISON: 06/23/2019 FINDINGS: Poor inspiratory effort. Heart is mildly prominent. There are bilateral basilar infiltrates and/or atelectasis. Trace pleural fluid. No change in the right jugular portacatheter. IMPRESSION: Mild interval worsening. Electronically signed by Alan Gary 06/25/2019 7:31 AM
[2019-06-25 07:37] LABS: EOS# 0.05 X1000 (0.0-0.7); EOS% 0.5 % (0.0-10.0); HEMOGLOBIN 7.3 g/dL (12.0-16.0); IMM GRAN# 0.03 X1000 (0.0-0.04); IMM GRAN% 0.3 % (0.0-0.5); LYMPH# 1.17 X1000 (1.2-3.4); LYMPH% 11.3 % (20.5-51.1); MCH 28.9 PG (27-31); MCHC 28.1 g/dL (33-37); MCV 102.8 FL (81-99); MONO# 0.61 X1000 (0.11-0.59); MONO% 5.9 % (1.7-9.3); MPV 9.2 FL (7.4-10.4); NEUT# 8.46 X1000 (1.4-6.5); PLT 390 X1000 (130-400); RBC 2.53 XMIL (4.2-5.4); RDW 13.9 % (11.5-14.5); WBC 10.32 X1000 (4.8-10.8)
[2019-06-25 07:42] LABS: RETIC% 1.02 % (0.8-2.1); RETIC-HE 28.4 PG (28.2-36.6)
[2019-06-25] MEDS: APRESOLINE PO SCH ×3 (08:24→20:08)
[2019-06-25] MEDS: CATAPRES PO SCH ×3 (08:25→20:07)
[2019-06-25] MEDS: TYLENOL PO SCH (08:25)
[2019-06-25] MEDS: TRANDATE PO SCH ×2 (08:25→20:07)
[2019-06-25] MEDS: PHOSLO PO SCH ×3 (08:25→20:08)
[2019-06-25] MEDS: DAKIN S TOP SCH ×2 (08:25→20:08)
[2019-06-25] MEDS: NORVASC PO SCH ×2 (08:25→20:08)
[2019-06-25] MEDS: FOLIC ACID PO SCH (08:25)
[2019-06-25] MEDS: HEPARIN SUBQ SCH ×2 (08:29→20:07)
[2019-06-25 08:41] LABS: FERRITIN 3203 ng/mL (13-150)
--- NOTE | 2019-06-25 09:32 | NEPHROLOGY PROGRESS NOTE ---
DATE: 06/25/2019 Subjective: patient resting in bed with eyes closed aroused to verbal stimuli. Denies any uremic complaints. Voices no fever or chills. Objective: vitals. Temperature 98.3, pulse 84, respirations 15, blood pressure 126/58, O2 sat 100% on nasal cannula at 2 L. General: elderly black female lying in bed in no acute distress. HEENT: atraumatic, normocephalic. mucous membranes moist with white film on tongue. Trachea midline Skin: warm and dry. Neck: supple, 6cm JVD Cardiovascular:S1, S2, S4 with regular rate and rhythm and a soft systolic murmur. Respiratory: lungs clear bilaterally with equal excursion. Abdomen: obese, soft, nontender nondistended with bowel sounds present. : not inspected Extremities: no clubbing cyanosis or edema noted. Right tunnel Catheter noted. Dressing in place to left heel. Neurological: alert and oriented to person and place. Could not recall recent events. Labs: intake 200, output 0. Impression: Sepsis of unknown source. Noted to have osteomyelitis to bilateral heels and also pneumonia on chest X-ray. Blood, urine, and foot ulcer cultures still pending. Continues on Vancomycin and infectious disease has added 1 g of cefepime after each dialysis treatment. No current fever or chills. Chronic kidney disease 5D. She will receive her routine hemodialysis treatment today. Electrolytes and acid base balance. Stable. Anemia. Low but stable. Does not meet transfusion criteria. Blood pressure. Above target at times. No changes right now. cc: Benji Fitzgerald MD MTDD
[2019-06-25] MEDS ORDERED: VANCOMYCIN 1 GM/NS 1 GM/250 ML IVPB IV ONE (10:00)
--- NOTE | 2019-06-25 12:29 | INFECTIOUS DISEASE PROGRESS NO ---
DATE: 06/25/2019 PRESENT ILLNESS: The patient has bilateral feet infection. There is large necrotic area of both heels and on x-ray there is evidence of left heel erosion and right toe 2 erosion, both of which could be due to osteomyelitis. The patient also has on x-ray bibasilar infiltrates and/or atelectasis. The patient may have pneumonia. MEDICATIONS: The patient receives cefepime 1 g and vancomycin 1 g after each dialysis. PHYSICAL EXAMINATION: Vital Signs: Temperature is 98.8 degrees, pulse 89, respirations 16, blood pressure 132/55. General: This is a chronically ill-appearing, elderly female. She is in no acute distress. Head, eyes, ears, nose, and throat: She can hear my spoken words and see near objects. She does not have any white coating on her tongue. Neck: No stiffness. Thorax: Patient has a right-sided tunneled dialysis catheter. Lungs: Clear to auscultation. Cardiovascular: Heart rate is regular. Abdomen: Soft and nontender. Extremities: The patient's left foot has a large dressing on it. On the heel, there is a large eschar present. On the right foot, the patient has a large eschar on its heel as well. I did not see any drainage coming from the patient's toes. Neurologic: The patient is awake. She can move her extremities. There is no tremor. DIAGNOSTIC STUDIES: X-ray of the right foot shows erosions of toe 2 and x-ray of the patient's left foot shows erosion of the heel. Chest x-ray shows bibasilar infiltrates and/or atelectasis. Alkaline phosphatase is 170, creatinine is 3.9, GFR is 14. [place] [address], hemoglobin 7.3, and platelet count 390,000. ASSESSMENT AND PLAN: The patient has bilateral foot infection. There may well be osteomyelitis present and both heels have large eschars with an underlying infection. The patient also could have a bibasilar pneumonia versus bibasilar atelectasis or a combination of both. My plan is to continue cefepime and vancomycin after each dialysis pending culture reports. COMORBIDITIES: The patient is elderly. She has end-stage renal disease for which she is on hemodialysis. She has diabetes mellitus and chronic obstructive pulmonary disease and breast cancer. cc: Eh Carmona MD
[2019-06-25] MEDS ORDERED: MAXIPIME 1 GM in NS 50 ML IV ONE (17:00)
[2019-06-25] MEDS: REMERON PO SCH (20:07)
--- NOTE | 2019-06-25 20:12 | PROGRESS NOTE ---
DATE: 06/25/2019 SUBJECTIVE: The patient is resting comfortably in bed. She has no complaints. OBJECTIVE: Vital Signs: Temperature 98.7 degrees, blood pressure 129/55, heart rate 94, respirations 18, O2 saturations 100% on 2 L nasal cannula. General: This is a chronically ill- appearing elderly female lying in bed in no acute distress. Heart: S1, S2 normal. Tachycardic. Lungs: Equal air entry bilaterally. No wheezing. No rales. Abdomen: Positive bowel sounds. Soft, nontender, nondistended. Extremities: Both feet have clean dry dressing. Neurologic: The patient is alert and oriented x4. LABORATORIES: White blood cell count 10, hemoglobin 7.3, hematocrit 26, platelets 390,000. Sodium 138, potassium 3.7, chloride 98, CO2 25, BUN 29, creatinine 3.9, glucose 225. Albumin 2.2. Folate 37. Procalcitonin 5.5. Chest x-ray shows interval worsening of the bilateral basilar infiltrates. ASSESSMENT AND PLAN: 1. Bilateral lobe pneumonia. Continue with antibiotic therapy as directed by Dr. Carmona. 2. Suspected left calcaneal osteomyelitis. Continue with antibiotic therapy. 3. Right heel necrosis and 2nd metatarsal osteomyelitis with necrosis. Continue with wound care and antibiotic therapy. The cultures are growing gram-negative rods. We will await the identification of the organism. 4. Chronic kidney disease stage 5D. Continue with management as per Dr. Fitzgerald. 5. Anemia. The hemoglobin and hematocrit is lower today. 6. Diabetes mellitus type 2. Continue on the current insulin regimen. 7. Suspected severe peripheral arterial disease. The patient had arterial Dopplers done today. We will await the results of this study. General Surgery has been consulted. 8. Elevated troponin. Continue to monitor. Continue on the current cardiac medications. Cardiology is following. 9. History of stroke. Aware. The patient is currently bed bound. We will continue with frequent turns. 10. Hypertension. Controlled. 11. Deep vein thrombosis prophylaxis. Continue on heparin. cc: Renetta Pinto MD MTDD
[2019-06-25] MEDS ORDERED: HUMALOG SUBQ SCH (22:30)
[2019-06-25] MEDS: HUMALOG SUBQ SCH (23:55)
[2019-06-26] MEDS: HUMALOG SUBQ SCH ×6 (04:29→21:19)
[2019-06-26 06:04] LABS: BASO# 0.01 X1000 (0.0-0.2); BASO% 0.1 % (0.0-0.8); EOS# 0.05 X1000 (0.0-0.7); EOS% 0.5 % (0.0-10.0); HEMATOCRIT 25.9 % (37.0-47.0); HEMOGLOBIN 7.2 g/dL (12.0-16.0); IMM GRAN# 0.04 X1000 (0.0-0.04); IMM GRAN% 0.4 % (0.0-0.5); LYMPH# 1.02 X1000 (1.2-3.4); LYMPH% 9.9 % (20.5-51.1); MCH 28.9 PG (27-31); MCHC 27.8 g/dL (33-37); MONO# 0.45 X1000 (0.11-0.59); MONO% 4.3 % (1.7-9.3); MPV 8.9 FL (7.4-10.4); NEUT# 8.78 X1000 (1.4-6.5); NEUT% 84.8 % (42.2-75.2); PLT 406 X1000 (130-400); RBC 2.49 XMIL (4.2-5.4); RDW 13.9 % (11.5-14.5); WBC 10.35 X1000 (4.8-10.8)
[2019-06-26 06:26] LABS: ALBUMIN 2.3 g/dL (3.5-5.0); CALCIUM 8.8 mg/dL (8.8-10.2); CREATININE 2.3 mg/dL (0.5-0.9); PHOSPHORUS 2.1 mg/dL (2.7-4.5); POTASSIUM 4.1 mmol/L (3.5-5.1)
--- NOTE | 2019-06-26 06:58 | VASCULAR LAB ---
PROCEDURE NAME: Arterial Bilateral Legs - 06/25/2019 DATE OF STUDY: 06/25/2019. REFERRING PHYSICIAN: Renetta Pinto MD READING PHYSICIAN: Dr. Burns. LEAN ENGINEER: Billy. INDICATIONS: Nonhealing heel ulcer on the left. FINDINGS: All of the segmental pressures in the legs were very elevated indicating noncompressible calcified vessels and rendering the JOHN useless. Pulse volume waveforms showed pulsatile flow at the low thigh, calf, ankle and digital level. INTERPRETATION: There is no obvious significant stenosis on this limited study, but if there is further clinical concern, then I would recommend CT angiography of the aorta with lower extremity runoff. cc: MD Renetta Epperson MD
--- NOTE | 2019-06-26 07:59 | NEPHROLOGY PROGRESS NOTE ---
DATE: 06/26/2019 Subjective: patient resting in bed with eyes closed aroused to verbal stimuli. Denies any uremic complaints. Voices no fever or chills. Objective: vitals. Temperature 98.2, pulse 96, respirations 17, blood pressure 135/52, O2 sat 100% on room air. General: elderly black female lying in bed in no acute distress. HEENT: atraumatic, normocephalic. mucous membranes moist. Trachea midline Skin: warm and dry. Neck: supple, 6cm JVD Cardiovascular: S1, S2 with regular rate and rhythm and a decrescendo systolic murmur grade 2/6 heard best at left sternal border. Respiratory: lungs clear bilaterally with equal excursion. Abdomen: obese, soft, nontender nondistended with bowel sounds present. : not inspected Extremities: no clubbing cyanosis or edema noted. Right tunnel Catheter noted. Dressing in place to left heel. Neurological: alert and oriented to person and place. Labs: Intake 400, output 1000 per Dialysis. WBC 10.35, RBC 2.49, hemoglobin 7.2, hematocrit 25.9, platelet count 406, sodium 137, potassium 4.1, chloride 98, carbon dioxide 23, anion gap 16, BUN 18, creatinine 2.3, calcium 8.8, phosphorus 2.1, albumin 2.3. Impression: Altered mental status likely due to sepsis of unknown origin. Improved. Osteomyelitis to both heels, spoke with patient about possible amputation. Staphylococcus aureus noted in urine culture. Blood and foot ulcer cultures still pending. Remains on vancomycin and cefepime. Chronic kidney disease 5D. She had her routine hemodialysis treatment yesterday with 1000 mL output. Continue current plan. Electrolytes and acid base balance. Stable. Anemia. Low. Plan to transfuse packed red blood cells tomorrow with dialysis treatment. Blood pressure. In target. cc: MD PANCHO De Anda
[2019-06-26] MEDS: CATAPRES PO SCH ×2 (09:05→15:02)
[2019-06-26] MEDS: PHOSLO PO SCH ×3 (09:05→16:38)
[2019-06-26] MEDS: NORVASC PO SCH ×2 (09:05→22:20)
[2019-06-26] MEDS: TRANDATE PO SCH ×2 (09:05→22:20)
[2019-06-26] MEDS: APRESOLINE PO SCH ×2 (09:05→15:02)
[2019-06-26] MEDS: FOLIC ACID PO SCH (09:05)
[2019-06-26] MEDS: TYLENOL PO SCH (09:06)
[2019-06-26] MEDS: DAKIN S TOP SCH ×2 (09:06→22:45)
[2019-06-26] MEDS: HEPARIN SUBQ SCH ×2 (09:06→22:20)
[2019-06-26] MEDS ORDERED: DIPRIVAN 1% ONE ×2 (10:38→11:54)
--- NOTE | 2019-06-26 10:50 | CONSULTATION ---
DATE OF CONSULTATION: 06/26/2019 HISTORY OF PRESENT ILLNESS: Ms. Saige Velez is a 68-year-old, black female who has end-stage renal disease and requires chronic hemodialysis. She is also a diabetic. She is a resident at [facility] and has developed bilateral heel pressure ulcers with eschar. She was admitted through our emergency department on 06/23/2019 with a fever. There is some purulent drainage from the left heel and we were asked to evaluate her. Dr. Burns performed a right toe amputation in February which has healed. Foot x-ray suggests possible osteomyelitis of the calcaneus, maybe involving both heels. She is on IV antibiotics and plain films suggest calcification of her arteries. PAST MEDICAL HISTORY: Diabetes mellitus type 2, history of breast cancer, hysterectomy, end-stage renal disease requiring chronic hemodialysis, right second toe amputation in February of this year per Dr. Burns, a right-sided PermCath per Dr. Iglesias. She has a history of hypertension, COPD, dyslipidemia, a history of stroke. MEDICATIONS: Dulcolax, amlodipine, PhosLo, clonidine, folic acid, hydralazine, insulin, labetalol, Reglan, Zofran, tramadol, and mirtazapine. ALLERGIES: No known drug allergies. SOCIAL HISTORY: She lives at [facility]. She is . She does not smoke. She is bedbound with minimal functional capacity. FAMILY HISTORY: The family history was reviewed but was noncontributory. PHYSICAL EXAMINATION: On exam, Ms. Velez is in bed on our cardiac floor. She is awake, cooperative. Responds to pain. She has no jaundice. No oral lesions. No cervical or supraclavicular lymphadenopathy. Her heart has regular rate. Lungs were clear to auscultation and percussion bilaterally. Abdomen was soft and nontender, without palpable mass. No costovertebral tenderness. Rectal and vaginal exams were not performed. She does have palpable femoral pulses and I could feel the dorsalis pedis pulse involving both feet. She has dry eschar involving her right heel, consistent with a pressure ulcer, right heel. The left heel also has an eschar but it is soupy underneath with some purulent drainage. There is no significant cellulitis involving either leg. There is no significant swelling involving either leg. Neurologically, I could not appreciate any focal deficit. LABORATORY DATA: Plain films suggest calcified arteries. Noninvasive vascular study showed pulse waveforms throughout both lower extremities but pressures were high, consistent with noncompressible arteries. I can palpate the dorsalis pedis pulse in both feet. She does have purulent drainage under the eschar of the left heel. The right heel eschar is dry. IMPRESSION: Peripheral vascular disease but palpable pedal pulses bilaterally with pressure ulcers involving both heels. Is appears that the left heel eschar has a soft tissue infection. PLAN: These eschars probably go down to the calcaneus. I do not feel that we can improve blood flow to her feet bilaterally. She does have palpable pedal pulses. I feel that the eschar involving the left heel should be debrided so that the infection can drain and then it is probably reasonable to try to treat her pressure ulcers conservatively for as long as possible because she will eventually require amputation. We will schedule her debridement around her hemodialysis. cc: Samantha Peuntes MD
[2019-06-26] MEDS ORDERED: FENTANYL ONE (11:32)
[2019-06-26] MEDS ORDERED: XYLOCAINE-MPF 2% ONE (11:34)
[2019-06-26] MEDS ORDERED: ZOFRAN ONE (11:34)
--- NOTE | 2019-06-26 12:19 | OPERATIVE NOTE ---
PROCEDURE DATE: 06/23/2019 PREOPERATIVE DIAGNOSES: 1. Left heel pressure ulcer with necrosis and soft tissue infection. 2. Osteomyelitis of the left calcaneus. 3. End-stage renal disease requiring chronic hemodialysis. 4. Diabetes. POSTOPERATIVE DIAGNOSES: 1. Left heel pressure ulcer with necrosis and soft tissue infection. 2. Osteomyelitis of the left calcaneus. 3. End-stage renal disease requiring chronic hemodialysis. 4. Diabetes. PRINCIPLE PROCEDURE PERFORMED: Debridement of necrotic skin, subcutaneous tissue, muscle, tendon, and bone, left heel. SURGEON: Samantha Puentes MD. ANESTHESIA: General using an LMA. ESTIMATED BLOOD LOSS: 10 mL. DRAINS: None. INDICATIONS: Saige Velez is a 68-year-old, black female who has end-stage renal disease and requires chronic hemodialysis. She is a resident at [facility]. She has bilateral pressure ulcers involving her heels. The one involving her right heel was dry without any evidence of purulence. The one involving her left heel had purulence. Debridement was recommended. She is on IV antibiotics. FINDINGS: She had necrotic soft tissue all the way to the calcaneus. The calcaneus was obviously involved and part of it was debrided away. She will need a left lower extremity amputation. DESCRIPTION OF PROCEDURE: The patient was brought to the operating room, placed supine, received IV medications, and was ventilated using LMA. Her left heel and foot were prepped and draped within a sterile field. I used a 10 blade scalpel to debride all the necrotic tissue away from the left heel which included the skin, subcutaneous tissue, muscle, tendon including the Achilles tendon, and even part of the calcaneus. There was soft tissue infection. Cultures were taken and it became clear that the only way we would get a healthy wound is for her to undergo an amputation, either below or above the knee. Once we were sure that all the purulence was drained, the bone was at the base of our wound of the remaining calcaneus. We thoroughly irrigated the wound and then dressed it with Vashe solution and a Kerlix. Plans are for her to go the recovery room and then back to her room on the floor. We will reestablish her diet and her medications. She is due for dialysis tomorrow and we can discuss with the patient's family about amputation. cc: Samantha Puentes MD
--- NOTE | 2019-06-26 15:02 | Diag Imaging Result Doc PS360 ---
EXAM: 3 PHASE BONE SCAN HISTORY: osteomyelitis of feet TECHNIQUE: Nuclear medicine three-phase bone scan COMPARISON: None. FINDINGS: 30.8 mCi MDP administered. There is increased activity in the left ankle and foot compared to the right on the immediate blood flow images. This persists on the five, 10, and 15 minute delayed images. Decreased activity in the distal right foot suggesting a prior surgical excision. There is increased activity in the right foot at the base of this area likely at the second or third metatarsal phalangeal joint. Activity is actually slightly less pronounced on the delayed images. IMPRESSION: Abnormal increased activity in the left ankle and proximal foot likely related to cellulitis. Electronically signed by Alan Gary 06/26/2019 3:00 PM
--- NOTE | 2019-06-26 15:05 | PROGRESS NOTE ---
DATE: 06/26/2019 SUBJECTIVE: The patient is resting comfortably in bed. No acute events noted overnight. OBJECTIVE: Vital Signs: Temperature 98.6 degrees, blood pressure 136/59, heart rate 94, respirations 16, and O2 saturations 100% on 2 L nasal cannula. General: This is a chronically ill-appearing elderly female lying in bed in no acute distress. Heart: S1, S2 normal. Regular rate and rhythm. Lungs: Equal air entry bilaterally. No wheezing. No rales. Abdomen: Positive bowel sounds. Soft, nontender, and nondistended. Extremities: The left heel was wrapped in a clean dry dressing. No edema noted. Neurologic: The patient is alert and oriented x3. LABORATORY: White blood cell count 10, hemoglobin 7.2, hematocrit 25 and platelets 406,000. Sodium 137, potassium 4.1, chloride 98, CO2 23, BUN 18, creatinine 2.3, and blood glucose 160. ASSESSMENT: 1. Bilateral lobe pneumonia. Continue with antibiotic therapy and antibiotics. 2. Left calcaneus osteomyelitis secondary to Proteus. The patient is status post extensive debridement. Amputation has been recommended by the general surgeon. We will continue with antibiotic therapy, and await further decisions by the patient and the family. 3. Right foot 2nd metatarsal osteomyelitis. Continue wound care and antibiotic therapy. 4. Chronic kidney disease stage 5D. Management as per Dr. Fitzgerald. 5. Anemia. The patient's hemoglobin and hematocrit is lower today. She will likely undergo a transfusion tomorrow during dialysis. 6. Diabetes mellitus type 2. Continue with the current insulin regimen. 7. Severe peripheral arterial disease. Aware. 8. Elevated troponin. Continue the current cardiac medications. The patient denies having any chest pain. 9. History of stroke. Aware. 10. Hypertension. Controlled. 11. DVT prophylaxis. Continue on heparin. cc: Renetta Pinto MD MTDD
[2019-06-26] MEDS: CULTURELLE PO SCH (22:20)
[2019-06-26] MEDS: REMERON PO SCH (22:21)
[2019-06-27] MEDS: CATAPRES PO SCH ×4 (00:27→20:31)
[2019-06-27] MEDS: HUMALOG SUBQ SCH ×6 (00:33→20:32)
[2019-06-27] MEDS: APRESOLINE PO SCH ×3 (04:43→20:28)
[2019-06-27 05:27] LABS: BASO# 0.01 X1000 (0.0-0.2); BASO% 0.1 % (0.0-0.8); EOS# 0.03 X1000 (0.0-0.7); EOS% 0.3 % (0.0-10.0); HEMATOCRIT 26.1 % (37.0-47.0); HEMOGLOBIN 7.2 g/dL (12.0-16.0); IMM GRAN# 0.06 X1000 (0.0-0.04); IMM GRAN% 0.5 % (0.0-0.5); LYMPH# 1.08 X1000 (1.2-3.4); LYMPH% 9.4 % (20.5-51.1); MCH 28.8 PG (27-31); MCHC 27.6 g/dL (33-37); MCV 104.4 FL (81-99); MONO# 0.71 X1000 (0.11-0.59); MONO% 6.2 % (1.7-9.3); NEUT# 9.54 X1000 (1.4-6.5); NEUT% 83.5 % (42.2-75.2); PLT 365 X1000 (130-400); RDW 13.9 % (11.5-14.5); WBC 11.43 X1000 (4.8-10.8)
[2019-06-27 05:46] LABS: ALBUMIN 2.2 g/dL (3.5-5.0); CREATININE 3.5 mg/dL (0.5-0.9); POTASSIUM 4.6 mmol/L (3.5-5.1)
[2019-06-27] MEDS ORDERED: HEPARIN IV PRN (07:55)
[2019-06-27] MEDS ORDERED: TIGHT: 0.2 ML/HR FOR DIALYSIS MISC PRN (07:55)
[2019-06-27] MEDS ORDERED: NS 2,000 ML MISC PRN (07:55)
--- NOTE | 2019-06-27 08:05 | INFECTIOUS DISEASE PROGRESS NO ---
DATE: 06/27/2019 PRESENT ILLNESS: The patient has an infection of the left heel. The infection went down to the calcaneus; therefore, she has osteomyelitis of the heel. The patient has an infection of the right heel also. Finally, the patient has methicillin-resistant Staphylococcus aureus urinary tract infection. Both of the patient's heels are infected with Proteus. MEDICATIONS: The patient receives cefepime and vancomycin after each dialysis. I have discontinued cefepime and instead put in cefazolin in the dose of 1 gram IV after each dialysis. PHYSICAL EXAMINATION: Vital Signs: Temperature is 98.6 degrees, pulse 100 respirations 24, blood pressure is 142/58. General: This is an ill-appearing elderly female. She is in no acute distress. Head/Eyes/Ears/Nose/Throat: She can hear my spoken words and see near objects. She does not have any white patches in her mouth. Neck: No pain with movement. Thorax: The patient has a right-sided tunneled dialysis catheter in place. The site is not swollen or purulent. Lungs: Clear to auscultation. Cardiovascular: Heart rate is regular. Abdomen: Soft and nontender. I removed the dressing from the left heel. This was debrided by Dr. Puentes. The left heel tissue is necrotic and devitalized. The right heel has a large dry black eschar on it. Neurologic: The patient is awake. She can move her extremities. There is no tremor. LABORATORY AND X-RAY: The patient's CBC shows a white count of 11,430, hemoglobin 7.2, platelet count 365,000. Creatinine is 3.5. GFR is 16. IgA is 399, IgG is 1801. The patient's left heel is growing a gram-negative jacklyn, which most likely will turntable engineer to be Proteus. The right heel also is growing out Proteus. Urine is growing methicillin-resistant Staphylococcus aureus. There is no new radiographic study for today. ASSESSMENT AND PLAN: The patient has bilateral foot infections with osteomyelitis present in the left heel. She also has methicillin-resistant Staphylococcus aureus urinary tract infection. My plan is to treat the patient with vancomycin 1 gram after each dialysis and cefazolin 1 gram IV after each dialysis. I think that it is going to be very unlikely that we will be able to clear the patient of her heel infections, and I think the only way that she can get over the infection would be with amputation of both legs, and I would suggest if that is done that they should be [id number] amputations rather than [id number]. The patient did tell me that she has not been able to walk for over a year. COMORBIDITIES: The patient is elderly. She has end-stage renal disease, for which she is on hemodialysis. She also has diabetes mellitus, chronic obstructive pulmonary disease, and breast cancer. cc: Eh Carmona MD MTDD
[2019-06-27] MEDS ORDERED: NS 500 ML IV ONE (10:19)
[2019-06-27] MEDS: PHOSLO PO SCH ×3 (10:51→17:59)
--- NOTE | 2019-06-27 11:29 | PROGRESS NOTE ---
DATE: 06/27/2019 SUBJECTIVE: Mr. Velez is now postop day 1 from debridement of her left heel. She will require an amputation. She is on dialysis today. We will have to look towards doing that next week. I would perform daily dressing changes left heel with wash and Kerlix. Her right heel also has a pressure ulcer, but is dry without evidence of purulence underneath it. She needs to keep her weight off the heel. cc: Samantha Puentes MD
--- NOTE | 2019-06-27 13:52 | NEPHROLOGY PROGRESS NOTE ---
DATE: 06/27/2019 SUBJECTIVE: She has some discomfort that was alleviated by change of position. No nausea or vomiting. No shortness of breath. OBJECTIVE: Vital Signs: Blood pressure 139/54, heart rate 100, respirations 14, afebrile. General: No acute distress. Skin: Warm and dry. Neck: Neck veins are not distended. Heart: Regular. No gallops. Lungs: Equal. No crackles. Abdomen: Soft, nontender. Bowel sounds present. Extremities: No edema, clubbing, or cyanosis. IMPRESSION: Chronic kidney disease 5D. She will have her routine dialysis treatment today. 1 to 2 L ultrafiltration. Two potassium baths. Electrolytes/acid base in target. She will need 1 unit packed red blood cells during dialysis today. cc: Benji Fitzgerald MD
[2019-06-27] MEDS: CULTURELLE PO SCH ×2 (16:24→20:29)
[2019-06-27] MEDS: HEPARIN SUBQ SCH ×2 (16:25→20:30)
[2019-06-27] MEDS: NORVASC PO SCH ×2 (16:28→20:27)
[2019-06-27] MEDS: TRANDATE PO SCH ×2 (16:29→20:27)
[2019-06-27] MEDS: TYLENOL PO PRN (16:31)
[2019-06-27] MEDS: FOLIC ACID PO SCH (16:34)
[2019-06-27] MEDS ORDERED: KEFZOL 1 GM/D5W 1 GM/50 ML IVPB IV ONE (17:00)
[2019-06-27] MEDS ORDERED: VANCOMYCIN 1 GM/NS 1 GM/250 ML IVPB IV ONE (17:00)
[2019-06-27] MEDS ORDERED: MAXIPIME 1 GM in NS 50 ML IV ONE (17:00)
--- NOTE | 2019-06-27 18:03 | PROGRESS NOTE ---
DATE: 06/27/2019 SUBJECTIVE: The patient is resting comfortably in bed. No acute events noted overnight. OBJECTIVE: Vital Signs: Temperature 98.2 degrees, blood pressure 162/84, heart rate 117, respirations 16, O2 saturation 96% on 2 L nasal cannula. General: This is an elderly female lying in bed in no acute distress. Heart: S1, S2 normal. Tachycardic. Lungs: Equal air entry bilaterally. Diminished breath sounds at the bases. Abdomen: Positive bowel sounds. Soft, nontender, nondistended. Extremities: No edema. No cyanosis. Neurologic: The patient is alert and oriented x3. LABORATORY DATA: White blood cell count 11, hemoglobin 7.2, hematocrit 26, platelets 365,000. Sodium 138, potassium 4.6, chloride 99, CO2 24, BUN 25, creatinine 3.5, glucose 275. ASSESSMENT AND PLAN: 1. Bilateral lower lobe pneumonia. The patient has been switched to Kefzol by Dr. Carmona, which the patient will receive after each dialysis session. 2. Left calcaneus osteomyelitis status post debridement. Continue with wound care and antibiotic therapy. Amputation is planned for next week. 3. Urinary tract infection secondary to MRSA. Continue on antibiotic therapy. 4. Chronic kidney disease stage 5D. The patient is due for dialysis today. 5. Diabetes mellitus type 2. Continue on insulin therapy. 6. Hypertension. Continue on the current antihypertensive regimen. 7. Anemia. The patient will receive a blood transfusion today during dialysis. 8. Severe peripheral arterial disease. Aware. 9. Elevated troponin. Continue on the current cardiac medications. 10. History of stroke. Aware. 11. Deep vein thrombosis prophylaxis. Continue on heparin. cc: Renetta Pinto MD [facility]
[2019-06-27] MEDS: KEFZOL 1 GM/D5W 1 GM/50 ML IVPB IV SCH (20:27)
[2019-06-27] MEDS: REMERON PO SCH (20:28)
[2019-06-28] MEDS: HUMALOG SUBQ SCH ×6 (01:39→22:12)
[2019-06-28 06:16] LABS: BASO# 0.01 X1000 (0.0-0.2); BASO% 0.1 % (0.0-0.8); EOS# 0.02 X1000 (0.0-0.7); EOS% 0.2 % (0.0-10.0); HEMATOCRIT 28.9 % (37.0-47.0); HEMOGLOBIN 8.1 g/dL (12.0-16.0); IMM GRAN# 0.11 X1000 (0.0-0.04); IMM GRAN% 0.9 % (0.0-0.5); LYMPH# 1.16 X1000 (1.2-3.4); LYMPH% 9.2 % (20.5-51.1); MCH 28.5 PG (27-31); MCV 101.8 FL (81-99); MONO% 4.8 % (1.7-9.3); MPV 8.9 FL (7.4-10.4); NEUT# 10.65 X1000 (1.4-6.5); NEUT% 84.8 % (42.2-75.2); PLT 320 X1000 (130-400); RBC 2.84 XMIL (4.2-5.4); RDW 15.9 % (11.5-14.5); WBC 12.55 X1000 (4.8-10.8)
[2019-06-28 06:23] LABS: ALBUMIN 2.4 g/dL (3.5-5.0); CALCIUM 8.8 mg/dL (8.8-10.2); PHOSPHORUS 2.4 mg/dL (2.7-4.5); POTASSIUM 3.7 mmol/L (3.5-5.1)
[2019-06-28] MEDS: NORVASC PO SCH ×2 (09:47→20:28)
[2019-06-28] MEDS: HEPARIN SUBQ SCH ×2 (09:47→20:29)
[2019-06-28] MEDS: CATAPRES PO SCH ×3 (09:47→20:29)
[2019-06-28] MEDS: CULTURELLE PO SCH ×2 (09:47→20:28)
[2019-06-28] MEDS: PHOSLO PO SCH ×3 (09:47→17:49)
[2019-06-28] MEDS: FOLIC ACID PO SCH (09:47)
[2019-06-28] MEDS: APRESOLINE PO SCH ×3 (09:47→20:29)
[2019-06-28] MEDS: TRANDATE PO SCH ×2 (09:48→20:28)
--- NOTE | 2019-06-28 11:01 | GENERAL SURGERY PROGRESS NOTE ---
DATE: 06/28/2019 SUBJECTIVE: Patient seems to be doing okay. She had no complaints. OBJECTIVE: Vital Signs: Patient is currently afebrile. Her vital signs stable. General: No acute distress. HEENT: Normocephalic, atraumatic. Pupils equal, round, reactive to light. Mucous membranes moist oropharynx benign. Neck: Supple. Trachea midline. Cardiovascular: Somewhat tachycardic. Lungs: Grossly clear. Abdomen: Soft nondistended. Extremities: Dressing noted to her left heel. Vascular: All extremities perfused. Neurologic: Grossly intact. Skin: Wound as noted above. LABORATORY: White blood count is 12, hematocrit 28. Remainder of labs reviewed. ASSESSMENT AND PLAN: A 68-year-old female with chronic wound to her left heel: 1. Chronic wound, left heel. At this time, we will continue local wound care. 2. Per Dr. Puentes note she is likely going to require some degree of an amputation but will defer to him to have discussion with her as to when. cc: Jose Iglesias MD
--- NOTE | 2019-06-28 17:24 | PROGRESS NOTE ---
DATE: 06/28/2019 SUBJECTIVE: The patient is resting comfortably in bed. She ate all of her breakfast this morning. OBJECTIVE: Vital Signs: Temperature 98.7, blood pressure 127/52, heart rate 103, respirations 12, O2 saturation 100% on 2 L nasal cannula. General: This is a ltngyinhcta-riw-gqqwtsvwy elderly female lying comfortably in bed in no acute distress. Heart: S1, S2 normal. Tachycardic. Lungs: Equal air entry bilaterally. No wheezing. No rales. Abdomen: Positive bowel sounds. Soft, nontender, nondistended. Extremities: The patient has a large area of necrosis on her right heel. The left heel is wrapped in a clean dry dressing. LABS: White blood cell count 12, hemoglobin 8.1, hematocrit 28, platelets 320. Sodium 136, BUN 16, creatinine 2, glucose 230. Albumin 2.4. ASSESSMENT AND PLAN: 1. Bilateral lobe pneumonia. We will continue on the current antibiotic regimen. We will order a chest x-ray to be done tomorrow. 2. Left calcaneus osteomyelitis, status post debridement. Continue with wound care and antibiotic therapy. Amputation is planned for this coming week. 3. Urinary tract infection secondary to methicillin-resistant Staphylococcus aureus. Continue with antibiotic therapy. 4. Chronic kidney disease stage 5D. Management as per Dr. Fitzgerald. 5. Diabetes mellitus type 2, uncontrolled. We will adjust the patient's insulin regimen. 6. Anemia of chronic disease. Stable. The patient received a blood transfusion yesterday. 7. Severe peripheral arterial disease. Aware. 8. History of stroke. Aware. 9. Elevated troponin. Continue with the current cardiac medications. 10. Hypertension. Continue on the current antihypertensive regimen. 11. Deep vein thrombosis prophylaxis. Continue on heparin. cc: Renetta Pinto MD MTDPatti
[2019-06-28] MEDS: REMERON PO SCH (20:28)
[2019-06-29] MEDS: HUMALOG SUBQ SCH ×6 (00:24→20:47)
[2019-06-29 05:24] LABS: BASO# 0.02 X1000 (0.0-0.2); BASO% 0.2 % (0.0-0.8); EOS# 0.04 X1000 (0.0-0.7); EOS% 0.4 % (0.0-10.0); HEMATOCRIT 27.8 % (37.0-47.0); HEMOGLOBIN 7.9 g/dL (12.0-16.0); IMM GRAN# 0.13 X1000 (0.0-0.04); IMM GRAN% 1.1 % (0.0-0.5); LYMPH# 1.36 X1000 (1.2-3.4); MCH 28.7 PG (27-31); MCHC 28.4 g/dL (33-37); MCV 101.1 FL (81-99); MONO# 0.72 X1000 (0.11-0.59); MONO% 6.4 % (1.7-9.3); NEUT# 9.04 X1000 (1.4-6.5); NEUT% 79.9 % (42.2-75.2); PLT 341 X1000 (130-400); RBC 2.75 XMIL (4.2-5.4); RDW 15.4 % (11.5-14.5); WBC 11.31 X1000 (4.8-10.8)
[2019-06-29 05:27] LABS: ALBUMIN 2.1 g/dL (3.5-5.0); CALCIUM 9.3 mg/dL (8.8-10.2); PHOSPHORUS 2.4 mg/dL (2.7-4.5); POTASSIUM 4.1 mmol/L (3.5-5.1)
--- NOTE | 2019-06-29 07:12 | Diag Imaging Result Doc PS360 ---
EXAM: CHEST-1 VIEW 06/29/2019 HISTORY: pneumonia TECHNIQUE: AP portable at 0535 COMMENT: There is atelectasis versus pneumonia in both lung bases. The right hemidiaphragm is elevated as it was on 06/25/2019. The lungs are actually slightly better expanded than on the previous study. IMPRESSION: Bibasilar atelectasis versus pneumonia. Electronically signed by Roberto Dugan 06/29/2019 7:09 AM
[2019-06-29] MEDS: NORVASC PO SCH ×2 (09:12→20:48)
[2019-06-29] MEDS: FOLIC ACID PO SCH (09:12)
[2019-06-29] MEDS: CULTURELLE PO SCH ×2 (09:12→20:48)
[2019-06-29] MEDS: PHOSLO PO SCH ×3 (09:12→17:03)
[2019-06-29] MEDS: APRESOLINE PO SCH ×3 (09:13→20:48)
[2019-06-29] MEDS: TRANDATE PO SCH ×2 (09:13→20:48)
[2019-06-29] MEDS: HEPARIN SUBQ SCH ×2 (09:13→20:48)
[2019-06-29] MEDS: CATAPRES PO SCH ×3 (09:13→20:48)
--- NOTE | 2019-06-29 17:57 | PROGRESS NOTE ---
DATE: 06/29/2019 SUBJECTIVE: The patient is resting comfortably in bed. No acute events noted overnight. She has not had a bowel movement in 3 days. OBJECTIVE: Vital Signs: Temperature 98.9 degrees, blood pressure 133/56, heart rate 101, respirations 12, O2 saturations 100% on 2 L nasal cannula. General: This is a chronically ill- appearing elderly female lying in bed in no acute distress. Heart: S1, S2. Normal. Regular rate and rhythm. Lungs: Equal air entry bilaterally. No wheezing. No rales. No crackles. Abdomen: Positive bowel sounds. Soft, nontender, nondistended. Extremities: The left foot is wrapped in a clean dry dressing. Neurologic: The patient is alert and oriented x3. LABS: White blood cell count 11, hemoglobin 7.9, hematocrit 27, platelets 341,000. Sodium 138, potassium 4.1, chloride 98, CO2 of 25, BUN 24, creatinine 3, glucose 184. ASSESSMENT AND PLAN: 1. Bilateral lobe pneumonia. Continue with the current antibiotic regimen after each dialysis session as scheduled by Dr. Carmona. 2. Left calcaneus osteomyelitis, status post debridement. Continue with wound care and antibiotic therapy. General Surgery is following for possible amputation. 3. Urinary tract infection. Continue with antibiotic therapy. 4. Chronic kidney disease stage 5D. Management as per the government affairs specialist. 5. Severe peripheral arterial disease. Aware. 6. Uncontrolled diabetes mellitus type 2. We will start the patient on Levemir 20 units twice a day. Continue with sliding scale insulin. 7. History of stroke. Aware. 8. Hypertension. Continue on the current antihypertensive regimen. 9. Anemia of chronic disease. The hemoglobin and hematocrit is low but stable. 10. Deep vein thrombosis prophylaxis. Continue on heparin. cc: Renetta Pinto MD
[2019-06-29] MEDS: REMERON PO SCH (20:48)
[2019-06-29] MEDS ORDERED: INSULIN PEN NEEDLES ONE (20:58)
[2019-06-29] MEDS ORDERED: LEVEMIR SUBQ SCH (21:00)
[2019-06-30] MEDS: HUMALOG SUBQ SCH ×8 (01:31→23:21)
[2019-06-30 05:27] LABS: HEMATOCRIT 26.3 % (37.0-47.0); HEMOGLOBIN 7.6 g/dL (12.0-16.0); MCHC 28.9 g/dL (33-37); MCV 100.4 FL (81-99); MPV 8.7 FL (7.4-10.4); RBC 2.62 XMIL (4.2-5.4); RDW 14.9 % (11.5-14.5); WBC 9.16 X1000 (4.8-10.8)
[2019-06-30 05:44] LABS: CREATININE 3.7 mg/dL (0.5-0.9); PHOSPHORUS 1.9 mg/dL (2.7-4.5)
--- NOTE | 2019-06-30 07:28 | INFECTIOUS DISEASE PROGRESS NO ---
DATE: 06/30/2019 PRESENT ILLNESS: The patient has left heel osteomyelitis. She also has an infected right heel with a large eschar on it. Also, she has a methicillin-resistant Staph aureus urinary tract infection and just today I noticed she has oral candidiasis. Also, on the latest chest x-ray, there is bibasilar pneumonia versus atelectasis. MEDICATIONS: The patient receives Ancef and vancomycin after each dialysis. This is day #3 of cefepime and then Ancef and day #6 of vancomycin. PHYSICAL EXAMINATION: Vital Signs: Temperature is 99.2 degrees, pulse 97, respirations 14, blood pressure is 138/55. General: This is an ill-appearing elderly female. She is in no acute distress. HEENT: Patient has a white coating on her tongue. She can hear my spoken words and see near objects. Neck: No pain with movement. Thorax: The patient has a right-sided tunneled dialysis catheter in place. The site is not swollen or tender. Lungs: Clear to auscultation. Cardiovascular: She has runs of being regular but at other times it is irregular and on the recording of the patient's heart rate, it appears that she has some premature beats which causes it to sound like she has an irregular heart rate. Abdomen: Soft and nontender. Extremities: The right heel has a large, black, dry eschar. The left heel has an eschar and also a large area of devitalized tissue. Neurologic: The patient is awake. She can move her extremities. There is no tremor. She can hear my spoken words and see near objects. LAB AND X-RAY: CBC shows a white count of 9160, hemoglobin 7.6, platelet count 298,000. Creatinine is 3.7, GFR is 15. Urine grew methicillin-resistant Staph aureus and the patient's heels have grown Proteus. ASSESSMENT AND PLAN: The patient has bilateral heel infections with osteomyelitis on the left heel. I doubt that antibiotic treatment and debridement is going to cure her infection. For now, I will continue the patient's current antibiotics. As regarding the patient's urinary tract infection, she is on vancomycin which is given as a 1 g dose after each dialysis. The patient's heel infections get Ancef 1 g IV after dialysis also. Today it appears that the patient has oral candidiasis and, as such, I have started her on nystatin swish and swallow. As regarding the patient's possible bibasilar pneumonia, I have ordered a procalcitonin level and for now I will continue the antibiotics that she is on. COMORBIDITIES: The patient is elderly. She has end-stage renal disease and she is on hemodialysis. She also has diabetes mellitus, chronic obstructive pulmonary disease and breast cancer. cc: Eh Carmona MD
[2019-06-30] MEDS ORDERED: NS 2,000 ML MISC PRN (07:57)
[2019-06-30] MEDS ORDERED: HEPARIN IV PRN (07:57)
[2019-06-30] MEDS ORDERED: TIGHT: 0.2 ML/HR FOR DIALYSIS MISC PRN (07:57)
[2019-06-30] MEDS: PHOSLO PO SCH ×2 (08:40→12:16)
[2019-06-30] MEDS: NORVASC PO SCH ×2 (08:41→23:19)
[2019-06-30] MEDS: CULTURELLE PO SCH ×2 (08:41→23:19)
[2019-06-30] MEDS: CATAPRES PO SCH ×3 (08:41→23:19)
[2019-06-30] MEDS: APRESOLINE PO SCH ×3 (08:41→23:19)
[2019-06-30] MEDS: HEPARIN SUBQ SCH ×2 (08:42→23:19)
[2019-06-30] MEDS: FOLIC ACID PO SCH (08:42)
[2019-06-30] MEDS: TRANDATE PO SCH ×2 (08:42→23:20)
[2019-06-30] MEDS: MYCOSTATIN SUSP PO SCH ×4 (10:36→23:19)
[2019-06-30] MEDS: LEVEMIR SUBQ SCH ×2 (10:42→23:20)
[2019-06-30] MEDS ORDERED: STERILE WATER INJ. INJ ONE ×2 (11:02→11:15)
[2019-06-30] MEDS ORDERED: CATHFLO IV ONE ×2 (11:02)
--- NOTE | 2019-06-30 12:49 | NEPHROLOGY PROGRESS NOTE ---
DATE: 06/30/2019 Subjective: patient resting in bed with eyes closed aroused to verbal stimuli. Denies any uremic complaints. Voices no fever or chills. Objective: vitals. Temperature 99.2, pulse 97, blood pressure 138/55, 02 sat 100% on 2 L nasal cannula. General: elderly -Irish female lying in bed in no acute distress. HEENT: atraumatic, normocephalic. mucous membranes moist. Trachea midline Skin: warm and dry. Neck: supple, 6cm JVD Cardiovascular: S1, S2 with regular rate and rhythm and a decrescendo systolic murmur grade 2/6 heard best at left sternal border. Respiratory: lungs clear bilaterally with equal excursion. Abdomen: obese, soft, nontender nondistended with bowel sounds present. : not inspected Extremities: no clubbing cyanosis or edema noted. Right tunnel Catheter noted. Dressing in place to left heel. Neurological: alert and oriented to person and place. Labs: WBC 9.16, hemoglobin 7.6, hematocrit 26.3, sodium 134, potassium 95, chloride 26, anion gap 13, BUN 38, creatinine 3.7, phosphorus 1.9, albumin 2.0. Intake 1440. Output 0. Impression: Chronic kidney disease 5D. She Will have her routine hemodialysis treatment today. No other changes. Electrolytes and acid base balance. Stable. Anemia. Low. We will transfuse one unit of packed red blood cells with hemodialysis treatment today. Blood pressure. In target. Medication review. No med changes at this time. Add dietary Supplements. cc: Benji Fitzgerald MD MTDD
[2019-06-30] MEDS ORDERED: VANCOMYCIN 1 GM/NS 1 GM/250 ML IVPB IV ONE (17:00)
--- NOTE | 2019-06-30 17:08 | PROGRESS NOTE ---
DATE: 06/30/2019 SUBJECTIVE: The patient is resting comfortably in bed. No acute events noted overnight. OBJECTIVE: Vital Signs: Temperature 97.4 degrees, blood pressure 139/70, heart rate 91, respirations 16, O2 saturation is 99% on 2 L nasal cannula. General: This is an overweight female, lying in bed in no acute distress. Heart: S1 and S2 normal. Regular rate and rhythm. Lungs: Diminished breath sounds at the bases. No wheezing. No rales. Abdomen: Positive bowel sounds. Soft, nontender, nondistended. Extremities: The left foot is wrapped in a clean dry dressing. Neurologic: The patient is alert and oriented x4. No focal neurologic deficits noted. LABS: White blood cell count 9, hemoglobin 7.6, hematocrit 26, platelets 298,000. Sodium 134, potassium 4, BUN 38, creatinine 3.7, glucose 128, phosphorus 1.9. ASSESSMENT AND PLAN: 1. Bilateral lobe pneumonia. Continue with cefazolin after each dialysis treatment. 2. Left calcaneus osteomyelitis status post debridement. Continue with antibiotic therapy and wound care. General Surgery is following for a possible amputation. 3. Chronic kidney disease, stage 5D. The patient is due for dialysis today. 4. Severe peripheral arterial disease. Aware. 5. Diabetes mellitus type 2. Continue on Levemir 15 units subcutaneous twice a day plus sliding scale insulin. 6. Hypertension. Controlled. Continue on the current antihypertensive regimen. 7. Anemia of chronic disease. The patient will receive 1 unit of packed red blood cells today. 8. Severe protein-calorie malnutrition. Continue with Nephro supplements. 9. History of stroke. Aware. 10. Hypophosphatemia. We will cut back on the patient's phosphorus binder. 11. Deep vein thrombosis prophylaxis. Continue on heparin. cc: Renetta Pinto MD [facility]
[2019-06-30] MEDS: KEFZOL 1 GM/D5W 1 GM/50 ML IVPB IV SCH (17:09)
[2019-06-30] MEDS: REMERON PO SCH (23:19)
[2019-07-01] MEDS: HUMALOG SUBQ SCH ×5 (04:50→20:56)
[2019-07-01 05:11] LABS: HEMATOCRIT 30.1 % (37.0-47.0); HEMOGLOBIN 9.3 g/dL (12.0-16.0); MCHC 30.9 g/dL (33-37); MCV 97.1 FL (81-99); RBC 3.1 XMIL (4.2-5.4); WBC 8.87 X1000 (4.8-10.8)
[2019-07-01 05:46] LABS: ALBUMIN 2.1 g/dL (3.5-5.0); CALCIUM 8.5 mg/dL (8.8-10.2); CREATININE 2.2 mg/dL (0.5-0.9); PHOSPHORUS 2.2 mg/dL (2.7-4.5); POTASSIUM 3.6 mmol/L (3.5-5.1)
[2019-07-01] MEDS: APRESOLINE PO SCH ×3 (08:08→20:55)
[2019-07-01] MEDS: TRANDATE PO SCH ×2 (08:08→20:56)
[2019-07-01] MEDS: NORVASC PO SCH ×2 (08:08→20:55)
[2019-07-01] MEDS: LEVEMIR SUBQ SCH ×2 (08:09→20:56)
[2019-07-01] MEDS: HEPARIN SUBQ SCH ×2 (08:09→20:55)
[2019-07-01] MEDS: MYCOSTATIN SUSP PO SCH ×4 (08:09→20:56)
[2019-07-01] MEDS: CATAPRES PO SCH ×3 (08:10→20:55)
[2019-07-01] MEDS: FOLIC ACID PO SCH (08:10)
[2019-07-01] MEDS: CULTURELLE PO SCH ×2 (08:10→20:55)
--- NOTE | 2019-07-01 10:27 | NEPHROLOGY PROGRESS NOTE ---
DATE: 07/01/2019 Subjective: patient resting in bed with eyes closed aroused to verbal stimuli. Denies any uremic complaints. Voices no fever or chills. Objective: vitals. Temperature 97.4, pulse 89, respirations 17, blood pressure 144/61, O2 sat 100% on 2 L nasal cannula. General: elderly -Egyptian female lying in bed in no acute distress. HEENT: atraumatic, normocephalic. mucous membranes moist. Trachea midline Skin: warm and dry. Neck: supple, 6cm JVD Cardiovascular: S1, S2 with regular rate and rhythm and a decrescendo systolic murmur grade 2/6 heard best at left sternal border. Respiratory: lungs clear bilaterally with equal excursion. Abdomen: obese, soft, nontender nondistended with bowel sounds present. : not inspected Extremities: no clubbing or cyanosis noted. Trace edema to BLE.Right tunnel Catheter noted. Dressing in place to left heel. Neurological: alert and oriented to person and place. Labs: WBC 8.87, hemoglobin 9.3, hematocrit 30.1, platelet count to 66, sodium 135, potassium 3.6, chloride 96, carbon dioxide 27, and I get 12, BUN 18, creatinine 2.2, calcium 8.5, phosphorus 2.2, albumin 2.1. intake 1138, output 1500. Impression: Chronic kidney disease 5D. She Will have her routine hemodialysis treatment tomorrow. Plans to have left foot amputated today. No other changes. Electrolytes and acid base balance. Stable. Anemia. Low but stable. Received 1 unit PRBC yesterday. Blood pressure. In target. Medication review. No med changes at this time. cc: Benji Fitzgerald MD [facility]
[2019-07-01] MEDS ORDERED: DILAUDID ONE (12:59)
[2019-07-01] MEDS ORDERED: NS 500 ML ONE (13:29)
--- NOTE | 2019-07-01 17:33 | PROGRESS NOTE ---
DATE: 07/01/2019 SUBJECTIVE: Ms. Velez was resting and easy to arouse. No complaints. No fever or chills. PHYSICAL EXAMINATION: Vital Signs: Afebrile, temp 97.4 degrees, pulse 89, respirations 17, blood pressure 144/61, O2 saturations are 100% on 2 L nasal cannula. HEENT: Atraumatic. Mucosal membranes moist. Skin: Warm and dry. Neck: Supple. CVP was less than 6 cm. Cardiovascular: Regular rhythm and rate without murmur or S3. Abdomen: Soft, nondistended, nontender. No clubbing or cyanosis. There is trace edema in bilateral lower extremities. She has a right tunnel catheter. Dressing on the left heel. ASSESSMENT AND PLAN: 1. Chronic kidney disease stage 5D. Volume status looks good. Electrolytes look good. She has routine hemodialysis tomorrow. Dr. Fitzgerald following. 2. Anemia. Hematocrit low but stable. Received 1 unit of packed red blood cells I believe yesterday. 3. Bilateral lobe pneumonia. On cefazolin. 4. Left calcaneus osteomyelitis, status post debridement. Continue antibiotic, wound care, and then today I think planning on debridement, amputation. 5. Severe peripheral artery disease. 6. Diabetes mellitus type 2. The patient is getting Levemir 15 units subcutaneously twice a day and sliding scale. 7. Hypertension, controlled. 8. Severe protein calorie malnutrition. 9. Hypophosphatemia. We have cut back on the patient's phosphorus binder. Continue DVT prophylaxis. REVIEW OF ORDERS: On amlodipine 5 mg b.i.d., Catapres 0.3 mg t.i.d., folic acid 1 mg a day, hydralazine 100 mg t.i.d., insulin detemir 15 units subcutaneously b.i.d., Trandate 100 mg b.i.d., lactobacillus 1 b.i.d., Remeron 30 mg at bedtime, vancomycin 1 g, receives after dialysis. cc: Barrett Rai MD
--- NOTE | 2019-07-01 18:24 | OPERATIVE NOTE ---
PROCEDURE DATE: 07/01/2019 PREOPERATIVE DIAGNOSIS: Soft tissue necrosis and osteomyelitis of left foot and extending into the left leg. POSTOPERATIVE DIAGNOSIS: Soft tissue necrosis and osteomyelitis of left foot and extending into the left leg. PRINCIPAL PROCEDURE: Left juufg-rzs-kthd amputation. SURGEON: Samantha Puentes MD. ANESTHESIA: General. ESTIMATED BLOOD LOSS: 300 mL. DRAINS: None. INDICATIONS: Ms. Katia Velez is a 68-year-old, black female, who is a group home resident. She has developed pressure ulcers involving both heels. She had infection involving the eschar in her left heel. We debrided it and it went all the way down to the calcaneus which was clearly involved with osteomyelitis and even part of the bone was removed. The infection tracked posteriorly along the Achilles tendon. We discussed treatment options. We know she has good blood supply to her left lower extremity and we decided on a below- versus sfhuc-cqq-psac amputation. FINDINGS: She had infection in the posterior compartment going up her leg, which precluded a left aldui-fgo-eucy amputation, so we went to a left jttur-oii-ckqp amputation. We felt the blood supply was adequate for wound healing. PROCEDURE: The patient was brought to the operating room, placed supine, received spinal under direction of Dr. Ghosh, then received also IV sedation. She was placed supine. Her left lower extremity was prepped and draped within the sterile field. We began with a vgpdx-lyy-qqbs amputation, but as we progressed through this amputation, it was clear that she had necrosis and infection in the posterior muscle compartments, and to get above that we had to go to an above-the- knee amputation. I marked a fishmouth incision above the knee. I made my incision with a 10- blade scalpel and this incision was carried down through the skin and subcutaneous tissue mostly using cautery to the femur, which we transected using electric orthopedic saw, and then I used an amputation knife to complete the amputation through the posterior muscle layers. There was no infection involving this area of her left lower extremity. She had good blood supply. We had to control the superficial femoral artery and the branches of the profunda artery using Flor clamps, and we ligated the vessels as much as we could individually with 2-0 stick ties. We identified the sciatic nerve and we took it high in our amputation wound. We smoothed the cut end of the femur with a bone rasp. We used cautery to control any bleeding from the muscle. Once we were happy with the bleeding being controlled, we irrigated the pzjnf-vpb-pbfa amputation wound with warm saline and then we closed the wound in layers. We used 0 Vicryl stitches to close the deep muscle layers around the cut end of the femur and then we used individual 0 Vicryl stitches to close the superficial fascia anteriorly to the superficial fascia posteriorly, bringing our wound together. These were interrupted simple stitches. Then, we closed the skin with a skin clip professor of english. Dressings were applied. She tolerated the procedure well. We did have to prepare to give her a unit of blood during surgery. Plans are for her to go to the recovery room and then return to the floor. She is in between her dialysis days. cc: Samantha Puentes MD
[2019-07-01] MEDS: REMERON PO SCH (20:55)
[2019-07-01] MEDS: TYLENOL PO PRN (21:07)
[2019-07-02] MEDS ORDERED: NS 250 ML IV SCH (00:15)
[2019-07-02] MEDS ORDERED: NS 250 ML ONE (00:19)
[2019-07-02] MEDS: HUMALOG SUBQ SCH ×5 (00:27→22:22)
[2019-07-02 05:48] LABS: HEMATOCRIT 36.5 % (37.0-47.0); HEMOGLOBIN 11.4 g/dL (12.0-16.0); MCH 28.2 PG (27-31); MCHC 31.2 g/dL (33-37); MCV 90.3 FL (81-99); MPV 9.5 FL (7.4-10.4); RBC 4.04 XMIL (4.2-5.4); WBC 12.33 X1000 (4.8-10.8)
[2019-07-02 06:14] LABS: ALBUMIN 2.3 g/dL (3.5-5.0); PHOSPHORUS 3.3 mg/dL (2.7-4.5); POTASSIUM 3.5 mmol/L (3.5-5.1)
[2019-07-02] MEDS ORDERED: MAXIPIME 1 GM in NS 50 ML IV SCH (06:15)
[2019-07-02] MEDS ORDERED: HEPARIN IV PRN (06:30)
[2019-07-02] MEDS ORDERED: TIGHT: 0.2 ML/HR FOR DIALYSIS MISC PRN (06:30)
[2019-07-02] MEDS ORDERED: NS 2,000 ML MISC PRN (06:30)
--- NOTE | 2019-07-02 09:24 | INFECTIOUS DISEASE PROGRESS NO ---
DATE: 07/02/2019 PRESENT ILLNESS: The patient is status post left above the knee amputation. The patient had left heel osteomyelitis. The patient has an infected right heel with a large eschar on it. The patient has a methicillin-resistant Staph aureus urinary tract infection and oral candidiasis. Also on the latest chest x-ray, there was a question that the patient could have bibasilar pneumonia. MEDICATIONS: The patient is on Ancef and vancomycin after each dialysis. This is day 8 of vancomycin and this is day 5 of treatment with 1st cefepime and then Ancef. PHYSICAL EXAMINATION: Vital Signs: Temperature is 98.6 degrees, pulse 92, respirations 18, blood pressure is 134/52. General: This is an ill-appearing elderly female. She is in no acute distress. Head/eyes/ears/nose/throat: The patient continues to have a white coating of her tongue. She can hear my spoken words and see near objects. Neck: No pain with movement. Thorax: Thorax the patient has a right-sided tunneled dialysis catheter in place. The site is not swollen or draining. Lungs: Clear to auscultation. Cardiovascular: Heart rate is regular but at times it appears to be irregular. Abdomen: Soft and nontender. Extremities: The patient's right heel has a large dry black eschar. The patient has a left above the knee amputation. There is a dressing around it and the dressing is intact. The right heel has a large dry black eschar on it. Neurologic: The patient is awake she can move her extremities. She does not have a tremor. She can hear my spoken words and see near objects. LAB AND X-RAY: CBC shows a white count of 12,330, hemoglobin 11.4, platelet count 252,000. There is no new other lab tests and there is also no new radiology reports. ASSESSMENT AND PLAN: I am going to continue the patient's vancomycin because of the methicillin- resistant Staph aureus urinary tract infection. Also, I am going to discontinue Ancef and place the patient on cefepime so that antibiotic plus vancomycin can treat the patient's possible bibasilar pneumonia. I plan to continue with nystatin for the patient's oral candidiasis. COMORBIDITIES: The patient is elderly. She has end-stage renal disease and she is on hemodialysis. She also has diabetes mellitus, chronic obstructive pulmonary disease, and breast cancer. cc: Eh Carmona MD
--- NOTE | 2019-07-02 12:31 | PROGRESS NOTE ---
DATE: 07/02/2019 SUBJECTIVE: Ms. Velez was getting dialysis when I saw her. She had no complaints. [place] good, breathing comfortably. OBJECTIVE: Temperature 99.2 degrees, pulse 100, respirations 14, blood pressure 142/60. Pupils are equal and round. Lungs are clear in all lung pritchett. Cardiovascular Examination: Regular rhythm and rate without murmur or S3. Abdomen is soft. Skin is warm and dry. ASSESSMENT AND PLAN: 1. Status post left rreuq-oro-icau amputation. The patient had left heel osteomyelitis, infected heel with large eschar, and peripheral vascular disease. The patient has methicillin- resistant Staphylococcus aureus urinary tract infection and oral candidiasis, receiving Ancef and vancomycin after each dialysis. This is day 8 of vancomycin and day 5 with first treatment of cefepime and then switched to Ancef. 2. Anemia. Watch hematocrit and hemoglobin. 3. End-stage renal disease. 4. Bilateral lobe pneumonia. 5. Left calcaneus osteomyelitis, status post left mhyqc-ibf-cypu amputation. 6. Peripheral vascular disease. 7. Diabetes mellitus type 2. Continue following sugars. 8. Hypertension. 9. Severe protein calorie malnutrition. LABORATORY DATA: Reviewed from today, white count 12,330, hematocrit 36, hemoglobin 11, platelet count 252,000. Sodium 132, potassium 3.5, chloride 95, BUN 26, creatinine 3.0, albumin 2.3. cc: Barrett Rai MD
[2019-07-02] MEDS: MYCOSTATIN SUSP PO SCH ×4 (14:26→21:17)
[2019-07-02] MEDS: CATAPRES PO SCH ×3 (14:28→21:16)
[2019-07-02] MEDS: APRESOLINE PO SCH ×3 (14:28→21:17)
--- NOTE | 2019-07-02 14:29 | NEPHROLOGY PROGRESS NOTE ---
DATE: 07/02/2019 Subjective: patient resting in bed with eyes closed aroused to verbal stimuli. Denies any uremic complaints. Voices adequate pain control to left lower extremity surgical site. Objective: vitals. Temperature 98.6, pulse 92, respirations 18, blood pressure 134/52, 02 sat 100% on 3 L nasal cannula. General: elderly -Dominican female lying in bed in no acute distress. HEENT: atraumatic, normocephalic. mucous membranes moist. Trachea midline Skin: warm and dry. Neck: supple, 6cm JVD Cardiovascular: S1, S2 with regular rate and rhythm and a decrescendo systolic murmur grade 2/6 heard best at left sternal border. Respiratory: lungs clear bilaterally with equal excursion. Abdomen: obese, soft, nontender nondistended with bowel sounds present. : not inspected Extremities: no clubbing or cyanosis noted. New left AKA with dressing in place. Right tunnel Catheter noted. Dressing in place to left heel. Neurological: alert and oriented to person and place. Labs: WBC 12.33, hemoglobin 11.4, hematocrit 36.5, platelet count 252, sodium 132, potassium 3.5, chloride 95, carbon dioxide 29, anion gap 8, BUN 26, creatinine 3.0, calcium 9.0. Intake 950, output 700. Impression: Chronic kidney disease 5D. Patient will have her routine hemodialysis today, no changes. Electrolytes and acid base balance. Stable. Anemia. Low but stable. Blood pressure. In target. Medication review. No med changes at this time. cc: Benji Fitzgerald MD [facility]TD[facility]
[2019-07-02] MEDS: NORVASC PO SCH ×2 (14:34→21:17)
[2019-07-02] MEDS: FOLIC ACID PO SCH (14:34)
[2019-07-02] MEDS: TRANDATE PO SCH ×2 (14:34→21:17)
[2019-07-02] MEDS: CULTURELLE PO SCH ×2 (14:34→21:16)
[2019-07-02] MEDS: HEPARIN SUBQ SCH ×2 (14:35→21:17)
[2019-07-02] MEDS: LEVEMIR SUBQ SCH ×2 (14:40→21:15)
[2019-07-02] MEDS: TYLENOL PO PRN (15:53)
[2019-07-02] MEDS ORDERED: MAXIPIME 1 GM in NS 50 ML IV ONE (17:00)
[2019-07-02] MEDS ORDERED: VANCOMYCIN 1 GM/NS 1 GM/250 ML IVPB IV ONE (18:00)
--- NOTE | 2019-07-02 20:01 | PROGRESS NOTE ---
DATE: 07/02/2019 SUBJECTIVE: Ms. Velez is postop day 1 from a left zpbnv-frw-dtqw amputation. Her left above-the- knee amputation dressing is intact without any soilage. Her right heel has a dry eschar without evidence of purulence underneath it. We need to maintain the weight off the heel. She is on inpatient dialysis. She is being followed by Dr. Carmona and is being treated for multiple infections. Her hematocrit is 36%. cc: Samantha Puentes MD
[2019-07-02] MEDS: REMERON PO SCH (21:17)
[2019-07-02] MEDS ORDERED: INSULIN PEN NEEDLES ONE (21:42)
[2019-07-03] MEDS: HUMALOG SUBQ SCH ×7 (00:21→22:26)
[2019-07-03 05:21] LABS: HEMATOCRIT 32.5 % (37.0-47.0); HEMOGLOBIN 10.1 g/dL (12.0-16.0); MCH 28.5 PG (27-31); MCHC 31.1 g/dL (33-37); MCV 91.8 FL (81-99); MPV 9.1 FL (7.4-10.4); RBC 3.54 XMIL (4.2-5.4); RDW 17.9 % (11.5-14.5); WBC 9.8 X1000 (4.8-10.8)
[2019-07-03] MEDS: LEVEMIR SUBQ SCH ×2 (08:33→20:23)
[2019-07-03] MEDS: HEPARIN SUBQ SCH ×2 (08:34→20:22)
[2019-07-03] MEDS: FOLIC ACID PO SCH (08:34)
[2019-07-03] MEDS: APRESOLINE PO SCH ×3 (08:34→20:22)
[2019-07-03] MEDS: TRANDATE PO SCH ×2 (08:34→20:22)
[2019-07-03] MEDS: NORVASC PO SCH ×2 (08:34→20:22)
[2019-07-03] MEDS: CULTURELLE PO SCH ×2 (08:34→20:22)
[2019-07-03] MEDS: CATAPRES PO SCH ×3 (08:34→20:22)
[2019-07-03] MEDS: MYCOSTATIN SUSP PO SCH ×4 (08:34→20:22)
[2019-07-03] MEDS: TYLENOL PO PRN ×2 (09:14→20:26)
--- NOTE | 2019-07-03 13:56 | PROGRESS NOTE ---
DATE: 07/03/2019 Ms Ktaia Velez is now postop day 2 from a left dwild-utp-gron amputation. Her left above-the- knee amputation dressing is intact and dry. She has a dry eschar involving her right heel. Were trying to keep her weight off that heel. She is on dialysis and essentially bed-bound intermediate patient. cc: Samantha Puentes MD
--- NOTE | 2019-07-03 14:43 | NEPHROLOGY PROGRESS NOTE ---
DATE: 07/03/2019 Subjective: patient resting in bed with eyes closed aroused to verbal stimuli. Voices adequate pain control to left lower extremity surgical site. Admits to decreased appetite, no other uremic symptoms voiced. Objective: vitals. Temperature 98.7, pulse 92, respirations 24, blood pressure 123/59, on 2 L nasal cannula. General: elderly -Macanese female lying in bed in no acute distress. HEENT: atraumatic, normocephalic. mucous membranes moist. Trachea midline Skin: warm and dry. Neck: supple, no JVD noted. Cardiovascular: S1, S2 with regular rate and rhythm and a decrescendo systolic murmur grade 2/6 heard best at left sternal border. Respiratory: lungs clear bilaterally with equal excursion. Abdomen: obese, soft, nontender nondistended with bowel sounds present. : not inspected Extremities: no clubbing or cyanosis noted. New left AKA with dressing in place. Black Eschar noted to right heel. Right tunneled Catheter noted. Neurological: alert and oriented to person and place. Labs: Intake 650, output 1990. WBC 9.80, hemoglobin 10.1, hematocrit 32.5, platelet count 214. Impression: Chronic kidney disease 5D. Patient had her routine hemodialysis yesterday without complications. No changes. Electrolytes and acid base balance. Stable. Anemia. Low but stable. Blood pressure. In target. Medication review. No med changes at this time. cc: Benji Fitzgerald MD [facility]TD[facility]
--- NOTE | 2019-07-03 16:48 | PROGRESS NOTE ---
DATE: 07/03/2019 SUBJECTIVE: Ms. Velez is comfortable, breathing comfortably. No pain. OBJECTIVE: Vital signs: Remains afebrile. Temperature 98.4 degrees, pulse 92, respirations 10, blood pressure 130/53. HEENT: Pupils are equal and round. Lungs: Clear in all lung pritchett. Cardiovascular: Regular rhythm rate without murmur or S3. Abdomen: Soft. Skin: Warm and dry. Urine output is about a liter. ASSESSMENT AND PLAN: 1. This is postoperative day 2 from left wiccn-hua-yjcb amputation. Seems to be doing well. Has peripheral vascular disease. 2. Chronic kidney disease stage 5D. Continue hemodialysis. Her volume status and electrolytes and acid base status seems to be stable. Anemia is low but stable. 3. Blood pressure appears on target. 4. General nutrition is good. Good p.o. intake. 5. Bilateral lower lobe pneumonia which appears resolved. 6. Peripheral vascular disease. 7. Diabetes mellitus type 2. Sugars are under good control. 8. Will resume physical therapy when we were able to. She is still healing from her left above- the-knee amputation. cc: Barrett Rai MD
[2019-07-03] MEDS: REMERON PO SCH (20:22)
[2019-07-04] MEDS: HUMALOG SUBQ SCH ×5 (00:31→17:10)
[2019-07-04] MEDS ORDERED: INSULIN PEN NEEDLES ONE (03:57)
[2019-07-04 05:15] LABS: HEMATOCRIT 31.3 % (37.0-47.0); HEMOGLOBIN 9.7 g/dL (12.0-16.0); MCH 28.9 PG (27-31); MCV 93.2 FL (81-99); RBC 3.36 XMIL (4.2-5.4); RDW 17.2 % (11.5-14.5); WBC 7.64 X1000 (4.8-10.8)
[2019-07-04 05:47] LABS: ALBUMIN 2.2 g/dL (3.5-5.0); CREATININE 3.3 mg/dL (0.5-0.9); PHOSPHORUS 3.6 mg/dL (2.7-4.5)
[2019-07-04] MEDS ORDERED: TIGHT: 0.2 ML/HR FOR DIALYSIS MISC PRN (06:43)
[2019-07-04] MEDS ORDERED: NS 2,000 ML MISC PRN (06:43)
[2019-07-04] MEDS ORDERED: HEPARIN IV PRN (06:43)
[2019-07-04] MEDS: CULTURELLE PO SCH ×2 (08:10→21:00)
[2019-07-04] MEDS: CATAPRES PO SCH ×3 (08:10→21:06)
[2019-07-04] MEDS: TRANDATE PO SCH ×2 (08:10→21:06)
[2019-07-04] MEDS: FOLIC ACID PO SCH (08:10)
[2019-07-04] MEDS: APRESOLINE PO SCH ×3 (08:11→21:05)
[2019-07-04] MEDS: HEPARIN SUBQ SCH ×2 (08:11→21:08)
[2019-07-04] MEDS: MYCOSTATIN SUSP PO SCH ×4 (08:11→21:06)
[2019-07-04] MEDS: TYLENOL PO PRN (08:11)
[2019-07-04] MEDS: NORVASC PO SCH ×2 (08:11→21:05)
[2019-07-04] MEDS: LEVEMIR SUBQ SCH ×2 (08:13→21:07)
--- NOTE | 2019-07-04 08:20 | PROGRESS NOTE ---
DATE: 07/04/2019 Ms. Velez's left scxug-pnq-voje amputation dressing remains intact and is dry. The nurses have been good about keeping weight off her right heel. She gets inpatient dialysis, and she remains on IV antibiotics. I do feel that it is okay to have physical therapy involved. cc: Samantha Puentes MD
--- NOTE | 2019-07-04 14:24 | PROGRESS NOTE ---
DATE: 07/04/2019 SUBJECTIVE: Ms. Velez was getting dialysis. She says she feels good. No complaints. She does not want to go home today. She is eating good. Bowels are moving. She remains afebrile. OBJECTIVE: Vital Signs: Temperature 98.3 degrees, pulse 90, respirations 14, blood pressure 128/53. HEENT: Pupils equal, round to light and accommodation. Oral and nasal mucosa unremarkable. Extremities: No pedal edema. ASSESSMENT AND PLAN: 1. Status post left above the knee amputation. Doing very well. Continue dressing changes. Dressings remain intact and dry. Continue physical therapy. 2. Chronic kidney disease stage 5D. Volume status, electrolytes look good. 3. Blood pressures look good. 1. Bilateral lower lobe pneumonia, which is resolved. 2. Peripheral vascular disease. 3. Diabetes mellitus type 2. Sugar is under good control. cc: Barrett Rai MD
--- NOTE | 2019-07-04 14:34 | INFECTIOUS DISEASE PROGRESS NO ---
DATE: 07/02/2019 PRESENT ILLNESS: The patient is status post left above the knee amputation for left heel osteomyelitis. The patient also has a methicillin-resistant Staph aureus urinary tract infection and oral candidiasis. Also, on chest x-ray, there is question of whether the patient could have bibasilar pneumonia. MEDICATIONS: The patient is getting vancomycin and cefepime after each dialysis. This is day 10 of vancomycin and day 7 of cefepime then Ancef and then cefepime again. PHYSICAL EXAMINATION: Vital Signs: Temperature is 98.9 degrees, pulse 87, respirations 12, blood pressure 136/62. General: This is an ill-appearing elderly female. She is in no acute distress. Head, eyes, ears, nose, throat: She can hear my spoken words and see near objects. There is no white patches in her mouth. Neck: No pain with neck movement. Thorax: The patient has a right-sided tunneled dialysis catheter in place. The site is not swollen or tender. Lungs: Clear to auscultation. Cardiovascular: Regular heart rate. Abdomen: Soft and nontender. Extremities: Patient has a large dry black eschar on the right heel. The patient recently had surgery for a left above the knee amputation. Neurologic: The patient is awake. She talks in a coherent fashion. She can move her arms and her right leg. She is finding it difficult to move the left leg that she just has surgery on. LAB AND X-RAY: There is no new repeat radiographic study. The patient's creatinine is 3.3. The GFR is 17. The patient's CBC shows a white count of 7640, hemoglobin 9.7, platelet count 232,000. ASSESSMENT AND PLAN: The patient is status post left above the knee amputation for the patient's heel osteomyelitis. The patient currently is being treated for methicillin-resistant Staphylococcus aureus urinary tract infection and possible pneumonia and also for oral candidiasis. The plan is to continue with the current antibiotics namely vancomycin and cefepime after dialysis and nystatin swish and swallow. I think the patient could be either sent home or possibly to a [facility]. I would suggest continuing cefepime and vancomycin after each dialysis for another 10 days. COMORBIDITIES: The patient is elderly. She has end-stage renal disease for which she is on hemodialysis. The patient also is diabetic and she has chronic obstructive pulmonary disease and breast cancer. cc: Eh Carmona MD
--- NOTE | 2019-07-04 15:35 | NEPHROLOGY PROGRESS NOTE ---
DATE: 07/04/2019 SUBJECTIVE: Generally, she is spontaneously awake. States her pain is reasonably controlled. No shortness of breath. Her daughter is here to visit. OBJECTIVE: Vital signs: Blood pressure 111/53, heart rate 95, respirations 16, afebrile. General: No acute distress. Skin: Warm and dry. Neck: Neck veins are not distended. Heart: Regular. No gallops. Lungs: Equal. No crackles. Abdomen: Soft. Nontender. Bowel sounds present. Extremities: No edema, clubbing, or cyanosis. IMPRESSION: Chronic kidney disease 5d. She will have her routine hemodialysis treatment today using a 3K bath. Two liters ultrafiltration. Electrolytes/acid base in target. Her hemoglobin is 9.7. Observe. cc: Benji Fitzgerald MD
[2019-07-04] MEDS ORDERED: VANCOMYCIN 1 GM/NS 1 GM/250 ML IVPB IV ONE (17:00)
[2019-07-04] MEDS ORDERED: MAXIPIME 1 GM in NS 50 ML IV ONE (17:00)
[2019-07-04] MEDS: REMERON PO SCH (21:06)
[2019-07-05] MEDS: HUMALOG SUBQ SCH ×6 (00:03→17:52)
[2019-07-05] MEDS: MYCOSTATIN SUSP PO SCH ×4 (09:29→20:27)
[2019-07-05] MEDS: FOLIC ACID PO SCH (09:29)
[2019-07-05] MEDS: CULTURELLE PO SCH ×2 (09:30→20:29)
[2019-07-05] MEDS: APRESOLINE PO SCH ×3 (09:31→20:27)
[2019-07-05] MEDS: TRANDATE PO SCH ×2 (09:31→20:27)
[2019-07-05] MEDS: CATAPRES PO SCH ×3 (09:31→20:27)
[2019-07-05] MEDS: HEPARIN SUBQ SCH ×2 (09:31→20:27)
[2019-07-05] MEDS: NORVASC PO SCH ×2 (09:31→20:29)
[2019-07-05] MEDS: LEVEMIR SUBQ SCH ×2 (09:33→20:27)
[2019-07-05] MEDS: TYLENOL PO PRN ×2 (11:27→18:51)
--- NOTE | 2019-07-05 13:18 | PROGRESS NOTE ---
DATE: 07/05/2019 SUBJECTIVE: Ms. Velez is feeling good. No complaints of pain. She would like to go to rehab but she does want to try and go home. Received dialysis I believe yesterday. OBJECTIVE: Vital Signs: Temperature 98.1 degrees, pulse 90, respirations 14, blood pressure 119/56. HEENT: Pupils are equal and round. Lungs: clear in all lung pritchett. Cardiovascular: Regular rhythm and rate without murmur or S3. LABORATORY DATA: Blood sugar 160, 165, and 137. ASSESSMENT AND PLAN: 1. Chronic kidney disease stage 5D. Continue dialysis. Her volume status, electrolytes, acid- base status look stable. 2. Status post left potly-tzf-zajd amputation, doing well. Continue her dressing changes. I think she would like to go to rehab from here, so we will pursue this possibly on Sunday. 3. Blood pressures look good. 4. Bilateral lower lobe pneumonia is treated. 5. Peripheral vascular disease. 6. Diabetes mellitus type 2. Sugars appear under good control. REVIEW OF ORDERS: Her hematocrit is 31, hemoglobin 9.7 and blood sugars 85, 114, 137. I am going to cut back on the insulin detemir to 10 mg twice a day. cc: Barrett Rai MD
[2019-07-05] MEDS: ULTRAM PO PRN (14:13)
[2019-07-05] MEDS: REMERON PO SCH (20:27)
[2019-07-06] MEDS: HUMALOG SUBQ SCH ×5 (00:07→17:04)
--- NOTE | 2019-07-06 08:54 | Diag Imaging Result Doc PS360 ---
EXAM: CHEST-1 VIEW HISTORY: pneumonia TECHNIQUE: Single view COMPARISON: 06/29/2019 FINDINGS: The lungs are well expanded. The right hemidiaphragm is elevated. No change in the right-sided catheter. No pulmonary edema. Right basilar infiltrates or atelectasis in addition to atelectasis or tiny infiltrates in the left base. Findings in the left base are more pronounced. Small left pleural effusion. IMPRESSION: Mild interval worsening Electronically signed by Alan Gary 07/06/2019 8:51 AM
--- NOTE | 2019-07-06 09:06 | GENERAL SURGERY PROGRESS NOTE ---
DATE: 07/06/2019 SUBJECTIVE: Clinically doing about the same. No fevers. No tachycardia. OBJECTIVE: Blood pressure 124/57. General: She is alert. Her left above-knee amputation site is clean. LABORATORY DATA: I reviewed her labs. ASSESSMENT AND PLAN: A 68-year-old female status post above-knee amputation. Clinically, she is doing okay. We will continue current wound care, physical therapy and medical management. cc: Mariana Montes De Oca MD
[2019-07-06] MEDS: LEVEMIR SUBQ SCH ×2 (09:34→21:52)
[2019-07-06] MEDS: HEPARIN SUBQ SCH ×2 (09:37→21:51)
[2019-07-06] MEDS: MYCOSTATIN SUSP PO SCH ×3 (09:39→21:52)
[2019-07-06] MEDS: TRANDATE PO SCH ×2 (09:40→21:51)
[2019-07-06] MEDS: CATAPRES PO SCH ×3 (09:40→21:51)
[2019-07-06] MEDS: CULTURELLE PO SCH ×2 (09:41→21:51)
[2019-07-06] MEDS: APRESOLINE PO SCH ×3 (09:41→21:51)
[2019-07-06] MEDS: FOLIC ACID PO SCH (09:41)
[2019-07-06] MEDS: NORVASC PO SCH ×2 (09:41→21:51)
--- NOTE | 2019-07-06 09:55 | PROGRESS NOTE ---
DATE: 07/06/2019 SUBJECTIVE: Ms. Velez says she still feels kind of a rough. She did eat a little bit but not much of her breakfast. OBJECTIVE: Temp 98.4 degrees, pulse 89, respirations 16, blood pressure 131/57. Pupils are equal. CVP less than 6 cm. Lungs are clear in all lung pritchett. Cardiovascular regular rate without murmur or S3. Abdomen is soft. Skin is warm and dry. Urine output is 1500 mL. ASSESSMENT AND PLAN: 1. Status post icbmt-hpf-koov amputation and doing well from that standpoint. 2. Chest x-ray from this morning mild interval for worsening, lungs are well expanded. The right hemidiaphragm elevated. No change in the right-sided catheter. No pulmonary edema. Right basilar infiltrate or atelectasis in addition to atelectasis and tiny infiltrate left base. Findings in the left base more pronounced. Small left pleural effusion. 3. Blood pressures look okay. 4. Bilateral lower lobe pneumonia. Continue present treatment. 5. Peripheral vascular disease. 6. Diabetes mellitus type 2. She had mentioned she wants to go to rehab so we will have them look and see. REVIEW OF ORDERS: She is on Tylenol 650 mg p.o. q.6 hours, Norvasc 5 mg b.i.d., Catapres 0.3 mg p.o. t.i.d., folic acid 1 mg p.o. daily, heparin 5000 units subcutaneous q.12h, hydralazine 100 mg p.o. t.i.d., Trandate 100 mg p.o. b.i.d., lactobacillus 1 b.i.d., cefepime 1 g after dialysis, Remeron 30 mg at bedtime, nystatin suspension swish and swallow bilirubin 4 times a day, tramadol 50 mg q.6 hours p.r.n. She gets vancomycin 1 g after dialysis. Patient is status post left [id number]-[id number] amputation for left heel osteomyelitis. She is also on meth. Also had methicillin- resistant Staphylococcus aureus urinary tract infection and oral candidiasis so can continue vancomycin and cefepime after dialysis. This should be day 14 and then she will get Ancef and then will continue post dialysis antibiotics and see if she can set up for rehab. cc: Barrett Rai MD
[2019-07-06] MEDS: REMERON PO SCH (21:51)
[2019-07-07] MEDS: HUMALOG SUBQ SCH ×7 (00:52→21:46)
[2019-07-07 05:21] LABS: BASO# 0.01 X1000 (0.0-0.2); BASO% 0.1 % (0.0-0.8); EOS# 0.05 X1000 (0.0-0.7); EOS% 0.7 % (0.0-10.0); HEMATOCRIT 32.5 % (37.0-47.0); HEMOGLOBIN 9.8 g/dL (12.0-16.0); IMM GRAN# 0.06 X1000 (0.0-0.04); IMM GRAN% 0.8 % (0.0-0.5); LYMPH% 20.3 % (20.5-51.1); MCH 28.2 PG (27-31); MCHC 30.2 g/dL (33-37); MCV 93.7 FL (81-99); MONO% 6.8 % (1.7-9.3); MPV 9.1 FL (7.4-10.4); NEUT# 5.26 X1000 (1.4-6.5); NEUT% 71.3 % (42.2-75.2); PLT 309 X1000 (130-400); RBC 3.47 XMIL (4.2-5.4); RDW 16.3 % (11.5-14.5); WBC 7.38 X1000 (4.8-10.8)
[2019-07-07 05:52] LABS: CALCIUM 8.2 mg/dL (8.8-10.2); CREATININE 4.2 mg/dL (0.5-0.9); POTASSIUM 4.2 mmol/L (3.5-5.1)
[2019-07-07] MEDS ORDERED: NS 2,000 ML MISC PRN (06:09)
[2019-07-07] MEDS ORDERED: HEPARIN IV PRN (06:09)
[2019-07-07] MEDS ORDERED: TIGHT: 0.2 ML/HR FOR DIALYSIS MISC PRN (06:09)
--- NOTE | 2019-07-07 07:23 | INFECTIOUS DISEASE PROGRESS NO ---
DATE: 07/07/2019 PRESENT ILLNESS: The patient is status post left above the knee amputation for left heel osteomyelitis. The patient also has methicillin-resistant Staph aureus urinary tract infection, and possible bibasilar pneumonia. Finally, the patient has oral candidiasis. MEDICATIONS: This is day 13 of treatment with vancomycin and either cefepime or cefazolin. PHYSICAL EXAMINATION: Vital Signs: Temperature 98 degrees, pulse 85, respirations 17, and blood pressure 125/58. General: This is an ill-appearing elderly female in no acute distress. Head/eyes/ears/nose/throat: She can hear my spoken words and see near objects. I did not notice any white coating of her tongue. Neck: No pain with movement. Thorax: The patient has a right- sided tunneled dialysis catheter in place. The site is not swollen or purulent. Lungs: Clear to auscultation. Cardiovascular: Regular heart rate. Abdomen: Soft and nontender. Extremities: The patient has a large dry black eschar on the patient's right heel. The patient has a left above the knee amputation. There is a dressing around the leg, and the dressing is intact. LABORATORY AND X-RAY: Chest x-ray shows bibasilar infiltrate versus atelectasis. The creatinine is 4.2. GFR is 13. CBC shows a white count of 7380, hemoglobin 9.8, and platelet count of 309,000. ASSESSMENT AND PLAN: The patient has possible bibasilar pneumonia. I am going to continue the antibiotics for 1 more day. I have also ordered a procalcitonin. Unless it says that the patient very likely has pneumonia, I will stop all of her antibiotics. By the patient's right heel eschar, I think does not need any further antibiotic treatment after tomorrow's doses. I think the patient also will be able to stop the nystatin swish and swallow once her antibiotics are discontinued. COMORBIDITIES: The patient is elderly. She has end-stage renal disease for which she is on hemodialysis. She also has diabetes mellitus, chronic obstructive pulmonary disease, and breast cancer. cc: Eh Carmona MD
[2019-07-07] MEDS: HEPARIN SUBQ SCH ×2 (08:15→21:22)
[2019-07-07] MEDS: NORVASC PO SCH ×2 (08:15→21:22)
[2019-07-07] MEDS: CULTURELLE PO SCH ×2 (08:15→21:22)
[2019-07-07] MEDS: TRANDATE PO SCH ×2 (08:15→21:22)
[2019-07-07] MEDS: APRESOLINE PO SCH ×3 (08:15→21:22)
[2019-07-07] MEDS: FOLIC ACID PO SCH (08:15)
[2019-07-07] MEDS: CATAPRES PO SCH ×3 (08:15→21:23)
[2019-07-07] MEDS: LEVEMIR SUBQ SCH ×2 (08:16→21:23)
[2019-07-07] MEDS: MYCOSTATIN SUSP PO SCH ×4 (08:16→21:22)
--- NOTE | 2019-07-07 11:20 | NEPHROLOGY PROGRESS NOTE ---
DATE: 07/07/2019 Subjective: Lying in bed awake, voices eating ok. Denies any uremic complaints. Objective: vitals. Temperature 98.3, pulse 86, respirations 13, blood pressure 138/60, 02 sat 99% on 2 L nasal cannula. General: elderly -[place] female lying in bed in no acute distress. HEENT: atraumatic, normocephalic. mucous membranes moist. Trachea midline Skin: warm and dry. Neck: supple, no JVD noted. Cardiovascular: S1, S2, S4 with regular rate and rhythm and a decrescendo systolic murmur grade 2/6 heard best at left sternal border. Respiratory: lungs clear bilaterally with equal excursion. Abdomen: obese, soft, nontender nondistended with bowel sounds present. : not inspected Extremities: no clubbing or cyanosis noted. New left AKA with dressing in place. Black Eschar noted to right heel. Right tunnel Catheter noted. Neurological: alert and oriented to person and place. Labs: WBC 7.38, hemoglobin 9.8, hematocrit 32.5, platelet count 309, sodium 128, potassium 4.2, chloride 92, carbon dioxide 21, anion gap 15, BUN 38, creatinine 4.2, calcium 8.2, intake 675, output zero. Impression: 1. Chronic kidney disease 5D. She will have her routine hemodialysis today. No changes. 2. Electrolytes and acid base balance. Stable. 3. Anemia. Low but stable. 4. Blood pressure. In target. 5. Medication review. No med changes at this time. cc: Benji Fitzgerald MD MTDD
--- NOTE | 2019-07-07 13:21 | PROGRESS NOTE ---
DATE: 07/07/2019 SUBJECTIVE: She was getting dialysis. She says she is comfortable. No complaints. No pain. Breathing comfortably. OBJECTIVE: Vital Signs: Temperature 98.3 degrees, pulse 86, respirations 13, blood pressure 138/60. Eyes: Pupils are equal and round. Lungs: Clear in all lung pritchett. Cardiovascular exam: Regular rhythm and rate without murmur or S3. : Urine output was over 700 mL. ASSESSMENT AND PLAN: Status post left epqti-wuo-osdv amputation for left heel osteomyelitis. She has methicillin-resistant Staphylococcus aureus urinary tract infection, possible bibasilar pneumonia and oral candidiasis. This is day 13 for vancomycin and cefepime, which she is getting after dialysis. She wants to go to rehabilitation, so [facility] looking for her. She has possible bibasilar pneumonia, but documented that we did we have a procalcitonin that is ordered that may help us. The right heel has an eschar, but does not need any further treatment. So, she can go to rehabilitation when we have a bed available. REVIEW OF HER ORDERS: I do not see any change. LABORATORY DATA: White count 7380, hematocrit 32, platelet count 309,000. Chemistries: Sodium 128, potassium 4.2, chloride 92 BUN 38, creatinine 4.2. She has chronic kidney disease stage 5 D and getting dialysis. Her volume status and electrolytes look good. She has some hyponatremia. In looking at the orders, I do not see any change. cc: Barrett Rai MD
[2019-07-07] MEDS ORDERED: VANCOMYCIN 1 GM/NS 1 GM/250 ML IVPB IV ONE (17:00)
[2019-07-07] MEDS ORDERED: MAXIPIME 1 GM in NS 50 ML IV ONE (17:00)
[2019-07-07] MEDS: REMERON PO SCH (21:22)
[2019-07-08] MEDS: ULTRAM PO PRN (00:07)
[2019-07-08] MEDS: HUMALOG SUBQ SCH ×4 (00:09→11:50)
[2019-07-08] MEDS: TRANDATE PO SCH (08:13)
[2019-07-08] MEDS: APRESOLINE PO SCH (08:13)
[2019-07-08] MEDS: LEVEMIR SUBQ SCH (08:14)
[2019-07-08] MEDS: FOLIC ACID PO SCH (08:14)
[2019-07-08] MEDS: CULTURELLE PO SCH (08:14)
[2019-07-08] MEDS: CATAPRES PO SCH (08:14)
[2019-07-08] MEDS: MYCOSTATIN SUSP PO SCH ×3 (08:14→13:06)
[2019-07-08] MEDS: NORVASC PO SCH (08:14)
[2019-07-08] MEDS: HEPARIN SUBQ SCH (08:14)
--- NOTE | 2019-07-08 11:01 | NEPHROLOGY PROGRESS NOTE ---
DATE: 07/08/2019 Subjective: Lying in bed awake, voices eating ok. Denies any uremic complaints. Objective: vitals. Temp 97.8, pulse 97, respirations 18, blood pressure 154/67, O2 sat 100% on 2 L nasal cannula. General: elderly -Citizen Of [place] female lying in bed in no acute distress. HEENT: atraumatic, normocephalic. mucous membranes moist. Trachea midline Skin: warm and dry. Neck: supple, no JVD noted. Cardiovascular: S1, S2, S4 with regular rate and rhythm and a decrescendo systolic murmur grade 2/6 heard best at left sternal border. Respiratory: lungs clear bilaterally with equal excursion. Abdomen: obese, soft, nontender nondistended with bowel sounds present. : not inspected Extremities: no clubbing or cyanosis noted. New left AKA with dressing in place. Black Eschar noted to right heel. Right tunnel Catheter noted. Neurological: alert and oriented to person and place. Labs: intake 540, output 2000. Impression: Chronic kidney disease 5D. She will have her routine hemodialysis today. No changes. PT/OT consult. Electrolytes and acid base balance. Stable. Anemia. Low but stable. Blood pressure. In target. Medication review. No med changes at this time. cc: Benji Fitzgerald MD MTDD
--- NOTE | 2019-07-08 11:29 | DISCHARGE SUMMARY ---
ADMISSION DATE: 06/23/2019 DISCHARGE DATE: 07/08/2019 DISPOSITION: Back to [facility]. CONSULTATIONS DURING THIS ADMISSION: 1. Surgery was consulted. The patient was initially seen by Dr. Puentes, followed up by Dr. Iglesias and Dr. Montes De Oca. 2. ID was consulted. The patient was seen by Dr. Carmona. 3. Nephrology was consulted. The patient was seen by Dr. Caceres. INVASIVE PROCEDURES DONE DURING THIS ADMISSION: 1. A debridement of necrotic skin, subcutaneous tissue, muscle, tendon, and bone on the left heel was initially done by Dr. Puentes on 06/23/2019. 2. A left above-knee amputation was done by Dr. Puentes on 07/01/2019. IMAGING STUDIES OF SIGNIFICANCE: 1. A chest x-ray showed questionable small bibasilar infiltrates. 2. Echocardiogram showed ejection fraction of 60%. No wall motion abnormality. 3. X-ray of the right foot showed numerous issues, including severe calcifications of the arteries, absence of second toe. 4. X-ray of the left foot showed ulceration of the heel with erosion of the calcaneus. 5. Vascular studies showed significant stenosis. 6. A CTA was recommended. ADMISSION DIAGNOSES: 1. Fever of unclear etiology. 2. Decubitus sacral ulcers. 3. End-stage renal disease. 4. Diabetes mellitus. 5. Chronic obstructive pulmonary disease. DISCHARGE DIAGNOSES: 1. Soft tissue necrosis and osteomyelitis of the left foot, extending to the left leg. The patient underwent left above-knee amputation. 2. Severe peripheral vascular disease. 3. Bibasilar pneumonia. 4. End-stage renal disease, on hemodialysis. 5. Anemia of chronic disease. 6. Protein calorie malnutrition. 7. Previous history of stroke. DISCHARGE MEDICATIONS: 1. Amlodipine 5 mg b.i.d. 2. Folic acid 1 mg p.o. daily. 3. Labetalol 100 mg b.i.d. 4. MiraLAX. 5. PhosLo 667 three times per day. 6. Clonidine 0.3 three times per day. 7. Hydralazine 100 mg 3 times per day. 8. Mirtazapine 30 mg p.o. at bedtime. 9. Metoclopramide 10 mg p.o. every 6 hours p.r.n. 10. Glargine 35 units subcutaneously at bedtime. 11. Colace 100 mg b.i.d. 12. Lactobacillus. 13. Tramadol 50 mg p.o. daily. PRESENTING COMPLAINT: Fever, multiple decubitus ulcers. HISTORY OF PRESENTING COMPLAINT: Ms. Velez is a 68-year-old female, very poor historian, resident of [facility], who came in because of multiple ulcers, fever. On presentation, the patient was evaluated. Imaging studies of the lower extremities did suggest some erosions of the calcaneal bone on the left. She was admitted for sepsis. HOSPITAL COURSE: Ms. Velez was admitted to the medical floor, initially evaluated and started on broad-spectrum antibiotics. Cultures from the left foot came back positive for Proteus mirabilis. Blood cultures were negative. Urine culture was also done for some reason, which came back as Staph aureus. Surgery was consulted because of the heel ulcers and possibility of osteomyelitis. She was evaluated by Dr. Puentes. An initial incision and debridement was done on the calcaneum of necrotic tissue, but over the following days, there was no improvement. A decision was made to do an AKA, which was successfully done. Ms. Velez was also thought to have some pneumonia, so was seen by ID. Over the course of the hospital stay, she was evaluated also by Nephrology, and she did go on her scheduled dialysis regimen. Today, she is fairly stable. No new complaints. We think she is okay to be discharged. Per the ID notes from yesterday, it appears that they are pending on the procalcitonin level to make a decision if she is going to benefit from any further antimicrobial therapy. Will defer that decision to the ID team. From a medical standpoint, we think Ms. Velez can be discharged, and she follows up with Infectious Disease and Surgery, as well as Nephrology. TIME SPENT: The time spent for discharge was 35 minutes. cc: MD Roe Shelton MD Luis N. Villanueva, MD Lynn R. Buckner, MD Leroy F. Harris, MD Reginald D. Gladish, MD
[2019-07-08 11:45] VITALS: BP 153/59
[2019-07-08] MEDS: TYLENOL PO PRN (13:05)
== END 2019-07-08 14:29 | DRG 853 ==
LOC: SUPCPDRO → ED 15:28 → SUATTDRO 23:59 → 2N 23:59 → 1N 06-26 18:30
PROVIDERS: ATTEND Internal Medicine

== ENCOUNTER 2019-08-22 00:32 | Inpatient (IN) ==
--- NOTE | 2019-08-22 00:51 | PROVIDER DOCUMENTATION ---
This chart was entered by Sravani Alvarez Scribe, acting as scribe for Ezra Vega MD. HPI-Abdominal Pain/GI Problem - General Stated Complaint: VOMITING Time Seen by Provider: 08/22/19 00:38 Source: patient Allergies/Adverse Reactions: Patient Allergies Allergy/AdvReac Type Severity Reaction Status Date / Time No Known Allergies Allergy Verified 06/23/19 19:52 Home Medications: Home Medication List Medication Instructions Recorded Confirmed Last Taken Type Amlodipine [Norvasc] 5 mg PO BID 30 Days #60 tab 02/26/18 06/23/19 06/23/19 Rx Budesonide/Formoterol Fumarate 1 puff INH BID 08/07/18 06/23/19 06/23/19 History [Symbicort 80-4.5 Mcg Inhaler] Folic Acid 1 mg PO DAILY 08/07/18 06/23/19 06/23/19 History Calcium Acetate [Phoslo] 667 mg PO TID CC tablet 08/28/18 06/23/19 06/23/19 Rx Clonidine HCl 0.3 mg PO TID #0 08/28/18 06/23/19 06/23/19 Rx Hydralazine [Apresoline] 100 mg PO TID #0 08/28/18 06/23/19 06/23/19 Rx Labetalol [Trandate] 100 mg PO BID tablet 08/28/18 06/23/19 06/23/19 Rx Polyethylene Glycol 3350 [Miralax] 17 gm PO BID powder, packet 08/28/18 06/23/19 06/23/19 Rx Mirtazapine 30 mg PO HS 10/09/18 06/23/19 06/22/19 History Albuterol 2.5MG/Ipratrop 0.5MG 3 ml NEB Q4H PRN 12/31/18 06/23/19 03/12/19 21:00 History [Duoneb (A & A)] Ondansetron HCl [Zofran] 4 mg PO Q4H PRN 12/31/18 06/23/19 03/12/19 21:00 History Metoclopramide [Reglan] 10 mg PO Q6HR PRN #20 tab 02/19/19 06/23/19 03/12/19 21:00 Rx Acetaminophen [Tylenol Extra 2 tab PO DAILY 03/11/19 06/23/19 06/23/19 History Strength] Bisacodyl [Dulcolax] 1 supp RC QHS 03/11/19 06/23/19 06/22/19 History Docusate Sodium [Colace] 100 mg PO BID 03/11/19 06/23/19 06/23/19 History Insulin Glargine,Hum.rec.anlog 35 unit SQ QHS 03/11/19 06/23/19 06/22/19 History [Basaglar Kwikpen U-100] Tramadol HCl [Ultram] 50 mg PO Q6H PRN #15 tab 03/13/19 06/23/19 Unknown Rx Lactobacillus Rhamnosus GG 1 ea PO BID cap 07/08/19 Unknown Rx [Culturelle] Tramadol [Ultram] 50 mg PO Q6H PRN PRN #20 tab 07/08/19 Unknown Rx Ondansetron Odt [Zofran 4 mg Odt] 4 mg PO Q6H PRN PRN #12 tab 08/22/19 Unknown Rx Polyethylene Glycol 3350 [Miralax] 17 gm PO DAILY 30 Days #30 08/22/19 Unknown Rx powd.pack - History of Present Illness-ABD Nature of Presenting Problems: 69 y/o female with h/o diabetes and chronic renal failure presents to the ED via EMS from [facility] with complaint of abdominal pain, nausea, and vomiting since this am according to the patient. EMS states nursing staff offered no additional information. The patient states she does not know when she ate last. Onset/Duration: reports: this morning Timing: reports: still present Similar Symptoms Previously?: Yes Recently seen or treated by another doctor?: No Review of Systems - Adult - REVIEW OF SYSTEMS - ADULT Constitutional: denies: chills, fever, night sweats Eyes: reports: no symptoms reported Ears, Nose, Mouth & Throat: reports: no symptoms reported Cardiovascular: reports: no symptoms reported Respiratory: reports: no symptoms reported Gastrointestinal: reports: abdominal pain, nausea, vomiting. denies: diarrhea Genitourinary: reports: no symptoms reported Musculoskeletal: reports: no symptoms reported Integumentary: reports: no symptoms reported Neurological: denies: dizziness/vertigo, headache/migraines, syncope Psychiatric: reports: no symptoms reported Endocrine: reports: no symptoms reported Hematologic/Lymphatic: reports: no symptoms reported Allergic/Immunologic: reports: no symptoms reported All Other Systems: Reviewed and Negative Past History - Adult - PAST MEDICAL HISTORY-ADULT Review of Records: reports: Old Records Reviewed, Nursing Assessment Review, Medications Reviewed Major Childhood Illnesses: reports: denies history Cardiovascular: reports: HTN Respiratory: reports: denies history, asthma Gastrointestinal: reports: other (colon problems) Obstetrical/Gynecological: reports: denies history, other (breast cancer) Genitourinary: reports: kidney disease (CKD) Musculoskeletal: reports: denies history Neurological: reports: denies history Endocrine/Immune: reports: Diabetes Other Conditions: reports: denies history - PRIOR SURGERIES/PROCEDURES Surgical/Procedure History: reports: hysterectomy, breast (L lumpectomy) - IMMUNIZATION STATUS Childhood Immunizations: See Nurse Assessment Flu Vaccine: See Nurse Assessment - FAMILY HISTORY Family History: reviewed, not pertinent - SOCIAL HISTORY Smoking: non-smoker Substance Use: none/never Living Situation: care facility ([facility] Physical Exam-General - PHYSICAL EXAM-ADULT Initial Vital Signs Reviewed: Yes - CONSTITUTIONAL General Appearance: alert, obese - EYES Eyes: PERRL/EOMI - HEAD, EARS, NOSE, MOUTH & THROAT HENMT: normocephalic/atraumatic, other (mildly dry mucous membranes) - RESPIRATORY Respiratory: lungs clear, normal breath sounds, other (right upper chest dialysis cath). negative: rales, rhonchi, wheezing - CARDIOVASCULAR Cardiovascular: regular rate, rhythm, no gallop, no murmur - GASTROINTESTINAL (ABDOMEN) Abdominal Exam: soft, distended (mild), tenderness (mid to lower abdominal tenderness) - MUSCULOSKELETAL Extremity: other (left BKA, dry gangrenous right heel) - SKIN Integumentary: normal color, warm/dry. negative: diaphoresis - NEUROLOGIC Neurologic: grossly normal Departure - Departure Date of Disposition Decision: 08/22/19 Time of Disposition Decision: 02:21 DIAGNOSIS: Colitis, ESRD (end stage renal disease) on dialysis Constipation Qualifiers: Constipation type: unspecified constipation type Qualified Code(s): K59.00 - Constipation, unspecified Disposition: [facility] 03 Certified Medical Emergency: Emergent Condition: Stable Additional Instructions: clear liquids for next 12 hours then advance diet as tolerated Prescriptions: Polyethylene Glycol 3350 [Miralax] 17 gm PO DAILY 30 Days #30 powd.pack Ondansetron Odt [Zofran 4 mg Odt] 4 mg PO Q6H PRN PRN #12 tab PRN Reason: Nausea - Critical Care Note This patient required my direct & personal management of CC.: No Attestation - Physician/ HILDA Attestation Patient care was provided by Advanced Practice Provider:: No The physician spent face to face time with patient:: Yes Advanced Practice Provider documentation review:: Supervising physician onsite and consulted in the evaluation and care of this patient. The physician did have a face to face encounter with the patient. This chart was documented by the indicated scribe, (Sravani Alvarez, Tiffanie) and accurately reflects the services I performed and decisions made by me, Ezra Vega MD, as attested by the provider's signature.
[2019-08-22] MEDS ORDERED: ZOFRAN IV ONE (02:16)
[2019-08-22 02:26] LABS: URINE SOURCE CLEAN CATCH
[2019-08-22 02:31] LABS: BILIRUBIN URINE NEGATIVE (NEGATIVE); BLOOD URINE TRACE (NEGATIVE); COLOR YELLOW; GLUCOSE URINE 500 mg/dL (NEGATIVE); KETONE URINE TRACE mg/dL (NEGATIVE); LEUKOCYTES URINE NEGATIVE (NEGATIVE); NITRITE URINE NEGATIVE (NEGATIVE); PROTEIN URINE 200 mg/dL (NEGATIVE); SP GRAVITY URINE 1.019; TURBIDITY URINE HAZY (CLEAR); UROBILINOGEN URINE NORMAL (NORMAL)
[2019-08-22 02:32] LABS: BASO# 0.01 X1000 (0.0-0.2); BASO% 0.1 % (0.0-0.8); EOS# 0.07 X1000 (0.0-0.7); EOS% 0.5 % (0.0-10.0); HEMATOCRIT 47.6 % (37.0-47.0); IMM GRAN# 0.03 X1000 (0.0-0.04); IMM GRAN% 0.2 % (0.0-0.5); LYMPH# 0.83 X1000 (1.2-3.4); LYMPH% 6.4 % (20.5-51.1); MCH 30.2 PG (27-31); MCHC 31.5 g/dL (33-37); MCV 95.8 FL (81-99); MONO# 0.32 X1000 (0.11-0.59); MONO% 2.5 % (1.7-9.3); MPV 10.1 FL (7.4-10.4); NEUT# 11.69 X1000 (1.4-6.5); NEUT% 90.3 % (42.2-75.2); PLT 338 X1000 (130-400); RBC 4.97 XMIL (4.2-5.4); WBC 12.95 X1000 (4.8-10.8)
[2019-08-22 02:33] LABS: UR EPITHELIAL CELLS <10 /HPF (<10); URINE BACTERIA NEGATIVE /HPF; URINE RBC <10 /HPF (<10)
[2019-08-22 02:48] LABS: URINE CASTS NONE SEEN; URINE CRYSTALS NONE SEEN; URINE SMALL ROUND CELLS NONE SEEN; URINE YEAST NONE SEEN
[2019-08-22] MEDS ORDERED: LABETALOL IV ONE (02:53)
[2019-08-22 03:07] LABS: ALB/GLOB RATIO 1.1; ALBUMIN 3.9 g/dL (3.5-5.0); CREATININE 2.6 mg/dL (0.5-0.9); POTASSIUM 5.4 mmol/L (3.5-5.1); TOTAL BILIRUBIN 0.27 mg/dL (0.20-1.00); TOTAL PROTEIN 7.4 g/dL (6.3-8.3)
[2019-08-22] MEDS ORDERED: ASPIRIN PO ONE (03:43)
[2019-08-22] MEDS ORDERED: ROCEPHIN 1 GM in NS 50 ML IV ONE (04:08)
[2019-08-22] MEDS ORDERED: MORPHINE IV ONE (04:14)
[2019-08-22] MEDS ORDERED: LABETALOL IV PRN (05:47)
[2019-08-22] MEDS ORDERED: ZOFRAN PO PRN (05:51)
[2019-08-22] MEDS ORDERED: ULTRAM PO PRN (05:51)
[2019-08-22] MEDS ORDERED: REGLAN PO PRN (05:51)
[2019-08-22] MEDS ORDERED: ROCEPHIN 1 GM in NS 50 ML IV SCH (06:00)
[2019-08-22] MEDS ORDERED: HUMULIN R SUBQ SCH (07:00)
--- NOTE | 2019-08-22 07:28 | EKG Report ---
Test Performed on : 08/22/2019 03:50:30 AM Test Reason : pain Blood Pressure : / mmHG Vent. Rate : 102 BPM Atrial Rate : 102 BPM P-R Int : 182 ms QRS Dur : 098 ms QT Int : 362 ms P-R-T Axes : 069 -03 101 degrees QTc Int : 471 ms Sinus tachycardia. Moderate voltage criteria for LVH, may be normal variant T wave abnormality, consider lateral ischemia Abnormal ECG When compared with ECG of 25-JUN-2019 06:17, T wave inversion now evident in Lateral leads Unconfirmed Result
--- NOTE | 2019-08-22 07:41 | Diag Imaging Result Doc PS360 ---
CT ABDOMEN/PELVIS W/O CONTRAST - 08/22/2019 INDICATION: nausea,vomiting,abdominal pain COMPARISON: 02/19/2019 FINDINGS: There is moderate heterogeneous airspace opacification in the lung bases bilaterally. Heart size is normal with no pericardial effusion. No radiodense renal stones. No hydronephrosis or hydroureter. There is moderate diffuse constipation. There is significant rectal stool impaction. There is severe wall thickening of the sigmoid colon and rectum compatible with proctocolitis. There is urinary bladder wall thickening. The uterus is absent. There are moderate degenerative changes of the spine. No acute or suspicious bony lesion. IMPRESSION: 1. Constipation with rectal stool impaction. 2. Proctocolitis of the distal colon. This may be related to stool impaction. 3. Probable cystitis. 4. Infiltrates in the lung bases consistent with pneumonia or significant atelectasis. This exam was performed using automated exposure control, adjustment of mA or kV according to patient size, and/or use of iterative reconstruction technique Electronically signed by Malachi Chaves 08/22/2019 7:38 AM
[2019-08-22] MEDS: DUONEB (A & A) INH SCH ×4 (07:49→23:12)
[2019-08-22] MEDS ORDERED: CARDENE 40 MG/NS 40 MG/200 ML PIGGYBACK IV SCH (08:00)
--- NOTE | 2019-08-22 08:03 | HISTORY AND PHYSICAL ---
HISTORY: The patient is a 68-year-old female who has a history of end-stage renal disease, diabetes mellitus type 2, hypertension, COPD and recent history of left above knee amputation, and she is from [facility]. The patient presents to the hospital because of nausea, vomiting, as well as abdominal pains. During my evaluation in the ER, lipase level was not elevated. She did have a CT scan of the abdomen and pelvis with the unofficial report being unremarkable. UA did show about 10-20 WBCs per high-power field. Troponin level was elevated at 0.571. The patient will be admitted to the floor now for further management. PAST MEDICAL HISTORY: End-stage renal disease, type 2 diabetes mellitus, hypertension, history of breast cancer, COPD, hyperlipidemia, and left above-knee amputation. PAST SURGICAL HISTORY: She has had left mastectomy, right breast biopsy, hysterectomy, dialysis catheter, and left below-knee amputation. SOCIAL HISTORY: No history of cigarette smoking. No alcohol or drug use. ALLERGIES: No known drug allergies. FAMILY HISTORY: Positive for heart disease as well as kidney disease. DISCHARGE MEDICATIONS: Medications include the followin. Amlodipine 5 mg p.o. twice a day. 2. Symbicort 80/4.5 1 puff twice a day. 3. Folic Acid 1 mg p.o. daily. 4. PhosLo 667 mg p.o. 3 times a day. 5. Clonidine 0.3 mg p.o. 3 times a day. 6. Hydralazine 100 mg p.o. 3 times a day. 7. Labetalol 100 mg p.o. twice a day. 8. MiraLAX 17 g twice a day. 9. Mirtazapine 30 mg p.o. at bedtime. 10. DuoNeb 3 mL q.4 hours p.r.n. 11. Zofran 4 mg q.6 hours p.r.n. 12. Reglan 10 mg p.o. q.6 hours p.r.n. 13. Tylenol 2 tabs p.o. daily. 14. Bisacodyl as directed 15. Colace 100 mg p.o. twice a day. 16. Basaglar 35 units subcutaneous at bedtime. 17. Tramadol 50 mg q.6 hours p.r.n. 18. Culturelle 1 twice a day. 19. Tramadol 50 mg IV q.6 hours p.r.n. REVIEW OF SYSTEMS: Constitutional: No fever. GARMENT ALTERATION EXAMINER: No headaches. Eyes: No blurred vision. Cardiovascular: No chest pain. Respiratory: Denies cough GI: As in history of present illness. : There is dysuria. Musculoskeletal: No joint pains. Dermatology: No skin lesions. Hematology: No bleeding problems. Psychiatric: No anxiety or depression. Endocrinology: Diabetes. Hematology: No bleeding problems. PHYSICAL EXAMINATION: VITAL SIGNS: Temperature 98.7 degrees, blood pressure 256/105, pulses 104, and respiratory 20. Repeat blood pressure 219/112. This was at 3:28 in the morning. HEENT: Atraumatic normocephalic. She is anicteric. Extraocular movements intact. No oral lesions noted. NECK: No lymphadenopathy or thyromegaly. CARDIOVASCULAR: S1, S2. RESPIRATORY: There is evidence of good air entry bilaterally. ABDOMEN: Soft, nondistended in the suprapubic area. No masses felt. EXTREMITIES: She has left above knee amputation. The stump still has yashira in place. On the right heel, the patient does have a necrotic lesion in the right heel. LABORATORY DATA: WBC is 12.95, hematocrit 47.6 with a platelet count of 328,000. Sodium is 134, potassium 5.4, chloride 91, bicarb is 18, BUN 32, and creatinine 2.6. Troponin 0.571. UA shows 10-20 WBCs per high-power field. His abdomen and pelvis official report pending. ASSESSMENT AND PLAN: 1. Urinary tract infection. Obtain urine as well as blood cultures. Start patient on empiric antibiotics. 2. Hypertensive urgency. Optimize blood pressure control using both parenteral and oral agent. The patient will be initially managed in the intensive care unit. 3. End-stage renal disease completely with hyperkalemia. The patient is on hemodialysis Wednesdays, and Fridays. Consult with Nephrology. 4. Elevated troponin. Suspect related to renal dysfunction. Consult with Cardiology. 5. Diabetes mellitus. Place patient on sliding scale insulin. Monitor blood sugar levels. Check hemoglobin A1c level. 6. Left above-knee amputation. The patient still has yashira at the stump site. He will need to consult with Orthopedics regarding timing of removal of yashira. 7. Necrotic heel on the right foot. Consult with wound care for management. 8. History of decubitus ulcer in the sacral region. Consult with wound care. 9. History of COPD. Nebulized bronchodilators as needed. 10. Deep vein thrombosis prophylaxis. Heparin. 11. Gastrointestinal prophylaxis. Proton pump inhibitor. cc: Zachary Ramsay MD MTDD
[2019-08-22 09:15] LABS: BLOOD TYPE ARTERIAL; SAMPLE BLOOD
[2019-08-22 09:16] LABS: MODALITY ROOM AIR; PCO2(98.6) 41 mmHg (35-45); PO2(98.6) 78 mmHg (60-100); pH(98.6) 7.37 (7.35-7.45)
[2019-08-22 09:17] LABS: ALLEN TEST YES
[2019-08-22] MEDS: ZOFRAN IV PRN (09:58)
[2019-08-22] MEDS ORDERED: HUMULIN R IV ONE (11:19)
[2019-08-22] MEDS: DILAUDID IV PRN (11:24)
[2019-08-22] MEDS ORDERED: HUMULIN R 100 UNIT in NS 100 ML IV SCH (11:30)
[2019-08-22] MEDS: COLACE PO SCH ×2 (11:36→22:51)
[2019-08-22] MEDS: FOLIC ACID PO SCH (11:36)
[2019-08-22] MEDS: NORVASC PO SCH (11:36)
[2019-08-22] MEDS: APRESOLINE PO SCH ×3 (11:36→17:32)
[2019-08-22] MEDS: HEPARIN SUBQ SCH ×2 (11:36→22:52)
[2019-08-22] MEDS: CATAPRES PO SCH ×3 (11:36→17:32)
[2019-08-22] MEDS: REGLAN IV SCH ×2 (11:46→16:09)
[2019-08-22] MEDS: PRILOSEC PO SCH (11:50)
[2019-08-22] MEDS: TRANDATE PO SCH (11:51)
[2019-08-22] MEDS ORDERED: DULCOLAX PR ONE (11:54)
[2019-08-22 12:46] LABS: CREATININE 3.2 mg/dL (0.5-0.9); MAGNESIUM 2.3 mg/dL (1.5-2.7); PHOSPHORUS 5.5 mg/dL (2.7-4.5); POTASSIUM 3.8 mmol/L (3.5-5.1)
--- NOTE | 2019-08-22 14:19 | NEPHROLOGY PROGRESS NOTE ---
DATE: 08/22/2019 HISTORY OF PRESENT ILLNESS: Ms. Velez came to the emergency room today because of nausea, vomiting and abdominal pain. She underwent a CT of the abdomen in the emergency room which was unremarkable. Her urinalysis had few white cells. Blood pressure was markedly elevated on admission. CT of the abdomen with proctocolitis and constipation with possible impaction. Infiltrates in the lung bases. OBJECTIVE: Vital Signs: Blood pressure 143/83, heart rate 100, respirations 17. Afebrile. General: No acute distress. Skin: Warm and dry. Neck: Neck veins are not distended. Heart: Regular. Abdomen: Benign. Extremities: Have minimal edema. Eschar on the right heel. Left AKA. IMPRESSION: 1. Chronic kidney disease 5D. We will continue her routine outpatient dialysis prescription. Electrolytes/acid base/anemia in target. 2. Hypertension. Uncontrolled today. She has been moved to the intensive care unit and treated with intravenous nicardipine with excellent control. We will continue this until morning and then transition back to oral. cc: Benji Fitzgerald MD
[2019-08-22] MEDS: MIRALAX PO SCH ×2 (16:09→22:51)
[2019-08-22 16:48] LABS: CREATININE 3.3 mg/dL (0.5-0.9); MAGNESIUM 2.3 mg/dL (1.5-2.7); PHOSPHORUS 5.4 mg/dL (2.7-4.5); POTASSIUM 4.1 mmol/L (3.5-5.1)
[2019-08-22] MEDS ORDERED: MAXIPIME 1 GM in NS 50 ML IV SCH (17:00)
[2019-08-22] MEDS ORDERED: MAXIPIME 1 GM in NS 50 ML IV ONE (17:00)
[2019-08-22] MEDS ORDERED: VANCOMYCIN 1 GM/NS 1 GM/250 ML IVPB IV SCH (17:00)
--- NOTE | 2019-08-22 17:12 | ECHO REPORT ---
ORDER DATE: 08/22/2019 INDICATION: Pericardial effusion. FINDINGS: 1. Right atrium appears normal in size. 2. Mild tricuspid regurgitation. RV systolic pressure of 26. 3. Normal RV size and systolic function. 4. No significant pulmonic insufficiency. 5. Normal left atrial size with a dimension of 2.9 cm. 6. No mitral valve prolapse. Mitral annular calcification is noted with mild mitral regurgitation. 7. Normal LV size, end-diastolic dimension of 3.8 cm. Mild to moderate left ventricular hypertrophy with a posterior and interventricular septal wall thickness of 1.3 and 1.4 cm, respectively. Hyperdynamic LV systolic function is noted with an estimated ejection fraction greater than 70%. No wall motion abnormalities. 8. The aortic valve opens well, although it does appear to be sclerotic. There is no stenosis. There is trace insufficiency. 9. The aorta appears normal on visualized segments. 10. There is no pericardial effusion identified on this study. cc: MD Aidee Schilling PA
--- NOTE | 2019-08-22 17:32 | CARDIOLOGY CONSULTATION ---
DATE: 08/22/2019 CHIEF COMPLAINT: On presentation, apparently nausea and vomiting. HISTORY OF PRESENT ILLNESS: Ms. Velez is a 69-year-old black female with a history of nonobstructive coronary disease by catheterization in 2002 as well as endstage renal disease, hypertension and diabetes. She has apparently been experiencing 24 to 48 hours of abdominal pain as well as nausea and vomiting. She reports vomiting more than she can count. She denies any chest pain or shortness of breath. She has very limited ability to ambulate secondary to a left [id number] amputation as well as chronic diabetic foot wounds to the right lower extremity. The patient denies any diarrhea. She has not had any fevers. She lives at a skilled nursing and has not had any sick contacts that she is aware of, nor eaten any suspect foods or in any restaurants. PAST MEDICAL HISTORY: 1. Significant for coronary artery disease as identified by catheterization in 2002. This showed nonobstructive minimal disease. 2. Diastolic dysfunction. 3. Hypertension. 4. Hyperlipidemia. 5. Diabetes. 6. Chronic kidney disease. 7. Peripheral vascular disease with a left gixje-put-idrs amputation. 8. History of breast cancer. 9. COPD. SOCIAL HISTORY: No current tobacco use or alcohol. She currently lives in a skilled nursing. FAMILY HISTORY: Significant for kidney disease. REVIEW OF SYSTEMS: A 10-system review of systems is negative. PHYSICAL EXAMINATION: The patient is afebrile. Her heart rate is 88 here. Her blood pressure is 122/65. She presented with a blood pressure of 229/94. She was initially supposed to be started on a Cardene infusion; however, administration of antiemetics actually brought the blood pressure down quite well. Generally, she is in no acute distress. She says she feels much better since admission. She has no pain complaints presently.HEENT: Oropharynx is moist. She has poor dentition. Her eye examination has pink conjunctivae. White sclerae. Neck examination shows no obvious thyromegaly or thyroid tenderness. Cardiovascular: She sounds to be in a regular rate and rhythm. She has no obvious murmurs. She has no S3. She is currently in sinus rhythm on telemetry. She has no right lower extremity edema noted. Again, she has a left fhgit-prq-qncq amputation. Her chest exam is clear bilaterally. Her abdomen is soft, nontender. She has somewhat hyperactive bowel sounds. No real rebound or guarding. Her skin exam is warm and dry throughout. She does have a diabetic foot wound to the right heel. Neurologically, she seems to be moving all extremities. She has no lateralizing deficits. DIAGNOSTIC DATA: Her EKG reviewed by me shows mild sinus tachycardia at a rate of 102, with nonspecific ST and T-wave changes and suggestions of LVH by voltage criteria. Her abdomen and pelvis CT shows evidence for a stool impaction with constipation, proctocolitis of the distal colon, probable cystitis and infiltrates in the lung bases consistent with a possible pneumonia versus atelectasis. LABORATORY DATA: Her lab data shows a white count of 12.9, hematocrit 47, platelet count of 338,000. Her sodium is 138, potassium 4.1, her BUN is 38 with a creatinine of 3.3. Her initial anion gap was 25. Her troponin initially was checked at 0.571. Most recent was 0.516. AST and ALT are normal. Initial glucose checked was 375. Her initial carbon dioxide level was 18. ABG had a pH of 7.37. ASSESSMENT: Ms. Velez is a 69-year-old female who presented with mild diabetic ketoacidosis, persistent nausea and vomiting, endstage renal disease and had a low-level troponin elevation. PLAN: Likely troponin elevation was secondary to the marked elevation of her blood pressure which was likely reactive to her nausea and vomiting. In addition, she had not been receiving medications at the skilled nursing secondary to her nausea and vomiting. Her echocardiogram shows a preserved ejection fraction with no wall motion abnormalities. At this point, I would not pursue this from an anti-ischemic standpoint. I will add in a low-dose aspirin to her regimen. Please contact us if we can be of further assistance with this patient. cc: Xu Ferrell MD
[2019-08-22] MEDS ORDERED: VANCOMYCIN 1 GM/NS 1 GM/250 ML IVPB IV ONE (18:00)
[2019-08-22] MEDS ORDERED: NS 2,000 ML MISC PRN (19:08)
[2019-08-22] MEDS ORDERED: HEPARIN IV PRN (19:08)
[2019-08-22 20:40] LABS: CALCIUM 9.2 mg/dL (8.8-10.2); CREATININE 1.7 mg/dL (0.5-0.9); MAGNESIUM 1.7 mg/dL (1.5-2.7); PHOSPHORUS 2.2 mg/dL (2.7-4.5)
[2019-08-22] MEDS: REMERON PO SCH (22:51)
[2019-08-23] MEDS ORDERED: MAXIPIME 1 GM in NS 50 ML IV SCH ×2
[2019-08-23] MEDS: ZOFRAN IV PRN (00:30)
[2019-08-23] MEDS: TRANDATE PO SCH ×3 (01:13→21:29)
[2019-08-23] MEDS: NORVASC PO SCH ×3 (01:13→21:30)
[2019-08-23] MEDS: DUONEB (A & A) INH SCH ×7 (01:47→23:35)
[2019-08-23 02:25] LABS: CREATININE 1.8 mg/dL (0.5-0.9); POTASSIUM 3.4 mmol/L (3.5-5.1)
[2019-08-23 02:26] LABS: MAGNESIUM 1.8 mg/dL (1.5-2.7); PHOSPHORUS 2.8 mg/dL (2.7-4.5)
[2019-08-23] MEDS: DILAUDID IV PRN (03:56)
[2019-08-23 05:47] LABS: ALLEN TEST YES; BLOOD TYPE ARTERIAL; HCO3-(ACT) 26.3 mmoll (20.0-26.0); METHB 1.2 % (0.0-1.5); O2(CT) 17.7 mL/dL (15.0-23.0); O2HB 91.3 % (95.0-99.0); PCO2(98.6) 44 mmHg (35-45); PO2(98.6) 67 mmHg (60-100); SAMPLE BLOOD; SAO2 94.3 % (95.0-100.0); THB 13.8 g/dL (11.5-17.4)
--- NOTE | 2019-08-23 05:47 | EKG Report ---
Test Performed on : 08/23/2019 05:34:06 AM Test Reason : elevated troponins Blood Pressure : / mmHG Vent. Rate : 101 BPM Atrial Rate : 101 BPM P-R Int : 180 ms QRS Dur : 094 ms QT Int : 370 ms P-R-T Axes : 043 005 124 degrees QTc Int : 479 ms Sinus tachycardia. Left ventricular hypertrophy with repolarization abnormality Abnormal ECG When compared with ECG of 22-AUG-2019 03:50, (Unconfirmed) No significant change was found Confirmed by Marylin WILSON, Abisai ([id number]) on 08/25/2019 8:29:53 AM
[2019-08-23 05:49] LABS: MODALITY ROOM AIR
[2019-08-23 05:50] LABS: HEMATOCRIT 40.3 % (37.0-47.0); HEMOGLOBIN 12.8 g/dL (12.0-16.0); IMM GRAN# 0.02 X1000 (0.0-0.04); IMM GRAN% 0.2 % (0.0-0.5); LYMPH# 0.88 X1000 (1.2-3.4); LYMPH% 7.1 % (20.5-51.1); MCH 30.9 PG (27-31); MCHC 31.8 g/dL (33-37); MCV 97.3 FL (81-99); MONO# 0.82 X1000 (0.11-0.59); MONO% 6.6 % (1.7-9.3); MPV 9.8 FL (7.4-10.4); NEUT# 10.62 X1000 (1.4-6.5); NEUT% 86.1 % (42.2-75.2); PLT 296 X1000 (130-400); RBC 4.14 XMIL (4.2-5.4); WBC 12.34 X1000 (4.8-10.8)
[2019-08-23 06:10] LABS: MAGNESIUM 1.8 mg/dL (1.5-2.7); PHOSPHORUS 3.8 mg/dL (2.7-4.5)
[2019-08-23 06:13] LABS: CALCIUM 9.3 mg/dL (8.8-10.2); CREATININE 1.8 mg/dL (0.5-0.9); POTASSIUM 3.6 mmol/L (3.5-5.1)
[2019-08-23] MEDS: REGLAN IV SCH ×3 (06:21→16:59)
[2019-08-23] MEDS: PRILOSEC PO SCH (06:21)
[2019-08-23 07:07] LABS: LYMPHS 10 % (21-51); MONO 4 % (1-9); SEGS 80 % (42-75)
[2019-08-23] MEDS ORDERED: LEVEMIR SUBQ ONE (08:20)
[2019-08-23] MEDS: HUMULIN R SUBQ SCH ×4 (08:32→21:29)
[2019-08-23] MEDS ORDERED: INSULIN PEN NEEDLES ONE (09:07)
[2019-08-23] MEDS: APRESOLINE PO SCH ×3 (09:09→17:00)
[2019-08-23] MEDS: HEPARIN SUBQ SCH ×2 (09:09→21:29)
[2019-08-23] MEDS: CATAPRES PO SCH ×3 (09:09→17:00)
[2019-08-23] MEDS: MIRALAX PO SCH ×2 (09:10→21:29)
[2019-08-23] MEDS: COLACE PO SCH ×2 (09:10→21:30)
[2019-08-23] MEDS: FOLIC ACID PO SCH (09:10)
[2019-08-23] MEDS: ASPIRIN PO SCH (09:10)
--- NOTE | 2019-08-23 13:57 | NEPHROLOGY PROGRESS NOTE ---
DATE: 08/23/2019 SUBJECTIVE: She is moving out to the floor today. She was in the unit for IV management of her blood pressure. OBJECTIVE: Vital Signs: Blood pressure 123/68, heart rate 106, respiration 18, afebrile. Intake 1.2 L. Output none recorded. General: On physical exam, in no acute distress. Skin: Warm and dry. Head/Neck: Conjunctivae are pink. Neck veins are distended. Trachea is midline. Heart: Regular. No gallops. Lungs: Equal. No crackles. Abdomen: Soft, nontender. Bowel sounds present. Extremities: No edema, clubbing or cyanosis. IMPRESSION: Chronic kidney disease 5 D. She had her routine dialysis yesterday. Blood pressure is actually on the low side now. Electrolytes/acid base/volume status all on target. Okay to move to the floor. cc: Benji Fitzgerald MD
--- NOTE | 2019-08-23 17:46 | PROGRESS NOTE ---
DATE: 08/23/2019 SUBJECTIVE: The patient is sitting up. She is awake and alert. She states that she is no longer feeling nauseated or having abdominal pain. Her blood pressure is on the low side today. OBJECTIVE: Vital signs: Temperature 98.3 degrees, blood pressure 117/55, heart rate 102, respirations 20, O2 saturation 95% on room air.General: This is a chronically ill-appearing elderly female, lying in bed in no acute distress. Heart: S1, S2 normal. Tachycardic. Lungs: Equal air entry bilaterally. No wheezing. No rales. Abdomen: Positive bowel sounds. Soft, nontender, nondistended. Extremities: The patient has a left AKA. The right heel has a black eschar on it. Neurologic: The patient is alert and oriented x3. LABORATORY DATA: White blood cell count 12, hemoglobin 12, hematocrit 40, platelets 296,000. Sodium 139, potassium 3.6, chloride 99, CO2 is 24, BUN 15, creatinine 1.8, glucose 149. A1c 7. Magnesium 1.8. ASSESSMENT AND PLAN: 1. Bilateral lobe pneumonia. The procalcitonin level is 7.6, consistent with an infectious process in the lung. We will continue with vancomycin and cefepime after each dialysis session. The patient currently has normal oxygen saturations on room air. We will also provide the patient with an incentive spirometer. 2. Uncontrolled insulin-dependent diabetes mellitus. Improved. Continue on Levemir and sliding scale insulin. 3. Chronic kidney disease stage 5. Management as per the anatomy teacher. 4. Hypertension. Improved. We will continue on the current antihypertensive regimen. 5. Right heel eschar. Continue with wound care. 6. Diabetic gastroparesis. Improved. Continue on Reglan before each meal. 7. Elevated troponin. The patient has been seen by the grinding wheel inspector, who believes that this is secondary to the patient's initial elevated blood pressure. We will continue on the current cardiac medications. 8. Deep venous thrombosis prophylaxis. Continue on heparin. 9. We will transfer the patient to the medical floor and consult Physical Therapy. cc: Renetta Pinto MD
[2019-08-23] MEDS ORDERED: LEVEMIR SUBQ SCH (21:00)
[2019-08-23] MEDS: REMERON PO SCH (21:30)
[2019-08-24] MEDS: HUMULIN R SUBQ SCH ×7 (00:35→23:14)
[2019-08-24] MEDS: DUONEB (A & A) INH SCH ×6 (03:05→23:22)
[2019-08-24] MEDS: D50W SYRINGE IV PRN ×3 (04:51→16:50)
[2019-08-24] MEDS: REGLAN IV SCH ×2 (06:39→11:25)
[2019-08-24] MEDS: PRILOSEC PO SCH (06:39)
[2019-08-24 06:45] LABS: EOS# 0.01 X1000 (0.0-0.7); EOS% 0.1 % (0.0-10.0); HEMATOCRIT 43.1 % (37.0-47.0); HEMOGLOBIN 13.4 g/dL (12.0-16.0); IMM GRAN# 0.03 X1000 (0.0-0.04); IMM GRAN% 0.3 % (0.0-0.5); LYMPH# 1.07 X1000 (1.2-3.4); LYMPH% 9.7 % (20.5-51.1); MCH 30.9 PG (27-31); MCHC 31.1 g/dL (33-37); MCV 99.3 FL (81-99); MONO# 0.57 X1000 (0.11-0.59); MONO% 5.1 % (1.7-9.3); MPV 9.6 FL (7.4-10.4); NEUT% 84.8 % (42.2-75.2); PLT 307 X1000 (130-400); RBC 4.34 XMIL (4.2-5.4); RDW 16.1 % (11.5-14.5); WBC 11.08 X1000 (4.8-10.8)
--- NOTE | 2019-08-24 07:21 | Diag Imaging Result Doc PS360 ---
CHEST-1 VIEW - 08/24/2019 INDICATION: pneumonia COMPARISON: 07/06/2019 FINDINGS: Stable right dialysis catheter. There has been decrease in the patchy infiltrates or atelectasis in both lung bases. Heart size is normal. No pneumothorax or pleural effusion. IMPRESSION: Improvement from prior. Electronically signed by Malachi Chaves 08/24/2019 7:18 AM
[2019-08-24 07:32] LABS: ALBUMIN 3.4 g/dL (3.5-5.0); CALCIUM 10.1 mg/dL (8.8-10.2); CREATININE 3.2 mg/dL (0.5-0.9); PHOSPHORUS 4.5 mg/dL (2.7-4.5); POTASSIUM 3.3 mmol/L (3.5-5.1)
[2019-08-24] MEDS ORDERED: KLOR-CON PO ONE (07:52)
[2019-08-24] MEDS: APRESOLINE PO SCH ×3 (08:00→17:06)
[2019-08-24] MEDS: ASPIRIN PO SCH (08:00)
[2019-08-24] MEDS: FOLIC ACID PO SCH (08:01)
[2019-08-24] MEDS: TRANDATE PO SCH ×2 (08:01→20:12)
[2019-08-24] MEDS: NORVASC PO SCH ×2 (08:01→20:12)
[2019-08-24] MEDS: CATAPRES PO SCH ×3 (08:01→17:06)
[2019-08-24] MEDS: HEPARIN SUBQ SCH ×2 (08:02→20:12)
[2019-08-24] MEDS: COLACE PO SCH (08:21)
[2019-08-24] MEDS: MIRALAX PO SCH (08:22)
[2019-08-24] MEDS ORDERED: LEVEMIR SUBQ SCH (09:00)
[2019-08-24] MEDS ORDERED: HUMULIN R SUBQ SCH (11:45)
--- NOTE | 2019-08-24 12:19 | Diag Imaging Result Doc PS360 ---
CT HEAD W/O CONTRAST - 08/24/2019 INDICATION: decreased LOC COMPARISON: 08/08/2018 FINDINGS: The ventricles and sulci are normal in size and contour. No intracranial mass or hemorrhage. There is mild cerebral white matter chronic microvascular ischemia. The skull is intact. There is some mild nonspecific fluid scattered throughout several of the sinuses. This may indicate mild sinusitis. IMPRESSION: No acute intracranial process. Possible mild sinusitis. This exam was performed using automated exposure control, adjustment of mA or kV according to patient size, and/or use of iterative reconstruction technique Electronically signed by Malachi Chaves 08/24/2019 12:16 PM
[2019-08-24 13:44] LABS: CALCIUM 9.3 mg/dL (8.8-10.2); CREATININE 3.4 mg/dL (0.5-0.9); POTASSIUM 4.1 mmol/L (3.5-5.1)
[2019-08-24] MEDS ORDERED: COLACE PO PRN (14:55)
[2019-08-24] MEDS ORDERED: MIRALAX PO PRN (14:56)
--- NOTE | 2019-08-24 16:00 | PROGRESS NOTE ---
DATE: 08/24/2019 SUBJECTIVE: The patient was noted to be severely hypoglycemic early this morning. As a result, she was lethargic initially. OBJECTIVE: Vital Signs: Temperature 98.2 degrees. Blood pressure 110/55, heart rate 94, respirations 16, O2 saturations 100% on room air. General: This is a chronically ill-appearing elderly female lying in bed in no acute distress. Heart: S1, S2 normal. Regular rate and rhythm. Lungs: Equal air entry bilaterally. Diminished breath sounds at the bases. Abdomen: Positive bowel sounds. Soft, nontender, nondistended. Extremities: The patient has a left AKA. The right heel has a black eschar on it. Neurologic: The patient is alert and oriented x3. LABS: White blood cell count 11, hemoglobin 13, hematocrit 43, platelets 307,000. Sodium 135, potassium 4.1, chloride 95, CO2 22, BUN 29, creatinine 3.4, glucose 144. IMAGING PROCEDURE: Chest x-ray shows improvement in the patchy infiltrates in both lungs. Head CT shows no acute intracranial process. Mild sinusitis. ASSESSMENT AND PLAN: 1. Bilateral lobe pneumonia. Improved. Continue with antibiotic therapy after each dialysis session. Continue with incentive spirometry. 2. Uncontrolled insulin-dependent diabetes mellitus with hypoglycemic episodes. We will adjust the patient's insulin regimen. 3. Mild sinusitis. Continue with antibiotic therapy. 4. Chronic kidney disease stage 5. Management as per the sales clerk food. 5. Right heel eschar. Continue with wound care. 6. Diabetic gastroparesis. Continue with Reglan. 7. Elevated troponin. Continue on the current cardiac medications. 8. Hypertension. Stable. 9. Deep vein thrombosis prophylaxis. Continue on heparin. 10. Continue with physical therapy. cc: Renetta Pinto MD
[2019-08-24] MEDS ORDERED: D10W 1,000 ML IV SCH (18:45)
[2019-08-24] MEDS: REMERON PO SCH (20:12)
[2019-08-25] MEDS: DUONEB (A & A) INH SCH ×6 (03:30→23:38)
[2019-08-25 05:34] LABS: BASO# 0.01 X1000 (0.0-0.2); BASO% 0.1 % (0.0-0.8); EOS# 0.07 X1000 (0.0-0.7); HEMATOCRIT 38.7 % (37.0-47.0); HEMOGLOBIN 11.9 g/dL (12.0-16.0); LYMPH# 1.48 X1000 (1.2-3.4); LYMPH% 20.7 % (20.5-51.1); MCH 30.6 PG (27-31); MCHC 30.7 g/dL (33-37); MCV 99.5 FL (81-99); MONO# 0.47 X1000 (0.11-0.59); MONO% 6.6 % (1.7-9.3); NEUT# 5.11 X1000 (1.4-6.5); NEUT% 71.6 % (42.2-75.2); PLT 302 X1000 (130-400); RBC 3.89 XMIL (4.2-5.4); RDW 15.6 % (11.5-14.5); WBC 7.14 X1000 (4.8-10.8)
[2019-08-25 05:51] LABS: HEMOGLOBIN A1C 6.9 % (4.8-6.0)
[2019-08-25 06:02] LABS: ALBUMIN 2.9 g/dL (3.5-5.0); CALCIUM 9.3 mg/dL (8.8-10.2); CREATININE 4.1 mg/dL (0.5-0.9); PHOSPHORUS 4.3 mg/dL (2.7-4.5); POTASSIUM 4.8 mmol/L (3.5-5.1)
[2019-08-25] MEDS: PRILOSEC PO SCH (06:09)
[2019-08-25] MEDS: NORVASC PO SCH ×2 (08:39→21:23)
[2019-08-25] MEDS: ASPIRIN PO SCH (08:39)
[2019-08-25] MEDS: APRESOLINE PO SCH ×3 (08:40→17:30)
[2019-08-25] MEDS: TRANDATE PO SCH ×2 (08:40→21:23)
[2019-08-25] MEDS: CATAPRES PO SCH ×3 (08:40→17:30)
[2019-08-25] MEDS: FOLIC ACID PO SCH (08:40)
[2019-08-25] MEDS: HEPARIN SUBQ SCH ×2 (08:41→21:23)
[2019-08-25] MEDS: LEVEMIR SUBQ SCH (08:41)
[2019-08-25] MEDS: HUMULIN R SUBQ SCH ×4 (08:53→21:22)
[2019-08-25] MEDS ORDERED: NS 2,000 ML MISC PRN (12:09)
[2019-08-25] MEDS ORDERED: HEPARIN IV PRN (12:09)
--- NOTE | 2019-08-25 14:45 | PROVIDER PROGRESS NOTE ---
Progress Note Subjective: Pt eating breakfast and voices no complaints. Objective: temperature 99.0, pulse 100, respirations 17, blood pressure 147/62, O2 sat 100% on 2 L nasal cannula. General: Elderly obese -[place] female lying in bed in no acute distress. HEENT: normocephalic, atraumatic, pupils equal and reactive. Mucous membranes moist. Trachea midline. Skin: warm and dry. Neck: supple, no JVD. Cardiovascular: S1S2, regular rate and rhythm. No murmurs or gallops noted. Respiratory: clear with equal air entry Abdomen: obese, soft, nontender nondistended. Bowel sounds present. : non-inspected. Extremities: no clubbing, cyanosis, or Edema. Neurological: alert and oriented to person, place, and time. Labs: WBC 7.14, hemoglobin 11.9, hematocrit 38.7, platelet count 302, sodium 134, potassium 4.8, chloride 96, carbon dioxide 21, BUN 34, creatinine 4.1. Intake 1038, output zero. Impression: Chronic kidney disease stage 5D. She will have her routine hemodialysis treatment today with plans to discharge after. We will follow her in the outpatient setting. Blood pressure. In target. Fluid volume. Euvolemic on exam. Anemia. Low but does not meet transfusion criteria. Electrolytes and acid base balance. Corrected with hemodialysis today. Nutrition. Adequate Ambulation. PT in place Medication review.
[2019-08-25] MEDS ORDERED: VANCOMYCIN 1 GM/NS 1 GM/250 ML IVPB IV ONE (17:00)
--- NOTE | 2019-08-25 17:21 | PROGRESS NOTE ---
DATE: 08/25/2019 SUBJECTIVE: The patient is resting comfortably in bed. No acute events note noted overnight. She ate her breakfast and denies having any abdominal pain or nausea. OBJECTIVE: Vital Signs: Temperature 98.6 degrees, blood pressure 145/66, heart rate 100, respirations 18, and O2 saturation is 95% on 2 L nasal cannula. General: This is a chronically ill-appearing elderly female lying in bed in no acute distress. Heart: S1, S2 normal. Tachycardic. Lungs: Clear to auscultation bilaterally. Diminished breath sounds at the bases. Abdomen: Positive bowel sounds. Soft, nontender, nondistended. Extremities: The patient has a left AKA. The right lower extremity has a black eschar on the heel. Neurologic: The patient is alert and oriented x3. LABS: White blood cell count 7.1, hemoglobin 11, hematocrit 38, platelets 302,000. Sodium 134, potassium 4.8, chloride 96, CO2 of 21, BUN 34, creatinine 4.1, glucose 306. ASSESSMENT AND PLAN: 1. Bilateral lobe pneumonia. Slowly improving. We will continue on the current antibiotic regimen. 2. Mild sinusitis. The patient is on antibiotic therapy. 3. Uncontrolled insulin-dependent diabetes mellitus. Continue on Levemir and sliding scale insulin. 4. Right heel eschar. Continue with wound care. 5. Chronic kidney disease stage 5. The patient is due for dialysis today. 6. Elevated troponin. The patient is chest pain-free. Continue on the current cardiac medications. 7. Diabetic gastroparesis. Continue on Reglan. 8. Hypertension. Stable. 9. Anemia. Stable. 10. Deep vein thrombosis prophylaxis. Continue on heparin. 11. Disposition. The patient may be stable for discharge to [facility] tomorrow. cc: Renetta Pinto MD MTDD
[2019-08-25] MEDS: REMERON PO SCH (21:23)
[2019-08-26] MEDS: DUONEB (A & A) INH SCH ×4 (03:54→17:05)
[2019-08-26 05:17] LABS: HEMATOCRIT 36.6 % (37.0-47.0); HEMOGLOBIN 11.6 g/dL (12.0-16.0); MCH 31.6 PG (27-31); MCHC 31.7 g/dL (33-37); MCV 99.7 FL (81-99); MPV 9.8 FL (7.4-10.4); RBC 3.67 XMIL (4.2-5.4); RDW 15.6 % (11.5-14.5); WBC 5.76 X1000 (4.8-10.8)
[2019-08-26 05:36] LABS: ALBUMIN 2.9 g/dL (3.5-5.0); CALCIUM 9.3 mg/dL (8.8-10.2); CREATININE 2.7 mg/dL (0.5-0.9); PHOSPHORUS 3.5 mg/dL (2.7-4.5); POTASSIUM 3.9 mmol/L (3.5-5.1)
[2019-08-26] MEDS: HUMULIN R SUBQ SCH ×6 (06:15→20:34)
[2019-08-26] MEDS: REGLAN PO SCH ×3 (06:48→17:01)
[2019-08-26] MEDS: PRILOSEC PO SCH (06:48)
--- NOTE | 2019-08-26 07:15 | Diag Imaging Result Doc PS360 ---
EXAM: CHEST-1 VIEW INDICATION: pneumonia TECHNIQUE: One view COMPARISON: 08/24/2019 FINDINGS: The right central line is in stable position. Atelectasis and/or infiltrates at the lung bases continue to improve and have largely resolved. No new consolidation is identified. Cardiac silhouette is stable. IMPRESSION: Continued improvement. Electronically signed by Alfred Marrero 08/26/2019 7:13 AM
[2019-08-26] MEDS: LEVEMIR SUBQ SCH (08:25)
[2019-08-26] MEDS: TRANDATE PO SCH ×2 (08:26→20:34)
[2019-08-26] MEDS: CATAPRES PO SCH ×3 (08:26→17:00)
[2019-08-26] MEDS: HEPARIN SUBQ SCH (08:27)
[2019-08-26] MEDS: FOLIC ACID PO SCH (08:27)
[2019-08-26] MEDS: NORVASC PO SCH ×2 (08:27→20:34)
[2019-08-26] MEDS: APRESOLINE PO SCH ×3 (08:27→17:00)
[2019-08-26] MEDS: ASPIRIN PO SCH (08:27)
--- NOTE | 2019-08-26 18:29 | PROGRESS NOTE ---
DATE: 08/26/2019 INTERVAL HISTORY: No acute events overnight. Her vital signs have been unremarkable. She does have a drop in her hemoglobin which was 15 on presentation, which had dropped down to 11. She is not listed to be, so I am going to stop her DVT prophylaxis at the moment. SUBJECTIVE: Ms. Velez denies any chest pain, shortness of breath, nausea or vomiting. She says initially she was coughing, but she has not been coughing for almost 2 days now. She has not had any more vomiting episodes. She continues to have good bowel movement. She denies any abdominal pain. We discussed about her right heel ulcer and outpatient surgery followup. I answered all of her questions. OBJECTIVE: Vital signs: Temperature of 98.1 degrees, pulse 82, respiratory rate 16, blood pressure 130/67, saturating 100% on room air. On physical examination, not in acute distress. Oral cavity is moist. Air entry bilaterally equal. No wheeze, rhonchi or crackles. S1, S2 normal. No murmur or gallop. Abdomen is soft, nondistended. Active bowel sounds. Nontender. Right lower extremity: She has intact dorsalis pedis pulses, but there is a large eschar formation on the right heel. She has left above-knee amputation. She also has a right-sided chest dialysis catheter. She is alert and oriented x3, and answering all questions appropriately. LABORATORY DATA: Suggestive of resolution of leukocytosis, anemia, normal platelet count. She has adequate electrolytes, with elevated BUN and creatinine in the setting of chronic kidney disease. One of the 2 blood cultures was positive for coagulase negative, likely because of contamination. DIAGNOSTIC DATA: Chest x-ray today morning suggestive of improvement of atelectasis, infiltrate. ASSESSMENT AND PLAN: 1. Bilateral lower lobe pneumonia on presentation with cough, now improving. She is on intravenous vancomycin and cefepime, which I will discontinue in the next 48 hours. She is breathing well on room air. 2. Uncontrolled insulin-dependent diabetes mellitus type 2 with hyperglycemia and hypoglycemia. I will continue her on current dose of long-acting insulin as well as sliding scale insulin. She is also on metoclopramide as needed for chronic nausea and vomiting, thought to be related to diabetic gastroparesis. 3. Chronic kidney disease stage 5. The patient is on Sunday, Sunday, Sunday hemodialysis. 4. Essential hypertension with hypertensive emergency on presentation. Her blood pressure is currently well controlled on hydralazine, clonidine, labetalol and amlodipine. 5. Elevated troponin. This is likely in the setting of chronic kidney disease. Her echocardiogram had ejection fraction of 70% without any wall motion abnormality. I will continue her on aspirin and antihypertensive medication regimen. 6. Rectal stool impaction with proctitis due to stool impaction, now resolved. I will continue her on MiraLAX and docusate. 7. Disposition: The patient is medically ready to be discharged; however, the Assistant Program Director team informed me that considering it is New Year's Day tomorrow the patient could not be discharged tomorrow. I will keep her until 08/28/2018, at which point I will consider discharging her. Plan of care discussed with the patient. She is in agreement. All of her questions have been answered. She also needs to see a surgeon doctor for right heel eschar formation. cc: Dipesh Matias MD
[2019-08-26] MEDS: DUONEB (A & A) INH PRN (19:09)
[2019-08-26] MEDS: REMERON PO SCH (20:34)
[2019-08-27] MEDS: REGLAN PO SCH ×3 (06:06→19:23)
[2019-08-27] MEDS: HUMULIN R SUBQ SCH ×4 (06:06→21:17)
[2019-08-27] MEDS: LEVEMIR SUBQ SCH (09:56)
[2019-08-27] MEDS: TRANDATE PO SCH ×2 (09:56→21:17)
[2019-08-27] MEDS: CATAPRES PO SCH ×3 (09:56→19:24)
[2019-08-27] MEDS: FOLIC ACID PO SCH (09:56)
[2019-08-27] MEDS: ASPIRIN PO SCH (09:56)
[2019-08-27] MEDS: NORVASC PO SCH ×2 (09:56→21:17)
[2019-08-27] MEDS: APRESOLINE PO SCH ×3 (09:56→19:23)
--- NOTE | 2019-08-27 12:38 | NEPHROLOGY PROGRESS NOTE ---
DATE: 08/27/2019 SUBJECTIVE: She is lying in bed. No complaints. No nausea, vomiting, diarrhea, or shortness of breath. OBJECTIVE: Vital Signs: Blood pressure 127/64, heart rate 83, respirations 15, afebrile. General: No acute distress. Skin: Warm and dry. Neck: Neck veins are not distended. Heart: Regular. Lungs: Equal. No crackles. Abdomen: Soft, nontender. Extremities: No edema. IMPRESSION: Chronic kidney disease 5D. She had her routine dialysis on Sunday. She will have her next treatment today. Otherwise, electrolytes/acid base/anemia/volume status/blood pressure are all on target. Okay for discharge at any time from my perspective. cc: Benji Fitzgerald MD
--- NOTE | 2019-08-27 16:27 | PROGRESS NOTE ---
DATE: 08/27/2019 INTERVAL HISTORY: No acute events overnight. SUBJECTIVE: Ms. Velez is denying new complaints. She denies chest pain, shortness of breath, cough. She has been having good bowel movements. Denies nausea and vomiting. VITALS: Temperature 98 degrees, pulse 87, respiratory rate 14, blood pressure 130/60, saturating 98% on room air. PHYSICAL EXAMINATION: Not in acute distress. Oral cavity is moist. Lungs: Air entry bilaterally equal. No wheeze or rhonchi. Mild crackles in infrascapular region bilaterally. S1, S2 normal. No murmur, rub, or gallop. Abdomen: Soft, nondistended. Active bowel sounds. She has intact dorsalis pedis pulses in right lower extremity. However, there is a large eschar formation on the right heel. She has left above-knee amputation. She has a right-sided chest dialysis catheter. She is alert, oriented x3, and answering all questions appropriately. LABS: No CBC or BMP today. One of the two blood cultures was coagulase-negative staphylococcus which is likely a contaminant. ASSESSMENT AND PLAN: 1. Bilateral lower lobe pneumonia with cough on presentation, now improving. Continue intravenous vancomycin and cefepime. She will complete her course tomorrow at the time of discharge. 2. Uncontrolled insulin-dependent diabetes mellitus type 2 with hyper and hypoglycemic episodes. I will continue current dose of long-acting insulin as well as sliding scale insulin; continue metoclopramide as needed for nausea and vomiting for diabetic gastroparesis. 3. Chronic kidney disease stage 5, on Sunday, Sunday, Sunday hemodialysis. She will continue her routine hemodialysis at the time of discharge. 4. Essential hypertension with hypertensive emergency on presentation, now well controlled on oral hydralazine, clonidine, labetalol, and amlodipine. 5. Elevated troponins, likely in the setting of chronic kidney disease. Her echocardiogram had an ejection fraction of 70% without any wall motion abnormality. Continue aspirin and antihypertensive medication. 6. Rectal stool impaction with proctitis, now resolved. Continue MiraLAX and docusate. 7. Disposition. Planning discharge in the next 24 hours. Plan of care discussed with the patient. Her questions have been answered. cc: Dipesh Matias MD
[2019-08-27] MEDS ORDERED: HEPARIN IV PRN (17:51)
[2019-08-27] MEDS ORDERED: NS 2,000 ML MISC PRN (17:51)
[2019-08-27] MEDS: REMERON PO SCH (21:17)
--- NOTE | 2019-08-28 04:26 | DISCHARGE SUMMARY ---
ADMISSION DATE: 08/22/2019 DISCHARGE DATE: 08/28/2019 DISCHARGE DISPOSITION: Back to senior living. DISCHARGE CONDITION: Currently the patient is hemodynamically stable at the time of this dictation. She denies any chest pain, shortness of breath, cough, nausea, vomiting, or abdominal pain. She has had multiple bowel movements. DISCHARGE DIAGNOSES: 1. Bilateral lower lobe pneumonia. 2. Uncontrolled insulin-dependent diabetes mellitus type 2 with hyperglycemia and hypoglycemia. 3. Essential hypertension with hypertensive emergency. 4. Elevated troponins in the setting of chronic kidney disease. 5. Rectal stool impaction with proctitis contributing to nausea, vomiting, and abdominal pain on presentation. OTHER DIAGNOSES: 1. Chronic kidney disease stage V on Sunday, Sunday, Sunday hemodialysis. 2. History of insulin-dependent diabetes mellitus type 2. 3. History of left above-knee amputation. 4. Necrotic heel ulcer on the right foot. 5. History of decubitus ulcer in the sacral region. 6. History of chronic obstructive pulmonary disease. DISCHARGE MEDICATIONS: 1. Dulcolax 10 mg at nighttime. 2. Docusate 100 mg b.i.d. 3. DuoNeb 3 mL every 4 hours as needed for shortness of breath. 4. Folic acid 1 mg daily. 5. Mirtazapine 30 mg at nighttime. 6. Symbicort 1 puff inhaled b.i.d., 80/4.5 mcg inhaler. 7. Tylenol 1000 mg daily. 8. Insulin glargine 20 units at nighttime. 9. Metoclopramide 10 mg every 6 hours as needed for nausea and vomiting. 10. Hydralazine 100 mg t.i.d. 11. Aspirin 81 mg daily. 12. Clonidine 0.3 mg t.i.d. 13. MiraLAX 17 g b.i.d. for constipation. 14. Amlodipine 5 mg b.i.d. 15. Calcium acetate 667 mg t.i.d. 16. Labetalol 100 mg b.i.d. 17. Tramadol 50 mg every 6 hours as needed for pain. PHYSICAL EXAMINATION: Current Vital signs At the time of dictation: Temperature 98 degrees, pulse 87, respiratory rate 14, blood pressure 130/60, saturating 98% on room air. general: Not in acute distress. heent: Oral cavity is moist. lungs: Air entry bilaterally equal. No wheeze or rhonchi. Mild crackles in infrascapular region. cardiac: S1, S2 normal. Regular. No murmur or gallop. Abdomen: Soft, nontender. Extremities: Intact dorsalis pedis pulse in right lower extremity. She does have ischemic pressure ulcer on the right heel which appears eschar like. She has left above-knee amputation. Neurologic: She is answering most questions appropriately. She is alert and oriented x3. LABORATORIES: Currently WBC 5000, hemoglobin 11.6, platelet 268,000. Sodium 132, potassium 3.9, BUN 22, creatinine 12.7, blood glucose 211. Microbiology: One of the 2 blood cultures was coagulase-negative Staphylococcus which is likely a contaminant. IMAGIN. Abdomen and pelvis CT on presentation had constipation with rectal stool impaction, proctocolitis in the distal colon likely rectal stool impaction, possible cystitis, and infiltrate at the lung bases consistent with pneumonia. 2. Chest x-ray on 08/26/2019 had continued improvement in infiltrate. 3. Head CT on presentation did not have any acute intracranial process. She did have mild sinusitis. 4. Electrocardiogram on presentation had sinus tachycardia, moderate left ventricular hypertrophy, and T-wave abnormality. 5. Echocardiogram had ejection fraction of 70% without any regional wall motion abnormalities. SIGNIFICANT OTHER LABS DURING HOSPITAL ADMISSION: Her hemoglobin A1c was 6.9. Her troponin on presentation was 0.57 which was showing flat trend. HOSPITAL COURSE SUMMARY: Miss Velez is 69-year-old lady who presented on 08/22/2019 with chief complaints of nausea, vomiting, and abdominal pain. She was also found to have elevated troponins. CT scan of the abdomen and pelvis performed had bilateral lower lobe pneumonia as well as rectal stool impaction with constipation. She also was complaining of cough at the time of presentation. She was started on aggressive bowel regimen following which her rectal stool impaction improved and she was having regular bowel movement. She was started on intravenous antibiotics, and at the time of this dictation she has completed course of intravenous antibiotics and her cough has significantly improved. She would not need antibiotic at the time of discharge. On presentation she also had hypertensive emergency with her systolic blood pressure being in 230s. However, currently her blood pressure is well controlled on oral medications. She did have episodes of hyperglycemia and hypoglycemia during hospital admission for which her insulin doses were adjusted. She will be discharged on slightly lower than her routine insulin glargine dose at 30 units with a close eye on blood sugars. TIME SPENT: More than 30 minutes time was spent discharging this patient. The patient was counseled about following up regularly for dialysis as well as surgeon for right heel pressure ulcer. All of her questions were answered. cc: Dipesh Matias MD MTDD
[2019-08-28] MEDS: HUMULIN R SUBQ SCH ×2 (06:25→12:35)
[2019-08-28] MEDS: REGLAN PO SCH ×2 (06:28→12:35)
[2019-08-28] MEDS ORDERED: VANCOMYCIN 1 GM/NS 1 GM/250 ML IVPB IV ONE (08:00)
[2019-08-28] MEDS: DUONEB (A & A) INH PRN (08:15)
[2019-08-28] MEDS: APRESOLINE PO SCH ×2 (09:14→12:36)
[2019-08-28] MEDS: FOLIC ACID PO SCH (09:14)
[2019-08-28] MEDS: TRANDATE PO SCH (09:14)
[2019-08-28] MEDS: NORVASC PO SCH (09:14)
[2019-08-28] MEDS: ASPIRIN PO SCH (09:14)
[2019-08-28] MEDS: CATAPRES PO SCH ×2 (09:14→12:36)
[2019-08-28] MEDS: LEVEMIR SUBQ SCH (09:14)
--- NOTE | 2019-08-28 09:47 | PROGRESS NOTE ---
DATE: 08/28/2019 This is also an addendum to discharge summary dictated on 08/27/2019. SUBJECTIVE: No acute events overnight. Ms. Velez received dialysis yesterday. Denies chest pain, shortness of breath, cough, nausea, vomiting, abdominal pain. She is having regular bowel movements. We discussed about following up with surgeon doctor. We discussed about continuing physical activity. OBJECTIVE: Vital Signs: Temperature 98.4 degrees, pulse 90, respiratory rate 12, blood pressure 150/70, saturating 96% on room air. General: Not in any acute distress. HEENT: Oral cavity is moist. Lungs: Air entry bilaterally equal. No wheeze, rhonchi, crackles. Cardiovascular: S1, S2 normal. No murmur or gallop. Abdomen: Soft, nontender. Extremities: No lower extremity edema. Right heel pressure ulcer appears ischemic and necrotic. No surrounding erythema or inflammation to suggest infection. Left knee above-knee amputation. She is able to raise both upper extremities and right lower extremity above ground level. Neurologic: She is alert and oriented x3. She previously had history of cerebrovascular accident. LABORATORY DATA: Blood glucose is 197. ASSESSMENT: 1. Bilateral lower lobe pneumonia. 2. Uncontrolled insulin-dependent diabetes mellitus type 2. 3. Chronic kidney disease stage 5, on intermittent hemodialysis. 4. Essential hypertension and hypertensive emergency on presentation. 5. Rectal stool impaction with proctitis leading to chief complaint of nausea, vomiting, and abdominal pain on presentation, now resolved. PLAN: The patient's insulin dose was adjusted. Her blood glucoses are reasonably well controlled. She was advised to continue to take stool softeners to avoid constipation, and having outpatient followup with general surgeon. She was also restarted on her home antihypertensive medication. TIME SPENT: More than 30 minutes of time was spent discharging this patient. cc: Dipesh Matias MD
[2019-08-28 12:21] VITALS: BP 126/72
--- NOTE | 2019-08-28 15:50 | PROVIDER PROGRESS NOTE ---
Progress Note Subjective: patient denies any nausea, vomiting, or diarrhea. No other uremic complaints noted. She says that she feels good. Objective: temperature 98.2, pulse 92, respirations 18, blood pressure 148/61, 02 sat 99% on room air. General: elderly obese -[place] female lying in bed in no acute distress. HEENT: normocephalic, atraumatic, pupils equal and reactive. Mucous membranes moist. Trachea midline. Skin: warm and dry. Neck: Supple, no JVD. Cardiovascular: S1S2, regular rate and rhythm. No murmurs or gallops noted. Respiratory: clear anteriorly with equal air entry. Abdomen: obese, soft, nontender and nondistended. Bowel sounds present. : not inspected Extremities: no clubbing, cyanosis, or edema. Left above knee amputation noted. Neurological: alert and oriented to person, place, and time. Labs: intake 882, output 1000. Impression: Chronic kidney disease stage 5D. She will have her next routine hemodialysis pascual atment tomorrow. [facility]. Blood pressure. In target. Fluid volume. Euvolemic on exam. Anemia. In target on last labs. Electrolytes and acid base balance. In target on last labs. Nutrition. Adequate. Staff at bedside for feed assist. Ambulation. Physical therapy in place. Will be discharging to a prison facility. Medication review. Reglan max dose 20mg/day for hemodialysis patients.
[2019-08-28] MEDS ORDERED: REGLAN PO SCH (16:00)
== END 2019-08-28 15:46 | DRG 304 ==
LOC: ED 00:32 → 1N 06:34 → SUATTDRO 06:34 → ICU 11:11 → 1N 08-23 15:52
PROVIDERS: ATTEND Internal Medicine

== ENCOUNTER 2019-11-21 02:12 | Inpatient (IN) ==
--- NOTE | 2019-11-21 02:30 | PROVIDER DOCUMENTATION ---
HPI-Chest Pain - General Chief Complaint: Chest Pain Stated Complaint: chest pain, back pain Time Seen by Provider: 11/21/19 02:27 Source: patient Allergies/Adverse Reactions: Patient Allergies Allergy/AdvReac Type Severity Reaction Status Date / Time No Known Allergies Allergy Verified 06/23/19 19:52 Home Medications: Home Medication List Medication Instructions Recorded Confirmed Last Taken Type Amlodipine [Norvasc] 5 mg PO BID 30 Days #60 tab 02/26/18 11/21/19 06/23/19 Rx Folic Acid 1 mg PO DAILY 08/07/18 11/21/19 06/23/19 History Calcium Acetate [Phoslo] 667 mg PO TID CC tablet 08/28/18 11/21/19 06/23/19 Rx Clonidine HCl 0.3 mg PO TID #0 08/28/18 11/21/19 06/23/19 Rx Hydralazine [Apresoline] 100 mg PO TID #0 08/28/18 11/21/19 06/23/19 Rx Labetalol [Trandate] 100 mg PO BID tablet 08/28/18 11/21/19 06/23/19 Rx Mirtazapine 30 mg PO HS 10/09/18 11/21/19 06/22/19 History Metoclopramide [Reglan] 10 mg PO Q6HR PRN #20 tab 02/19/19 11/21/19 03/12/19 21:00 Rx Acetaminophen [Tylenol Extra 2 tab PO DAILY 03/11/19 11/21/19 06/23/19 History Strength] Bisacodyl [Dulcolax] 1 supp RC QHS 03/11/19 11/21/19 06/22/19 History Docusate Sodium [Colace] 100 mg PO BID 03/11/19 11/21/19 06/23/19 History Tramadol [Ultram] 50 mg PO Q6H PRN PRN #20 tab 07/08/19 11/21/19 Unknown Rx Aspirin 81 mg PO DAILY chewtab 08/27/19 11/21/19 Unknown Rx Insulin Glargine,Hum.rec.anlog 30 unit SQ QHS #0 08/27/19 11/21/19 06/22/19 Rx [Basaglar Kwikpen U-100] Nystatin/Triamcin 1 dose TOP BID 11/21/19 11/21/19 Unknown History [Nystatin-Triamcinolone Cream] - History of Present Illness-CP Nature of Presenting Problem: had onset dull substernal CP, with rad back. She says was relieved with the sl NTG given by the paramedics, but is unable to give duration, Nothing made it worse. Says had SOB, nausea with it. No diaphoresis. She gets dialysis on - Review of Systems - Adult - REVIEW OF SYSTEMS - ADULT Constitutional: reports: no symptoms reported Eyes: reports: no symptoms reported Ears, Nose, Mouth & Throat: reports: no symptoms reported Cardiovascular: reports: see HPI Respiratory: reports: see HPI Gastrointestinal: reports: see HPI Genitourinary: reports: no symptoms reported Musculoskeletal: reports: no symptoms reported Integumentary: reports: no symptoms reported Neurological: reports: no symptoms reported Psychiatric: reports: no symptoms reported Endocrine: reports: no symptoms reported Hematologic/Lymphatic: reports: no symptoms reported Allergic/Immunologic: reports: no symptoms reported Past History - Adult - PAST MEDICAL HISTORY-ADULT Review of Records: reports: Medications Reviewed Major Childhood Illnesses: reports: denies history Cardiovascular: reports: HTN Respiratory: reports: denies history, asthma Gastrointestinal: reports: other (colon problems) Obstetrical/Gynecological: reports: denies history, other (breast cancer) Genitourinary: reports: kidney disease (CKD) Musculoskeletal: reports: denies history Neurological: reports: denies history Endocrine/Immune: reports: Diabetes Other Conditions: reports: denies history - PRIOR SURGERIES/PROCEDURES Surgical/Procedure History: reports: hysterectomy, breast (L lumpectomy) - IMMUNIZATION STATUS Childhood Immunizations: See Nurse Assessment Flu Vaccine: See Nurse Assessment - FAMILY HISTORY Family History: reviewed, not pertinent Physical Exam-General - PHYSICAL EXAM-ADULT Initial Vital Signs Reviewed: Yes - CONSTITUTIONAL General Appearance: appears well, alert, no apparent distress - EYES Eyes: PERRL/EOMI, pink conjunctivae - HEAD, EARS, NOSE, MOUTH & THROAT HENMT: normocephalic/atraumatic, moist mucous membranes, normal ENT inspection - NECK Neck: full range of motion, supple - RESPIRATORY Respiratory: lungs clear, normal breath sounds, no pleuratic chest pain, no respiratory distress, no accessory muscle use - CARDIOVASCULAR Cardiovascular: regular rate, rhythm, no edema, no murmur - GASTROINTESTINAL (ABDOMEN) Abdominal Exam: non tender, soft - MUSCULOSKELETAL Back Exam: normal inspection, no CVA tenderness, no vertebral tenderness Extremity: normal range of motion, non-tender - SKIN Integumentary: normal color, normal turgor, warm/dry - NEUROLOGIC Neurologic: womens health nurse practitioner II-XII nml as tested, grossly normal, no motor/sensory deficits - PSYCHIATRIC Psych/Mental Status: normal mood/affect, normal thought content, normal thought process, oriented x 3 - HEART Score HEART Score: History: Moderately Suspicious HEART Score: ECG: Non-Specific Repolarization Disturbance/LBBB/PM HEART Score: Age: > or = 65 Years HEART Score: Risk Factors for Atherosclerotic Disease: > or = 3 Risk Factors or History of Atherosclerotic Disease HEART Score: Troponin: > or = 3x Normal Limit Total HEART Score:: 8 Progress - PLAN OF CARE/RESULTS Progress/Plan/Lab Results: Vital Signs - 8 hr 11/21/19 02:23 Temperature 98.7 F Pulse Rate 101 H Respiratory Rate 18 Blood Pressure 176/72 O2 Sat by Pulse Oximetry 98 Laboratory Results - last 24 hr 11/21/19 11/21/19 11/21/19 03:57 03:57 03:57 WBC 10.71 RBC 4.11 L Hgb 12.7 Hct 40.1 MCV 97.6 MCH 30.9 MCHC 31.7 L RDW Std Deviation 14.1 Plt Count 398 MPV 9.2 Immature Gran % (Auto) 0.3 Neut % (Auto) 82.0 H Lymph % (Auto) 13.7 L [place] % (Auto) 3.3 Eos % (Auto) 0.4 Baso % (Auto) 0.3 Immature Gran # (Auto) 0.03 Neut # (Auto) 8.79 H Lymph # (Auto) 1.47 [place] # (Auto) 0.35 Eos # (Auto) 0.04 Baso # (Auto) 0.03 Sodium 133 L Potassium 5.0 Chloride 93 L Carbon Dioxide 21 L Anion Gap 19 BUN 33 H Creatinine 3.4 H Estimated GFR/1.73 m2 16 BUN/Creatinine Ratio 10 Glucose 417 H* Calculated Osmolality 292 Calcium 10.5 H Total Bilirubin 0.26 AST 11 ALT 8 L Alkaline Phosphatase 134 H Creatine Kinase 185 H Creatine Kinase Index 5.5 H CK-MB (CK-2) 10.17 H Troponin T High Sens 575 H* Total Protein 7.4 Albumin 4.1 Globulin 3.3 Albumin/Globulin Ratio 1.2 Orders Category Date Time Status Cardiac Monitoring DIRECTED Care 11/21/19 02:42 Active Nursing- Obtain EKG ONCE Care 11/21/19 02:42 Active CHEST-1 VIEW [RAD] Stat Exams 11/21/19 02:42 Taken CBC WITH DIFF [HEME] Stat Lab 11/21/19 03:57 Completed CK PROFILE [SP CHEM] Stat Lab 11/21/19 03:57 Completed COMPREHENSIVE METABOLIC PANEL [CHEM] Stat Lab 11/21/19 03:57 Completed TROPONIN T HIGH SENSITIVITY Stat Lab 11/21/19 03:57 Completed Enoxaparin 1 mg/kg [Lovenox 1 mg/kg] Med 11/21/19 04:53 Discontinued 1 each SUBQ NOW ONE Enoxaparin [Lovenox] Med 11/21/19 05:15 Discontinued 80 mg SUBQ NOW ONE Insulin Human Regular [Humulin R] Med 11/21/19 04:50 Discontinued 5 unit IV NOW ONE Ondansetron [Zofran] Med 11/21/19 03:30 Discontinued 8 mg IV NOW ONE Result Diagrams: 11/21/19 03:57 11/21/19 03:57 - EKG 1 Time of EKG reading by physician:: 02:18 EKG Read and Signed by:: Pranav Pisano EKG Interpretation (*Must complete 3 of following elements*): Abnormal Rate: 101 Rhythm: NSR QRS: LV[facility] ST Wave: non-specific ST changes 2 Time of EKG reading by physician:: 04:36 EKG Read and Signed by:: Pranav Pisano EKG Interpretation (*Must complete 3 of following elements*): Abnormal Rate: 104 Rhythm: s tach QRS: LV[facility] ST Wave: non-specific ST changes - XRAY 1 XRAY Study: Chest Impression: Normal (no infiltrates, no pneumothorax) - CONSULTS/PCP/HOSPITALIST Notification #1 *Consult/PCP/Hospitalist*: John Time Discussed: 05:28 Consult Disposition: Will see in ED, Admit Departure - Departure Date of Disposition Decision: 11/21/19 Time of Disposition Decision: 04:52 DIAGNOSIS: Non-STEMI (non-ST elevated myocardial infarction), Insulin dependent diabetes mellitus Chronic renal failure Qualifiers: Chronic kidney disease stage: stage 5 Qualified Code(s): N18.5 - Chronic kidney disease, stage 5 Disposition: ADMITTED INPATIENT 09 Certified Medical Emergency: Emergent Condition: Good Referrals and Follow-Ups: None,PCP [Primary Care Provider] - - Critical Care Note This patient required my direct & personal management of CC.: No Attestation - Physician/ HILDA Attestation Patient care was provided by Advanced Practice Provider:: No The physician spent face to face time with patient:: Yes Advanced Practice Provider documentation review:: Supervising physician onsite and consulted in the evaluation and care of this patient. The physician did have a face to face encounter with the patient.
[2019-11-21] MEDS ORDERED: ZOFRAN IV ONE (03:30)
[2019-11-21 04:15] LABS: BASO# 0.03 X1000 (0.0-0.2); BASO% 0.3 % (0.0-0.8); EOS# 0.04 X1000 (0.0-0.7); EOS% 0.4 % (0.0-10.0); HEMATOCRIT 40.1 % (37.0-47.0); HEMOGLOBIN 12.7 g/dL (12.0-16.0); IMM GRAN# 0.03 X1000 (0.0-0.04); IMM GRAN% 0.3 % (0.0-0.5); LYMPH# 1.47 X1000 (1.2-3.4); LYMPH% 13.7 % (20.5-51.1); MCH 30.9 PG (27-31); MCHC 31.7 g/dL (33-37); MCV 97.6 FL (81-99); MONO# 0.35 X1000 (0.11-0.59); MONO% 3.3 % (1.7-9.3); MPV 9.2 FL (7.4-10.4); NEUT# 8.79 X1000 (1.4-6.5); PLT 398 X1000 (130-400); RBC 4.11 XMIL (4.2-5.4); RDW 14.1 % (11.5-14.5); WBC 10.71 X1000 (4.8-10.8)
[2019-11-21 04:41] LABS: ALB/GLOB RATIO 1.2; ALBUMIN 4.1 g/dL (3.5-5.0); CALCIUM 10.5 mg/dL (8.8-10.2); CREATININE 3.4 mg/dL (0.5-0.9); TOTAL BILIRUBIN 0.26 mg/dL (0.20-1.00); TOTAL PROTEIN 7.4 g/dL (6.3-8.3)
[2019-11-21] MEDS ORDERED: HUMULIN R IV ONE (04:50)
[2019-11-21] MEDS ORDERED: LOVENOX 1 MG/KG SUBQ ONE (04:53)
[2019-11-21 04:56] LABS: CK INDEX 5.5 (0.0-2.5); CK-MB 10.17 ng/mL (0.0-5.0)
[2019-11-21] MEDS ORDERED: LOVENOX SUBQ ONE (05:15)
--- NOTE | 2019-11-21 06:14 | Diag Imaging Result Doc PS360 ---
EXAM: CHEST-1 VIEW HISTORY: CP TECHNIQUE: Single view COMPARISON: 08/26/2019 FINDINGS: Poor inspiratory effort. No cardiomegaly. No pulmonary edema. Minimal infiltrates or atelectasis in the left base. No pleural effusions identified. No change in the right jugular line. IMPRESSION: Stable chest Electronically signed by Alan Gary 11/21/2019 6:12 AM
[2019-11-21] MEDS ORDERED: TYLENOL PO PRN (06:21)
[2019-11-21] MEDS: NITROGLYCERIN TOP SCH ×3 (06:44→11:37)
[2019-11-21] MEDS: CATAPRES PO SCH ×3 (08:41→21:35)
[2019-11-21] MEDS: HUMALOG SUBQ SCH ×4 (08:41→21:36)
[2019-11-21] MEDS: FOLIC ACID PO SCH (08:42)
[2019-11-21] MEDS: PRILOSEC PO SCH (08:42)
[2019-11-21] MEDS: PHOSLO PO SCH ×3 (08:42→18:06)
[2019-11-21] MEDS: COLACE PO SCH ×2 (08:42→21:35)
[2019-11-21] MEDS: TYLENOL PO SCH (08:43)
[2019-11-21] MEDS: APRESOLINE PO SCH ×3 (08:43→21:35)
[2019-11-21] MEDS: NORVASC PO SCH ×2 (08:43→21:35)
[2019-11-21] MEDS: ASPIRIN PO SCH (08:43)
[2019-11-21] MEDS: ZOFRAN IV PRN ×3 (08:53→21:36)
[2019-11-21] MEDS ORDERED: ASPIRIN PO SCH (09:00)
[2019-11-21] MEDS: MYCOLOG CREAM TOP SCH ×2 (09:00→22:52)
[2019-11-21] MEDS ORDERED: TRANDATE PO SCH (09:00)
--- NOTE | 2019-11-21 10:01 | EKG Report ---
Test Performed on : 11/21/2019 04:34:46 AM Test Reason : cp Blood Pressure : / mmHG Vent. Rate : 104 BPM Atrial Rate : 104 BPM P-R Int : 174 ms QRS Dur : 086 ms QT Int : 326 ms P-R-T Axes : 068 -05 111 degrees QTc Int : 428 ms Sinus tachycardia. Possible Left atrial enlargement Left ventricular hypertrophy T wave abnormality, consider lateral ischemia Abnormal ECG When compared with ECG of 21-NOV-2019 02:15, (Unconfirmed) No significant change was found Confirmed by Prakash Dye MD ([id number]) on 11/22/2019 5:24:49 PM
--- NOTE | 2019-11-21 10:03 | EKG Report ---
Test Performed on : 11/21/2019 02:15:21 AM Test Reason : ED. NO order in [place] Blood Pressure : / mmHG Vent. Rate : 101 BPM Atrial Rate : 101 BPM P-R Int : 196 ms QRS Dur : 088 ms QT Int : 336 ms P-R-T Axes : 055 003 123 degrees QTc Int : 435 ms Sinus tachycardia. Moderate voltage criteria for LVH, may be normal variant T wave abnormality, consider lateral ischemia Abnormal ECG When compared with ECG of 23-AUG-2019 05:34, No significant change was found Unconfirmed Result
--- NOTE | 2019-11-21 13:52 | CONSULTATION ---
DATE OF CONSULTATION: 11/21/2019 IMPRESSION: 1. Recent chest discomfort with vague features described. 2. Abnormal high-sensitive troponin level of 575 with previous abnormal troponin T level of similar value in May 2019. However this time her CPKMB index is abnormal, where as before it was normal. Cannot entirely exclude acute coronary process. 3. Some symptoms to suggest the possibility of Coronavirus infection with the patient having potential for exposure recently at the assisted where she resides. 4. End-stage renal disease requiring chronic hemodialysis Sunday, Sunday, and Sunday. 5. Hypertension. 6. Type 2 diabetes mellitus. 7. Peripheral vascular disease. Patient is status post left sbulr-agw-pxue amputation. RECOMMENDATIONS: 1. Augment medical therapy with increase in labetalol 200 mg p.o. b.i.d. 2. Manage atherosclerotic coronary disease in this setting, medically for the present. We will escalate medical therapy depending on symptomatology. Ultimately, patient would probably benefit from risk stratification with Lexiscan sestamibi study once her rotavirus status is clarified. 3. Suggest respiratory isolation for Coronavirus and testing for possible Coronavirus infection. HISTORY: This 69-year-old -Malaysian female with past history of atherosclerotic coronary disease, hypertensive cardiovascular disease, chronic renal failure requiring chronic hemodialysis, peripheral vascular disease, type 2 diabetes mellitus, hyperlipidemia was transferred from the assisted for further management of acute illness which she describes rather vaguely. Troponin was abnormal prompting Cardiology consultation. She has had recent symptoms of rhinorrhea and some cough appears not clear if she has any fever. She has had some nausea and vomiting as well. She has had some vague chest discomfort that radiated to her back yesterday. She was brought to the emergency room and evaluated. Troponin was 575 using high sensitivity assay. She was subsequently admitted to telemetry on PVC unit. She has not had any further chest discomfort. She does describe a nonproductive cough. Reportedly there has been potential for Coronavirus exposure at the assisted where she resides. PAST MEDICAL HISTORY: 1. Atherosclerotic coronary disease evident on CT scan in the past. 2. End-stage renal disease requiring chronic hemodialysis Sunday, Sunday, and Sunday. 3. Peripheral vascular disease. Patient is status post left wwkkg-gno-seag amputation. 4. Type 2 diabetes mellitus. 5. Hyperlipidemia. 6. Hypertension. 7. Chronic left ventricular diastolic dysfunction. 8. Breast cancer. 9. Chronic obstructive pulmonary disease. PAST SURGICAL HISTORY: Hysterectomy and breast biopsy. ALLERGIES: She has no known drug allergies. MEDICATIONS PRIOR TO ADMISSION: As listed. SOCIAL HISTORY: She is . She lives at [facility]. She does not smoke or use alcohol. FAMILY HISTORY: Negative for premature coronary disease. REVIEW OF SYSTEMS: Pulmonary: Noteworthy for some recent minimally productive cough and sinus congestion. Gastrointestinal: Noteworthy for some nausea and vomiting. Constitutional: Patient unaware of having fever. Remaining review of systems negative/noncontributory with 14 total systems reviewed. PHYSICAL EXAMINATION: General: This is an obese older -Malaysian female in no distress. Vital signs: Blood pressure 176/87. Patient is on nasal cannula oxygen at 2 L/minute. Heart rate 102. Oxygen saturation 100%. HEENT: Extraocular movements intact. Mucous membranes moist. Neck: Supple without discernible jugular distention. There are no carotid bruits. Chest: Fairly clear to auscultation bilaterally. Cardiac Exam: Reveals a regular rate and rhythm without appreciable murmur or gallop. Abdomen: Soft. Bowel sounds are normal. Extremities: Noteworthy for left uocyy-bro-thsv amputation. There is no peripheral edema. Neurologic: Reveals her to be awake and responsive. Speech is fluent. She moves all 4 extremities equally well. PERTINENT DATA: Twelve lead EKG demonstrates sinus tachycardia. Left atrial abnormality and left hypertrophy. There is lateral T-wave inversion seen on previous ECG. Describe related to left hypertrophy. LABORATORY DATA: Includes a white blood cell count 10.71, hematocrit 40.1, hemoglobin to 12.7, platelet count 398,000. Sodium 133, potassium 5.0, chloride 93, carbon dioxide 21, BUN 33, creatinine 3.4, glucose 417. CPK 185, CPKMB 10.17. CPK MB index 5.5, initial troponin T5-75. Follow-up troponin T5-63. cc: Greg Beth MD
--- NOTE | 2019-11-21 14:34 | NEPHROLOGY CONSULTATION ---
DATE: 11/21/2019 ATTENDING PHYSICIAN: Barrett Rai MD but consulting physician was the ER physician. HISTORY OF PRESENT ILLNESS: This Rosie is a 69-year-old, -[place]ian woman who is known to us. She has CKD 5D secondary to diabetes. She also has hypertension, coronary artery disease, COPD, etc. [facility]. She was brought to the hospital because of at least 2 days of nausea, vomiting, chest discomfort that radiates to the back. Subjective chills but no known fevers. Cough but no sputum production. No chest pain with cough. No diarrhea. No other new symptoms, no rash, no arthralgias, myalgias, etc. She resides in a semiprivate room at [facility] where her roommate has a cough. This she states has been present for as far as long they have shared a room. She attended her routine dialysis treatment on Sunday without difficulty. PAST MEDICAL HISTORY: As above. HOME MEDICATIONS: Include amlodipine, folate, labetalol, calcium acetate, clonidine, hydralazine, mirtazapine, metoclopramide, Dulcolax, acetaminophen, tramadol, aspirin, insulin. ALLERGIES: None. SOCIAL HISTORY: As above. Her daughter is also a dialysis patient. REVIEW OF SYSTEMS: Otherwise negative. PHYSICAL EXAMINATION: Vital Signs: Blood pressure 176/87, heart rate 102, respiration 18, afebrile, O2 saturation 100% on 2 L, 98% on room air. General: Chronically ill, elderly woman, no acute distress though she does have episodes of retching during my exam. Skin: Warm and dry. Conjunctivae are pink. Pupils are equal. Oropharynx is clear. Normal tongue. No teeth. Neck: Neck veins are not distended. Trachea is midline. Heart: PMI nondisplaced. Regular rate and rhythm with soft systolic murmur. No gallops. Lungs: Have equal breath sounds. No crackles or wheezes. Abdomen: Soft, minimally tender. Bowel sounds are present. No organomegaly. Normal bowel sounds. Extremities: No edema, clubbing, or cyanosis. Chest x-ray with no pulmonary edema, "minimal infiltrates or atelectasis left base." LABORATORY DATA: With potassium 5.0, bicarbonate 21, anion gap 19. IMPRESSION: Chronic kidney disease 5D. Though today is her routine dialysis day, she has no absolute indications for dialysis so we will delay her treatment until tomorrow in order to more clearly define her clinical condition. Specifically, she has early data suggesting possible non- ST-elevation myocardial infarction. Also, potential exposure to Coronavirus Disease 2019 at the intermediate. When we do dialyze her tomorrow, we will continue standard precautions. No medical changes. Hemoglobin is within target. cc: Benji Fitzgerald MD
--- NOTE | 2019-11-21 15:33 | PROGRESS NOTE ---
DATE: 11/21/2019 SUBJECTIVE: Ms. Velez was admitted. She came in with chest pain and back pain and a past medical history of hypertension, history of asthma. She had recent chest discomfort with vague features, abnormally high-sensitive troponin at 575, previous abnormal troponin T level was in May 2019, however, this time her CPK-MB is abnormal whereas before was normal. She has symptoms of upper respiratory congestion and she has been exposed to coronavirus. I do not think clinically we could predict, but she does have end-stage renal disease and gets hemodialysis Sunday, Sunday, and Sunday, hypertension, history of diabetes mellitus type 2, and peripheral vascular disease. The plan is to test her for the coronavirus. She appears to be breathing comfortably at this time. I do not see any recorded high fever. OBJECTIVE: Vital signs: She has a temperature 98.2 degrees, pulse 100, respirations 18, blood pressure 176/87. HEENT: Pupils are equal and round. Oral nasal mucosa unremarkable. Lungs: Clear in all lung pritchett. Cardiovascular exam: Regular rhythm and rate without murmur or S3. Abdomen: Soft. Skin: Warm and dry. LABORATORY: Pretty unremarkable otherwise, other than the troponin. White blood cell count 10,710, hematocrit 40, platelet count 398,000. Sodium 133, potassium 5.0, chloride 93 BUN 33, creatinine 3.4, glucose was 417, ferritin 1282. CPK was 185 with MB of 5.5, troponin was 563. Her chest x-ray did not show any definite infiltrates, possibly atelectasis in left base. ASSESSMENT AND PLAN: 1. Chronic kidney disease stage 5D. Volume status and electrolytes look pretty good. We are going to continue her routine dialysis. Acid-base status looks pretty good. 2. She has potential exposure to coronavirus and so we will check. She has no definitive symptoms to suggest she has active infection, but I think we ought to check. 3. Elevated troponin and creatine phosphokinase. I think we will treat medically right now and defer any further testing until we know she if she is coronavirus negative. PRESENT ORDERS: She is on Lipitor 40 mg at bedtime, Lantus insulin 30 units subcutaneous at bedtime, Norvasc 5 mg b.i.d., aspirin 81 mg a day, calcium acetate takes 3 times a day, Catapres 0.3 mg p.o. t.i.d., Colace 100 mg b.i.d., hydralazine 100 mg p.o. t.i.d., Trandate 200 mg p.o. b.i.d., Reglan 10 mg p.o. at bedtime, Remeron 30 mg p.o. at bedtime, and Prilosec 20 mg daily. cc: Barrett Rai MD
[2019-11-21] MEDS: REMERON PO SCH (21:34)
[2019-11-21] MEDS: DULCOLAX PR SCH (21:35)
[2019-11-21] MEDS: LIPITOR PO SCH (21:35)
[2019-11-21] MEDS: TRANDATE PO SCH (21:35)
[2019-11-21] MEDS: LANTUS INSULIN SUBQ SCH (21:36)
[2019-11-22] MEDS: HUMALOG SUBQ SCH ×4 (06:15→20:08)
[2019-11-22] MEDS: PRILOSEC PO SCH (06:15)
[2019-11-22 07:40] LABS: CALCIUM 10.5 mg/dL (8.8-10.2); CREATININE 4.3 mg/dL (0.5-0.9); POTASSIUM 5.2 mmol/L (3.5-5.1)
[2019-11-22 07:54] LABS: EOS# 0.05 X1000 (0.0-0.7); EOS% 0.4 % (0.0-10.0); HEMATOCRIT 41.4 % (37.0-47.0); HEMOGLOBIN 12.8 g/dL (12.0-16.0); IMM GRAN# 0.03 X1000 (0.0-0.04); IMM GRAN% 0.3 % (0.0-0.5); LYMPH# 0.99 X1000 (1.2-3.4); LYMPH% 8.5 % (20.5-51.1); MCH 30.7 PG (27-31); MCHC 30.9 g/dL (33-37); MCV 99.3 FL (81-99); MONO# 0.34 X1000 (0.11-0.59); MONO% 2.9 % (1.7-9.3); MPV 9.2 FL (7.4-10.4); NEUT# 10.18 X1000 (1.4-6.5); NEUT% 87.9 % (42.2-75.2); PLT 453 X1000 (130-400); RBC 4.17 XMIL (4.2-5.4); RDW 14.8 % (11.5-14.5); WBC 11.59 X1000 (4.8-10.8)
[2019-11-22 08:18] LABS: BANDS 2 % (0-1); LYMPHS 14 % (21-51); MONO 2 % (1-9); SEGS 82 % (42-75)
[2019-11-22] MEDS: ZOFRAN IV PRN ×2 (09:44→15:45)
[2019-11-22] MEDS: TYLENOL PO SCH (09:45)
[2019-11-22] MEDS: NORVASC PO SCH ×2 (09:45→20:02)
[2019-11-22] MEDS: FOLIC ACID PO SCH (09:45)
[2019-11-22] MEDS: TRANDATE PO SCH ×2 (09:45→19:59)
[2019-11-22] MEDS: PHOSLO PO SCH ×3 (09:46→17:35)
[2019-11-22] MEDS: CATAPRES PO SCH ×3 (09:46→20:00)
[2019-11-22] MEDS: MYCOLOG CREAM TOP SCH ×2 (09:46→20:10)
[2019-11-22] MEDS: ASPIRIN PO SCH (09:46)
[2019-11-22] MEDS: COLACE PO SCH ×2 (09:46→20:03)
[2019-11-22] MEDS: APRESOLINE PO SCH ×3 (09:46→19:59)
[2019-11-22] MEDS ORDERED: NS 2,000 ML MISC PRN (10:51)
--- NOTE | 2019-11-22 11:31 | NEPHROLOGY PROGRESS NOTE ---
DATE: 11/22/2019 SUBJECTIVE: She continues to have nausea and she has not been able to eat. Subjective chills. Still coughing. OBJECTIVE: Vital Signs: Blood pressure 183/83, heart rate 92, respirations 12, afebrile. General: No acute distress. Skin: Warm and dry. HEENT: Conjunctivae are pink. Neck: Neck veins are not distended. Heart: Regular. Lungs: Equal. No crackles. Abdomen: Soft, nontender. Bowel sounds are present. Extremities: No edema, clubbing, or cyanosis. IMPRESSION: 1. Chronic kidney disease 5D. She will have her routine hemodialysis today. a 2K bath. Four hour duration, 1-2 L ultrafiltration. 2. Avf-XH-daiufflwy myocardial infarction. Presumed. Cardiology is following and evaluating. 3. Electrolytes/acid-base. In target. 4. Hypertension above target. Reassess after dialysis. cc: Benji Fitzgerald MD
--- NOTE | 2019-11-22 11:48 | PROGRESS NOTE ---
DATE: 11/22/2019 SUBJECTIVE: Katia Velez is breathing good and feels comfortable. She says she does not feel good in general, but she is moving air fine and is not short of breath. Denies any chest pain. OBJECTIVE: Vital signs: Temperature 97.5 degrees, pulse 92, respirations 12, blood pressure 183/83. HEENT: Pupils are equal and round. Lungs: Clear in all lung pritchett. Cardiovascular exam: Regular rhythm and rate without murmur or S3 LABORATORY: Blood sugar 222, 325, 231. ASSESSMENT AND PLAN: 1. Chronic kidney disease stage 5D. Will continue dialysis. Volume status and electrolytes look pretty good. Acid-base status looks pretty good. Try and setup where we can give her dialysis and follow protocol. 2. We did check her for coronavirus. I think that I have low suspicion that she is positive, but she was exposed when she was at the senior living. 3. Elevated troponin and creatine kinase, suspect she is having some coronary ischemia. LABORATORY DATA: From this morning, white count 11,590, hematocrit 41, platelet count 453,000. Sodium 136, potassium 5.2, chloride 95, BUN 44, creatinine 4.3. Her troponin was 522, and did check cholesterol profile, LDH was 179 and HDL was 32. REVIEW OF HER ORDERS: She is on Lipitor 40 mg at bedtime, Lantus 30 units subcutaneous at bedtime, Norvasc 5 mg p.o. b.i.d., aspirin 81 mg a day, calcium acetate 667 mg p.o. t.i.d., Catapres 0.3 mg p.o. t.i.d., Colace 100 mg p.o. b.i.d., folic acid 1 mg daily, Apresoline 100 mg p.o. t.i.d., Trandate 200 mg p.o. b.i.d., Reglan 10 mg p.o. q.6 hours p.r.n., Remeron 30 mg p.o. at bedtime, Prilosec 20 mg daily, Lovenox 80 mg subcutaneous was given 1 time dose. LABORATORY: Review of lab, sodium 136, potassium 5.2, chloride 95, BUN 44, creatinine 4.3. cc: Barrett Rai MD
[2019-11-22] MEDS: REMERON PO SCH (20:02)
[2019-11-22] MEDS: LIPITOR PO SCH (20:02)
[2019-11-22] MEDS: DULCOLAX PR SCH ×2 (20:08→20:10)
--- NOTE | 2019-11-22 20:34 | EKG Report ---
Test Performed on : 11/22/2019 06:39:03 AM Test Reason : dyspnea Blood Pressure : / mmHG Vent. Rate : 093 BPM Atrial Rate : 093 BPM P-R Int : 176 ms QRS Dur : 086 ms QT Int : 350 ms P-R-T Axes : 056 -03 087 degrees QTc Int : 435 ms Normal sinus rhythm. Voltage criteria for left ventricular hypertrophy T wave inversion in Lateral leads Abnormal ECG When compared with ECG of 21-NOV-2019 04:34, (Unconfirmed) T wave inversion less evident in Lateral leads Confirmed by Prakash Dye MD ([id number]) on 11/23/2019 5:59:47 PM
[2019-11-22] MEDS: LANTUS INSULIN SUBQ SCH (21:46)
--- NOTE | 2019-11-23 06:35 | HISTORY AND PHYSICAL ---
CHIEF COMPLAINT: Chest pain. HISTORY OF PRESENT ILLNESS: Ms. Velez is a very pleasant 69-year-old female who comes into the emergency room from [facility] with onset of dull substernal chest pain with radiation straight through to her back. Did also radiate into her left arm. She has a history of end-stage renal disease with Sunday, Sunday, Sunday hemodialysis. Stated she has had shortness of breath and nausea with the episode. She was unsure of the duration but she did say that the nitroglycerin that the paramedics gave her did help. She has other past medical history of diabetes mellitus type 2, hypertension, breast cancer, COPD, hyperlipidemia and left xgxzi-uay-snvz amputation. She denies any respiratory symptoms such as a cough, fever or chills, or sore throat. Laboratory data in the emergency room showed a troponin of 575. She will be admitted for possible non-STEMI. PAST MEDICAL HISTORY: See HPI. PREVIOUS SURGICAL HISTORY: Left jdfuf-azb-qzuw amputation, left mastectomy, right breast biopsy, hysterectomy, dialysis catheter. SOCIAL HISTORY: Lives at [facility] I believe. No tobacco, alcohol or illicit drugs. FAMILY HISTORY: Positive for heart disease and chronic kidney disease. ALLERGIES: No known drug allergies. HOME MEDICATIONS: A list of home medications has not been reconciled. Order was placed for Nursing to reconcile home medications. These will be restarted when appropriate. REVIEW OF SYSTEMS: Fourteen-point review of systems conducted with the patient. Pertinent positives listed above in the HPI. All other systems reviewed and found to be negative. PHYSICAL EXAMINATION: VITAL SIGNS: Temperature 97.6, pulse 88, respirations 17, blood pressure 142/77, oxygen saturation 100% on 2 L nasal cannula. GENERAL: Pleasant 69-year-old female lying in the ER stretcher. She is alert and oriented times 3. Answered all questions appropriately. HEENT: Head is atraumatic, normocephalic. Pupils equal, round, reactive to light. Extraocular eye movement is intact. Sclera is anicteric. Conjunctiva is pink. Oral mucosa is moist. NECK: Supple. No JVD. No thyromegaly. Trachea is midline. No cervical lymphadenopathy. CARDIAC: S1, S2 appreciated. No murmurs, gallops, rubs. Chest pain is nonreproducible to palpation. LUNGS: Clear to auscultation bilaterally. No rhonchi, wheezes, rales. Symmetric rise and fall with respirations. ABDOMEN: Soft, nondistended, nontender. Bowel sounds present all 4 quadrants, normoactive. No pulsatile mass. No organomegaly. EXTREMITIES: Left tbfxl-ham-wzbl amputation clean, dry and intact. Right heel necrotic lesion which has been treated per the patient. It does not appear to have new infection. No clubbing, cyanosis or edema. Two-plus pedal pulses in the right lower extremity. NEUROLOGICAL: Alert and oriented times 3. No focal motor deficits. Otherwise, a nonfocal examination. LABORATORY DATA: WBC 10.71. Hemoglobin 12.7. Hematocrit 40.1. Platelet count 398. Sodium 133. Potassium 5. Chloride 93. Carbon dioxide 21. BUN 33. Creatinine 3.4. Glucose 417. Troponin 575. Chest x-ray: Stable chest from previous examination. ASSESSMENT: 1. Probable mqu-IE-bwambgvtf myocardial infarction. 2. End-stage renal disease with Sunday, Sunday, Sunday hemodialysis. 3. Poorly controlled diabetes mellitus. 4. Chronic obstructive pulmonary disease. 5. Hypertension. PLAN: Admit patient to the hospital. Consult Cardiology. Trend cardiac enzymes. Continue Lipitor which I believe she is taking. Zofran as needed for nausea. We will continue all home medications once they are reconciled. Sliding scale insulin with fingerstick blood sugars. We will continue long-acting insulin once dosage is placed in the computer. Hold patient NPO. Consult Dr. Fitzgerald related to hemodialysis. Further recommendation per patient clinical course. Dictated by BRIANNA Wilcox for Baldo Lopez MD cc: BRIANNA Wilcox MD
[2019-11-23] MEDS: HUMALOG SUBQ SCH ×4 (06:40→21:10)
[2019-11-23] MEDS: PRILOSEC PO SCH ×2 (06:43→06:45)
[2019-11-23 06:47] LABS: CALCIUM 10.3 mg/dL (8.8-10.2); CREATININE 3.1 mg/dL (0.5-0.9); MAGNESIUM 2.2 mg/dL (1.5-2.7); POTASSIUM 3.8 mmol/L (3.5-5.1)
[2019-11-23] MEDS: NORVASC PO SCH (08:41)
[2019-11-23] MEDS: TRANDATE PO SCH (08:41)
[2019-11-23] MEDS: COLACE PO SCH (08:41)
[2019-11-23] MEDS: PHOSLO PO SCH ×3 (08:41→16:24)
[2019-11-23] MEDS: MYCOLOG CREAM TOP SCH (08:41)
[2019-11-23] MEDS: ASPIRIN PO SCH (08:41)
[2019-11-23] MEDS: FOLIC ACID PO SCH (08:41)
[2019-11-23] MEDS: TYLENOL PO SCH (08:42)
[2019-11-23] MEDS: APRESOLINE PO SCH ×3 (11:58→21:09)
[2019-11-23] MEDS: CATAPRES PO SCH ×2 (11:58→15:04)
--- NOTE | 2019-11-23 14:04 | PROGRESS NOTE ---
DATE: 11/23/2019 SUBJECTIVE: Ms. Velez feels much better today and she is comfortable, breathing comfortably. She remains afebrile. OBJECTIVE: Temperature 96.8 degrees, pulse 86, respirations 19, blood pressure 92/59. Pupils are equal and round. Lungs are clear in all lung pritchett. Cardiovascular Examination: Regular rhythm and rate without murmur or S3. Blood sugars 325, 121, 131, 157. She did get checked for COVID-19 and I do not think she has suspicion for infection but she was apparently exposed at the senior care. Troponin and creatine kinase were elevated. REVIEW OF LABS: This morning, sodium 137, potassium 3.8, chloride 99, BUN 25, creatinine 3.1. Her troponin was 499. Blood sugars have remained well controlled at 104, 120, 142, 131, and 157. Troponin has stayed around 450. ASSESSMENT AND PLAN: 1. Chronic kidney disease stage 5D. Continue dialysis. Electrolytes and volume status look good. Acid-base status looks good. 2. Non-ST wave myocardial infarction is possible. Troponins were elevated. Treating medically at this time. 3. Hypertension, above target. We will continue to follow. PRESENT ORDERS: Looking at present orders, on Lipitor 40 mg at bedtime, Lantus insulin 30 units subcutaneous at bedtime, Norvasc 5 mg p.o. b.i.d., aspirin 81 mg a day, calcium acetate 667 mg p.o. t.i.d., Catapres 0.3 mg p.o. t.i.d., Colace 100 mg b.i.d., folic acid 1 mg daily, Apresoline 100 mg p.o. t.i.d., Trandate 200 mg p.o. b.i.d., Reglan 10 mg q.6 hours p.r.n., Remeron 30 mg p.o. at bedtime, Prilosec 20 mg daily. cc: Barrett Rai MD
[2019-11-23] MEDS: LANTUS INSULIN SUBQ SCH (21:09)
[2019-11-23] MEDS: ZOFRAN IV PRN (21:10)
[2019-11-23] MEDS: DULCOLAX PR SCH (23:56)
[2019-11-24] MEDS: CATAPRES PO SCH ×2 (00:17→08:30)
[2019-11-24] MEDS: COLACE PO SCH ×3 (00:17→20:41)
[2019-11-24] MEDS: LIPITOR PO SCH ×2 (00:18→20:49)
[2019-11-24] MEDS: MYCOLOG CREAM TOP SCH ×4 (00:18→21:16)
[2019-11-24] MEDS: NORVASC PO SCH ×2 (00:19→08:30)
[2019-11-24] MEDS: TRANDATE PO SCH ×3 (00:19→20:39)
[2019-11-24] MEDS: REMERON PO SCH ×2 (00:19→20:49)
[2019-11-24] MEDS: ZOFRAN IV PRN ×2 (04:23→23:32)
[2019-11-24] MEDS: HUMALOG SUBQ SCH ×4 (06:48→20:39)
[2019-11-24] MEDS: PRILOSEC PO SCH (06:49)
--- NOTE | 2019-11-24 07:34 | EKG Report ---
Test Performed on : 11/23/2019 07:21:46 AM Test Reason : CP Blood Pressure : / mmHG Vent. Rate : 082 BPM Atrial Rate : 082 BPM P-R Int : 154 ms QRS Dur : 090 ms QT Int : 380 ms P-R-T Axes : 012 014 -03 degrees QTc Int : 443 ms Normal sinus rhythm. Minimal voltage criteria for LVH, may be normal variant Nonspecific T wave abnormality Abnormal ECG When compared with ECG of 22-NOV-2019 06:39, (Unconfirmed) Nonspecific T wave abnormality now evident in Inferior leads Confirmed by Prakash Dye MD ([id number]) on 11/25/2019 1:31:13 PM
[2019-11-24] MEDS: TYLENOL PO SCH (08:30)
[2019-11-24] MEDS: ASPIRIN PO SCH (08:30)
[2019-11-24] MEDS: APRESOLINE PO SCH (08:30)
[2019-11-24] MEDS: FOLIC ACID PO SCH (08:30)
[2019-11-24] MEDS: PHOSLO PO SCH ×3 (08:30→16:52)
[2019-11-24] MEDS ORDERED: NS 1,000 ML ONE (10:10)
[2019-11-24] MEDS ORDERED: NS 500 ML IV ONE ×4 (10:21→10:54)
--- NOTE | 2019-11-24 11:31 | NEPHROLOGY PROGRESS NOTE ---
DATE: 11/24/2019 SUBJECTIVE: She was unresponsive on my arrival, and blood pressure systolic in the 50s. We rapidly administered normal saline, 500 mL bolus x2, with some improvement in her mental state. She would open her eyes and look at me, answer 1 or 2-word questions, and then doze off again. OBJECTIVE: HEENT: Pupils are equal. Conjunctivae are pale. Oropharynx is clear. Neck: Neck veins are not distended. Cardiovascular: Heart is regular. No gallops. Lungs: Shallow. No crackles. Abdomen: Soft. Decreased bowel sounds. Extremities: No edema. IMPRESSION: Acute altered mental status, likely related to hypotension. We are treating with intravenous fluids as above. Will discontinue her antihypertensive medications. She takes high doses of clonidine, hydralazine, Norvasc, and labetalol. I will keep her labetalol, but cancel the others. She does have troponin T that is elevated, but modestly so at 499 today. Cardiology is on the case. cc: Benji Fitzgerald MD
[2019-11-24 12:26] LABS: BASO# 0.07 X1000 (0.0-0.2); BASO% 0.8 % (0.0-0.8); HEMATOCRIT 38.2 % (37.0-47.0); HEMOGLOBIN 11.7 g/dL (12.0-16.0); IMM GRAN# 0.02 X1000 (0.0-0.04); IMM GRAN% 0.2 % (0.0-0.5); LYMPH# 2.16 X1000 (1.2-3.4); LYMPH% 24.2 % (20.5-51.1); MCH 31.5 PG (27-31); MCHC 30.6 g/dL (33-37); MCV 102.7 FL (81-99); MONO# 0.76 X1000 (0.11-0.59); MONO% 8.5 % (1.7-9.3); MPV 9.1 FL (7.4-10.4); NEUT# 5.93 X1000 (1.4-6.5); NEUT% 66.3 % (42.2-75.2); PLT 432 X1000 (130-400); RBC 3.72 XMIL (4.2-5.4); WBC 8.94 X1000 (4.8-10.8)
[2019-11-24 12:51] LABS: ALBUMIN 3.3 g/dL (3.5-5.0); CALCIUM 9.4 mg/dL (8.8-10.2); CREATININE 4.3 mg/dL (0.5-0.9); PHOSPHORUS 5.2 mg/dL (2.7-4.5); POTASSIUM 4.6 mmol/L (3.5-5.1)
--- NOTE | 2019-11-24 13:38 | PROGRESS NOTE ---
DATE: 11/24/2019 SUBJECTIVE: Ms. Velez is feeling better. She is comfortable, breathing comfortably. No further chest pain. OBJECTIVE: Vital Signs: She has remained afebrile, temperature 97.5 degrees, pulse 90, respirations 15, blood pressure 164/93. HEENT: Pupils are equal and round. Lungs: Clear in all lung pritchett. Cardiovascular: Regular rhythm and rate without murmur or S3. Abdomen: Soft. Skin: Warm and dry. ASSESSMENT AND PLAN: 1. Acute altered mental status, likely related to hypotension. Continue her intravenous fluids, and discontinue her antihypertensive medication. She was taking high doses of clonidine, hydralazine, Norvasc, and labetalol. She does have a troponin T that is elevated, but modestly at 499. Cardiology is following. 2. Non ST-wave myocardial infarction is possible. Troponin was mildly elevated, but not very specific. She has no further chest pain. No sign of active ischemia otherwise right now. 3. Hypertension. We have held a lot of her blood pressure medicines, and of course, she gets dialysis. 4. She was checked for Coronavirus Disease 2018. It is still pending. I do not see any definitive symptoms to suggest a viral upper respiratory tract infection, but she is in isolation. She is getting Lantus insulin 30 units subcutaneously at bedtime, aspirin 81 mg a day, calcium acetate 667 mg by mouth three times daily, Colace 100 mg by mouth twice daily, folic acid 1 mg daily, labetalol 200 mg by mouth twice daily, Remeron 30 mg at bedtime, Reglan 10 mg by mouth every 6 hours, taking some nystatin/triamcinolone cream. She is on Prilosec [address] Fitzgerald has given her some fluid. I think he gave her another liter of fluid back today. cc: Barrett Rai MD
--- NOTE | 2019-11-24 16:28 | PROGRESS NOTE ---
DATE: 11/24/2019 SUBJECTIVE: The patient developed hypotension and altered mental status earlier today. She was moved into intensive care unit and her blood pressure improved with intravenous fluid administration. Antihypertensive regimen has been reduced. She has not had recurrence of chest pain. She denies shortness of breath. She does complain of nausea. OBJECTIVE: Vital Signs: Blood pressure 141/70, heart rate 76, oxygen saturation 96% on room air. Neck: There is no significant jugular venous distention. Chest: Clear to auscultation. Cardiac: Reveals a regular rate and rhythm without appreciable murmur or gallop. There is no evidence of peripheral edema. LABORATORY DATA: Includes a white blood cell count 8.94, hematocrit 38.2, hemoglobin 11.7, platelet count 432,000. Sodium 140, potassium 4.6, chloride 106, carbon dioxide 19, BUN 48, creatinine 4.3, glucose 83. CPK 55. Troponin T high sensitivity 643. Albumin 3.3. Recent fasting lipid profile with triglycerides 159, total cholesterol 265, LDL cholesterol 179, HDL cholesterol 57. IMPRESSIONS: 1. Transient hypotension. Improved with intravenous fluid administration. No acute change on ECG and CPK normal. Troponin has been chronically elevated around 500. 2. Abnormal troponin and recent episode of chest pain. She very likely has multivessel coronary atherosclerosis in light of her coronary risk profile with hypertension, type 2 diabetes mellitus, peripheral vascular disease, and end-stage renal disease requiring chronic hemodialysis. 3. Some symptoms to suggest the possibility of Coronavirus infection with patient having potential for exposure recently at the alf where she resides. Coronavirus testing pending. 4. End-stage renal disease requiring hemodialysis. 5. Hypertension. 6. Type 2 diabetes mellitus. 7. Peripheral vascular disease. Patient is status post left fjwmj-ydl-zspx amputation. RECOMMENDATIONS: 1. Continue increased dose of beta-marlyn with labetalol 200 mg p.o. b.i.d., prioritize over other antihypertensive medications. I suspect she very well may not have been getting all of her medications consistently. 2. Echocardiography. 3. Given debility, favor medical management of patient's coronary atherosclerosis unless she has persistent recurrent angina. 4. Initiate statin therapy given significant hyperlipidemia. cc: Greg Beth MD
--- NOTE | 2019-11-24 17:08 | Diag Imaging Result Doc PS360 ---
EXAM: CHEST-PORTABLE HISTORY: recent chest discomfort TECHNIQUE: Single view COMPARISON: 11/21/2019 FINDINGS: The lungs are well expanded. The heart is not enlarged. No change in the right jugular line. No pneumothorax. The vessels are not distended. There are no infiltrates. No effusion identified. IMPRESSION: No interval change Electronically signed by Alan Gary 11/24/2019 5:06 PM
[2019-11-24] MEDS: DULCOLAX PR SCH (20:42)
[2019-11-24] MEDS: LANTUS INSULIN SUBQ SCH (20:49)
[2019-11-25] MEDS: HUMALOG SUBQ SCH ×4 (06:16→21:07)
[2019-11-25] MEDS: PRILOSEC PO SCH (06:50)
[2019-11-25] MEDS: PHOSLO PO SCH ×3 (09:00→16:52)
[2019-11-25] MEDS: TYLENOL PO SCH (09:23)
[2019-11-25] MEDS: FOLIC ACID PO SCH (09:23)
[2019-11-25] MEDS: TRANDATE PO SCH ×2 (09:23→20:21)
[2019-11-25] MEDS: COLACE PO SCH ×2 (09:24→21:07)
[2019-11-25] MEDS: ASPIRIN PO SCH (09:24)
[2019-11-25] MEDS: MYCOLOG CREAM TOP SCH ×2 (10:00→21:08)
[2019-11-25] MEDS ORDERED: NS 2,000 ML MISC PRN (11:52)
[2019-11-25 12:13] LABS: ALB/GLOB RATIO 1.1; ALBUMIN 3.5 g/dL (3.5-5.0); CALCIUM 9.7 mg/dL (8.8-10.2); CREATININE 5.2 mg/dL (0.5-0.9); POTASSIUM 4.8 mmol/L (3.5-5.1); TOTAL BILIRUBIN 0.33 mg/dL (0.20-1.00); TOTAL PROTEIN 6.6 g/dL (6.3-8.3)
--- NOTE | 2019-11-25 12:25 | PROGRESS NOTE ---
DATE: 11/25/2019 SUBJECTIVE: The patient seems to be feeling better, her blood pressure has been elevated but it looks like she having episodes of hypotension down to the 50s and confusion. Nephrology Department and Cardiology Department on board. She seems to be really weak as well. She does have left ggopb-blv-sbys amputation. I am not sure she is able to mobilize too much. She has been on isolation because we are ruling out COVID-19. It looks like at her retirement there is a case of it, but she is not having symptoms. OBJECTIVE: Vital Signs: Temperature 97.5 degrees, pulse 85, respiratory rate 15, blood pressure 175/77, oxygen saturation 97% on 2 L of nasal cannula. HEENT: Head normocephalic. No trauma. PERRLA. Neck: Supple. No JVD. No masses. Central trachea. Chest: Clear to auscultation, some crepitus at the bases. Cardiovascular: RRR. Abdomen: Soft, a little bit protuberant. Positive bowel sounds. Extremities: Left fztjn-fbk-rnwn amputation. No clubbing. No cyanosis. Neurologic: The patient is awake, she is answering questions. Apparently she has been confused on and off, probably has been related to her low blood pressure. LABORATORY: No lab work done today. Glucose 146. ASSESSMENT AND PLAN: 1. Transient hypotension. The blood pressure dropped to the 50s, that improved with IV fluids. Cardiology department following this patient closely. 2. Abnormal troponin, apparently this patient also had an episode of chest pain, likely she has coronary artery disease given her past medical history of hypertension, diabetes, severe peripheral vascular disease with previous amputation, and end-stage renal disease requiring dialysis. 3. End-stage renal disease, on hemodialysis. 4. Hypertension, with some episodes of hypotension, we will monitor for now. 5. Type 2 diabetes. Continue with same treatment. 6. Severe peripheral vascular disease with left pwtil-rsk-cuid amputation. Aware. I am not sure if this patient has a guu-YT-kbnziuhgi myocardial infarction. I do believe that given her severe hypotension and possible coronary artery disease the blood supply to the heart decreased momentarily. Cardiology department on board. On the other hand we are checking this patient for COVID-19, I do not see any definite symptoms to suggest a viral upper respiratory tract infection or respiratory distress, but she is in isolation because it looks like there is a positive patient at her retirement. She has been having multiple bowel movements, so I will hold the suppository. It looks like she had severe constipation before, so I will continue with just the docusate. CRITICAL CARE TIME: 35 minutes. cc: Azam Delong MD
--- NOTE | 2019-11-25 16:32 | PROGRESS NOTE ---
DATE: 11/25/2019 SUBJECTIVE: The patient continues without chest discomfort or shortness of breath. Blood pressure has been stable. She still has some nausea and tendency for anorexia. OBJECTIVE: Blood pressure 131/79, heart rate 88, oxygen saturation 99% on nasal cannula oxygen. There is no significant jugular distention. Chest: Clear to auscultation bilaterally. Cardiac Examination: Reveals a regular rate and rhythm without appreciable murmur or gallop. There is no evidence of edema. Chest x-ray yesterday showed no acute infiltrates. Laboratory Data: Includes a sodium of 135, potassium 4.8, chloride 100, carbon dioxide 19, BUN 56, creatinine 5.2, glucose 136. IMPRESSION: 1. Abnormal troponin and recent episode of chest pain which she describes rather vaguely. She has had rather persistent abnormal troponin levels for several months. I suspect she very well has multivessel coronary atherosclerosis in light of her significant coronary risk profile which includes hypertension, type 2 diabetes mellitus, peripheral vascular disease, and end-stage renal disease requiring chronic hemodialysis. At the same time, she has significant debility and resides in a [place] [facility]. For this reason, she is probably better managed medically unless she has refractory angina. She is a poor candidate for coronary artery bypass surgery given her debility and nonambulatory state. 2. Recent transient hypotension which improved with curtailing some of her antihypertensive medications and intravenous fluids. I suspect she very likely has not been consistent in getting all the blood pressure medicines listed on her admission paperwork. Blood pressure currently stable. 3. The patient exposed to coronavirus potentially at the [place] [facility] where she resides. Coronavirus testing pending. 4. Anorexia and nausea. Etiology not entirely clear. 5. End-stage renal disease requiring hemodialysis. 6. Hypertension. 7. Type 2 diabetes mellitus. 8. Peripheral vascular disease. Patient is status post left yvdyo-rch-oayb amputation. RECOMMENDATIONS: 1. Continue current increased dose of beta-marlyn with labetalol 200 mg p.o. b.i.d. prioritized over other antihypertensive medications. 2. Continue antiplatelet therapy with aspirin and atorvastatin. 3. Given significant debility, favor medical management of patient's coronary atherosclerosis unless she has persistent recurrent angina despite medical management. 4. Followup limited echocardiography. This has been delayed until after patient's coronavirus study has returned. cc: Greg Beth MD
--- NOTE | 2019-11-25 18:00 | NEPHROLOGY PROGRESS NOTE ---
DATE: 11/25/2019 SUBJECTIVE: She is asleep, but arousable. Denies chest pain, shortness of breath, etc. She is having bowel movements. States she is eating more. Has not been out of bed. OBJECTIVE: Vital Signs: Blood pressure 145/87, heart rate 86, respirations 16, afebrile. General: No acute distress. Skin: Warm and dry. Neck: Neck veins are not distended. Eyes: Conjunctivae are pale. Heart: Regular with a gallop. Lungs: Equal. No crackles or wheezes. Abdomen: Soft, nontender. Bowel sounds are present. Extremities: No edema, clubbing or cyanosis. IMPRESSION: 1. Chronic kidney disease 5d. She will have her routine dialysis today. 2. Volume status euvolemic. 3. Electrolytes/acid base/anemia/hypertension all within target. 4. Begin Physical Therapy. cc: Benji Fitzgerald MD
[2019-11-25] MEDS: REMERON PO SCH (20:20)
[2019-11-25] MEDS: LIPITOR PO SCH (20:21)
[2019-11-25] MEDS: REGLAN PO PRN (20:22)
[2019-11-25] MEDS: LANTUS INSULIN SUBQ SCH (21:07)
[2019-11-26] MEDS: HUMALOG SUBQ SCH ×4 (06:39→21:14)
[2019-11-26 07:09] LABS: HEMATOCRIT 37.6 % (37.0-47.0); HEMOGLOBIN 11.9 g/dL (12.0-16.0)
[2019-11-26 07:52] LABS: CALCIUM 9.8 mg/dL (8.8-10.2); CREATININE 2.8 mg/dL (0.5-0.9); POTASSIUM 4.4 mmol/L (3.5-5.1)
[2019-11-26] MEDS: TYLENOL PO SCH (09:25)
[2019-11-26] MEDS: PHOSLO PO SCH ×3 (09:25→17:46)
[2019-11-26] MEDS: PRILOSEC PO SCH (09:25)
[2019-11-26] MEDS: FOLIC ACID PO SCH (09:25)
[2019-11-26] MEDS: TRANDATE PO SCH ×2 (09:25→21:13)
[2019-11-26] MEDS: ASPIRIN PO SCH (09:25)
[2019-11-26] MEDS: COLACE PO SCH ×2 (09:36→21:13)
[2019-11-26] MEDS: MYCOLOG CREAM TOP SCH ×2 (09:36→23:24)
--- NOTE | 2019-11-26 11:23 | PROGRESS NOTE ---
DATE: 11/26/2019 SUBJECTIVE: No big changes compared with yesterday. She seems to be feeling better. Her blood pressure has been mostly between the high 90s and 120s; I will continue with the same management for now. She denies any chest discomfort or shortness of breath. Her dose of beta marlyn was increased yesterday. OBJECTIVE: Vital signs: Temperature 98.7 degrees, pulse 90, respiratory rate 21, blood pressure 121/72, oxygen saturation 98 on room air. HEENT: Head normocephalic, no trauma. PERRLA. Neck: Neck is supple. No JVD. No masses. Central trachea. Chest: Clear to auscultation. Some crepitus at the bases. Cardiovascular: RRR. Abdomen: Soft, slightly protuberant. Positive bowel sounds. Extremities: Left above the knee amputation. No clubbing. No cyanosis. Neurological examination: The patient is awake. She is answering my questions. She is less confused today, but apparently she has been confused on and off a little bit. LABORATORY: Hemoglobin 11.9, hematocrit 37.6. Sodium 136, potassium 4.4, chloride 99, bicarbonate 24. BUN 23, creatinine 2.8, glucose 61, calcium 9.8. ASSESSMENT AND PLAN: 1. Transient hypotension. Her blood pressure dropped to the 50s and improved after intravenous fluids. Cardiology Department and Nephrology Department following this patient. Her dose of beta blockers has been adjusted. We will follow recommendations. 2. Abnormal troponin. Apparently this patient also had an episode of chest pain. At this moment, she is not complaining of chest pain, but probably she has some coronary artery disease given her past medical history of hypertension, diabetes, and severe peripheral vascular disease with previous amputation. 3. End-stage renal disease on hemodialysis. 4. Hypertension. Actually her blood pressure seems to be better; systolic blood pressure has been between the high 90s and 120s. Cardiology on board. 5. Type 2 diabetes. Continue with same management. Her blood sugar dropped to 42 today and the problem is that she has been refusing food, so I will go ahead and decrease the dose of Lantus from 30 to 10, and I will monitor these. She has been hungry today. 6. Severe peripheral vascular disease with left above the knee amputation. Aware. Continue with same management. I am not sure if this patient has a non-ST elevation myocardial infarction. Probably her elevated liver function tests are triggered by hypotension and end-stage renal disease. Cardiology on board. We are checking her COVID-19, even though I do not see any definite symptoms to suggest a viral respiratory infection, but she is on isolation because apparently there is a person positive for COVID-19 at the care home. She is still having good bowel movements. I will continue with same management. I do believe she is stable enough to be transferred to the medical floor; I will do it. cc: Azam Delong MD
--- NOTE | 2019-11-26 14:47 | PROGRESS NOTE ---
DATE: 11/26/2019 SUBJECTIVE: The patient reports feeling well today. She denies any chest discomfort or shortness of breath. There has been no nausea and appetite has improved. OBJECTIVE: Blood pressure 133/82, heart rate 92, oxygen saturation 98% on room air. There is no significant jugular venous distention. Chest is clear to auscultation bilaterally. Cardiac Examination: Reveals a regular rate and rhythm without appreciable murmur or gallop. Extremities are without edema. Laboratory Data: Includes a sodium of 136, potassium 4.4, chloride 99, carbon dioxide 24, BUN 23, creatinine 2.8, glucose 61. IMPRESSION: 1. Abnormal troponin and a recent episode of chest discomfort described vagally but possibly angina. CPK-MB index mildly elevated, although maximal CPK 180. Given coronary risk profile, multivessel coronary atherosclerosis likely. Given her significant debility, aggressive medical therapy felt appropriate, although coronary angiography may be considered for refractory angina symptoms. 2. Recent transient hypotension which improved after curtailing some of her regular antihypertensive medications and intravenous fluids. 3. Recent exposure to coronavirus potentially at [facility] where she resides. Coronavirus testing negative as of today. 4. End-stage renal disease requiring hemodialysis. 5. Hypertension. 6. Type 2 diabetes mellitus. 7. Peripheral vascular disease and previous left nwbil-enq-pirs amputation. RECOMMENDATIONS: 1. Continue with increased dose of beta marlyn, labetalol for both blood pressure and antianginal. 2. Continue antiplatelet therapy with aspirin as well as atorvastatin given significantly elevated LDL cholesterol. 3. Arrange followup limited echocardiography. 4. Reasonable for patient to be transferred to telemetry at this point. cc: Greg Beth MD
[2019-11-26] MEDS ORDERED: CALMOSEPTINE OINTMENT TOP SCH (17:00)
[2019-11-26] MEDS: REMERON PO SCH (21:13)
[2019-11-26] MEDS: LIPITOR PO SCH (21:13)
[2019-11-26] MEDS: LANTUS INSULIN SUBQ SCH (21:20)
[2019-11-26] MEDS: REGLAN PO PRN (21:48)
[2019-11-27 05:43] LABS: CALCIUM 9.2 mg/dL (8.8-10.2); MAGNESIUM 1.9 mg/dL (1.5-2.7); PHOSPHORUS 4.6 mg/dL (2.7-4.5); POTASSIUM 4.6 mmol/L (3.5-5.1)
[2019-11-27] MEDS: HUMALOG SUBQ SCH ×4 (06:18→21:18)
[2019-11-27] MEDS: PRILOSEC PO SCH (06:48)
[2019-11-27] MEDS ORDERED: NS 2,000 ML MISC PRN (07:24)
[2019-11-27] MEDS ORDERED: HEPARIN IV PRN (07:24)
[2019-11-27] MEDS ORDERED: TIGHT: 0.2 ML/HR FOR DIALYSIS MISC PRN (07:24)
--- NOTE | 2019-11-27 08:41 | ECHO REPORT ---
ORDER DATE: 11/24/2019 INTERPRETING PHYSICIAN: Cortes Velasco MD. CLINICAL INDICATIONS: Chest pain, abnormal troponin, end-stage renal disease, hypertension. M-MODE MEASUREMENTS: Left ventricle end diastole: 3.2 cm. Left ventricle end systole: 1.9 cm. Posterior wall: 1.4 cm. Interventricular septum: 1.4 cm. Left atrium: 3.3 cm. Aortic diameter: 2.6 cm. SUMMARY OF 2-DIMENSIONAL IMAGIN. The left ventricle shows moderate hypertrophy. The left ventricular contractility appears to be preserved, ejection fraction estimated visually at 55% to 60%. 2. The mitral annulus is moderately calcified. The mitral valve shows no indication of vegetation. Doppler was not used in this case. 3. The aortic valve shows calcification of the cusps, thickening of the noncoronary cusp. Doppler was not used in this case. 4. There is no pericardial effusion. 5. The right-sided chambers appear to be grossly normal. 6. The left atrium is probably enlarged. It was suboptimally visualized. 7. I do not see evidence of effusion. Clinical correlation recommended. cc: MD Greg Mejía MD
[2019-11-27] MEDS: ASPIRIN PO SCH (09:47)
[2019-11-27] MEDS: PHOSLO PO SCH ×3 (09:47→18:13)
[2019-11-27] MEDS: FOLIC ACID PO SCH (09:47)
[2019-11-27] MEDS: TYLENOL PO SCH (09:47)
[2019-11-27] MEDS: TRANDATE PO SCH ×2 (09:47→21:08)
[2019-11-27] MEDS: COLACE PO SCH ×2 (09:47→21:08)
[2019-11-27] MEDS: MYCOLOG CREAM TOP SCH ×2 (09:49→21:09)
--- NOTE | 2019-11-27 12:03 | NEPHROLOGY PROGRESS NOTE ---
DATE: 11/27/2019 SUBJECTIVE: She is eating her meal. She has eaten very little of it, less than 10%, and she is declining further intake. No pain, no shortness of breath. States does not feel well. OBJECTIVE: Vital Signs: Blood pressure 140/69, heart rate 89, respirations 16, afebrile. General: No acute distress. Skin: Warm and dry. HEENT: Conjunctivae are pink. Oropharynx not examined. Neck: Neck veins are not distended. Heart: Regular with a gallop. Lungs: Equal, clear. Abdomen: Soft, nontender. Extremities: 1+ edema. No clubbing or cyanosis. IMPRESSION: 1. Chronic kidney disease 5 D. She will have her routine hemodialysis treatment today. 2. Electrolytes/acid base in target. Modest volume expansion that will be addressed with her treatment today. 3. Anemia is within target. 4. Upper respiratory symptoms, improved. 5. Hypotension, improved. cc: Benji Fitzgerald MD
--- NOTE | 2019-11-27 13:13 | PROGRESS NOTE ---
DATE: 11/27/2019 SUBJECTIVE: No big changes compared with yesterday. She seems to be feeling better. She is working with occupational therapy and physical therapy. Blood pressure has been stable, sometimes drops to the 100s and 90s. She is not having a problem breathing and actually, she is on room air. OBJECTIVE: Vital Signs: Temperature 98.1 degrees, pulse 89, respiratory rate 16, blood pressure 140/69, oxygen saturation 99 on room air. HEENT: Head normocephalic. No trauma. PERRLA. Neck: Supple. No JVD. No masses. Central trachea. Chest: Clear to auscultation. Some crepitus at the bases. Cardiovascular: RRR. Abdomen: Soft. Slightly protuberant. Positive bowel sounds. Extremities: Left above the knee amputation. No clubbing. No cyanosis. Neurological Examination: The patient is awake. She is answering my questions. She is not confused today. She does have generalized weakness. Laboratory: Sodium 134, potassium 4.6, chloride 96, bicarbonate 23, BUN 32, creatinine 4, glucose 77, calcium 9.2, magnesium 1.9. ASSESSMENT AND PLAN: 1. Transient hypotension, seems to be better controlled. Cardiology department has been adjusting her medications. 2. Abnormal troponin. Apparently, also this patient had an episode of chest pain, probably all related to the hypotension. For now, we will continue to monitor. 3. End-stage renal disease, on hemodialysis. She will receive treatment today. 4. Hypertension, stable. 5. Type 2 diabetes. Continue with the same management. I decreased the dose of the insulin Lantus yesterday because she was not eating too much and the blood sugar seems to be more stable. 6. Severe peripheral vascular disease with left dtcox-qwk-tlpy amputation. Aware. 7. I do believe this patient is much better. I am planning to discharge her tomorrow if cardiology department is okay with that. cc: Azam Delong MD
--- NOTE | 2019-11-27 16:45 | PROGRESS NOTE ---
DATE: 11/27/2019 SUBJECTIVE: Patient continues without chest discomfort or shortness of breath. She relates that she is feeling better. Appetite has improved. OBJECTIVE: Vital Signs: Blood pressure 132/81, heart rate 93. There is no significant jugular venous distention. Chest is clear to auscultation bilaterally. Cardiac Examination: Reveals a regular rate and rhythm without appreciable murmur or gallop. There is no evidence of peripheral edema. Laboratory Data: Includes sodium 134, potassium 4.6, chloride 96, carbon dioxide 23, BUN 32 creatinine 4.0, glucose 77. IMPRESSION: 1. Abnormal troponin and recent episode of chest discomfort, possibly angina, but described rather vaguely. Troponin has been elevated in the past in the setting of renal dysfunction. However, CPK-MB index was elevated with maximal CPK of 180. Coronary atherosclerosis suspected and is likely multivessel, given patient's coronary risk profile. She has preserved left ventricular ejection fraction by limited followup echocardiography. Medical management felt to be most appropriate, given patient's debility. Certainly, invasive management may be considered for refractory anginal symptoms despite medical therapy. 2. Transient hypotension which improved after curtailing some of her regular antihypertensive medications and administration of intravenous fluids. 3. Recent exposure to coronavirus potentially at [facility] where she resides. Coronavirus testing negative as of yesterday. 4. End-stage renal disease requiring hemodialysis. 5. Hypertension. 6. Type 2 diabetes mellitus. 7. Peripheral vascular disease and previous left xzoax-wvl-wexm amputation. RECOMMENDATIONS: 1. Continue current labetalol for blood pressure and as antianginal. 2. Continue antiplatelet therapy with aspirin as well as atorvastatin, given significant elevated LDL cholesterol. 3. Conservative cardiovascular management overall for the present. cc: Greg Beth MD
[2019-11-27] MEDS: LIPITOR PO SCH (21:08)
[2019-11-27] MEDS: REMERON PO SCH (21:08)
[2019-11-27] MEDS: LANTUS INSULIN SUBQ SCH (21:08)
[2019-11-28] MEDS: HUMALOG SUBQ SCH ×4 (06:07→21:37)
[2019-11-28] MEDS: PRILOSEC PO SCH (06:10)
[2019-11-28 06:31] LABS: CALCIUM 9.1 mg/dL (8.8-10.2); CREATININE 2.8 mg/dL (0.5-0.9); POTASSIUM 3.8 mmol/L (3.5-5.1)
[2019-11-28] MEDS: COLACE PO SCH ×2 (08:28→21:36)
[2019-11-28] MEDS: PHOSLO PO SCH ×3 (08:28→17:36)
[2019-11-28] MEDS: FOLIC ACID PO SCH (08:28)
[2019-11-28] MEDS: TRANDATE PO SCH ×2 (08:29→21:36)
[2019-11-28] MEDS: IMDUR PO SCH (08:29)
[2019-11-28] MEDS: TYLENOL PO SCH (08:29)
[2019-11-28] MEDS: ASPIRIN PO SCH (08:29)
[2019-11-28] MEDS: MYCOLOG CREAM TOP SCH ×2 (10:00→21:44)
--- NOTE | 2019-11-28 13:04 | PROGRESS NOTE ---
DATE: 11/28/2019 SUBJECTIVE: No big changes compared with yesterday. She seems to be feeling better. She is working with Occupational Therapy and Physical Therapy pending placement at this point. OBJECTIVE: Vital Signs: Temperature 97.6 degrees, pulse 95, respiratory rate 18, blood pressure 130/69, oxygen saturation 98 on room air. HEENT: Head normocephalic, no trauma. PERRLA. Neck: Supple. No JVD. No masses. Central trachea. Chest: Clear to auscultation. Some crepitus at the bases. Cardiovascular: RRR. Abdomen: Soft, slightly protuberant. Positive bowel sounds. Extremities: Left above the knee amputation. No clubbing. No cyanosis. Neurological examination: The patient is awake. She is answering my questions. She is not confused. She does have generalized weakness. LABORATORY: Sodium 132, potassium 3.8, chloride 96, bicarbonate 25. BUN 22, creatinine 28, glucose 260, calcium 9.1. ASSESSMENT AND PLAN: 1. Hypotension, better controlled. Cardiology Department has been adjusting her medications and she has been stable. 2. Abnormal troponin, probably due to hypotension in the setting of an end-stage renal disease patient. For now, I will monitor. Apparently, she was complaining of some chest pain at the beginning of this hospitalization, but this has resolved. 3. End-stage renal disease. Continue with hemodialysis as scheduled. 4. Hypertension, stable. 5. Type 2 diabetes. Continue with same management. I have decreased her dose of insulin Lantus to 10, but now that she seems to be eating better, I will increase it to 20, and see how she does. She used to be on 30 units, but she was having hypoglycemia. 6. Severe peripheral vascular disease with left above the knee amputation. Aware. I do believe this patient is ready to be discharged, pending placement at this point. I think the social media executive is trying to set up dialysis for her as well. cc: Azam Delong MD
[2019-11-28] MEDS: LIPITOR PO SCH (21:35)
[2019-11-28] MEDS: LANTUS INSULIN SUBQ SCH (21:36)
[2019-11-28] MEDS: REMERON PO SCH (21:36)
[2019-11-29] MEDS: HUMALOG SUBQ SCH ×4 (06:04→20:26)
[2019-11-29] MEDS: PRILOSEC PO SCH (06:17)
[2019-11-29] MEDS: IMDUR PO SCH (08:33)
[2019-11-29] MEDS: TYLENOL PO SCH (08:33)
[2019-11-29] MEDS: PHOSLO PO SCH ×3 (08:33→17:10)
[2019-11-29] MEDS: ASPIRIN PO SCH (08:34)
[2019-11-29] MEDS: FOLIC ACID PO SCH (08:34)
[2019-11-29] MEDS: TRANDATE PO SCH ×2 (08:34→20:26)
[2019-11-29] MEDS: COLACE PO SCH ×2 (08:34→20:26)
[2019-11-29] MEDS ORDERED: TIGHT: 0.2 ML/HR FOR DIALYSIS MISC PRN (09:58)
[2019-11-29] MEDS ORDERED: HEPARIN IV PRN (09:58)
[2019-11-29] MEDS ORDERED: NS 2,000 ML MISC PRN (09:58)
--- NOTE | 2019-11-29 12:29 | NEPHROLOGY PROGRESS NOTE ---
DATE: 11/29/2019 SUBJECTIVE: She states she is feeling better. No pain. No shortness of breath. No nausea or vomiting. She has been able to eat. OBJECTIVE: Vital Signs: Blood pressure 144/66, heart rate 92, respiration 18, afebrile. General: Lying flat, in no distress on room air. Skin: Warm and dry. Neck: Neck veins are not distended. Heart: Regular. Lungs: Equal. No crackles. Abdomen: Benign. Extremities: No edema. IMPRESSION: 1. Chronic kidney disease 5D. She will have her routine hemodialysis today and then we will transition back to her normal schedule of Sunday, Sunday and Sunday. Electrolytes/acid base/anemia/volume status all in target. cc: Benji Fitzgerald MD
--- NOTE | 2019-11-29 13:28 | PROGRESS NOTE ---
DATE: 11/29/2019 SUBJECTIVE: No big changes compared to yesterday. She seems to be stable. She will get dialysis today. Occupational Therapy and Physical Therapy are working with this patient, pending placement. OBJECTIVE: Vital Signs: Temperature 98.9 degrees, pulse 92, respiratory rate 18, blood pressure 144/66, oxygen saturation 96 on room air. HEENT: Head normocephalic, no trauma. PERRLA. Neck: Supple. No JVD. No masses. Central trachea. Chest: Clear to auscultation some crepitus at the bases. Abdomen: Soft, slightly protuberant, positive bowel sounds. Extremities: Left above the knee amputation. No clubbing. No cyanosis. Neurological: The patient is awake. She is answering some of my questions. She is not confused today, but she is not oriented to time. She does have generalized weakness. LABORATORY: No lab work done today. Blood sugar 124. ASSESSMENT AND PLAN: 1. Episodes of hypotension, controlled. Cardiology Department already adjusted her medications. Continue with same management. 2. Abnormal troponin, probably due to hypotension in the setting of end-stage renal disease patient. For now we will monitor. Apparently, she was complaining of some chest discomfort at the beginning of this hospitalization, but that has resolved. 3. End-stage renal disease. Continue with dialysis, hopefully today, and then she will go back to her routine dialysis Sunday, Sunday, and Sunday. 4. Hypertension, stable. 5. Type 2 diabetes. Continue with same management. She is getting Lantus 15 units daily, her blood sugar seems to be better controlled. 6. Severe peripheral vascular disease with a history of above the knee amputation. Aware. The patient is ready to be discharged, pending placement. cc: Azam Delong MD
[2019-11-29] MEDS: MYCOLOG CREAM TOP SCH ×2 (17:11→20:27)
[2019-11-29] MEDS: LANTUS INSULIN SUBQ SCH (20:26)
[2019-11-29] MEDS: REMERON PO SCH (20:26)
[2019-11-29] MEDS: LIPITOR PO SCH (20:26)
[2019-11-30] MEDS: PRILOSEC PO SCH (06:12)
[2019-11-30] MEDS: HUMALOG SUBQ SCH ×4 (06:12→20:55)
[2019-11-30] MEDS: ASPIRIN PO SCH (08:18)
[2019-11-30] MEDS: TYLENOL PO SCH (08:18)
[2019-11-30] MEDS: PHOSLO PO SCH ×3 (08:18→17:04)
[2019-11-30] MEDS: IMDUR PO SCH (08:18)
[2019-11-30] MEDS: FOLIC ACID PO SCH (08:18)
[2019-11-30] MEDS: TRANDATE PO SCH ×2 (08:18→20:43)
[2019-11-30] MEDS: COLACE PO SCH ×2 (08:18→20:43)
[2019-11-30] MEDS: MYCOLOG CREAM TOP SCH ×2 (08:19→20:44)
--- NOTE | 2019-11-30 13:04 | PROGRESS NOTE ---
DATE: 11/30/2019 SUBJECTIVE: No acute events overnight. OBJECTIVE: Vital Signs: Temperature is 97.7 degrees, pulse is 93, respiratory rate is 18, blood pressure is 167/67, oxygen saturation is 94% on room air. HEENT: Head is normocephalic and atraumatic. PERRLA. Neck: Supple. No JVD. No masses. Central trachea. Chest: Clear to auscultation. Some crepitus at the bases. Abdomen: Soft. Slightly protuberant. Positive bowel sounds. Extremities: Left above the knee amputation. No clubbing. No cyanosis. Neurological: The patient is sleepy but arousable. She is answering my questions. She is following commands. LABORATORY DATA: Glucose 163. ASSESSMENT AND PLAN: 1. Episode of hypotension, controlled. Cardiology Department already adjusted her medications. Continue with the same management. 2. Abnormal troponin probably due to hypotension in the setting of end-stage renal disease and likely coronary artery disease. Apparently she was complaining of some chest discomfort at the beginning of this hospitalization, but she is not complaining of chest pain at this moment. 3. End-stage renal disease. Continue with dialysis. Hopefully she will go back to her routine dialysis on Sunday, Sunday and Sunday. 4. Hypertension. Stable. 5. Type 2 diabetes. Continue with the same management. I have increased the dose of her insulin to 30, which is her home dose because she has been slightly hyperglycemic. 6. Severe peripheral vascular disease with a history of above the knee amputation. Aware. We will monitor for now. 7. Overall this patient is doing fine. I think she is ready to be discharged pending placement. cc: Azam Delong MD
[2019-11-30] MEDS: LIPITOR PO SCH (20:43)
[2019-11-30] MEDS: REMERON PO SCH (20:43)
[2019-11-30] MEDS ORDERED: LANTUS INSULIN SUBQ SCH (21:00)
[2019-12-01] MEDS: HUMALOG SUBQ SCH ×3 (06:34→17:40)
[2019-12-01] MEDS: PRILOSEC PO SCH (06:36)
[2019-12-01 06:55] LABS: HEMATOCRIT 35.5 % (37.0-47.0); HEMOGLOBIN 11.1 g/dL (12.0-16.0)
[2019-12-01 07:30] LABS: ALBUMIN 3.2 g/dL (3.5-5.0); CALCIUM 9.6 mg/dL (8.8-10.2); CREATININE 4.5 mg/dL (0.5-0.9); PHOSPHORUS 3.5 mg/dL (2.7-4.5); POTASSIUM 4.3 mmol/L (3.5-5.1)
[2019-12-01] MEDS ORDERED: NS 2,000 ML MISC PRN (09:16)
[2019-12-01] MEDS: PHOSLO PO SCH ×3 (09:44→17:41)
[2019-12-01] MEDS: COLACE PO SCH (09:44)
[2019-12-01] MEDS: MYCOLOG CREAM TOP SCH (09:45)
--- NOTE | 2019-12-01 10:56 | DISCHARGE SUMMARY ---
ADMISSION DATE: 11/21/2019 DISCHARGE DATE: 12/01/2019 PRIMARY CARE PHYSICIAN: Listed as none. ADMISSION DIAGNOSES: 1. Probable non ST elevation myocardial infarction. 2. End-stage renal disease with hemodialysis Sunday, Sunday, Sunday. 3. Poorly-controlled diabetes. 4. Chronic obstructive pulmonary disease. 5. Hypertension. DISCHARGE DIAGNOSES: 1. Abnormal troponin, probably due to hypotension in the setting of end-stage renal disease and likely coronary artery disease, resolved. 2. End-stage renal disease with dialysis Sunday, Sunday, Sunday. 3. Hypertension. 4. Diabetes type 2. 5. Severe peripheral vascular disease with a history of [id number] amputation. SUMMARY OF FINDINGS: This is a 69-year-old female, who presented from [facility] with an onset of dull substernal chest pain with radiation straight through to her back and into her left arm. She has a history of end-stage renal disease and has hemodialysis on Sunday, Sunday, Sunday. States she began feeling short of breath and nauseated with the episode. Stated that the nitroglycerin the paramedics gave her helped. Her troponin was noted to be 575 in the emergency room, so she was admitted with a possible non ST-segment elevation myocardial infarction. Cardiology was consulted, Nephrology was consulted. She also had a COVID-19 swab that was read as not detected. Echocardiogram on 11/24/2019 showed an ejection fraction of 55 to 60 percent with a preserved left ventricular contractility. Some adjustments to her medications were made by Cardiology as she was having some episodes of hypotension. Today her blood pressure is 139/62, and it is now felt that she can safely be discharged to rehab. DISCHARGE MEDICATIONS: Acetaminophen Extra Strength 2 tablets p.o. daily, aspirin 81 mg p.o. daily, atorvastatin 40 mg p.o. at bedtime, Dulcolax one suppository rectally at bedtime, calcium acetate 667 mg p.o. t.i.d., Colace 100 mg p.o. b.i.d., folic acid 1 mg p.o. daily, Basaglar insulin 30 units subcutaneous at bedtime, Imdur 30 mg p.o. daily, labetalol 200 mg p.o. b.i.d., metoclopramide 10 mg p.o. q. 6 hours p.r.n., nystatin/triamcinolone cream 1 topically b.i.d., omeprazole 20 mg p.o. daily, mirtazapine 30 mg p.o. at bedtime, tramadol 50 mg p.o. q. 6 hours p.r.n. FOLLOWUP: She will follow up with Nephrology for her scheduled dialysis on Sunday, Sunday, Sunday. She will follow up with Cardiology in 1 month. TIME SPENT: 35 minutes. Dictated by BRIANNA Pereira for Azam Delong MD cc: BRIANNA Pereira MD
[2019-12-01] MEDS: ASPIRIN PO SCH (16:00)
[2019-12-01] MEDS: FOLIC ACID PO SCH (16:01)
[2019-12-01] MEDS: IMDUR PO SCH (16:01)
[2019-12-01] MEDS: TRANDATE PO SCH (16:03)
[2019-12-01] MEDS: TYLENOL PO SCH (16:03)
[2019-12-01 16:08] VITALS: BP 112/56
--- NOTE | 2019-12-01 17:52 | NEPHROLOGY PROGRESS NOTE ---
DATE: 12/01/2019 SUBJECTIVE: She is feeling well. She is eating well. Anticipates discharge. OBJECTIVE: Vital Signs: Blood pressure 112/56, heart rate 92, respirations 20, afebrile. General: No acute distress. Skin is warm and dry. Cardiovascular: Heart is regular with systolic murmur. Lungs are equal. No crackles or wheezes. Abdomen: Abdomen is soft, nontender. Bowel sounds present. Extremities: No edema. IMPRESSION: Chronic kidney disease 5D. She is euvolemic. Electrolytes, acid-base anemia and blood pressure all in target. cc: Benji Fitzgerald MD
== END 2019-12-01 19:21 | DRG 302 ==
LOC: ED 02:12 → SUATTDRO 06:30 → 2N 06:30 → ICU 11-22 12:50 → 1N 11-26 16:08 → 3N 11-28 14:31
PROVIDERS: ATTEND Internal Medicine